=== PATIENT | male | born 1955 | race Caucasian/White ===

== ENCOUNTER 2016-08-09 00:26 | Inpatient (IN) | payer MEDICAID, OTHER ==
[2016-08-09] VITALS (25 sets, daily range): BP systolic 76–117; BP diastolic 34–60
[~2016-08-09] VITALS: Ht 185.4 cm; Wt 98.9 kg
[2016-08-09] MEDS ORDERED: ACETAMINOPHEN 650 MG/20.3 ML LIQUID UDC GT ONE (00:45)
[2016-08-09] MEDS ORDERED: ALBUMIN HUMAN 5% 250 ML IV ONE (00:45)
[2016-08-09] MEDS ORDERED: CHOL500050 GT (00:49)
[2016-08-09] MEDS ORDERED: DOCU100C36 PO (00:49)
[2016-08-09] MEDS ORDERED: APIX2.5T GT (00:49)
[2016-08-09] MEDS ORDERED: METO25TA6 GT (00:49)
[2016-08-09] MEDS ORDERED: MULT1TAB11 GT (00:49)
[2016-08-09] MEDS ORDERED: GABA100C GT (00:49)
[2016-08-09] MEDS ORDERED: LACT1CAP89 GT (00:49)
[2016-08-09] MEDS ORDERED: SEVE800T8 GT (00:49)
[2016-08-09 01:12] LABS: BASOPHILS # (AUTO) 0.1 K/uL (0.0-8.0); BASOPHILS % (AUTO) 0.7 % (0.0-2.0); LYMPHOCYTES # (AUTO) 2.3 K/uL (20.0-40.0); MEAN CORPUSCULAR VOLUME 87.9 fL (73.0-96.2)
[2016-08-09 01:16] LABS: EOSINOPHILS # (AUTO) 0.5 K/uL (0.0-0.7); EOSINOPHILS % (AUTO) 2.8 % (0.0-7.0); LYMPHOCYTES % (AUTO) 13.6 % (20.5-51.5); MEAN CORPUSCULAR HEMOGLOBIN 29.7 uug (23.8-33.4); MEAN CORPUSCULAR HGB CONC 34 g/dL (32.5-36.3); MONOCYTES % (AUTO) 11.7 % (0.0-11.0); NEUTROPHILS # (AUTO) 11.9 K/uL (1.8-8.9); NEUTROPHILS % (AUTO) 71.2 % (38.5-71.5); WHITE BLOOD COUNT (AUTO) 16.8 K/uL (3.6-10.2)
[2016-08-09] MEDS ORDERED: ACETAMINOPHEN 650 MG/20.3 ML LIQUID UDC ONE (01:22)
[2016-08-09] MEDS ORDERED: ALBUMIN HUMAN 5% 250 ML ONE ×2 (01:22→04:43)
[2016-08-09 01:23] LABS: MAGNESIUM 2.5 mg/dL (1.8-2.4); PHOSPHOROUS 4.9 mg/dL (2.5-4.9)
[2016-08-09 01:24] LABS: CREATININE 4.1 mg/dL (0.6-1.3)
[2016-08-09 01:25] LABS: BILIRUBIN,DIRECT 0.6 mg/dL (0.0-0.2); BILIRUBIN,TOTAL 0.8 mg/dL (0.2-1.0)
[2016-08-09 01:25] LABS: ABG BASE EXCESS -4.3 mmol/L; ABG HCO3 20.3 mmol/L; ABG PCO2 34.8 mmHg (35.0-45.0); ABG PH 7.384 (7.350-7.450); ABG PO2 100.5 mmHg (75.0-100.0); ABG SITE RIGHT BRACHIAL; ABG TOTAL HEMOGLOBIN 8.1 G/dL (13.5-18.0); COHb 1.3 % (0.5-1.5); MetHb 0.4 % (0.0-1.5); O2Hb 96.4 % (94.0-97.0); VENT MODE VENT - A/C; VT, ABG 550 mL
[2016-08-09 01:34] LABS: HEMOGLOBIN 7.2 g/dL (12.5-16.3); RED BLOOD CELL COUNT(AUTO) 2.42 MIL/uL (4.06-5.63)
[2016-08-09 01:35] LABS: HEMATOCRIT 21.3 % (36.7-47.1)
[2016-08-09 01:36] LABS: PLATELET COUNT (AUTO) 589 K/uL (152-348)
[2016-08-09 01:59] LABS: *BILIRUBIN,URIN 1+ (NEGATIVE); *BLOOD, URINE Trace-lysed (NEGATIVE); *CLARITY,URINE SLIGHTLY CLOUDY (CLEAR); *KETONES,URINE NEGATIVE (NEGATIVE); *PROTEIN,URINE 3+ (NEGATIVE); *UROBILINOGEN,URINE 0.2 E.U./dl (NORMAL); LEUKOCYTE ESTERASE ,URINE NEGATIVE (NEGATIVE); NITRITE, URINE NEGATIVE (NEGATIVE); UGLUCOSE 2+ (NEGATIVE)
[2016-08-09] MEDS ORDERED: PIPERACILLIN/TAZO 0.75 G in IV DEXTROSE 5% 50 ML IV STA (02:05)
[2016-08-09 02:07] LABS: BACTERIA,URINE MANY /HPF (NONE SEEN); SQUAMOUS EPITHELIAL CELL,UR MODERATE /HPF (NONE SEEN); URINE AMORPHOUS URATE MODERATE /HPF; WBC,URINE 20-50 /HPF (0-3)
[2016-08-09] MEDS ORDERED: VANCOMYCIN 1G/D5W 200 ML PIGGYBACK IV ONE (02:15)
--- NOTE | 2016-08-09 02:37 | NUR ---
PT BROUGHT IN BY RESCUE APPROX. 00:33 WITH VENTILATOR ON PT WITH SHILEY #[address] AND SECURED, PT THEN PLACED ON GODDARD VENT WITH SETTINGS, A/C 16, VT 550ML, 40%, PEEP 5, PT DOES ASSIST AT TIMES, CHECK CUFF, PT NOT RESPONDING TO VERBAL COMMANDS, SUCTION FOR SPUTUM DONE, ABG DONE IN ER, PT HAS SLIGHTLY LOW B/P , PT WITH ADEQUATE VENTILATION, NO VENT CHANGES MADE AT THIS TIME, ALL ALARMS OK, AMBU BAG AT BEDSIDE.Maame DE DIOSP Addendum: 08/09/16 at 0242 by JONNATHAN CHANDLER RT Amended: Links added.
--- NOTE | 2016-08-09 03:05 | NUR ---
Called Jay Alcala for a panal call. Waiting for MD to call back.
[2016-08-09] MEDS ORDERED: PIPERACILLIN/TAZOBACTAM/D5W 50 ML ONE (03:36)
[2016-08-09] MEDS ORDERED: ALBUMIN HUMAN 5% 250 ML BOTTLE IV ONE (04:00)
--- NOTE | 2016-08-09 05:28 | NUR ---
Pt remains on Burns on same settings (AC 16, VT 550, PEEP +5 and FIO2-40%). Shiley 8 DCT remains patent and secure. BVM and B/U Shiley 8 DCT at bedside. No resp. distress noted at this time. Burns alarm parameters have been checked and remain audible at this time.
--- NOTE | 2016-08-09 07:21 | NUR ---
rec'd sbar report from cristina rn, pt on vent monitor shows nsr.fowley cath to gravity. no distress noted 2nd albumin infused. presently awaiting for shift change prior to transfer.
--- NOTE | 2016-08-09 07:22 | NUR ---
SBAR report given to Richie MARIA.
--- NOTE | 2016-08-09 07:25 | NUR ---
pt transfered to [facility] via [facility] on vent/monitor with resp tx present for transfer.
--- NOTE | 2016-08-09 07:31 | NUR ---
called to notify pt transfer, however pt's bed awaiting first step mattress, and 2nd floor to call me back after it's done.
--- NOTE | 2016-08-09 07:45 | NUR ---
Patient received on Burns Vent with ordered settings of AC 16, VT 550, PEEP +5 and FIO2-40%. He is trached with Shiley 8# tube. CAR JOCKEY used for cuff assessment. Patient transfered to [facility] with the assistance of Alysia MARIA from ER. Placed continuous pulse ox to monitor vitals. Suctioned small amounts of thin pale white secretions without complications. He shows no signs of respiratory distress. Alarm parameters assessed and are on and audible Spare trach and ambu bag at bedside. Will continue to monitor.
--- NOTE | 2016-08-09 08:00 | NUR ---
received from ER per anna on mechanical ventilator with the settings as follows:AC 16, TV 550, FIO2 40% and PEEP 5, with tracheostomy Shiley #8, opens eyes when touched and name called but doesn't follow commands, Tele afib 90's, GT clamped at this time, routine admission care rendered, initial assessment done, first step mattress applied. Diaz cath draining greenish-yellowish urine. aspiration and fall risk initiated
[2016-08-09] MEDS ORDERED: DOSING BY PHARMACY-MD TO SPECIFY MED/ROUTE XX PRN (08:30)
[2016-08-09] MEDS ORDERED: Medication Not On Formulary EA (Apixaban (Eliquis) 2.5 MG) GT SCH (09:15)
[2016-08-09] MEDS ORDERED: Medication Not On Formulary EA (Cholecalciferol (Vitamin D3) (Vitamin D3 CAPSULE) 50,000 GT SCH (09:15)
[2016-08-09] MEDS ORDERED: APIXABAN 5 MG TABLET PO SCH (09:15)
[2016-08-09] MEDS ORDERED: METOPROLOL TARTRATE 25 MG TABLET GT SCH (09:15)
[2016-08-09] MEDS ORDERED: MULTIVITAMINS W MINERALS GT SCH (09:15)
--- NOTE | 2016-08-09 10:00 | NUR ---
Dr Dejesus here- informed of low BP 88/45, ordered 2 units of PRBC- i unit can be given when avail and 1 unit on dialysis, prestressed concrete laborer here to draw blood
--- NOTE | 2016-08-09 10:30 | NUR ---
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
[2016-08-09] MEDS: DOCUSATE SODIUM 100 MG/10 ML LIQUID UDC GT SCH ×2 (10:43→21:20)
[2016-08-09] MEDS: GABAPENTIN 100 MG CAPSULE GT SCH ×2 (10:44→21:20)
[2016-08-09] MEDS: FOLIC ACID/VITAMIN B COMP W-C TABLET GT SCH (10:44)
[2016-08-09] MEDS: ACIDOPHILUS/BULGARICUS CHEW TAB GT SCH ×2 (10:44→21:20)
[2016-08-09] MEDS: NOVASOURCE RENAL 1000 ML LIQUID GT PRN (11:28)
--- NOTE | 2016-08-09 11:30 | NUR ---
Tube fdg [facility] renal at 80ml/hr- no residual noted prior, repositioned q 2h with left heel off loaded with pillow, (decubitus on sacrum), below right knee amputee
--- NOTE | 2016-08-09 12:12 | NUR ---
Clinical Pharmacy Note: Vancomycin Dosing per Pharmacy Subjective: Vancomycin IV to continue on this HD patient for sepsis, pna (Waiting for MD notes) Patient received vancomycin 1gm IVPB x1 in ED on 08/09 at 0200 Objective: BUN 59/Scr 4.1 WBC 16.8 Temperature 98.3 Pre-HD level: 11.2 Assessment/Plan: HD scheduled for today per HD RN. Since level is below 15 mcg/ml, will give vancomycin 1gm IVPB x1 today post HD as per vanco dosing protocol for HD patients. Will continue to dose per pre-HD vancomycin level. Will continue to follow daily.
[2016-08-09] MEDS: SEVELAMER CARBONATE 800 MG POWD.PACK GT SCH ×2 (12:32→17:31)
--- NOTE | 2016-08-09 13:20 | NUR ---
BP 84/43- first unit of blood started, human resources advisor not here yet- will monitor closely
--- NOTE | 2016-08-09 14:00 | NUR ---
blood transfusion infusing without any reaction- will continue to monitor closely
[2016-08-09] MEDS: PIPERACILLIN/TAZOBACTAM/D5W 2.25 G in PREMIXED 1 EACH IV SCH ×2 (15:00→21:20)
[2016-08-09] MEDS ORDERED: DEXTROSE 50% 50 ML DISP.SYRIN IV PRN (15:15)
[2016-08-09] MEDS ORDERED: IV NORMAL SALINE 250 ML IV ONE (15:15)
[2016-08-09] MEDS ORDERED: ALBUMIN HUMAN 25% 100 ML IV ONE (16:15)
--- NOTE | 2016-08-09 16:20 | NUR ---
first unit completed- dialysis here - to give 2nd unit of PRBC
[2016-08-09] MEDS ORDERED: ALBUMIN HUMAN 25% 100 ML IV PRN (16:45)
[2016-08-09] MEDS ORDERED: LACTOBACILLUS ACIDOPHILUS C GT SCH (17:00)
[2016-08-09] MEDS: BLOOD SUGAR DIAGNOSTIC 1 EACH STRIP VI SCH (17:35)
[2016-08-09] MEDS ORDERED: VANCOMYCIN IV 1,500 MG in IV DEXTROSE 5% 500 ML IV ONE (18:00)
[2016-08-09] MEDS ORDERED: VANCOMYCIN IV 1 G in PREMIXED 0 EACH IV ONE (18:30)
--- NOTE | 2016-08-09 18:30 | NUR ---
dialysis completed, BP 84/46- 700 fluid out
--- NOTE | 2016-08-09 19:02 | NUR ---
vs taken BP 80/39, opens eyes when touched and name is called, still on a fib 96, remains on same vent settings, sat at 99%-endorsed to next shift
--- NOTE | 2016-08-09 19:38 | NUR ---
nsg: pt received lethargic. v/s as follows: bp 79/34, hr 99, bp 80/47 hr 97, temp 99.6F oral, 99% O2 sat with current vent setting, FIO2 of 40%. paged medical receptionist , Dr. Hudson.
[2016-08-09] MEDS ORDERED: ALBUMIN HUMAN 25% 100 ML IV STA (19:47)
[2016-08-09] MEDS ORDERED: IV NORMAL SALINE 500 ML IV ONE (20:00)
[2016-08-09] MEDS ORDERED: DOCUSATE SODIUM 100 MG CAPSULE PO SCH (21:00)
[2016-08-09] MEDS: ATORVASTATIN 40 MG TABLET PO SCH (21:20)
--- NOTE | 2016-08-09 21:36 | NUR ---
PT ON CONT GODDARD VENT WITH SHILEY #[address] AND SECURED WITH SAME CURRENT VENT SETTINGS, A/C 16, VT 550ML, 40%, PEEP 5, PT DOES ASSIST AT TIMES, BUT MOSTLY CONTROLLED VENTILATION, CHECK CUFF, SUCTIONED LIGHT PALE YELL TINGE PALE YELL TINGE SECRETIONS, FAIR COUGH EFFORT, PT WITH CONT PULSE OXY 98%, PT WITH LOW BP AT TIMES, MAY GO TO CCU LATER WITH RT ASSIST, ALL ALARMS OK, AMBU BAG AT BEDSIDE.Maame CHANDLER SYRUP MACHINE LABORER Addendum: 08/09/16 at 2139 by JONNATHAN CHANDLER RT Amended: Links added.
--- NOTE | 2016-08-09 21:56 | NUR ---
NSG: PT RECEIVED NS 500ML BOLUS AND 25% ALBUMIN X 2 BOTTLES. STILL HYPOTENSIVE. TRANSFER TO ICU. SEE MD ORDER.
--- NOTE | 2016-08-09 22:30 | NUR ---
NSG: TRANSFER TO ICU, REPORT GIVEN TO CANDACE ERVIN.
--- NOTE | 2016-08-09 22:35 | NUR ---
Received patient from 2nd floor secondary to sepsis and hypotension. To CCU 2. Patient with trache to vent; settings as follows: ZE=675 ml, AC=16, FIO2=40% and PEEP=5. Sat above 94%. Doesn't open eyes to name or follow any commands. Assessment completed. Addendum: 08/10/16 at 0239 by ARCADIO BOWIE RN Amended: Links added.
--- NOTE | 2016-08-09 22:41 | NUR ---
PT WITH RT ASSIST WITH TRANSPORT @ 22:11, PT WITH VENT, WITH TRACH; PT BEING AMBU BAGGED VIA TRACH BY RT, FROM 211, TO CCU2 WITH MONITOR AND PULSE OXY, PT STABLE. Maame CHANDLER ASSISTANT PRODUCT MANAGER Addendum: 08/09/16 at 2243 by JONNATHAN CHANDLER RT Amended: Links added.
[2016-08-09] MEDS ORDERED: NOREPINEPHRINE BITARTRATE 8 MG in IV DEXTROSE 5% 500 ML IV PRN (23:00)
--- NOTE | 2016-08-09 23:00 | NUR ---
Spoke with Dr. Tristan wade: patient's hypotension. Orders received. Rubber Turner Ulysses notified of the need for PICC line. Addendum: 08/10/16 at 0242 by ARCADIO BOWIE RN Amended: Links added. Addendum: 08/10/16 at 0243 by ARCADIO BOWIE RN Amended: Links added. Addendum: 08/10/16 at 0246 by ARCADIO BOWIE RN Amended: Links added. Addendum: 08/10/16 at 0249 by ARCADIO BOWIE RN Amended: Links added.
[2016-08-09] MEDS ORDERED: NOREPINEPHRINE BITARTRATE 4 MG/4 ML VIAL IV ONE (23:20)
--- NOTE | 2016-08-09 23:22 | NUR ---
Remains hypotensive. Levophed drip started for BP support to patent LFA IV site. BPs monitored closely. Addendum: 08/10/16 at 0243 by ARCADIO BOWIE RN Amended: Links added. Addendum: 08/10/16 at 0246 by ARCADIO BOWIE RN Amended: Links added. Addendum: 08/10/16 at 0249 by ARCADIO BOWIE RN Amended: Links added.
[2016-08-10] VITALS (94 sets, daily range): BP systolic 66–129; BP diastolic 21–80
[2016-08-10] MEDS: BLOOD SUGAR DIAGNOSTIC 1 EACH STRIP VI SCH ×4 (00:06→17:10)
[2016-08-10] MEDS: INSULIN REGULAR, HUMAN 300 UNIT/3 ML VIAL SQ PRN ×3 (00:08→17:13)
--- NOTE | 2016-08-10 00:15 | NUR ---
Spoke to patient's brother Bird. Consent for PICC line insertion obtained. Levophed drip titrate to keep MAP 65 and above.
--- NOTE | 2016-08-10 01:00 | NUR ---
Had a large diarrhea of liquid yellow brown stools. Specimen sent to lab for stool C. diff. Flexi seal inserted without difficulty. Bath given. Wound care treatment done to sacral wound. Addendum: 08/10/16 at 0249 by ARCADIO BOWIE RN Amended: Links added.
--- NOTE | 2016-08-10 01:00 | NUR ---
PICC line successfully inserted to DANYELLE by Brandon MARIA. Levophed drip attached to PICC line port. 2 other ports flushed with NS without problems. Addendum: 08/10/16 at 0246 by ARCADIO BOWIE RN Amended: Links added. Addendum: 08/10/16 at 0249 by ARCADIO BOWIE RN Amended: Links added.
--- NOTE | 2016-08-10 02:20 | NUR ---
Spoke to Dr. Hudson re: patient's HR; Afib rate 110's-120's. Order received. Levophed drip changed to Neosynephrine drip. BPs monitored closely. Addendum: 08/10/16 at 0329 by ARCADIO BOWIE RN Amended: Links added. Addendum: 08/10/16 at 0330 by ARCADIO BOWIE RN Amended: Links added.
[2016-08-10] MEDS ORDERED: PHENYLEPHRINE 10 MG/1 ML VIAL ONE (02:24)
[2016-08-10] MEDS: PHENYLEPHRINE IV 40 MG in IV DEXTROSE 5% 250 ML IV PRN ×3 (02:29→18:05)
--- NOTE | 2016-08-10 03:00 | NUR ---
Tube feeding held for now. Patient flat in bed most of the time due to hypotension. Also patient has large amounts of diarrhea.
--- NOTE | 2016-08-10 05:00 | NUR ---
PT ON CONT GODDARD VENT WITH SHILEY # [address] AND SECURED, WITH SAME CURRENT VENT SETTINGS, A/C 16, VT 550ML, 40%, PEEP 5, PT DOES ASSIST AT TIMES, SUCTIONED LIGHT PALE YELL TINGE SECRETIONS, FAIR COUGH EFFORT, PT HAS TAKEN TO CCU DUE TO LOW BP, WITH RT ASSIST; ALSO PT HAD PIC/ LINE IN PLACE, NO VENT CHANFES MADE AT THIS TIME, ALL ALARMS OK, AMBU BAG AT BEDSIDE.Maame CHANDLER ORTHO NURSE Addendum: 08/10/16 at 0503 by JONNATHAN CHANDLER RT Amended: Links added.
[2016-08-10 05:30] LABS: BASOPHILS # (AUTO) 0.1 K/uL (0.0-8.0); BASOPHILS % (AUTO) 0.8 % (0.0-2.0); EOSINOPHILS # (AUTO) 0.5 K/uL (0.0-0.7); EOSINOPHILS % (AUTO) 3.2 % (0.0-7.0); HEMATOCRIT 24.4 % (36.7-47.1); HEMOGLOBIN 7.9 g/dL (12.5-16.3); LYMPHOCYTES # (AUTO) 1.7 K/uL (20.0-40.0); LYMPHOCYTES % (AUTO) 10.3 % (20.5-51.5); MEAN CORPUSCULAR HEMOGLOBIN 28.5 uug (23.8-33.4); MEAN CORPUSCULAR HGB CONC 32 g/dL (32.5-36.3); MONOCYTES # (AUTO) 2.3 K/uL (2.0-10.0); MONOCYTES % (AUTO) 13.6 % (0.0-11.0); NEUTROPHILS # (AUTO) 12.4 K/uL (1.8-8.9); NEUTROPHILS % (AUTO) 72.1 % (38.5-71.5); PLATELET COUNT (AUTO) 556 K/uL (152-348); RED BLOOD CELL COUNT(AUTO) 2.77 MIL/uL (4.06-5.63)
[2016-08-10] MEDS: PIPERACILLIN/TAZOBACTAM/D5W 2.25 G in PREMIXED 1 EACH IV SCH ×2 (05:36→13:40)
[2016-08-10 05:41] LABS: BILIRUBIN,TOTAL 2.7 mg/dL (0.2-1.0); MAGNESIUM 2.4 mg/dL (1.8-2.4); PHOSPHOROUS 3.8 mg/dL (2.5-4.9); POTASSIUM 3.8 mmol/L (3.5-5.1); TOTAL PROTEIN, SERUM 6.7 g/dL (6.4-8.2)
[2016-08-10 05:45] LABS: CREATININE 3.6 mg/dL (0.6-1.3)
--- NOTE | 2016-08-10 07:00 | NUR ---
BPs stabilizing with Neosynephrine drip at 100 mcg/min.
--- NOTE | 2016-08-10 07:35 | NUR ---
PT RECEIVED ON GODDARD VENT #008 ON SETTINGS OF AC 16, VT550, PEEP +5, FIO2 40%. PT TRACH SIZE SHILEY 8DCT IS SECURED AND INTACT WITH TRACH TIE. PT WAS SUCTION VIA TRACH AND MOUTH. PT ORAL CARE WAS DONE RN AWARE. PT HME WAS CHANGED PT TRACH CUFF WAS CHECKED WITH PULP MIXER. PT VENT ALARMS ON AND AUDIBLE. PT AMBU-BAG AT BED SIDE. PT HAS NO PRN TX PT HAS NO BAG ORDER . WILL CONTINUE TO MONITOR PT THROUGHOUT SHIFT.
[2016-08-10] MEDS: GABAPENTIN 100 MG CAPSULE GT SCH ×2 (08:54→21:50)
[2016-08-10] MEDS: ACIDOPHILUS/BULGARICUS CHEW TAB GT SCH ×2 (08:54→21:50)
[2016-08-10] MEDS: FOLIC ACID/VITAMIN B COMP W-C TABLET GT SCH (08:54)
[2016-08-10] MEDS: PANTOPRAZOLE SODIUM 40 MG VIAL IV SCH (08:54)
[2016-08-10] MEDS: DOCUSATE SODIUM 100 MG/10 ML LIQUID UDC GT SCH ×2 (08:54→21:00)
[2016-08-10] MEDS: SEVELAMER CARBONATE 800 MG POWD.PACK GT SCH ×3 (08:55→17:07)
[2016-08-10] MEDS: HEPARIN SODIUM,PORCINE 5,000 UNITS/ML VIAL SQ SCH ×2 (08:58→21:00)
--- NOTE | 2016-08-10 10:44 | NUR ---
Clinical Pharmacy Note: Vancomycin Dosing per Pharmacy Subjective: Vancomycin IV to continue on this HD patient for sepsis,UTI, decub Objective: BUN 49/Scr 3.6 WBC 17 Temperature 99.6 Pre-HD level: 11.2 Assessment/Plan: No HD has been scheduled for today per HD RN. As per vanco dosing protocol for HD patients,no vanco dose is due today. Will continue to dose per pre-HD vancomycin level. Will continue to follow daily.
--- NOTE | 2016-08-10 10:45 | NUR ---
Dr. Hernandez in the unit to see patient.
[2016-08-10] MEDS: NOVASOURCE RENAL 1000 ML LIQUID GT PRN (10:53)
--- NOTE | 2016-08-10 11:30 | NUR ---
Andre Gallego in the unit to see patient full report given see orders.
--- NOTE | 2016-08-10 14:30 | NUR ---
Dr. Wade informed that patients diarrhea got worsen when patient started on feeding. Orders to stop feeding received. and place under main group.
--- NOTE | 2016-08-10 15:12 | NUR ---
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 BK STUMP NOTED TO RIGHT LOWER EXTREMITY. ALL SKIN AND WOUND RECOMMENDATIONS DISCUSSED WITH NURSING STAFF. IN AGREEMENT WITH PLAN OF CARE. [facility] BED WITH ETS AIR ORDERED. Addendum: 08/10/16 at 1514 by BONNY QUINONES RN Amended: Links added. Addendum: 08/10/16 at 1515 by BONNY QUINONES RN SURGICAL CONSULT RECOMMENDED.
[2016-08-10] MEDS ORDERED: DOSING PER PHARMACY-AMIKACIN IV XX PRN (15:15)
--- NOTE | 2016-08-10 16:33 | NUR ---
Clinical Pharmacy Note: Amikacin Dosing per Pharmacy Subjective: Amikacin IV to start on this HD patient for h/o pneumonia due to CRE, only sensitive to amkacin at SOH (per ID) ABW = 97 kg Objective: BUN 49/Scr 3.6 WBC 17 Temperature 99.6 Assessment/Plan: No HD has been scheduled for today per HD RN. Will give amikacin 1000mg IVPB x1 today (see adjusted body wt). Will further dose per pre-HD level (ordered for tomorrow- HD scheduled for tomorrow. Will continue to follow daily.
[2016-08-10] MEDS ORDERED: DEXTROSE 5% IV ONE (17:00)
[2016-08-10] MEDS ORDERED: AMIKACIN IV ONE (17:00)
[2016-08-10] MEDS: VANCOMYCIN FOR PO/GT/NG USE GT SCH (17:07)
[2016-08-10] MEDS: SODIUM HYPOCHLORITE 0.125% 473 ML BOTTLE TP SCH (17:07)
--- NOTE | 2016-08-10 18:00 | NUR ---
Dr. Wade in the unit to see patient.
--- NOTE | 2016-08-10 20:05 | NUR ---
Pt received on Burns vent with settings of AC 16, VT 550, Peep +5, FiO2 40%. Pt is trached with a Shiley 8DCT trach, secured with foam trach tie. Oral care done. No signs of respiratory distress noted at this time. Pt appears to be tolerating vent settings well. Suctioned and lavaged pt with moderate amount of pale secretions. Vent alarms checked, is functioning and audible. Ambu-bag at bedside. Will continue to monitor pt throughout shift.
[2016-08-10] MEDS ORDERED: LACTOBACILLUS RHAMNOSUS GG 1 EACH CAPSULE GT SCH (21:00)
[2016-08-10] MEDS: MEROPENEM 500 MG in IV NORMAL SALINE 50 ML IV SCH (21:49)
[2016-08-10] MEDS: ATORVASTATIN 40 MG TABLET PO SCH (21:50)
[2016-08-10] MEDS: METRONIDAZOLE 500 MG/NS 100ML 500 MG in PREMIXED 1 EACH IV SCH (21:50)
[2016-08-10] MEDS: Z GUARD REMEDY PASTE 57 GM TUBE TOP SCH (22:26)
[2016-08-11] VITALS (71 sets, daily range): BP systolic 81–114; BP diastolic 44–72
[2016-08-11] MEDS: VANCOMYCIN FOR PO/GT/NG USE GT SCH ×5 (00:33→23:24)
[2016-08-11] MEDS: BLOOD SUGAR DIAGNOSTIC 1 EACH STRIP VI SCH ×5 (00:34→23:25)
[2016-08-11] MEDS: INSULIN REGULAR, HUMAN 300 UNIT/3 ML VIAL SQ PRN ×2 (00:38→23:27)
[2016-08-11 06:13] LABS: BILIRUBIN,TOTAL 1.8 mg/dL (0.2-1.0); MAGNESIUM 2.2 mg/dL (1.8-2.4); PHOSPHOROUS 4.2 mg/dL (2.5-4.9); POTASSIUM 3.7 mmol/L (3.5-5.1); TOTAL PROTEIN, SERUM 6.2 g/dL (6.4-8.2); VANCOMYCIN,RANDOM 17.1 ug/mL (18.0-26.0)
[2016-08-11 06:18] LABS: CREATININE 4.4 mg/dL (0.6-1.3)
[2016-08-11] MEDS: PHENYLEPHRINE IV 40 MG in IV DEXTROSE 5% 250 ML IV PRN ×3 (06:22→18:19)
[2016-08-11] MEDS: METRONIDAZOLE 500 MG/NS 100ML 500 MG in PREMIXED 1 EACH IV SCH ×3 (06:22→21:23)
[2016-08-11] MEDS: PANTOPRAZOLE SODIUM 40 MG VIAL IV SCH (08:36)
[2016-08-11] MEDS: GABAPENTIN 100 MG CAPSULE GT SCH ×2 (08:37→20:50)
[2016-08-11] MEDS: ACIDOPHILUS/BULGARICUS CHEW TAB GT SCH ×2 (08:37→20:50)
[2016-08-11] MEDS: FOLIC ACID/VITAMIN B COMP W-C TABLET GT SCH (08:37)
[2016-08-11] MEDS: Z GUARD REMEDY PASTE 57 GM TUBE TOP SCH ×2 (08:37→20:58)
[2016-08-11] MEDS: SODIUM HYPOCHLORITE 0.125% 473 ML BOTTLE TP SCH (08:37)
[2016-08-11] MEDS: ERGOCALCIFEROL 50,000 UNIT CAPSULE GT SCH (08:39)
[2016-08-11] MEDS: SEVELAMER CARBONATE 800 MG POWD.PACK GT SCH ×3 (08:39→17:42)
[2016-08-11] MEDS: HEPARIN SODIUM,PORCINE 5,000 UNITS/ML VIAL SQ SCH ×2 (08:40→20:52)
[2016-08-11] MEDS: DOCUSATE SODIUM 100 MG/10 ML LIQUID UDC GT SCH ×2 (08:46→20:51)
[2016-08-11 09:19] LABS: ABG HCO3 19.8 mmol/L; ABG PCO2 35.7 mmHg (35.0-45.0); ABG PH 7.362 (7.350-7.450); ABG PO2 108.2 mmHg (75.0-100.0); ABG SITE RIGHT RADIAL; ABG TOTAL HEMOGLOBIN 9.4 G/dL (13.5-18.0); COHb 1.3 % (0.5-1.5); MetHb 0.4 % (0.0-1.5); O2Hb 96.5 % (94.0-97.0); VENT MODE VENT - A/C; VT, ABG 550 mL
[2016-08-11 10:40] LABS: BASOPHILS # (AUTO) 0.1 K/uL (0.0-8.0); BASOPHILS % (AUTO) 0.7 % (0.0-2.0); EOSINOPHILS # (AUTO) 0.5 K/uL (0.0-0.7); HEMATOCRIT 23.1 % (36.7-47.1); HEMOGLOBIN 7.5 g/dL (12.5-16.3); LYMPHOCYTES # (AUTO) 1.7 K/uL (20.0-40.0); LYMPHOCYTES % (AUTO) 12.4 % (20.5-51.5); MEAN CORPUSCULAR HEMOGLOBIN 28.2 uug (23.8-33.4); MEAN CORPUSCULAR HGB CONC 33 g/dL (32.5-36.3); MEAN CORPUSCULAR VOLUME 86.4 fL (73.0-96.2); MONOCYTES % (AUTO) 14.9 % (0.0-11.0); NEUTROPHILS # (AUTO) 9.1 K/uL (1.8-8.9); PLATELET COUNT (AUTO) 504 K/uL (152-348); RED BLOOD CELL COUNT(AUTO) 2.67 MIL/uL (4.06-5.63); WHITE BLOOD COUNT (AUTO) 13.4 K/uL (3.6-10.2)
--- NOTE | 2016-08-11 10:47 | NUR ---
Dr. Powell (transmission technician) here to see pt. Full report given. New orders received.
[2016-08-11 10:59] LABS: BAND % (MANUAL) 5 % (0-10); EOSINOPHILS % (MANUAL) 4 % (0-8); LYMPHOCYTES % (MANUAL) 14 % (20-40); MONOCYTES % (MANUAL) 11 % (2-10); NEUTROPHILS % (MANUAL) 66 % (42-75)
[2016-08-11] MEDS: POTASSIUM CHLORIDE 10 MEQ in IV D5 1/2 NS 1000 ML 1,000 ML IV PRN (11:47)
--- NOTE | 2016-08-11 12:30 | NUR ---
PT RECEIVED ON GODDARD VENT, VENT SETTINGS ARE AC 16, VT 550, Peep +5, FiO2 40%. STEPHENLEY 8 TRACH IS PATENT AND SECURED WITH TIES. NO SOB NOTED. SUCTIONED SMALL AMOUNT OF PALE YELLOW THICK SECRETIONS. ALARMS ARE ON AND AUDIBLE, BVM AND BACK UP TRACH AT BEDSIDE. WILL CONTINUE TO MONITOR.
[2016-08-11] MEDS ORDERED: EPOETIN ALFA 10,000 UNITS/ML VIAL IV ONE (13:00)
--- NOTE | 2016-08-11 14:31 | NUR ---
cath lab technologist here to see pt for dialysis.
--- NOTE | 2016-08-11 15:06 | NUR ---
1st unit of PRBC started with dialysis. Will closely monitor pt for any adverse blood transfusion reactions.
--- NOTE | 2016-08-11 15:40 | NUR ---
Clinical Pharmacy Note: Vancomycin & Amikacin Dosing per Pharmacy Subjective: Vancomycin IV to continue on this 60 yo male dialysis patient for sepsis,UTI, decub Amikacin IV to continue on this 60 yo male dialysis patient for h/o pneumonia due to CRE, only sensitive to amkacin at SOH (per ID) Objective: BUN 53/Scr 4.4 WBC 17 Temperature 98.4 Vancomycin Pre-HD level: 17.1 Amikacin pre-HD level: pending Assessment/Plan: HD is in progress now. As per vanco dosing protocol for HD patients, since vanco pre-HD level is between 15-20 mcg/ml, will give vancomycin 500mg IVPB x1 dose post HD today. Will continue to dose per pre-HD vancomycin level. Patient received amikacin 1000mg IVPB x1 dose on 08/10 at 1700. Will dose further as per amikacin pre-HD level. Waiting for amikacin pre-HD level results (per lab was sent to lab [facility]). Will continue to follow daily. Addendum: 08/11/16 at 1629 by JONNATHAN DEL CID ADM AMIKACIN LEVEL LESS THAN 2.5. WILL ORDER 7.5MG/KG =[id number] POST DIALYSIS TODAY
--- NOTE | 2016-08-11 16:00 | NUR ---
1st unit of PRBC completed. Pt tolerated blood transfusion well and nad noted or reported from the pt.
--- NOTE | 2016-08-11 16:05 | NUR ---
2nd unit of PRBC started with hemodialysis. Will continue to monitor for any adverse blood transfusion reactions.
[2016-08-11] MEDS ORDERED: AMIKACIN 750 MG in IV DEXTROSE 5% 100 ML IV SCH (16:30)
--- NOTE | 2016-08-11 17:29 | NUR ---
Dialysis completed. 1.5L of hemodialysis fluid removed. Pt stable and nad noted upon completion of dialysis.
[2016-08-11] MEDS ORDERED: VANCOMYCIN IV 500 MG in IV DEXTROSE 5% 100 ML IV ONE (17:40)
[2016-08-11] MEDS ORDERED: AMIKACIN 750 MG in IV DEXTROSE 5% 100 ML IV ONE (18:00)
--- NOTE | 2016-08-11 19:00 | NUR ---
Consent for sacral wound debridement signed by the brother. Brother alert and oriented during our conversation and is aware of the procedures to be done.
--- NOTE | 2016-08-11 19:03 | NUR ---
End of shift: Pt resting and dozing off in bed with fall precautions and safety measures maintained. IVF and IV vasopressors infusing as ordered. monitoring engineer and alarm working properly wnl. Pt on vent settings as follows: AC 16, TV 550, 40% FiO2, and PEEP-5. Pt on continuous bed turned and repositioned q2hrs. Pt stable and nad noted.
--- NOTE | 2016-08-11 19:09 | NUR ---
Pt resting and dozing off in bed with fall precautions and safety measures maintained. IVF and IV vasopressors infusing as ordered. cardiac monitor and alarm working properly wnl. Pt on vent settings as follows: AC 16, TV 550, 40% FiO2, and PEEP-5. Pt on continuous bed turned and repositioned q2hrs. Pt stable and nad noted.
--- NOTE | 2016-08-11 19:40 | NUR ---
Pt rec'd on Burns settings AC 16, VT 550, PEEP+5 and FIO2-40%. No resp. distress noted. Pt to be monitored throughout the shift and PRN SX. Oral care done. Shiley 8 is patent and secure; B/U Shiley 8 and BVM at bedside. Burns alarm parameters have been checked and remain audible.
[2016-08-11] MEDS: ATORVASTATIN 40 MG TABLET PO SCH (20:50)
[2016-08-11] MEDS: MEROPENEM 500 MG in IV NORMAL SALINE 50 ML IV SCH (20:51)
[2016-08-12] VITALS (52 sets, daily range): BP systolic 90–136; BP diastolic 51–87
[2016-08-12] MEDS: POTASSIUM CHLORIDE 10 MEQ in IV D5 1/2 NS 1000 ML 1,000 ML IV PRN ×2 (04:54→20:00)
[2016-08-12] MEDS: VANCOMYCIN FOR PO/GT/NG USE GT SCH ×3 (05:05→16:59)
[2016-08-12] MEDS: BLOOD SUGAR DIAGNOSTIC 1 EACH STRIP VI SCH ×3 (05:05→17:42)
[2016-08-12] MEDS: METRONIDAZOLE 500 MG/NS 100ML 500 MG in PREMIXED 1 EACH IV SCH ×3 (05:06→21:50)
--- NOTE | 2016-08-12 05:06 | NUR ---
Patient remains on Burns at this time with no changes made to the ventilator settings. No resp. distress noted throughout the shift and the pt was routinely sx'd. Shiley 8 remains patent and secure; B/U Shiley 8 and BVM at bedside. Burns alarm parameters have been checked and remain audible.
[2016-08-12 05:20] LABS: BASOPHILS # (AUTO) 0.1 K/uL (0.0-8.0); BASOPHILS % (AUTO) 0.6 % (0.0-2.0); EOSINOPHILS # (AUTO) 0.4 K/uL (0.0-0.7); EOSINOPHILS % (AUTO) 3.8 % (0.0-7.0); HEMATOCRIT 26.2 % (36.7-47.1); HEMOGLOBIN 8.8 g/dL (12.5-16.3); LYMPHOCYTES # (AUTO) 1.7 K/uL (20.0-40.0); LYMPHOCYTES % (AUTO) 14.3 % (20.5-51.5); MEAN CORPUSCULAR HEMOGLOBIN 29.4 uug (23.8-33.4); MEAN CORPUSCULAR HGB CONC 33 g/dL (32.5-36.3); MEAN CORPUSCULAR VOLUME 87.9 fL (73.0-96.2); MONOCYTES # (AUTO) 1.6 K/uL (2.0-10.0); MONOCYTES % (AUTO) 13.6 % (0.0-11.0); NEUTROPHILS # (AUTO) 7.9 K/uL (1.8-8.9); NEUTROPHILS % (AUTO) 67.7 % (38.5-71.5); PLATELET COUNT (AUTO) 461 K/uL (152-348); RED BLOOD CELL COUNT(AUTO) 2.98 MIL/uL (4.06-5.63); WHITE BLOOD COUNT (AUTO) 11.7 K/uL (3.6-10.2)
[2016-08-12 05:33] LABS: BILIRUBIN,TOTAL 2.4 mg/dL (0.2-1.0); PHOSPHOROUS 3.3 mg/dL (2.5-4.9); POTASSIUM 3.8 mmol/L (3.5-5.1); TOTAL PROTEIN, SERUM 6.5 g/dL (6.4-8.2)
[2016-08-12 05:55] LABS: CREATININE 3.5 mg/dL (0.6-1.3)
--- NOTE | 2016-08-12 07:14 | NUR ---
PT RECEIVED ON CMV WITH TRACH SECURED AND INTACT. AIRWAY PATENT. PT COMFORTABLE TOLERATING CURRENT VENT SETTINGS FINE WITH NO DISTRESS. VENT ALARM SET AND AUDIBLE. BREATH SOUNDS RHONHI. PRN SUCTIONING PERFORMED. PT HAD MODERATE AMOUNT OF OFF WHITE YELLOWISH SEMI THICK SECRETIONS.
--- NOTE | 2016-08-12 08:00 | NUR ---
Pt received resting and dozing off in bed with fall precautions and safety measures maintained. IVF and IV vasopressors infusing as ordered. monitoring engineer and alarm working properly wnl. Pt on vent settings as follows: AC 16, TV 550, 40% FiO2, and PEEP-5. Pt on continuous bed turned and repositioned q2hrs. Flexi-seal intact, irrigated, and draining properly. Diaz catheter intact and draining properly. Pt stable and nad noted.
[2016-08-12] MEDS: GABAPENTIN 100 MG CAPSULE GT SCH ×2 (08:30→21:49)
[2016-08-12] MEDS: ACIDOPHILUS/BULGARICUS CHEW TAB GT SCH ×2 (08:30→21:49)
[2016-08-12] MEDS: FOLIC ACID/VITAMIN B COMP W-C TABLET GT SCH (08:30)
[2016-08-12] MEDS: SEVELAMER CARBONATE 800 MG POWD.PACK GT SCH ×3 (08:30→17:00)
[2016-08-12] MEDS: PANTOPRAZOLE SODIUM 40 MG VIAL IV SCH (08:30)
--- NOTE | 2016-08-12 08:30 | NUR ---
Pt still noted to pass loose stool. AM docusate held.
[2016-08-12] MEDS: HEPARIN SODIUM,PORCINE 5,000 UNITS/ML VIAL SQ SCH ×2 (08:31→22:02)
[2016-08-12] MEDS: Z GUARD REMEDY PASTE 57 GM TUBE TOP SCH ×2 (08:33→22:02)
[2016-08-12] MEDS: DOCUSATE SODIUM 100 MG/10 ML LIQUID UDC GT SCH ×2 (08:34→21:00)
[2016-08-12 08:54] LABS: ABG BASE EXCESS -2.3 mmol/L; ABG HCO3 22.2 mmol/L; ABG PCO2 36.5 mmHg (35.0-45.0); ABG PH 7.401 (7.350-7.450); ABG PO2 92.8 mmHg (75.0-100.0); ABG SITE RIGHT RADIAL; ABG TOTAL HEMOGLOBIN 10.1 G/dL (13.5-18.0); MetHb 0.3 % (0.0-1.5); O2Hb 96.2 % (94.0-97.0); VENT MODE VENT - A/C16; VT, ABG 550 mL
[2016-08-12] MEDS: PHENYLEPHRINE IV 40 MG in IV DEXTROSE 5% 250 ML IV PRN (08:54)
[2016-08-12] MEDS: SODIUM HYPOCHLORITE 0.125% 473 ML BOTTLE TP SCH (09:19)
--- NOTE | 2016-08-12 09:48 | NUR ---
Dr. Powell here to see pt. Full report given. New orders received.
--- NOTE | 2016-08-12 10:27 | NUR ---
Clinical Pharmacy Note: Vancomycin & Amikacin Dosing per Pharmacy Subjective: Vancomycin IV to continue on this 60 yo male dialysis patient for sepsis,UTI, decub Amikacin IV to continue on this 60 yo male dialysis patient for h/o pneumonia due to CRE, only sensitive to amkacin at SOH (per ID) Objective: BUN 34/Scr 3.5 WBC 11.7 Temperature 98.6 Assessment/Plan: No HD has been scheduled for today. NO amikacin dose or vanco dose shall be given today. Will continue to dose both vanco & amikacin per pre-HD level. Per HD wood barker, HD has been scheduled for 08/13. Ordered pre-HD level for both amikacin & vancomycin for 08/13 with am labs Will continue to follow daily.
--- NOTE | 2016-08-12 18:02 | NUR ---
PT REMAINS ON CMV . NO CHANGES MADE. NO EPISODE OF RESP DISTRESS. VENT ALARMS REMAIN SET AND AUDIBLE.
--- NOTE | 2016-08-12 18:45 | NUR ---
End of shift: Pt resting and dozing off in bed with fall precautions and safety measures maintained. IVF infusing as ordered. IV theresa off since 1500. slasher and alarm working properly wnl. Pt on vent settings as follows: AC 16, TV 550, 40% FiO2, and PEEP-5. Pt on continuous bed turned and repositioned q2hrs. Flexi-seal intact, irrigated, and draining properly. Diaz catheter intact and draining properly. Pt stable and nad noted.
--- NOTE | 2016-08-12 19:52 | NUR ---
Received pt awake, on Burns vent with the following settings of AC-16, VT-550, PEEP+5, FIO2-40%, trached with Shiley#8 DCT trach, which is in place and secure. No s/s of respiratory distress noted. Airway care done, pt responded to physical stimuli. Resus. bag and back up trach at bedside. Vent and alarms on and audible.
[2016-08-12] MEDS: ATORVASTATIN 40 MG TABLET PO SCH (21:49)
[2016-08-12] MEDS: PIPERACILLIN/TAZOBACTAM/D5W 2.25 G in PREMIXED 1 EACH IV SCH (21:51)
[2016-08-13] VITALS (53 sets, daily range): BP systolic 74–130; BP diastolic 44–81
[2016-08-13] MEDS: VANCOMYCIN FOR PO/GT/NG USE GT SCH ×5 (00:36→23:30)
[2016-08-13] MEDS: BLOOD SUGAR DIAGNOSTIC 1 EACH STRIP VI SCH ×5 (00:37→23:31)
[2016-08-13] MEDS: INSULIN REGULAR, HUMAN 300 UNIT/3 ML VIAL SQ PRN (00:41)
[2016-08-13] MEDS: PHENYLEPHRINE IV 40 MG in IV DEXTROSE 5% 250 ML IV PRN (02:01)
--- NOTE | 2016-08-13 05:47 | NUR ---
Cont. monitor pt on present vent settings. During the shift no respiratory distress noted. Present vent settings pt tolerated well, no changes made. Sx and lavage prn. Oral care done. Resus. bag at bedside. Vent and alarms checked and reset.
[2016-08-13] MEDS: PIPERACILLIN/TAZOBACTAM/D5W 2.25 G in PREMIXED 1 EACH IV SCH ×3 (06:10→21:55)
[2016-08-13] MEDS: METRONIDAZOLE 500 MG/NS 100ML 500 MG in PREMIXED 1 EACH IV SCH ×3 (06:10→22:40)
[2016-08-13 06:26] LABS: BASOPHILS # (AUTO) 0.1 K/uL (0.0-8.0); BASOPHILS % (AUTO) 0.6 % (0.0-2.0); EOSINOPHILS # (AUTO) 0.4 K/uL (0.0-0.7); EOSINOPHILS % (AUTO) 3.1 % (0.0-7.0); HEMOGLOBIN 8.9 g/dL (12.5-16.3); LYMPHOCYTES # (AUTO) 1.8 K/uL (20.0-40.0); LYMPHOCYTES % (AUTO) 13.3 % (20.5-51.5); MEAN CORPUSCULAR HEMOGLOBIN 28.9 uug (23.8-33.4); MEAN CORPUSCULAR HGB CONC 33 g/dL (32.5-36.3); MONOCYTES # (AUTO) 1.6 K/uL (2.0-10.0); MONOCYTES % (AUTO) 11.9 % (0.0-11.0); NEUTROPHILS % (AUTO) 71.1 % (38.5-71.5); PLATELET COUNT (AUTO) 509 K/uL (152-348); RED BLOOD CELL COUNT(AUTO) 3.07 MIL/uL (4.06-5.63); WHITE BLOOD COUNT (AUTO) 13.9 K/uL (3.6-10.2)
[2016-08-13 06:32] LABS: BILIRUBIN,TOTAL 1.6 mg/dL (0.2-1.0); MAGNESIUM 2.2 mg/dL (1.8-2.4); PHOSPHOROUS 4.5 mg/dL (2.5-4.9); POTASSIUM 3.9 mmol/L (3.5-5.1); TOTAL PROTEIN, SERUM 6.3 g/dL (6.4-8.2); VANCOMYCIN,RANDOM 17.6 ug/mL (18.0-26.0)
[2016-08-13 06:37] LABS: CREATININE 4.5 mg/dL (0.6-1.3)
--- NOTE | 2016-08-13 07:15 | NUR ---
Report received.Pt remains responsive to tactile stimuli only.No s/s of pain,discomfort.Trach to vent,tolerated well.Afib on monitor.Remains on Neosinephrine gtt to support SBP.GT feeding remains to be off.Turned,repositioned.Will continue to monitor.
[2016-08-13] MEDS: SEVELAMER CARBONATE 800 MG POWD.PACK GT SCH ×3 (08:00→17:46)
[2016-08-13] MEDS: DOCUSATE SODIUM 100 MG/10 ML LIQUID UDC GT SCH ×2 (09:00→21:00)
[2016-08-13] MEDS: ACIDOPHILUS/BULGARICUS CHEW TAB GT SCH ×2 (09:00→20:51)
[2016-08-13] MEDS: GABAPENTIN 100 MG CAPSULE GT SCH ×2 (09:00→20:51)
[2016-08-13] MEDS: FOLIC ACID/VITAMIN B COMP W-C TABLET GT SCH (09:00)
[2016-08-13 09:17] LABS: ABG BASE EXCESS -4.7 mmol/L; ABG PH 7.405 (7.350-7.450); ABG PO2 101.5 mmHg (75.0-100.0); ABG SITE RIGHT RADIAL; ABG TOTAL HEMOGLOBIN 11.9 G/dL (13.5-18.0); COHb 1.1 % (0.5-1.5); MetHb 0.4 % (0.0-1.5); O2Hb 96.7 % (94.0-97.0); VENT MODE VENT - A/C
[2016-08-13] MEDS: Z GUARD REMEDY PASTE 57 GM TUBE TOP SCH ×2 (09:56→20:52)
[2016-08-13] MEDS: PANTOPRAZOLE ORAL SUSPENSION 40 MG SUSPDR.PKT GT SCH (09:56)
[2016-08-13] MEDS: SODIUM HYPOCHLORITE 0.125% 473 ML BOTTLE TP SCH (09:58)
[2016-08-13] MEDS: HEPARIN SODIUM,PORCINE 5,000 UNITS/ML VIAL SQ SCH ×2 (10:04→21:14)
[2016-08-13] MEDS: POTASSIUM CHLORIDE 10 MEQ in IV D5 1/2 NS 1000 ML 1,000 ML IV PRN (11:33)
[2016-08-13] MEDS ORDERED: ALBUMIN HUMAN 25% 100 ML IV ONE (14:00)
--- NOTE | 2016-08-13 15:00 | NUR ---
Hemodialysis started at bedside.Report given to dialysis nurse.
--- NOTE | 2016-08-13 16:52 | NUR ---
Clinical Pharmacy Note: Vancomycin Dosing per Pharmacy Subjective: Vancomycin IV to continue on this 60 yo male dialysis patient for sepsis,UTI, decub (Amakacin d/c'd) Objective: BUN 37/Scr 4.5 WBC 13.9 Temperature 98.6 pre HD Level 17.6 Assessment/Plan: HD has been scheduled for today. Per pre HD levelwill dose vanco 500mg x 1, dose due after HD at 1530. Will continue to dose vanco per pre-HD level. Will continue to follow daily.
[2016-08-13] MEDS ORDERED: VANCOMYCIN IV 500 MG in IV DEXTROSE 5% 100 ML IV ONE (17:30)
--- NOTE | 2016-08-13 18:00 | NUR ---
RECEIVED PT ON SETTINGS OF AC 16, VT 550,PEEP 5 AND [id number]%. AWAKE AND RESPONSIVE WITH NO DISTRESS. SUCTIONED FOR MODERATE AMOUNT OF THICK WHITISH PHLEGM POST ORAL CARE. ABG DONE WITH RESULT GIVEN TO CANDACE MCCORD. NO NEW ORDER GIVEN FOR RESPIRATORY.
--- NOTE | 2016-08-13 18:30 | NUR ---
Pt turned,repositioned.Dressing change to picc line,coccyx.Pt tolerated well.
--- NOTE | 2016-08-13 19:30 | NUR ---
Report received. Spoke to re: wound consult. As per MD Dr. Morrison see patient in consultation either tonight or tomorrow. Addendum: 08/13/16 at 2243 by ARCADIO BOWIE RN Amended: Links added.
--- NOTE | 2016-08-13 20:00 | NUR ---
Patient opens eyes to name. With facial grimacing to pain. Trache to vent with settings: FM=383 ml, AC=16, FIO2=40% and PEEP=5 cm. Sat satisfactory. bus driver/monitor Afib rate 120's. Assessment completed. Addendum: 08/13/16 at 2246 by ARCADIO BOWIE RN Amended: Links added. Addendum: 08/13/16 at 2254 by ARCADIO BOWIE RN Amended: Links added. Addendum: 08/13/16 at 2256 by ARCADIO BOWIE RN Amended: Links added.
--- NOTE | 2016-08-13 20:12 | NUR ---
Patient received on [employer] Burns settings A/C 16, VT 550, PEEP+5 and FIO2-40%. No resp. distress noted. Pt to be monitored throughout the shift and PRN SX. Oral care done. Shiley 8 is patent and secure; B/U Shiley 8 and BVM at bedside. Burns alarm parameters have been checked and remain audible.
--- NOTE | 2016-08-13 20:15 | NUR ---
Spoke to Dr. Hernandez re: patient's HR. Order received. Turned and repositioned. GT feedings restarted at 20 ml/H. Will monitor. Addendum: 08/13/16 at 2254 by ARCADIO BOWIE RN Amended: Links added. Addendum: 08/13/16 at 2256 by ARCADIO BOWIE RN Amended: Links added.
[2016-08-13] MEDS ORDERED: CARVEDILOL 3.125 MG TABLET GT ONE (20:30)
[2016-08-13] MEDS: ATORVASTATIN 40 MG TABLET PO SCH (20:51)
[2016-08-13] MEDS: NOVASOURCE RENAL 1000 ML LIQUID GT PRN (20:52)
[2016-08-14] VITALS (23 sets, daily range): BP systolic 81–124; BP diastolic 49–71
[2016-08-14] MEDS: POTASSIUM CHLORIDE 10 MEQ in IV D5 1/2 NS 1000 ML 1,000 ML IV PRN (02:06)
--- NOTE | 2016-08-14 04:00 | NUR ---
Wound care treatment done. Awaiting for debridement by Dr. Morrison. Addendum: 08/14/16 at 0651 by ARCADIO BOWIE RN Amended: Links added.
[2016-08-14 04:55] LABS: *OCCULT BLOOD STOOL POSITIVE (NEGATIVE)
[2016-08-14 05:00] LABS: PHOSPHOROUS 4.3 mg/dL (2.5-4.9); POTASSIUM 3.6 mmol/L (3.5-5.1)
[2016-08-14 05:08] LABS: CREATININE 4.1 mg/dL (0.6-1.3)
[2016-08-14 05:13] LABS: BASOPHILS # (AUTO) 0.1 K/uL (0.0-8.0); BASOPHILS % (AUTO) 0.8 % (0.0-2.0); EOSINOPHILS # (AUTO) 0.5 K/uL (0.0-0.7); HEMATOCRIT 27.1 % (36.7-47.1); HEMOGLOBIN 9.3 g/dL (12.5-16.3); LYMPHOCYTES # (AUTO) 1.6 K/uL (20.0-40.0); MEAN CORPUSCULAR HEMOGLOBIN 30.4 uug (23.8-33.4); MEAN CORPUSCULAR HGB CONC 34 g/dL (32.5-36.3); MEAN CORPUSCULAR VOLUME 88.5 fL (73.0-96.2); MONOCYTES # (AUTO) 1.1 K/uL (2.0-10.0); MONOCYTES % (AUTO) 8.6 % (0.0-11.0); NEUTROPHILS % (AUTO) 74.6 % (38.5-71.5); PLATELET COUNT (AUTO) 485 K/uL (152-348); RED BLOOD CELL COUNT(AUTO) 3.07 MIL/uL (4.06-5.63); WHITE BLOOD COUNT (AUTO) 13.3 K/uL (3.6-10.2)
--- NOTE | 2016-08-14 06:00 | NUR ---
Flexi seal irrigated gently; passing large amounts of flatus. No neuro changes; opens eyes to name. Grimaces to pain.
[2016-08-14] MEDS: PIPERACILLIN/TAZOBACTAM/D5W 2.25 G in PREMIXED 1 EACH IV SCH ×3 (06:12→22:37)
[2016-08-14] MEDS: VANCOMYCIN FOR PO/GT/NG USE GT SCH ×4 (06:12→23:51)
[2016-08-14] MEDS: BLOOD SUGAR DIAGNOSTIC 1 EACH STRIP VI SCH ×4 (06:19→23:53)
[2016-08-14] MEDS: INSULIN REGULAR, HUMAN 300 UNIT/3 ML VIAL SQ PRN (06:24)
[2016-08-14] MEDS: METRONIDAZOLE 500 MG/NS 100ML 500 MG in PREMIXED 1 EACH IV SCH ×3 (06:36→22:02)
--- NOTE | 2016-08-14 07:45 | NUR ---
RECEIVED PT ON CONTINUOUS VENT. SHILEY [address] AND SECURED[address] BVM AT BEDSIDE. SUCTION PRN. ORAL CARE DONE. VENT CHECKED, ALARMS WORKING WELL AND AUDIBLE. WILL CONTINUE TO MONITOR. NO DISTRESS NOTED AT THIS TIME.
[2016-08-14] MEDS: FOLIC ACID/VITAMIN B COMP W-C TABLET GT SCH (08:08)
[2016-08-14] MEDS: ACIDOPHILUS/BULGARICUS CHEW TAB GT SCH ×2 (08:08→20:42)
[2016-08-14] MEDS: GABAPENTIN 100 MG CAPSULE GT SCH ×2 (08:09→20:42)
[2016-08-14] MEDS: PANTOPRAZOLE ORAL SUSPENSION 40 MG SUSPDR.PKT GT SCH (08:09)
[2016-08-14] MEDS: Z GUARD REMEDY PASTE 57 GM TUBE TOP SCH ×2 (08:09→20:42)
[2016-08-14] MEDS: SODIUM HYPOCHLORITE 0.125% 473 ML BOTTLE TP SCH (08:10)
[2016-08-14] MEDS: HEPARIN SODIUM,PORCINE 5,000 UNITS/ML VIAL SQ SCH ×2 (08:14→21:20)
--- NOTE | 2016-08-14 08:30 | NUR ---
Dr. Burton in the unit to see patient, report given orders received. Addendum: 08/14/16 at 0850 by CLEVE GIVENS RN see orders.
[2016-08-14 09:22] LABS: ABG BASE EXCESS -4.9 mmol/L; ABG HCO3 18.9 mmol/L; ABG PCO2 30.7 mmHg (35.0-45.0); ABG PH 7.408 (7.350-7.450); ABG PO2 99.5 mmHg (75.0-100.0); ABG SITE RIGHT RADIAL; ABG TOTAL HEMOGLOBIN 10.4 G/dL (13.5-18.0); COHb 0.7 % (0.5-1.5); MetHb 0.2 % (0.0-1.5); O2Hb 96.9 % (94.0-97.0); VENT MODE VENT - A/C; VT, ABG 550 mL
--- NOTE | 2016-08-14 11:12 | NUR ---
Dr. Hernandez in the unit to examine patient, report given see orders.
[2016-08-14] MEDS: PEPTAMEN AF 1000ML BAG GT PRN (11:48)
--- NOTE | 2016-08-14 14:05 | NUR ---
Clinical Pharmacy Note: Vancomycin Dosing per Pharmacy Subjective: Vancomycin IV to continue on this 60 yo male dialysis patient for sepsis,UTI, decub Objective: BUN 30/Scr 4.1 WBC 13.3 Temperature 98.8 Assessment/Plan: No HD has been scheduled for today. No dose shall be due today as per vancomycin dosing protocol for HD patients. Will continue to dose vanco per pre-HD level. Will continue to follow daily.
--- NOTE | 2016-08-14 14:10 | NUR ---
Dr. Powell in the unit to see patient full report given see orders.
--- NOTE | 2016-08-14 14:34 | NUR ---
At this time Dr. Hernandez called to be notified that patient is been running blood pressure in the high 80's with map above 60's. Orders to monitor patient and keep him off neosyhephrine as long as SBP above 88 and map above 60's.
--- NOTE | 2016-08-14 14:59 | NUR ---
at this time Vent changes to rate of 14, 550 TV, and FIO2 35%, Peep + 5.
--- NOTE | 2016-08-14 15:00 | NUR ---
BUR DECREASED TO 14, FIO2 TITRATED TO 35% TO KEEP SPO2 > 94% PER MD ORDER.
[2016-08-14] MEDS ORDERED: VANCOMYCIN IV 500 MG in IV DEXTROSE 5% 100 ML IV ONE (16:00)
--- NOTE | 2016-08-14 17:59 | NUR ---
Dr. Gagan Thomas in the unit to examine patient.
--- NOTE | 2016-08-14 19:30 | NUR ---
Report received. Patient lethargic, with trache to vent with settings as follows: Ac=14, FIO2=35%, QH=694 ml and PEEP=5 cm. Sat above 94%. Assessment done. Turned and repositioned. Addendum: 08/14/16 at 2253 by ARCADIO BOWIE RN Amended: Links added.
--- NOTE | 2016-08-14 20:00 | NUR ---
GT feedings tolerated; rate increased to 30 ml/H. Addendum: 08/15/16 at 0227 by ARCADIO BOWIE RN Amended: Links added.
--- NOTE | 2016-08-14 20:05 | NUR ---
Received pt on Burns vent with settings of AC 14, VT 550, Peep +5, FiO2 35%. Pt is trached with a Porfirio 8DCT trach, secured with foam trach tie. Pt tolerating vent settings well, no signs of respiratory distress noted at this time. Suctioned and lavaged pt with moderate amount of pale secretions. Vent alarms checked, is functioning and audible. Ambu-bag and back-up trach at bedside. Will continue to monitor pt throughout shift.
[2016-08-14] MEDS: ATORVASTATIN 40 MG TABLET PO SCH (20:42)
[2016-08-15] VITALS (22 sets, daily range): BP systolic 91–122; BP diastolic 47–74
--- NOTE | 2016-08-15 04:00 | NUR ---
Am care done. Patient AA, but still not following commands. Wound care treatment done. Addendum: 08/15/16 at 0721 by ARCADIO BOWIE RN Amended: Links added.
[2016-08-15 04:57] LABS: BASOPHILS # (AUTO) 0.1 K/uL (0.0-8.0); BASOPHILS % (AUTO) 0.8 % (0.0-2.0); EOSINOPHILS # (AUTO) 0.8 K/uL (0.0-0.7); EOSINOPHILS % (AUTO) 6.4 % (0.0-7.0); HEMATOCRIT 29.3 % (36.7-47.1); HEMOGLOBIN 9.8 g/dL (12.5-16.3); LYMPHOCYTES # (AUTO) 1.8 K/uL (20.0-40.0); LYMPHOCYTES % (AUTO) 14.7 % (20.5-51.5); MEAN CORPUSCULAR HEMOGLOBIN 29.3 uug (23.8-33.4); MEAN CORPUSCULAR HGB CONC 33 g/dL (32.5-36.3); MEAN CORPUSCULAR VOLUME 87.6 fL (73.0-96.2); MONOCYTES # (AUTO) 1.1 K/uL (2.0-10.0); NEUTROPHILS # (AUTO) 8.3 K/uL (1.8-8.9); NEUTROPHILS % (AUTO) 69.1 % (38.5-71.5); PLATELET COUNT (AUTO) 512 K/uL (152-348); RED BLOOD CELL COUNT(AUTO) 3.34 MIL/uL (4.06-5.63); WHITE BLOOD COUNT (AUTO) 12.1 K/uL (3.6-10.2)
[2016-08-15 05:02] LABS: MAGNESIUM 2.2 mg/dL (1.8-2.4); PHOSPHOROUS 5.4 mg/dL (2.5-4.9); POTASSIUM 3.7 mmol/L (3.5-5.1)
[2016-08-15 05:10] LABS: CREATININE 4.7 mg/dL (0.6-1.3)
[2016-08-15] MEDS: METRONIDAZOLE 500 MG/NS 100ML 500 MG in PREMIXED 1 EACH IV SCH ×3 (05:40→21:14)
[2016-08-15] MEDS: VANCOMYCIN FOR PO/GT/NG USE GT SCH ×4 (05:42→23:02)
[2016-08-15] MEDS: Z GUARD REMEDY PASTE 57 GM TUBE TOP PRN (05:44)
[2016-08-15] MEDS: BLOOD SUGAR DIAGNOSTIC 1 EACH STRIP VI SCH ×4 (05:46→23:04)
[2016-08-15] MEDS: PIPERACILLIN/TAZOBACTAM/D5W 2.25 G in PREMIXED 1 EACH IV SCH ×3 (06:20→22:55)
--- NOTE | 2016-08-15 07:17 | NUR ---
Pt rec'd on Burns, settings AC14 550vt Peep+5 35%FiO2. Pt is trached with a Yisselley 8DCT trach, secured with foam trach tie. Pt tolerating vent settings well, no signs of respiratory distress noted at this time. Lavaged/sxn'd pt with moderate amount of pale secretions. Vent alarms audible checked and reset. Ambu-bag and back-up trach at bedside. Will continue to monitor and report any changes..
--- NOTE | 2016-08-15 07:30 | NUR ---
Dr. Martin in the unit to see patient/ full report given, see orders.
[2016-08-15] MEDS: FOLIC ACID/VITAMIN B COMP W-C TABLET GT SCH (08:18)
[2016-08-15] MEDS: PANTOPRAZOLE ORAL SUSPENSION 40 MG SUSPDR.PKT GT SCH (08:18)
[2016-08-15] MEDS: ACIDOPHILUS/BULGARICUS CHEW TAB GT SCH ×2 (08:18→20:18)
[2016-08-15] MEDS: GABAPENTIN 100 MG CAPSULE GT SCH ×2 (08:19→20:18)
[2016-08-15] MEDS: HEPARIN SODIUM,PORCINE 5,000 UNITS/ML VIAL SQ SCH ×2 (08:19→20:18)
[2016-08-15] MEDS: Z GUARD REMEDY PASTE 57 GM TUBE TOP SCH ×2 (08:20→20:19)
[2016-08-15] MEDS: SODIUM HYPOCHLORITE 0.125% 473 ML BOTTLE TP SCH (08:20)
--- NOTE | 2016-08-15 08:36 | NUR ---
Dr. Hernandez in the unit to see patient, full report given see orders.
[2016-08-15 09:09] LABS: ABG BASE EXCESS -5.9 mmol/L; ABG PCO2 30.2 mmHg (35.0-45.0); ABG PH 7.394 (7.350-7.450); ABG PO2 106.2 mmHg (75.0-100.0); ABG SITE RIGHT RADIAL; ABG TOTAL HEMOGLOBIN 10.1 G/dL (13.5-18.0); COHb 0.7 % (0.5-1.5); MetHb 0.3 % (0.0-1.5); O2Hb 97.2 % (94.0-97.0); VENT MODE VENT - A/C14; VT, ABG 550 mL
[2016-08-15] MEDS: ASPIRIN 81 MG TAB.CHEW GT SCH (09:18)
--- NOTE | 2016-08-15 11:49 | NUR ---
Clinical Pharmacy Note: Vancomycin Dosing per Pharmacy Subjective: Vancomycin IV to continue on this 60 yo male dialysis patient for sepsis,UTI, decub Objective: BUN 34/Scr 4.7 WBC 12.1 Temperature 97.7 pre HD Level 19.4 Assessment/Plan: HD has been scheduled for today. Per pre HD level (below 20 mcg/ml), will dose vancomycin 500mg x 1, post HD today. Will continue to dose vancomycin per pre-HD level. Will continue to follow daily.
[2016-08-15] MEDS: PEPTAMEN AF 1000ML BAG GT PRN (13:10)
--- NOTE | 2016-08-15 14:20 | NUR ---
hemodialysis in progress.
[2016-08-15] MEDS ORDERED: EPOETIN ALFA 10,000 UNITS/ML VIAL IV ONE (14:30)
[2016-08-15] MEDS ORDERED: VANCOMYCIN IV 500 MG in IV DEXTROSE 5% 100 ML IV ONE (17:00)
--- NOTE | 2016-08-15 19:18 | NUR ---
Received pt on Burns vent with the following settings of AC-14, VT-550, PEEP+5, FIO2-35%, trached with Shiley#8 DCT trach, which is in place and secure. No s/s of respiratory distress noted. Airway care done, pt responded to physical stimuli. Resus. bag and back up trach at bedside. Vent and alarms checked and reset.
[2016-08-15] MEDS: ATORVASTATIN 40 MG TABLET PO SCH (20:18)
[2016-08-15] MEDS: INSULIN REGULAR, HUMAN 300 UNIT/3 ML VIAL SQ PRN (23:03)
[2016-08-16] VITALS (12 sets, daily range): BP systolic 86–103; BP diastolic 47–69
[2016-08-16 04:58] LABS: BASOPHILS % (AUTO) 0.3 % (0.0-2.0); EOSINOPHILS # (AUTO) 0.5 K/uL (0.0-0.7); EOSINOPHILS % (AUTO) 3.1 % (0.0-7.0); HEMOGLOBIN 9.2 g/dL (12.5-16.3); LYMPHOCYTES # (AUTO) 1.6 K/uL (20.0-40.0); LYMPHOCYTES % (AUTO) 9.8 % (20.5-51.5); MEAN CORPUSCULAR HGB CONC 33 g/dL (32.5-36.3); MEAN CORPUSCULAR VOLUME 88.1 fL (73.0-96.2); MONOCYTES # (AUTO) 1.3 K/uL (2.0-10.0); MONOCYTES % (AUTO) 7.9 % (0.0-11.0); NEUTROPHILS # (AUTO) 12.8 K/uL (1.8-8.9); NEUTROPHILS % (AUTO) 78.9 % (38.5-71.5); PLATELET COUNT (AUTO) 422 K/uL (152-348); RED BLOOD CELL COUNT(AUTO) 3.18 MIL/uL (4.06-5.63); WHITE BLOOD COUNT (AUTO) 16.2 K/uL (3.6-10.2)
[2016-08-16] MEDS: VANCOMYCIN FOR PO/GT/NG USE GT SCH ×4 (05:05→23:37)
[2016-08-16] MEDS: METRONIDAZOLE 500 MG/NS 100ML 500 MG in PREMIXED 1 EACH IV SCH ×3 (05:05→21:23)
--- NOTE | 2016-08-16 05:06 | NUR ---
Pt asleep. During the shift no respiratory distress noted. Present vent settings pt tolerated well, no changes made. Sx and lavage PRN. HME and Sx Anderson changed. Oral care done. Resus. bag and back up trach at bedside. Vent and alarms on and audible.
[2016-08-16 05:07] LABS: BILIRUBIN,TOTAL 1.3 mg/dL (0.2-1.0); MAGNESIUM 2.1 mg/dL (1.8-2.4); PHOSPHOROUS 4.6 mg/dL (2.5-4.9); POTASSIUM 3.8 mmol/L (3.5-5.1); TOTAL PROTEIN, SERUM 6.6 g/dL (6.4-8.2)
[2016-08-16] MEDS: BLOOD SUGAR DIAGNOSTIC 1 EACH STRIP VI SCH ×3 (05:09→17:49)
[2016-08-16] MEDS: INSULIN REGULAR, HUMAN 300 UNIT/3 ML VIAL SQ PRN ×3 (05:14→17:48)
[2016-08-16 05:24] LABS: CREATININE 4.4 mg/dL (0.6-1.3)
--- NOTE | 2016-08-16 05:45 | NUR ---
Pt slept well through the night, pt was lethargic and would wake up for physical stimulation. pt showed no s/s of pain or difficulty breathing. pt is on a vent AC-14, VT-550, PEEP+5, FIO2-35%, Shiley#8 saturating 100%. pt's respiration rate while he was awake fluctuated between low 20's to 30's but decreased while pt was in deep sleep. Pt's blood pressure also decreased while pt was sleeping, once awake pt's bp increased. pt tolerated increase in Gtube feeding to 60ml/hr, no residual noted. pt dressing was changed, pt repositioned q2hr. all needs met, safety measures are in place, bed alarm is on.
[2016-08-16] MEDS: PIPERACILLIN/TAZOBACTAM/D5W 2.25 G in PREMIXED 1 EACH IV SCH ×3 (05:54→22:12)
[2016-08-16] MEDS: IV NORMAL SALINE 250 ML IV PRN (07:00)
[2016-08-16] MEDS: ASPIRIN 81 MG TAB.CHEW GT SCH (07:58)
[2016-08-16] MEDS: PANTOPRAZOLE ORAL SUSPENSION 40 MG SUSPDR.PKT GT SCH (07:58)
[2016-08-16] MEDS: ACIDOPHILUS/BULGARICUS CHEW TAB GT SCH ×2 (07:58→21:01)
[2016-08-16] MEDS: GABAPENTIN 100 MG CAPSULE GT SCH ×2 (07:58→21:01)
[2016-08-16] MEDS: FOLIC ACID/VITAMIN B COMP W-C TABLET GT SCH (07:58)
[2016-08-16] MEDS: HEPARIN SODIUM,PORCINE 5,000 UNITS/ML VIAL SQ SCH ×2 (08:00→21:04)
[2016-08-16] MEDS: Z GUARD REMEDY PASTE 57 GM TUBE TOP SCH ×2 (08:01→21:02)
[2016-08-16] MEDS: SODIUM HYPOCHLORITE 0.125% 473 ML BOTTLE TP SCH (08:02)
--- NOTE | 2016-08-16 11:07 | NUR ---
PT RECEIVED ON GODDARD VENT, SETTINGS ARE AC 14, Vt 550, +5, 35% FIO2. SHILEY 8 TRACH IS PATENT AND SECURED WITH TIES. PT IS TOLERATING VENT SETTINGS WELL WITH NO SOB NOTED. SUCTIONED SMALL AMOUNT OF PALE YELLOW THICK SECRETIONS. ALARMS ARE ON AND AUDIBLE, BVM AND BACK UP TRACH AT BEDSIDE. WILL CONTINUE TO MONITOR.
--- NOTE | 2016-08-16 13:26 | NUR ---
CONSULT WAS TRIGGERED DUE TO CHRONIC DIARRHEA AND POSSIBLE INTOLERANCE TO TF NOVASOURCE RENAL. TF WAS CHANGED TO PEPTAMEN AF- WILL CONTINUE TO MONITOR Addendum: 08/16/16 at [address] Amended: Links added.
--- NOTE | 2016-08-16 13:29 | NUR ---
Clinical Pharmacy Note: Vancomycin Dosing per Pharmacy Subjective: Vancomycin IV to continue on this 60 yo male dialysis patient for sepsis,UTI, decub Objective: BUN 28/Scr 4.7 WBC 16.1 Temperature 97.8 pre HD Level 23 Assessment/Plan: HD has been scheduled for today. Per pre HD level is above 20 mcg/ml, no vanco dose shall be given today post HD as per vancomycin dosing protocol for HD patients. Will continue to dose vancomycin per pre-HD level. Will continue to follow daily.
--- NOTE | 2016-08-16 13:40 | NUR ---
TRANSFERRED FROM ICU VIA BED, ON A VENT SETS AT 14-550-35-5 SATURATING 100%, NO SIGNS OF DISTRESS CONTROLLED A-FIB. MOANS DURING CARE, WARM AND DRY SKIN. STARTED FEEDING WITH NO RESIDUAL, PICC LINE IN PLACE WITH ON GOING IV ANTIBIOTIC. CLOSELY MONITORED
--- NOTE | 2016-08-16 13:52 | NUR ---
PT TRANSPORTED TO 2ND FLOOR. NO S/S OF RESPIRATORY DISTRESS NOTED DURING OR AFTER TRANSPORT. VENT ALARMS ARE ON AND AUDIBLE. CONT PULSE OX IN PLACE. BVM AND BACK UP TRACH AT BEDSIDE.
--- NOTE | 2016-08-16 14:00 | NUR ---
Brought the pt up to 2nd floor to tele-td rm #[id number] with respiratory therapy. front desk monitor applied during the transfer. Pt stable and nad noted upon transfer. Full SBAR report given to CANDACE Fox at the bedside. Addendum: 08/16/16 at 1409 by KINJAL BROWN RN *Tele-TD rm #[id number] not #[id number]
[2016-08-16] MEDS: PEPTAMEN AF 1000ML BAG GT PRN (15:03)
[2016-08-16] MEDS: Z GUARD REMEDY PASTE 57 GM TUBE TOP PRN (17:49)
--- NOTE | 2016-08-16 19:30 | NUR ---
Pt received in semi bell position, receiving Continuous mechanical ventilation via Trach. Trach is a Rapportiveley 8, and is patent and secured. No redness or irritation noted around stoma or trach ties. Pt is on Burns vent with ordered settings of A/C-14, VT-550, PEEP+5, FIO2-35%. Pt tolerating vent settings well. SpO2-100% No signs or symptoms of respiratory distress noted. Sxn'd and lavaged, small amts of yellowish/white secretions. Vent alarm parameters checked, on and audible. Vent plugged into red emergency outlet. Bag/valve/mask at bedside. HME changed. Proper isolation precaution equipment used. Will continue to monitor.
--- NOTE | 2016-08-16 20:00 | NUR ---
PATIENT AFEBRILE,TOLERATED SAME VENT SETTING,NO RESPIRATORY DISTRESS,CONTINUE BEDSIDE PULSE OX,SPO2 100%,CONTROLLED A FIB ON MONITOR,ORAL CARE AND TRACH SUCTION PROVIDED,RECTAL TUBE INTACT DRAINAGE MODERATE AMOUNT LIQUID STOOL,CONTACT ISOLATION PRECAUTIONS.
[2016-08-16] MEDS: ATORVASTATIN 40 MG TABLET PO SCH (21:01)
--- NOTE | 2016-08-16 22:00 | NUR ---
PATIENT TOLERATED G TUBE FEEING AT 70 ML/HR WELL,NO RESIDUAL,INCREASE TO 80 ML/HR GOAL MET,CONTINUE CLOSELY MONITOR.
[2016-08-17] VITALS (28 sets, daily range): BP systolic 73–151; BP diastolic 39–83
--- NOTE | 2016-08-17 | NUR ---
TEMP 99.9 COOLING MEASURE GIVEN,PATIENT SLEEP WELL,SPO2 100% ON SAME VENT SETTING.
[2016-08-17] MEDS: BLOOD SUGAR DIAGNOSTIC 1 EACH STRIP VI SCH ×5 (00:38→23:45)
[2016-08-17] MEDS: INSULIN REGULAR, HUMAN 300 UNIT/3 ML VIAL SQ PRN ×2 (00:41→23:47)
[2016-08-17] MEDS: METRONIDAZOLE 500 MG/NS 100ML 500 MG in PREMIXED 1 EACH IV SCH ×3 (06:09→22:00)
[2016-08-17] MEDS: PIPERACILLIN/TAZOBACTAM/D5W 2.25 G in PREMIXED 1 EACH IV SCH ×2 (06:09→13:51)
[2016-08-17] MEDS: VANCOMYCIN FOR PO/GT/NG USE GT SCH ×4 (06:09→23:37)
--- NOTE | 2016-08-17 06:36 | NUR ---
PATIENT SLEEPING,CONTROLLED A FIB ON MONITOR,BP 103/68,SPO2 100% ON VET SETTING:AC14,FIO2 35%,TV 550ML,PEEP=5,PATIENT REMAINS LETHARGY,CONTINUE CLOSELY MONITOR.
--- NOTE | 2016-08-17 07:57 | NUR ---
Pt rec'd on Burns settings AC 14, VT 550, PEEP+5 and FIO2-35%. No resp. distress noted. Pt to be monitored throughout the shift and PRN SX. Oral care done. Shiley 8 is patent and secure; B/U Shiley 8 and BVM at bedside. Burns alarm parameters have been checked and remain audible.
[2016-08-17] MEDS: ACIDOPHILUS/BULGARICUS CHEW TAB GT SCH ×2 (07:58→20:12)
[2016-08-17] MEDS: PEPTAMEN AF 1000ML BAG GT PRN (07:58)
[2016-08-17] MEDS: GABAPENTIN 100 MG CAPSULE GT SCH ×2 (08:03→20:12)
[2016-08-17] MEDS: PANTOPRAZOLE ORAL SUSPENSION 40 MG SUSPDR.PKT GT SCH (08:03)
[2016-08-17] MEDS: FOLIC ACID/VITAMIN B COMP W-C TABLET GT SCH (08:03)
[2016-08-17] MEDS: ASPIRIN 81 MG TAB.CHEW GT SCH (08:03)
[2016-08-17] MEDS: Z GUARD REMEDY PASTE 57 GM TUBE TOP SCH ×2 (08:05→20:12)
[2016-08-17] MEDS: HEPARIN SODIUM,PORCINE 5,000 UNITS/ML VIAL SQ SCH ×2 (08:05→20:12)
[2016-08-17] MEDS: SODIUM HYPOCHLORITE 0.125% 473 ML BOTTLE TP SCH (08:07)
[2016-08-17 09:21] LABS: ABG BASE EXCESS -6.4 mmol/L; ABG HCO3 18.3 mmol/L; ABG PCO2 33.6 mmHg (35.0-45.0); ABG PH 7.354 (7.350-7.450); ABG PO2 94.2 mmHg (75.0-100.0); ABG SITE RIGHT RADIAL; ABG TOTAL HEMOGLOBIN 10.3 G/dL (13.5-18.0); COHb 0.7 % (0.5-1.5); MetHb 0.6 % (0.0-1.5); O2Hb 96.2 % (94.0-97.0); VENT MODE VENT - A/C; VT, ABG 550 mL
--- NOTE | 2016-08-17 14:02 | NUR ---
Clinical Pharmacy Note: Vancomycin Dosing per Pharmacy Subjective: Vancomycin IV to continue on this 60 yo male dialysis patient for sepsis,UTI, decub Objective: BUN 28/Scr 4.7 (08/16) WBC 16.2 (08/16) Temperature 98.4 Assessment/Plan: No HD has been scheduled for today. No dose shall be due today. Will continue to dose vancomycin per pre-HD level as per vancomycin dosing protocol for HD patients. Will continue to follow daily. Addendum: 08/17/16 at 1557 by LISA MENDOZA PER RN HD WAS DONE AROUND 1400 TODAY. POST HD LEVEL 20.2 NO VANCO DOSE SHALL BE DUE TODAY
--- NOTE | 2016-08-17 15:29 | NUR ---
Patient's HR 140-150s . Arturo called.
--- NOTE | 2016-08-17 15:40 | NUR ---
PATIENT SEEN BY DR. ROJAS. DETAILED REPORT GIVEN. SEE NEW ORDERS.
[2016-08-17] MEDS ORDERED: CARVEDILOL 3.125 MG TABLET PO ONE (15:45)
[2016-08-17] MEDS ORDERED: CARVEDILOL 3.125 MG TABLET PO SCH (15:45)
[2016-08-17] MEDS: MORPHINE SULFATE 2 MG/1 ML DISP.SYRIN IV PRN (16:36)
--- NOTE | 2016-08-17 16:40 | NUR ---
PATIENT NOTED TO HAVE RR 28, VS 151/101, O2 SAT 94% TEMP 102.4. BS 128. DR. LEE IN TO SEE PATIENT AND DETAIL REPORT GIVEN. CALL PLACED TO DR. PINA. SEE NEW ORDERS. Addendum: 08/17/16 at 1924 by JONATHAN RODRIGUEZ RN PILATES COORDINATOR CALLED.
--- NOTE | 2016-08-17 16:55 | NUR ---
CALLED RECEIVED FROM DR JARA. NEW ORDERS RECEIVED TO TRANSFER PATIENT TO CCU.
[2016-08-17] MEDS ORDERED: DEXTROSE 5% IV SCH (17:00)
[2016-08-17] MEDS ORDERED: GENTAMICIN SULFATE IV SCH (17:00)
[2016-08-17 17:05] LABS: BASOPHILS # (AUTO) 0.4 K/uL (0.0-8.0); BASOPHILS % (AUTO) 1.2 % (0.0-2.0); EOSINOPHILS # (AUTO) 0.3 K/uL (0.0-0.7); EOSINOPHILS % (AUTO) 1.1 % (0.0-7.0); HEMATOCRIT 34.4 % (36.7-47.1); HEMOGLOBIN 11.3 g/dL (12.5-16.3); LYMPHOCYTES % (AUTO) 3.5 % (20.5-51.5); MEAN CORPUSCULAR HEMOGLOBIN 28.9 uug (23.8-33.4); MEAN CORPUSCULAR HGB CONC 33 g/dL (32.5-36.3); MEAN CORPUSCULAR VOLUME 88.4 fL (73.0-96.2); MONOCYTES # (AUTO) 0.3 K/uL (2.0-10.0); MONOCYTES % (AUTO) 1.1 % (0.0-11.0); NEUTROPHILS # (AUTO) 27.6 K/uL (1.8-8.9); NEUTROPHILS % (AUTO) 93.1 % (38.5-71.5); PLATELET COUNT (AUTO) 387 K/uL (152-348); WHITE BLOOD COUNT (AUTO) 29.6 K/uL (3.6-10.2)
--- NOTE | 2016-08-17 17:10 | NUR ---
CLINICAL PHARMACY NOTE:GENTAMICIN DOSING Request for gentamicin dosing on 60 y/o male 6'1" 255lbs for sepsis HD patient Temp 99.9 BUN 28 Scr 4.4 WBC 16.2 also on vancomycin,Merrem,Flagyl,and Micafungin Give gentamicin 190mg ivpb x1 =2mg/kg adjusted body weight. Will check level prior to next HD. Will continue to monitor
--- NOTE | 2016-08-17 17:10 | NUR ---
PT TRANSFERRED FROM 2ND FLOOR TO CCU WITH NO COMPLICATIONS. PT PLACED ON 100% FIO2 DURING TRANSPORT. HEART RATE BEFORE/AFTER TRANSPORT RANGED FROM 145-160. SUCTIONED BEFORE AND AFTER TRANSPORT. PT REMAINS ON 100% FIO2 AT THIS TIME. CANDACE CASTANEDA. WILL CONTINUE TO MONITOR.
--- NOTE | 2016-08-17 17:15 | NUR ---
SBAR REPORT GIVEN TO KINJAL MARIA.
--- NOTE | 2016-08-17 17:26 | NUR ---
Pt received from 2nd floor and SBAR report received at the bedside by CANDACE Pa.
[2016-08-17] MEDS: ACETAMINOPHEN 650 MG/20.3 ML LIQUID UDC GT PRN (17:28)
[2016-08-17 17:48] LABS: BAND % (MANUAL) 10 % (0-10); EOSINOPHILS % (MANUAL) 1 % (0-8); LYMPHOCYTES % (MANUAL) 5 % (20-40); MONOCYTES % (MANUAL) 1 % (2-10); NEUTROPHILS % (MANUAL) 83 % (42-75)
[2016-08-17] MEDS: MEROPENEM 500 MG in IV NORMAL SALINE 50 ML IV SCH (17:49)
[2016-08-17] MEDS ORDERED: GENTAMICIN SULFATE IV ONE (18:30)
[2016-08-17] MEDS ORDERED: NORMAL SALINE IV ONE (18:30)
[2016-08-17] MEDS: MICAFUNGIN SODIUM 100 MG in IV NORMAL SALINE 100 ML IV SCH ×2 (18:34→20:08)
--- NOTE | 2016-08-17 18:55 | NUR ---
Spoke with Dr. Hernandez (Foil Operator) on the telephone and updated MD on pt's current condition. New orders received.
--- NOTE | 2016-08-17 19:03 | NUR ---
End of shift: Pt resting and dozing off in bed with fall precautions and safety measures maintained. monitoring analyst and ventilation alarms working properly wnl. Pt on Shiley #8 with vent settings as follows: AC-14, TV-550ml, 100% FiO2, PEEP-5. Rectal tube intact and draining properly. Diaz catheter intact and draining properly. Endorsed plan of care to flatware maker RN.
--- NOTE | 2016-08-17 20:00 | NUR ---
Comfortable on current vent settings. Trach Shiley 8 intact. RT titrating FIO2 to keep sat above 94%. Monitor remains Afib. BP closely monitored, may require vasopressor soon. Maintained on contact isolation. Temp improved, cooling measures continued. Nursing comfort measures and safety precautions observed at all times. Please see CCU flowsheet for full assessment and clinical data.
--- NOTE | 2016-08-17 20:06 | NUR ---
Trached patient recieved on AC 14, vt 550, on 100% Fio2. SPo2 100% He is trached with a Shiley 8. Airway secure and patent. Suctioned scant amounts of pale white secretions. Alarm parameters checked and are on/audible. Ambu bag and spare trach at bedsidel will continue to monitor.
[2016-08-17] MEDS: ATORVASTATIN 40 MG TABLET PO SCH (20:12)
[2016-08-17] MEDS: PHENYLEPHRINE IV 80 MG in IV DEXTROSE 5% 250 ML IV PRN (20:51)
--- NOTE | 2016-08-17 21:00 | NUR ---
Started on vasopressor and titrated accordingly. Please see VS flowsheet. Some leakage noted around flexiseal requiring irrigations; kept clean and dry.
[2016-08-18] VITALS (87 sets, daily range): BP systolic 86–128; BP diastolic 43–86
[2016-08-18] MEDS: MEROPENEM 500 MG in IV NORMAL SALINE 50 ML IV SCH ×2 (04:25→16:38)
[2016-08-18] MEDS ORDERED: GENTAMICIN SULFATE IV SCH (05:00)
[2016-08-18] MEDS ORDERED: NORMAL SALINE IV SCH (05:00)
[2016-08-18 05:39] LABS: EOSINOPHILS # (AUTO) 0.3 K/uL (0.0-0.7); EOSINOPHILS % (AUTO) 0.7 % (0.0-7.0); HEMOGLOBIN 10.1 g/dL (12.5-16.3); LYMPHOCYTES # (AUTO) 2.1 K/uL (20.0-40.0); LYMPHOCYTES % (AUTO) 4.3 % (20.5-51.5); MEAN CORPUSCULAR HEMOGLOBIN 29.7 uug (23.8-33.4); MEAN CORPUSCULAR HGB CONC 34 g/dL (32.5-36.3); MEAN CORPUSCULAR VOLUME 87.8 fL (73.0-96.2); MONOCYTES # (AUTO) 2.2 K/uL (2.0-10.0); MONOCYTES % (AUTO) 4.5 % (0.0-11.0); NEUTROPHILS # (AUTO) 43.9 K/uL (1.8-8.9); NEUTROPHILS % (AUTO) 90.5 % (38.5-71.5); PLATELET COUNT (AUTO) 396 K/uL (152-348); RED BLOOD CELL COUNT(AUTO) 3.41 MIL/uL (4.06-5.63)
[2016-08-18 05:59] LABS: WHITE BLOOD COUNT (AUTO) 48.5 K/uL (3.6-10.2)
--- NOTE | 2016-08-18 06:00 | NUR ---
Pt back to baseline on vent settings. Continues to require Neosynephrine for BP support. Please see CCU flowsheet for trends and clinical data. Tube feeding has been off since 0400 per order; was tolerating well.
[2016-08-18] MEDS: BLOOD SUGAR DIAGNOSTIC 1 EACH STRIP VI SCH ×3 (06:22→18:18)
[2016-08-18 06:23] LABS: BAND % (MANUAL) 6 % (0-10); EOSINOPHILS % (MANUAL) 1 % (0-8); LYMPHOCYTES % (MANUAL) 3 % (20-40); MONOCYTES % (MANUAL) 3 % (2-10); NEUTROPHILS % (MANUAL) 87 % (42-75)
[2016-08-18] MEDS: INSULIN REGULAR, HUMAN 300 UNIT/3 ML VIAL SQ PRN ×3 (06:23→18:19)
[2016-08-18] MEDS: METRONIDAZOLE 500 MG/NS 100ML 500 MG in PREMIXED 1 EACH IV SCH ×3 (06:23→21:05)
[2016-08-18] MEDS: VANCOMYCIN FOR PO/GT/NG USE GT SCH ×3 (06:24→18:03)
--- NOTE | 2016-08-18 07:22 | NUR ---
PT RECEIVED ON GODDARD VENT #008 ON SETTINGS OF AC 14, VT550, PEEP +5, FIO2 40%. PT TRACH SIZE SHILEY 8DCT IS SECURED AND INTACT WITH TRACH TIE. PT WAS SUCTION VIA TRACH AND MOUTH. PT ORAL CARE WAS DONE RN AWARE. PT HME WAS CHANGED PT TRACH CUFF WAS CHECKED WITH BEAD STRINGER. PT VENT ALARMS ON AND AUDIBLE. PT AMBU-BAG AT BED SIDE. PT HAS NO PRN TX PT HAS NO ABG ORDER . WILL CONTINUE TO MONITOR PT THROUGHOUT SHIFT.
[2016-08-18] MEDS ORDERED: CARVEDILOL 3.125 MG TABLET PO SCH (08:00)
[2016-08-18] MEDS: ACIDOPHILUS/BULGARICUS CHEW TAB GT SCH ×2 (08:08→20:40)
[2016-08-18] MEDS: FOLIC ACID/VITAMIN B COMP W-C TABLET GT SCH (08:08)
[2016-08-18] MEDS: PANTOPRAZOLE ORAL SUSPENSION 40 MG SUSPDR.PKT GT SCH (08:08)
[2016-08-18] MEDS: GABAPENTIN 100 MG CAPSULE GT SCH ×2 (08:08→20:40)
[2016-08-18] MEDS: ASPIRIN 81 MG TAB.CHEW GT SCH (08:08)
[2016-08-18] MEDS: ERGOCALCIFEROL 50,000 UNIT CAPSULE GT SCH (08:09)
[2016-08-18] MEDS: Z GUARD REMEDY PASTE 57 GM TUBE TOP SCH ×2 (08:10→20:40)
[2016-08-18] MEDS: SODIUM HYPOCHLORITE 0.125% 473 ML BOTTLE TP SCH (08:11)
[2016-08-18] MEDS: HEPARIN SODIUM,PORCINE 5,000 UNITS/ML VIAL SQ SCH ×2 (08:33→20:41)
[2016-08-18] MEDS: PHENYLEPHRINE IV 80 MG in IV DEXTROSE 5% 250 ML IV PRN (11:26)
--- NOTE | 2016-08-18 14:46 | NUR ---
CLINICAL PHARMACY NOTE:GENTAMICIN DOSING To continue for gentamicin dosing on 60 y/o male 6'1" 255lbs for sepsis HD patient Temp 99.2 BUN 28 (08/17) Scr 4.4 (08/17) WBC 16.2 08/17) also on vancomycin,Merrem,Flagyl,and Micafungin One dose gentamicin 190mg ivpb x1 =2mg/kg adjusted body weight given yesterday. Will check level prior to next HD. No HD scheduled for today. Will continue to monitor
--- NOTE | 2016-08-18 14:47 | NUR ---
Clinical Pharmacy Note: Vancomycin Dosing per Pharmacy Subjective: Vancomycin IV to continue on this 60 yo male dialysis patient for sepsis,UTI, decub Objective: BUN 28/Scr 4.7 (08/17) WBC 16.2 (08/17) Temperature 99.2 Assessment/Plan: No HD has been scheduled for today. No dose shall be due today. Will continue to dose vancomycin per pre-HD level as per vancomycin dosing protocol for HD patients. Will continue to follow daily.
[2016-08-18] MEDS: MICAFUNGIN SODIUM 100 MG in IV NORMAL SALINE 100 ML IV SCH (18:03)
--- NOTE | 2016-08-18 20:00 | NUR ---
Stable on vent. Minimal trach and oral secretions. Seen and evaluated by ID, new orders noted. On low dose vasopressor. Goal to wean off soon. Tube feedings well tolerated. Contact isolation maintained. Nursing comfort measures observed at all times. Please see CCU flowsheet for full assessment and clinical data.
[2016-08-18] MEDS: ATORVASTATIN 40 MG TABLET PO SCH (20:40)
--- NOTE | 2016-08-18 21:30 | NUR ---
Neosynephrine weaned off and close monitoring continues.
--- NOTE | 2016-08-18 22:01 | NUR ---
PT ON CONT GODDARD VENT WITH SHILEY #[address] AND SECURED, WITH SAME CURRENT VENT SETTINGS, A/C 14, VT 500ML, , PEEP 5, 40%, PT DOES ASSIST AT TIMES, SUCTIONED LIGHT PALE YELL TINGE SECRETIONS, WITH GOOD COUGH EFFORT, CHECK CUFF, NO VENT CHANGES MADE AT THIS TIME, ALL ALARMS OK, AMBU8 BAG AT BEDSIDE, WITH ADEQUATE VENTILATION. Maame CHANDLER RCP Addendum: 08/18/16 at 2204 by JONNATHAN CHANDLER RT Amended: Links added.
--- NOTE | 2016-08-18 22:30 | NUR ---
Noted blood culture drawn by client manager large law peripherally. Will re-order for specimen be drawn on permacath site with next dialysis procedure.
--- NOTE | 2016-08-18 22:30 | NUR ---
high pressure operator called to inform pt for dialysis in AM. Portacath right subclavian area intact.
[2016-08-19] VITALS (53 sets, daily range): BP systolic 55–145; BP diastolic 34–86
[2016-08-19] MEDS: VANCOMYCIN FOR PO/GT/NG USE GT SCH ×4 (00:11→17:39)
[2016-08-19] MEDS: BLOOD SUGAR DIAGNOSTIC 1 EACH STRIP VI SCH ×4 (00:11→17:59)
[2016-08-19] MEDS: INSULIN REGULAR, HUMAN 300 UNIT/3 ML VIAL SQ PRN ×2 (00:13→18:00)
[2016-08-19] MEDS: PEPTAMEN AF 1000ML BAG GT PRN (00:18)
[2016-08-19] MEDS: IV NORMAL SALINE 250 ML IV PRN (02:34)
--- NOTE | 2016-08-19 04:00 | NUR ---
Tube feeding off per order until 0800 daily. Noted flexiseal output slowing down, remains patent and no leakage noted thus far. Total bath and skin care rendered, procedure tolerated well. Appears comfortable and pt resting well.
--- NOTE | 2016-08-19 04:32 | NUR ---
PT ON CONT GODDARD VENT WITH SHILEY # [address] AND SECURED, WITH SAME CURRENT VENT SETTINGS, VT 550ML, A/C 14. 40%, PEEP 5, PT DOES ASSIST AT TIMES, CHECK CUFF, CHANGE HME AND VALENCIA, SUCTIONED LIGHT PALE YELL TINGE SECRETIONS, WITH GOOD COUGH EFFORT, ORAL CARE DONE, NO VENT CHANGES MADE AT THIS TIME, WITH ADEQUATE VENTILATION, .Maame CHANDLER RCP Addendum: 08/19/16 at 0436 by JONNATHAN CHANDLER RT Amended: Links added.
[2016-08-19] MEDS: MEROPENEM 500 MG in IV NORMAL SALINE 50 ML IV SCH ×2 (04:53→16:57)
[2016-08-19 05:20] LABS: BASOPHILS % (AUTO) 0.2 % (0.0-2.0); EOSINOPHILS # (AUTO) 0.4 K/uL (0.0-0.7); EOSINOPHILS % (AUTO) 1.8 % (0.0-7.0); HEMATOCRIT 27.4 % (36.7-47.1); LYMPHOCYTES # (AUTO) 2.7 K/uL (20.0-40.0); LYMPHOCYTES % (AUTO) 11.1 % (20.5-51.5); MEAN CORPUSCULAR HEMOGLOBIN 28.8 uug (23.8-33.4); MEAN CORPUSCULAR HGB CONC 33 g/dL (32.5-36.3); MONOCYTES % (AUTO) 8.3 % (0.0-11.0); NEUTROPHILS # (AUTO) 18.9 K/uL (1.8-8.9); NEUTROPHILS % (AUTO) 78.6 % (38.5-71.5); PLATELET COUNT (AUTO) 385 K/uL (152-348); RED BLOOD CELL COUNT(AUTO) 3.11 MIL/uL (4.06-5.63)
[2016-08-19] MEDS: METRONIDAZOLE 500 MG/NS 100ML 500 MG in PREMIXED 1 EACH IV SCH ×3 (05:47→21:31)
[2016-08-19 05:59] LABS: BILIRUBIN,TOTAL 1.1 mg/dL (0.2-1.0); MAGNESIUM 2.3 mg/dL (1.8-2.4); PHOSPHOROUS 4.3 mg/dL (2.5-4.9); POTASSIUM 3.9 mmol/L (3.5-5.1); TOTAL PROTEIN, SERUM 6.6 g/dL (6.4-8.2)
[2016-08-19 06:15] LABS: CREATININE 5.1 mg/dL (0.6-1.3)
--- NOTE | 2016-08-19 06:35 | NUR ---
Episode of desat as low as 88%, suctioned and noted mucus plug. Back to baseline sat at 99-100%. Will continue to monitor closely. health information tech here for procedure.
--- NOTE | 2016-08-19 07:00 | NUR ---
receiving patient while on dialysis. patient off vasopressors since 2100 last night. report received from chuck MARIA
--- NOTE | 2016-08-19 07:05 | NUR ---
PT RECEIVED ON GODDARD VENT #008 ON SETTINGS OF AC 14, VT550, PEEP +5, FIO2 40%. PT TRACH SIZE SHILEY 8DCT IS SECURED AND INTACT WITH TRACH TIE. PT WAS SUCTION VIA TRACH AND MOUTH. PT ORAL CARE WAS DONE RN AWARE. PT HME WAS CHANGED PT TRACH CUFF WAS CHECKED WITH STAFFING AND SCHEDULING COORDINATOR. PT VENT ALARMS ON AND AUDIBLE. PT AMBU-BAG AT BED SIDE. PT HAS NO PRN TX PT HAS NO ABG ORDER . WILL CONTINUE TO MONITOR PT THROUGHOUT SHIFT.
[2016-08-19 08:29] LABS: *OCCULT BLOOD STOOL POSITIVE (NEGATIVE)
[2016-08-19] MEDS: ACIDOPHILUS/BULGARICUS CHEW TAB GT SCH ×2 (09:38→21:05)
[2016-08-19] MEDS: PANTOPRAZOLE ORAL SUSPENSION 40 MG SUSPDR.PKT GT SCH (09:38)
[2016-08-19] MEDS: GABAPENTIN 100 MG CAPSULE GT SCH ×2 (09:39→21:05)
[2016-08-19] MEDS: ASPIRIN 81 MG TAB.CHEW GT SCH (09:39)
[2016-08-19] MEDS: FOLIC ACID/VITAMIN B COMP W-C TABLET GT SCH (09:39)
[2016-08-19] MEDS: Z GUARD REMEDY PASTE 57 GM TUBE TOP SCH ×2 (09:39→21:05)
[2016-08-19] MEDS: SODIUM HYPOCHLORITE 0.125% 473 ML BOTTLE TP SCH (09:40)
[2016-08-19] MEDS: HEPARIN SODIUM,PORCINE 5,000 UNITS/ML VIAL SQ SCH ×2 (09:47→21:05)
[2016-08-19 09:52] LABS: BAND % (MANUAL) 5 % (0-10); EOSINOPHILS % (MANUAL) 4 % (0-8); LYMPHOCYTES % (MANUAL) 14 % (20-40); MONOCYTES % (MANUAL) 7 % (2-10); NEUTROPHILS % (MANUAL) 70 % (42-75)
[2016-08-19 10:10] LABS: GENTAMICIN,RANDOM 1.9 ug/mL (4.0-8.0); VANCOMYCIN,RANDOM 16.7 ug/mL (18.0-26.0)
--- NOTE | 2016-08-19 11:54 | NUR ---
doctor brittnee called patient heart rate is uncontrolled afib 150's-160's. patient is not spiking a temperature at this time, and oxygenation saturation is 99%. new one time order place in system.
[2016-08-19] MEDS ORDERED: CARVEDILOL 6.25 MG TABLET PO ONE (12:00)
[2016-08-19] MEDS: MORPHINE SULFATE 2 MG/1 ML DISP.SYRIN IV PRN (12:40)
[2016-08-19] MEDS ORDERED: VANCOMYCIN IV 500 MG in IV DEXTROSE 5% 100 ML IV ONE (12:45)
[2016-08-19] MEDS ORDERED: DOSING PER PHARMACY-AMIKACIN IV XX PRN (13:00)
[2016-08-19] MEDS ORDERED: DEXTROSE 5% IV ONE (14:00)
[2016-08-19] MEDS ORDERED: AMIKACIN IV ONE (14:00)
--- NOTE | 2016-08-19 14:00 | NUR ---
ERIN'Maame SORIA PATIENT IS ANURIC.
[2016-08-19] MEDS: ACETAMINOPHEN 650 MG/20.3 ML LIQUID UDC GT PRN (14:10)
--- NOTE | 2016-08-19 14:11 | NUR ---
COLLECTED WOUND CULTURES DRESSING CHANGED. PATIENT SPIKED TEMP AT THIS TIME TEMP. 102.9. TYLENOL AND COOLING MEASURES DONE.
[2016-08-19] MEDS: PHENYLEPHRINE IV 80 MG in IV DEXTROSE 5% 250 ML IV PRN (15:16)
--- NOTE | 2016-08-19 16:09 | NUR ---
Clinical Pharmacy Note: Vancomycin Dosing per Pharmacy Subjective: Vancomycin IV to continue on this 60 yo male dialysis patient for sepsis,UTI, decub Objective: BUN 38/Scr 5.1 WBC 24 Temperature 98.7 Pre-HD level: 16.7 Assessment/Plan: HD done early this am, based on pre-HD level, one time 500mg vanco dose given today post HD. Will continue to dose vancomycin per pre-HD level as per vancomycin dosing protocol for HD patients. Will continue to follow daily.
--- NOTE | 2016-08-19 16:13 | NUR ---
Clinical Pharmacy Note - Amikacin Pharmacy to Dose Subjective: To start amikacin in this 60 y/o male for suspected infection (sepsis). Pt was previously on gentamicin, changed to amikacin per ID. Objective: weight 111kg height 185 cm BUN 38 Scr 5.1 (on HD) Wbc 24 Temp 998.6 Assessment/Plan: Gave one dose of 800mg (~7.2 mg/kg) today at 1400. Will order pre-HD levels and dose as accordingly per protocol daily. Patient received HD earlier today. Will continue to follow.
--- NOTE | 2016-08-19 17:04 | NUR ---
HOLDING FEEDING SINCE 1400 DUE TO HYPOTENSION AND PATIENT LAYING FLAT. ICE WATER FLUSHES GIVEN. FLUSHED ICE WATER IN RECTAL TUBE AND COLD TOWELS AROUND ABDOMEN AND HEAD.
[2016-08-19] MEDS: MICAFUNGIN SODIUM 100 MG in IV NORMAL SALINE 100 ML IV SCH (17:39)
--- NOTE | 2016-08-19 19:30 | NUR ---
Report received. Patient on contact isolation for HX: CRE and pending william cultures yesterday. With trache to vent with settings: Ac=14, FIO2=40%, EN=271 ml and PEEP=5. Sat 99-100%. Doesn't open eyes to pain but grimaces. Extremities contracted. Hypotensive; on continuous Neosynephrine drip for BP support. Addendum: 08/19/16 at 2151 by ARCADIO BOWIE RN Amended: Links added.
--- NOTE | 2016-08-19 20:30 | NUR ---
Turned and repositioned. Flexi seal intact; Irrigated gently, with large amounts of liquid yellow brown stools and flatus. Skin care provided. Addendum: 08/19/16 at 2153 by ARCADIO BOWIE RN Amended: Links added.
--- NOTE | 2016-08-19 20:55 | NUR ---
PT ON CONT HT 50 VENT WITH SHILEY # [address] AND SECURED, PT DOES ASSIST AT TIMES, CHECK CUFF, SUCTIONED LIGHT PALE YELL TINGE SECRETIONS, WITH GOOD COUGH EFFORT, WITH CURRENT VENT SETTINGS, A/C 14, VT 550ML, 40%, PEEP 5, NO VENT CHANGES MADE AT THIS TIME, ALL ALARMS OKAni DE DIOSP Addendum: 08/19/16 at 2057 by JONNATHAN CHANDLER RT Amended: Links added.
[2016-08-19] MEDS: ATORVASTATIN 40 MG TABLET PO SCH (21:05)
[2016-08-20] VITALS (67 sets, daily range): BP systolic 87–136; BP diastolic 48–76
--- NOTE | 2016-08-20 | NUR ---
GT feedings restarted at 20ml/H. BP stabilizing. HOB elevated.
[2016-08-20] MEDS: VANCOMYCIN FOR PO/GT/NG USE GT SCH ×5 (00:18→23:33)
[2016-08-20] MEDS: BLOOD SUGAR DIAGNOSTIC 1 EACH STRIP VI SCH ×5 (00:22→23:34)
[2016-08-20] MEDS: INSULIN REGULAR, HUMAN 300 UNIT/3 ML VIAL SQ PRN ×2 (00:25→23:36)
[2016-08-20] MEDS: PHENYLEPHRINE IV 80 MG in IV DEXTROSE 5% 250 ML IV PRN ×2 (00:48→10:55)
--- NOTE | 2016-08-20 01:00 | NUR ---
Neosynephrine drip titrated down. BPs monitored closely. Addendum: 08/20/16 at 0219 by ARCADIO BOWIE RN Amended: Links added.
--- NOTE | 2016-08-20 03:22 | NUR ---
PT ON CONT GODDARD VENT WITH SHILEY # [address] AND SECURED, WITH CURRENT VENT SETTINGS, A/C 14, VT 550ML, PEEP 5, 40%, PT DOES ASSIST AT TIMES, CHECK CUFF, CHANGE HME, SUCTIONED LIGHT PALE YELL TINGE SECRETIONS, WITH GOOD COUGH EFFORT, ALL ALARMS OK, AMBU BAG AT BEDSIDE, ORAL CARE DONE, PT WITH NO VENT CHANGES MADE, WITH ADEQUATE VENTILATION . Maame CHANDLER RCP Addendum: 08/20/16 at 0327 by JONNATHAN CHANDLER RT Amended: Links added.
[2016-08-20] MEDS: MEROPENEM 500 MG in IV NORMAL SALINE 50 ML IV SCH ×2 (04:45→16:21)
[2016-08-20 05:09] LABS: BASOPHILS # (AUTO) 0.1 K/uL (0.0-8.0); BASOPHILS % (AUTO) 0.1 % (0.0-2.0); EOSINOPHILS # (AUTO) 0.5 K/uL (0.0-0.7); EOSINOPHILS % (AUTO) 0.9 % (0.0-7.0); HEMATOCRIT 29.2 % (36.7-47.1); HEMOGLOBIN 9.9 g/dL (12.5-16.3); LYMPHOCYTES # (AUTO) 2.1 K/uL (20.0-40.0); LYMPHOCYTES % (AUTO) 3.9 % (20.5-51.5); MEAN CORPUSCULAR HEMOGLOBIN 29.8 uug (23.8-33.4); MEAN CORPUSCULAR HGB CONC 34 g/dL (32.5-36.3); MEAN CORPUSCULAR VOLUME 88.1 fL (73.0-96.2); MONOCYTES # (AUTO) 2.2 K/uL (2.0-10.0); NEUTROPHILS # (AUTO) 49.1 K/uL (1.8-8.9); NEUTROPHILS % (AUTO) 91.1 % (38.5-71.5); PLATELET COUNT (AUTO) 369 K/uL (152-348); RED BLOOD CELL COUNT(AUTO) 3.31 MIL/uL (4.06-5.63)
[2016-08-20 05:10] LABS: PHOSPHOROUS 4.1 mg/dL (2.5-4.9); POTASSIUM 4.3 mmol/L (3.5-5.1)
[2016-08-20 05:15] LABS: BAND % (MANUAL) 5 % (0-10); LYMPHOCYTES % (MANUAL) 7 % (20-40); MONOCYTES % (MANUAL) 6 % (2-10); NEUTROPHILS % (MANUAL) 82 % (42-75)
[2016-08-20] MEDS: METRONIDAZOLE 500 MG/NS 100ML 500 MG in PREMIXED 1 EACH IV SCH ×3 (05:22→21:22)
[2016-08-20 05:26] LABS: CREATININE 4.9 mg/dL (0.6-1.3)
--- NOTE | 2016-08-20 06:00 | NUR ---
Condition unchanged. Tried to dc vasopressor but unable to. Neosynephrine drip at 80 mcg/min.
[2016-08-20] MEDS: IV NORMAL SALINE 250 ML IV PRN (06:19)
[2016-08-20] MEDS: ACIDOPHILUS/BULGARICUS CHEW TAB GT SCH ×2 (08:31→21:13)
[2016-08-20] MEDS: GABAPENTIN 100 MG CAPSULE GT SCH ×2 (08:31→21:13)
[2016-08-20] MEDS: FOLIC ACID/VITAMIN B COMP W-C TABLET GT SCH (08:31)
[2016-08-20] MEDS: PANTOPRAZOLE ORAL SUSPENSION 40 MG SUSPDR.PKT GT SCH (08:31)
[2016-08-20] MEDS: ASPIRIN 81 MG TAB.CHEW GT SCH (08:31)
[2016-08-20] MEDS: SODIUM HYPOCHLORITE 0.125% 473 ML BOTTLE TP SCH (08:32)
[2016-08-20] MEDS: Z GUARD REMEDY PASTE 57 GM TUBE TOP SCH ×2 (08:32→21:12)
[2016-08-20] MEDS: HEPARIN SODIUM,PORCINE 5,000 UNITS/ML VIAL SQ SCH ×2 (08:33→21:20)
[2016-08-20] MEDS: ACETAMINOPHEN 650 MG/20.3 ML LIQUID UDC GT PRN (11:00)
--- NOTE | 2016-08-20 11:19 | NUR ---
Clinical Pharmacy Note - Amikacin Pharmacy to Dose Subjective: To start amikacin in this 60 y/o male for suspected infection (sepsis). Pt was previously on gentamicin, changed to amikacin per ID. Objective: weight 111kg height 185 cm BUN 35 Scr 4.9 Wbc 54 Temp 98.4 Assessment/Plan: No HD has been scheduled for today per HD RN. No amikacin dose shall be due today Will order pre-HD levels and dose as accordingly per protocol daily. Will continue to follow.
--- NOTE | 2016-08-20 11:20 | NUR ---
Clinical Pharmacy Note: Vancomycin Dosing per Pharmacy Subjective: Vancomycin IV to continue on this 60 yo male dialysis patient for sepsis,UTI, decub Objective: BUN 35/Scr 4.9 WBC 54 Temperature 98.4 Pre-HD level: 16.7 Assessment/Plan: No HD has been scheduled for today as per HD RN. No vancomycin dose shall be due today. Will continue to dose vancomycin per pre-HD level as per vancomycin dosing protocol for HD patients. Will continue to follow daily.
--- NOTE | 2016-08-20 17:02 | NUR ---
Dr. Powell here to see pt. Full report given. New orders received.
[2016-08-20] MEDS: MICAFUNGIN SODIUM 100 MG in IV NORMAL SALINE 100 ML IV SCH (17:31)
[2016-08-20] MEDS: PEPTAMEN AF 1000ML BAG GT PRN (17:58)
--- NOTE | 2016-08-20 18:19 | NUR ---
TRACH VENT DEPENDENT PATIENT ON SETTINGS OF AC 14, VT 550, FIO2 40% AND PEEP 5. AWAKE AND RESPONSIVE WITH NO DISTRESS, SHOWING SATURATION OF 100% MOST OF THE TIME. ROUTING SUCTION AND VENT CHECKS DONE WITHOUT COMPLICATION. NO NEW ORDER GIVEN FOR TODAY.
--- NOTE | 2016-08-20 18:54 | NUR ---
shift: Pt resting and dozing off in bed with fall precautions and safety measures maintained. sdc teacher and ventilation alarms working properly wnl. Pt on Shiley #8 with vent settings as follows: AC-14, TV-550ml, 40% FiO2, PEEP-5. Rectal tube intact and draining properly. Diaz catheter intact and draining properly. G-tube feeding infusing as ordered. IV theresa infusing as ordered.
--- NOTE | 2016-08-20 19:26 | NUR ---
RECEIVED PT ON CONTINUOUS VENT AC 14 VT 550 PEEP 5 FIO2 40%. TRACH IN PLACE AND SECURED.BVM AT BEDSIDE. ORAL CARE DONE. SUCTION PRN. VENT CHECKED, ALARMS WORKING WELL AND AUDIBLE. NO DISTRESS NOTED AT THIS TIME. WILL CONTINUE TO MONITOR.
--- NOTE | 2016-08-20 19:30 | NUR ---
Report received. Patient with trache to vent with same settings. NAD noted. On contact isolation. Neosynephrine drip infusing for BP support. Assessment completed. Addendum: 08/21/16 at 0651 by ARCADIO BOWIE RN Amended: Links added. Addendum: 08/21/16 at 0654 by ARCADIO BOWIE RN Amended: Links added.
--- NOTE | 2016-08-20 20:00 | NUR ---
Turned and repositioned. Flexi seal leaking. Irrigated. With thick green stools. Liquid brown yellow stools coming out after irrigation, but Flexi seal continues to leak. New Flexi seal inserted. Wound care treatment done. Addendum: 08/21/16 at 0654 by ARCADIO BOWIE RN Amended: Links added.
[2016-08-20] MEDS: ATORVASTATIN 40 MG TABLET PO SCH (21:13)
--- NOTE | 2016-08-20 23:10 | NUR ---
minimal bleeding noted around the stoma. cleansed with normal saline and apply new dressing. RN aware .
[2016-08-21] VITALS (69 sets, daily range): BP systolic 73–143; BP diastolic 21–84
--- NOTE | 2016-08-21 | NUR ---
Bleeding from trache stoma had stopped. Dressing changed. Addendum: 08/21/16 at 0701 by ARCADIO BOWIE RN Amended: Links added.
--- NOTE | 2016-08-21 04:00 | NUR ---
GT feedings turned off [phone]. Patient opens eyes, tracking. Addendum: 08/21/16 at 0709 by ARCADIO BOWIE RN Amended: Links added.
[2016-08-21] MEDS: MEROPENEM 500 MG in IV NORMAL SALINE 50 ML IV SCH ×2 (04:04→16:06)
[2016-08-21] MEDS: IV NORMAL SALINE 250 ML IV PRN (04:07)
[2016-08-21 05:24] LABS: MAGNESIUM 2.1 mg/dL (1.8-2.4); PHOSPHOROUS 4.4 mg/dL (2.5-4.9); POTASSIUM 3.7 mmol/L (3.5-5.1); TOTAL PROTEIN, SERUM 6.3 g/dL (6.4-8.2)
[2016-08-21 05:32] LABS: BASOPHILS # (AUTO) 0.1 K/uL (0.0-8.0); BASOPHILS % (AUTO) 0.4 % (0.0-2.0); EOSINOPHILS # (AUTO) 0.3 K/uL (0.0-0.7); HEMATOCRIT 26.3 % (36.7-47.1); HEMOGLOBIN 8.9 g/dL (12.5-16.3); LYMPHOCYTES # (AUTO) 2.8 K/uL (20.0-40.0); LYMPHOCYTES % (AUTO) 8.5 % (20.5-51.5); MEAN CORPUSCULAR HEMOGLOBIN 29.7 uug (23.8-33.4); MEAN CORPUSCULAR HGB CONC 34 g/dL (32.5-36.3); MEAN CORPUSCULAR VOLUME 88.3 fL (73.0-96.2); MONOCYTES # (AUTO) 1.7 K/uL (2.0-10.0); MONOCYTES % (AUTO) 5.1 % (0.0-11.0); NEUTROPHILS # (AUTO) 28.5 K/uL (1.8-8.9); PLATELET COUNT (AUTO) 370 K/uL (152-348); RED BLOOD CELL COUNT(AUTO) 2.98 MIL/uL (4.06-5.63)
[2016-08-21 05:47] LABS: WHITE BLOOD COUNT (AUTO) 33.4 K/uL (3.6-10.2)
--- NOTE | 2016-08-21 06:00 | NUR ---
Attempted to turn off Neosynephrine drip during the shift but failed. Now at 30 mcg/min. Addendum: 08/21/16 at 0655 by ARCADIO BOWIE RN Amended: Links added.
[2016-08-21 06:08] LABS: BAND % (MANUAL) 3 % (0-10); EOSINOPHILS % (MANUAL) 2 % (0-8); LYMPHOCYTES % (MANUAL) 12 % (20-40); MONOCYTES % (MANUAL) 11 % (2-10); NEUTROPHILS % (MANUAL) 72 % (42-75)
[2016-08-21] MEDS: METRONIDAZOLE 500 MG/NS 100ML 500 MG in PREMIXED 1 EACH IV SCH ×3 (06:14→21:00)
[2016-08-21] MEDS: BLOOD SUGAR DIAGNOSTIC 1 EACH STRIP VI SCH ×3 (06:14→17:53)
[2016-08-21] MEDS: VANCOMYCIN FOR PO/GT/NG USE GT SCH ×3 (06:14→17:16)
[2016-08-21] MEDS: INSULIN REGULAR, HUMAN 300 UNIT/3 ML VIAL SQ PRN (06:36)
--- NOTE | 2016-08-21 07:19 | NUR ---
Pt rec'd on Burns, settings AC14 550vt Peep+5 40%FiO2. Pt is trached with a Yisselley 8DCT trach, in place patent and secured with foam trach tie. Pt tolerating vent settings well, no signs of respiratory distress noted at this time. Lavaged/sxn'd pt with moderate amount of pale secretions. Vent alarms audible checked and reset. Ambu-bag and back-up trach at bedside. Will continue to monitor and report any changes.
[2016-08-21] MEDS: ASPIRIN 81 MG TAB.CHEW GT SCH (08:07)
[2016-08-21] MEDS: FOLIC ACID/VITAMIN B COMP W-C TABLET GT SCH (08:07)
[2016-08-21] MEDS: PANTOPRAZOLE ORAL SUSPENSION 40 MG SUSPDR.PKT GT SCH (08:07)
[2016-08-21] MEDS: GABAPENTIN 100 MG CAPSULE GT SCH ×2 (08:07→20:21)
[2016-08-21] MEDS: ACIDOPHILUS/BULGARICUS CHEW TAB GT SCH ×2 (08:07→20:21)
[2016-08-21] MEDS: HEPARIN SODIUM,PORCINE 5,000 UNITS/ML VIAL SQ SCH (08:08)
[2016-08-21] MEDS: SODIUM HYPOCHLORITE 0.125% 473 ML BOTTLE TP SCH (08:10)
[2016-08-21] MEDS: Z GUARD REMEDY PASTE 57 GM TUBE TOP SCH ×2 (08:10→20:21)
[2016-08-21 08:45] LABS: ABG BASE EXCESS -7.5 mmol/L; ABG HCO3 17.9 mmol/L; ABG PCO2 36.1 mmHg (35.0-45.0); ABG PH 7.314 (7.350-7.450); ABG PO2 132.5 mmHg (75.0-100.0); ABG SITE RIGHT RADIAL; ABG TOTAL HEMOGLOBIN 10.1 G/dL (13.5-18.0); MetHb 0.2 % (0.0-1.5); VENT MODE VENT - A/C 14; VT, ABG 550 mL
--- NOTE | 2016-08-21 11:20 | NUR ---
Dr. Dejesus here to see pt. Full report given. New orders received. stated that it was okay for pt to have dialysis today and aware of pt's gram negative on perma cath site.
[2016-08-21] MEDS: PHENYLEPHRINE IV 80 MG in IV DEXTROSE 5% 250 ML IV PRN (11:28)
--- NOTE | 2016-08-21 12:37 | NUR ---
Clinical Pharmacy Note: Vancomycin Dosing per Pharmacy Subjective: Vancomycin IV to continue on this 60 yo male dialysis patient for sepsis,UTI, decub Objective: BUN 42/Scr 5 WBC 33.4 Temperature 98.6 Pre-HD vancomycin level: 16.7 Assessment/Plan: HD has been scheduled for today as per HD RN. Since vancomycin pre-HD level is below 20 mcg/ml, will give vancomycin 500mg IVPB x1 today post HD as per vancomycin dosing protocol for HD patients. Will continue to dose vancomycin per pre-HD level as per vancomycin dosing protocol for HD patients. Will continue to follow daily.
[2016-08-21] MEDS: PEPTAMEN AF 1000ML BAG GT PRN (13:09)
--- NOTE | 2016-08-21 13:33 | NUR ---
network systems administrator here at the bedside with the pt for dialysis.
--- NOTE | 2016-08-21 14:06 | NUR ---
Spoke with Cristobal Fuentes on the telephone regarding pt's sacral debridement procedure for today. New orders received and carried out.
[2016-08-21] MEDS ORDERED: LIDOCAINE 1%-EPI 1:100,000 20 ML VIAL TP PRN (14:30)
[2016-08-21] MEDS ORDERED: SILVER NITRATE APPLICATOR STICK EACH TP PRN (14:30)
[2016-08-21] MEDS ORDERED: ALBUMIN HUMAN 25% 100 ML IV PRN (14:30)
--- NOTE | 2016-08-21 15:52 | NUR ---
Dr. Powell here to see pt. Full report given. New orders received.
--- NOTE | 2016-08-21 16:00 | NUR ---
Clinical Pharmacy Note - Amikacin Pharmacy to Dose Subjective: To continue amikacin in this 60 y/o male for suspected infection (empiric). 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 Objective: weight 111kg height 185 cm BUN 42 Scr 5 Wbc 33.4 Temp 98.6 Amikacin pre-HD level: 14.4 Assessment/Plan: HD has been scheduled for today per HD RN. Since amikacin pre-HD level is above 10 mcg/ml, no amikacin dose shall be due today Will continue to dose pre-HD levels. Will continue to follow.
--- NOTE | 2016-08-21 16:03 | NUR ---
Dialysis complete. 3L of hemodialysis fluid removed. Pt stable and nad noted upon completion of dialysis.
[2016-08-21] MEDS ORDERED: VANCOMYCIN IV 500 MG in IV DEXTROSE 5% 100 ML IV ONE ×4 (17:00)
[2016-08-21] MEDS: ACETAMINOPHEN 650 MG/20.3 ML LIQUID UDC GT PRN (17:33)
--- NOTE | 2016-08-21 17:35 | NUR ---
Pt spiking low grade fever of 99.6F symptomatic with Afib RVR HR 160-180's, tachypnea. Tylenol given and cooling measures applied. Call made to pan reclaim processor and awaiting return call. Addendum: 08/21/16 at 1839 by KINJAL BROWN RN G-tube feeding also turned off in light of sudden change of condition.
--- NOTE | 2016-08-21 17:59 | NUR ---
Spoke with Dr. Hernandez on the telephone and made of aware of pt's sudden change of condition and increase in heart rate Afib- RVR HR 160-180's and temperature spike. No new orders received.
[2016-08-21] MEDS: MICAFUNGIN SODIUM 100 MG in IV NORMAL SALINE 100 ML IV SCH (18:51)
--- NOTE | 2016-08-21 19:23 | NUR ---
RECEIVED PT ON CONTINUOUS MECHANICAL VENTILATION WITH SETTINGS OF AC 14, VT 550, PEEP +5, FIO2 40%. PT APPEARS TO BE TOLERATING CURRENT SETTINGS AT THIS TIME. NO S/S OF RESPIRATORY DISTRESS NOTED. TRACH IS PATENT AND SECURED WITH TIES. SUCTIONED MODERATE AMOUNT OF THICK, PALE SECRETIONS. HME CHANGED. ALARM PARAMETERS CHECKED. ALARMS ON AND AUDIBLE. AMBU BAG AND BACK UP TRACH ARE AT BEDSIDE. WILL CONTINUE TO MONITOR PT.
--- NOTE | 2016-08-21 19:25 | NUR ---
End of shift: Pt resting awake in bed with fall precautions and safety measures maintained. monitoring analyst and ventilation alarms working properly wnl. Pt on Shiley #8 with vent settings as follows: AC-14, TV-550ml, 40% FiO2, PEEP-5. Rectal tube intact and draining properly. G-tube feeding kept off in light of A-fib RVR and temperature spike. IV theresa infusing as ordered. Endorsed plan of care to overnight associate RN.
--- NOTE | 2016-08-21 20:00 | NUR ---
Noted rectal temp of 102.2F, cooling measures applied Ice bath. Cooling blanket
[2016-08-21] MEDS: ATORVASTATIN 40 MG TABLET PO SCH (20:21)
[2016-08-21] MEDS ORDERED: TOBRAMYCIN SULFATE IV ONE (20:45)
[2016-08-21] MEDS ORDERED: DEXTROSE 5% IV ONE (20:45)
--- NOTE | 2016-08-21 20:53 | NUR ---
Clinical Pharmacy Note - Tobramycin Pharmacy to Dose Subjective: To dose Tobramycin in this 60 y/o male for suspected infection (ID recommended). 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 RX will give one dose of Tobramcyin since pt has elevated WBC and Will continue to dose by pre-HD levels. Goal is for the level to be < 2.0. Will continue to follow.
[2016-08-21] MEDS: PIPERACILLIN/TAZOBACTAM/D5W 2.25 G in PREMIXED 1 EACH IV SCH (22:10)
[2016-08-22] VITALS (91 sets, daily range): BP systolic 75–133; BP diastolic 39–85
[2016-08-22] MEDS: BLOOD SUGAR DIAGNOSTIC 1 EACH STRIP VI SCH ×4 (00:24→18:06)
[2016-08-22] MEDS: VANCOMYCIN FOR PO/GT/NG USE GT SCH ×4 (00:24→18:05)
[2016-08-22] MEDS: INSULIN REGULAR, HUMAN 300 UNIT/3 ML VIAL SQ PRN ×4 (00:26→18:08)
[2016-08-22 05:26] LABS: IRON, SERUM 17 ug/dL (50-175)
[2016-08-22 05:34] LABS: ALANINE AMINOTRANSFERASE < 6 U/L (16-63); ALKALINE PHOSPHATASE 855 U/L (50-136); ASPARTATE AMINOTRANSFERASE 30 U/L (15-37); BILIRUBIN,TOTAL 1.3 mg/dL (0.2-1.0); CARBON DIOXIDE 24 mmol/L (21-32); CHLORIDE 98 mmol/L (98-107); FERRITIN 182 ng/mL (26-388); GLUCOSE 231 mg/dL (74-106); MAGNESIUM 2.1 mg/dL (1.8-2.4); PHOSPHOROUS 3.5 mg/dL (2.5-4.9); POTASSIUM 4.1 mmol/L (3.5-5.1); TOTAL PROTEIN, SERUM 7.3 g/dL (6.4-8.2); UREA NITROGEN, BLOOD 35 mg/dL (7-18)
[2016-08-22 05:37] LABS: CREATININE 4.4 mg/dL (0.6-1.3)
[2016-08-22] MEDS: PIPERACILLIN/TAZOBACTAM/D5W 2.25 G in PREMIXED 1 EACH IV SCH ×3 (05:44→22:00)
[2016-08-22 05:45] LABS: EOSINOPHILS # (AUTO) 0.2 K/uL (0.0-0.7); EOSINOPHILS % (AUTO) 0.3 % (0.0-7.0); HEMATOCRIT 31.4 % (36.7-47.1); HEMOGLOBIN 10.5 g/dL (12.5-16.3); LYMPHOCYTES # (AUTO) 1.3 K/uL (20.0-40.0); MEAN CORPUSCULAR HEMOGLOBIN 29.6 uug (23.8-33.4); MEAN CORPUSCULAR HGB CONC 33 g/dL (32.5-36.3); MEAN CORPUSCULAR VOLUME 88.6 fL (73.0-96.2); MONOCYTES # (AUTO) 2.5 K/uL (2.0-10.0); NEUTROPHILS # (AUTO) 58.6 K/uL (1.8-8.9); NEUTROPHILS % (AUTO) 93.7 % (38.5-71.5); PLATELET COUNT (AUTO) 373 K/uL (152-348); RED BLOOD CELL COUNT(AUTO) 3.55 MIL/uL (4.06-5.63)
[2016-08-22] MEDS: IV NORMAL SALINE 250 ML IV PRN (05:48)
[2016-08-22 05:51] LABS: WHITE BLOOD COUNT (AUTO) 62.6 K/uL (3.6-10.2)
[2016-08-22 05:52] LABS: ABG BASE EXCESS -4.6 mmol/L; ABG PH 7.375 (7.350-7.450); ABG PO2 95.3 mmHg (75.0-100.0); ABG SITE LEFT RADIAL; ABG TOTAL HEMOGLOBIN 10.8 G/dL (13.5-18.0); COHb 1.2 % (0.5-1.5); MetHb 0.3 % (0.0-1.5); O2Hb 96.5 % (94.0-97.0); VENT MODE VENT - A/C; VT, ABG 550 mL
[2016-08-22 05:54] LABS: BAND % (MANUAL) 10 % (0-10); LYMPHOCYTES % (MANUAL) 6 % (20-40); MONOCYTES % (MANUAL) 4 % (2-10); NEUTROPHILS % (MANUAL) 80 % (42-75)
[2016-08-22] MEDS: METRONIDAZOLE 500 MG/NS 100ML 500 MG in PREMIXED 1 EACH IV SCH ×3 (06:30→21:39)
--- NOTE | 2016-08-22 06:53 | NUR ---
Per request from MITRA Alaniz NP, called [facility] Microbiology Department [ ] to request "release of sensitivities of Pseudomonas with all aminoglycosides." [facility] agreed and will follow through.
--- NOTE | 2016-08-22 07:00 | NUR ---
Patient in stable condition. Max temp reached 102.2F rectally. Patient was placed on cooling blanket and temperature has since trended down. Currently 99.8F, rectally. Controlled A-fib on site monitor with HR of 98. Blood pressure is stable with Neosynephrine support at rate of 50 mcg/min. Comfortable on current ventilator settings: AC 14, Vt 550, PEEP 5, FiO2 40%. RR and SpO2 WNL. G-tube in place, verified with auscultation and aspiration. Feeding turned off, as ordered from [id number]; will endorse to day shift. Flexiseal in place. Stool OB 1 of 2 sent. Wound care provided as ordered. Still pending debridement when patient becomes more stable. Frequent turning, skin care, oral care provided per protocol. SBAR given to Shree FLEMING RN
--- NOTE | 2016-08-22 07:30 | NUR ---
dr. abad in unit rounding on patient. informed that there is positive growth on permacath blood cultures no plan on replacing permacath. patient still spiking fevers and wbc are at highest. wound cultures are also positive for growth pending debridement by dr. velázquez.
[2016-08-22] MEDS: FOLIC ACID/VITAMIN B COMP W-C TABLET GT SCH (08:36)
[2016-08-22] MEDS: ACIDOPHILUS/BULGARICUS CHEW TAB GT SCH ×2 (08:36→20:28)
[2016-08-22] MEDS: PANTOPRAZOLE ORAL SUSPENSION 40 MG SUSPDR.PKT GT SCH (08:36)
[2016-08-22] MEDS: GABAPENTIN 100 MG CAPSULE GT SCH ×2 (08:36→20:28)
[2016-08-22] MEDS: SODIUM HYPOCHLORITE 0.125% 473 ML BOTTLE TP SCH (08:37)
[2016-08-22] MEDS: Z GUARD REMEDY PASTE 57 GM TUBE TOP SCH ×2 (08:37→20:29)
--- NOTE | 2016-08-22 10:00 | NUR ---
doctor brittnee in unit. No more uncontrolled heart rate noted since the fever stabilized as prior events have occured unstable heart rate with spiking fevers. patient is on cooling blanket and stable with low dose 40mcg. of neosynephrine.
--- NOTE | 2016-08-22 10:50 | NUR ---
doctor rodger in unit rounding on patient. Is aware of all abnormal lab levels and micro. pending sacral debridement already changed abx. and no plan on changing permacath yet.
[2016-08-22] MEDS: PHENYLEPHRINE IV 80 MG in IV DEXTROSE 5% 250 ML IV PRN (11:08)
--- NOTE | 2016-08-22 11:43 | NUR ---
Clinical Pharmacy Note: Vancomycin Dosing per Pharmacy Subjective: Vancomycin IV to continue on this 60 yo male dialysis patient for sepsis,UTI, decub Objective: BUN 35/Scr 4.4 WBC 62.6 Temperature 98.9 Assessment/Plan: No HD scheduled for today, thus no dose will be given. Will check for HD tomorrow and dose per pre-HD level as appropriate. Will continue to dose vancomycin per pre-HD level as per vancomycin dosing protocol for HD patients. Will continue to follow daily.
--- NOTE | 2016-08-22 11:45 | NUR ---
Clinical Pharmacy Note - Tobramycin Pharmacy to Dose Subjective: To dose Tobramycin in this 60 y/o male for suspected infection (ID recommended). 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 No HD scheduled for today, no pre-HD level and dose will be done today. Will check for HD tomorrow and continue to dose per pre-HD level per protocol. Goal is for the level to be < 2.0. Will continue to follow.
[2016-08-22] MEDS: LINEZOLID IV 600 MG in PREMIXED 1 EACH IV SCH ×2 (13:53→20:27)
--- NOTE | 2016-08-22 14:00 | NUR ---
wound care, bed bath done patient tolerated well. patient continues to be on cooling blanket. rectal tube in place and feeding was continued after bed bath.
[2016-08-22 14:52] LABS: *OCCULT BLOOD STOOL POSITIVE (NEGATIVE)
[2016-08-22] MEDS: MICAFUNGIN SODIUM 100 MG in IV NORMAL SALINE 100 ML IV SCH (18:05)
[2016-08-22] MEDS: ATORVASTATIN 40 MG TABLET PO SCH (20:28)
--- NOTE | 2016-08-22 20:49 | NUR ---
PT ON CONT GODDARD VENT WITH SHILEY # [address] AND SECURED, WITH SETTINGS, A/C 14, VT 550ML, 40%. PEEP5, PT DOES ASSIST AT TIMES,GOOD COUGH EFFORT, SUCTIONED LIGHT PALE YELL TINGE SECRETIONS, CHECK CUFF, NO CHANGES MADE AT THIS TIME, PT WITH NO SIGNS OF RESP. DISTRESS, ALL ALARMS OK, AMBU BAG AT BEDSIDE. Maame DE DIOSP Addendum: 08/22/16 at 2051 by JONNATHAN CHANDLER RT Amended: Links added.
[2016-08-23] VITALS (71 sets, daily range): BP systolic 82–135; BP diastolic 48–92
[2016-08-23] MEDS: VANCOMYCIN FOR PO/GT/NG USE GT SCH ×5 (00:26→23:14)
[2016-08-23] MEDS: BLOOD SUGAR DIAGNOSTIC 1 EACH STRIP VI SCH ×4 (00:26→18:16)
[2016-08-23] MEDS: INSULIN REGULAR, HUMAN 300 UNIT/3 ML VIAL SQ PRN ×2 (00:28→12:04)
--- NOTE | 2016-08-23 04:10 | NUR ---
PT ON CONT HT 50 VENT WITH SHILEY # [address] AND SECURED, WITH SAME CURRENT VENT SETTINGS, A/C 14, VT 550ML, 40%, PEEP 5, PT DOES ASSIST AT TIMES, CHECK CUFF, CHANGE HME, SUCTIONED LIGHT PALE YELL TINGE SECRETIONS, ORAL CARE DONE , NO VENT CHANGES MADE AT THIS TIME ,ALL ALARMS OK, AMBU BAG AT BEDSIDE, NO VENT CHANGES MADE AT THIS TIME, PT STABLE, STILL IN ISOLATION. Maame DE DIOSP Addendum: 08/23/16 at 0413 by JONNATHAN CHANDLER RT Amended: Links added.
[2016-08-23 05:29] LABS: MAGNESIUM 2.2 mg/dL (1.8-2.4); POTASSIUM 3.7 mmol/L (3.5-5.1)
[2016-08-23 05:34] LABS: EOSINOPHILS # (AUTO) 0.4 K/uL (0.0-0.7); EOSINOPHILS % (AUTO) 1.1 % (0.0-7.0); HEMATOCRIT 32.4 % (40-50); HEMOGLOBIN 10.8 G/DL (14.0-18.0); MEAN CORPUSCULAR HEMOGLOBIN 29.3 UUG (27.0-31.0); MEAN CORPUSCULAR HGB CONC 33 g/dL (32.0-37.0); MEAN CORPUSCULAR VOLUME 88.5 FL (82.0-92.0); MONOCYTES # (AUTO) 2.5 K/uL (2.0-10.0); MONOCYTES % (AUTO) 6.8 % (0.0-11.0); NEUTROPHILS # (AUTO) 31.3 K/uL (1.8-8.9); NEUTROPHILS % (AUTO) 84.1 % (38.5-71.5); PLATELET COUNT (AUTO) 339 K/UL (150-450); RED BLOOD CELL COUNT(AUTO) 3.66 MIL/UL (4.7-6.1)
[2016-08-23 05:36] LABS: WHITE BLOOD COUNT (AUTO) 37.2 K/UL (4.0-11.2)
[2016-08-23 05:42] LABS: CREATININE 4.8 mg/dL (0.6-1.3)
[2016-08-23 05:56] LABS: BAND % (MANUAL) 3 % (0-10); EOSINOPHILS % (MANUAL) 4 % (0-8); LYMPHOCYTES % (MANUAL) 16 % (20-40); MONOCYTES % (MANUAL) 14 % (2-10); NEUTROPHILS % (MANUAL) 63 % (42-75)
[2016-08-23] MEDS: PIPERACILLIN/TAZOBACTAM/D5W 2.25 G in PREMIXED 1 EACH IV SCH ×3 (06:03→23:10)
[2016-08-23] MEDS: IV NORMAL SALINE 250 ML IV PRN (06:15)
[2016-08-23] MEDS: METRONIDAZOLE 500 MG/NS 100ML 500 MG in PREMIXED 1 EACH IV SCH ×3 (06:34→23:10)
--- NOTE | 2016-08-23 07:30 | NUR ---
Dr. brown in the unit to examine patient, report given. No orders received.
--- NOTE | 2016-08-23 07:30 | NUR ---
Pt received in bed, laying semi-Hood's, unable to communicate.. Pt trach: Porfirio 8 DCT, in place / secure with tie, no discoloration / breakdown noted under / around trach tie.. Continuous mechanical ventilation, settings: A/C 14, Vt 550, PEEP +5, FiO2 40%, tolerating well at this time, no changes made.. Vent alarms checked and documented as found.. Vent alarms on / audible and functioning properly at this time.. BVM / back up trach at bedside.. No s/s of respiratory distress, will continue to monitor..
[2016-08-23] MEDS: PANTOPRAZOLE ORAL SUSPENSION 40 MG SUSPDR.PKT GT SCH (08:24)
[2016-08-23] MEDS: GABAPENTIN 100 MG CAPSULE GT SCH ×2 (08:24→21:16)
[2016-08-23] MEDS: Z GUARD REMEDY PASTE 57 GM TUBE TOP SCH ×2 (08:25→21:16)
[2016-08-23] MEDS: LINEZOLID IV 600 MG in PREMIXED 1 EACH IV SCH ×2 (08:25→22:01)
[2016-08-23] MEDS: ACIDOPHILUS/BULGARICUS CHEW TAB GT SCH ×2 (08:25→21:16)
[2016-08-23] MEDS: FOLIC ACID/VITAMIN B COMP W-C TABLET GT SCH (08:25)
[2016-08-23] MEDS: SODIUM HYPOCHLORITE 0.125% 473 ML BOTTLE TP SCH (08:48)
[2016-08-23] MEDS: PEPTAMEN AF 1000ML BAG GT PRN (10:02)
--- NOTE | 2016-08-23 10:22 | NUR ---
Dr. Hernandez cardiology services in to examine patient, report given.
[2016-08-23] MEDS: PHENYLEPHRINE IV 80 MG in IV DEXTROSE 5% 250 ML IV PRN (11:08)
--- NOTE | 2016-08-23 11:36 | NUR ---
Dr. Powell in the unit to examine patient, full report given.
--- NOTE | 2016-08-23 14:45 | NUR ---
Clinical Pharmacy Note - Tobramycin Pharmacy to Dose Subjective: To dose Tobramycin in this 60 y/o male for suspected infection (ID recommended). 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 Will give tobramycin 140mg IVPB x1 today (1.5mg/kg ABW) post HD today. Will continue to dose per pre-HD level per protocol. Goal is for the level to be < 2.0. Will continue to follow.
[2016-08-23] MEDS: MICAFUNGIN SODIUM 100 MG in IV NORMAL SALINE 100 ML IV SCH (18:15)
--- NOTE | 2016-08-23 19:15 | NUR ---
Dialysis nurse at bedside.
--- NOTE | 2016-08-23 19:30 | NUR ---
Hypothermic, warming measures provided
--- NOTE | 2016-08-23 19:30 | NUR ---
Dr. Katie Morrison at bedside for sacral debridement. Update given and assessment done with MD. Unable to perform procedure at bedside. Per MD, procedure may need to be done in OR with specific equipment that is unavailable at this time.
[2016-08-23] MEDS ORDERED: ALBUMIN HUMAN 25% 100 ML IV ONE ×2 (19:45→20:30)
--- NOTE | 2016-08-23 21:00 | NUR ---
IV antibioticss due at 2100 and 2200 will be late due to HD being performed at this time.
[2016-08-23] MEDS: ATORVASTATIN 40 MG TABLET PO SCH (21:16)
--- NOTE | 2016-08-23 21:55 | NUR ---
Hemodialysis completed. Removed 2000 mL
--- NOTE | 2016-08-23 22:04 | NUR ---
PATIENT RECEIVED ON CMV WITH THE FOLLOWING SETTINGS: AC 14, VT 550, PEEP +5, FIO2 40%. TRACH IS PATENT AND PROPERLY SECURED WITH TRACH TIES. HME CHANGED. SUCTIONED MODERATED AMOUNT OF THICK WHITE/YELLOWISH SECRETIONS. ALARMS ARE ON AND AUDIBLE. VENT IS PLUGGED IN RED OUTLET. BMV AND SPARE TRACH AT BEDSIDE. NO SOB NOTED AT THIS TIME. WILL CONTINUE TO MONITOR.
[2016-08-23] MEDS: MORPHINE SULFATE 2 MG/1 ML DISP.SYRIN IV PRN (22:34)
[2016-08-23] MEDS ORDERED: TOBRAMYCIN SULFATE IV ONE (23:00)
[2016-08-23] MEDS ORDERED: DEXTROSE 5% IV ONE (23:00)
[2016-08-23] MEDS ORDERED: DIGOXIN 500 MCG/2 ML AMP IV ONE (23:30)
[2016-08-23] MEDS ORDERED: DIGOXIN 500 MCG/2 ML AMP ONE (23:50)
--- NOTE | 2016-08-23 23:55 | NUR ---
At 2230, patient HR began to elevate. Continues to be in A-fib with RVR, with max HR of 190. However, remains hemodynamically stable. Low-grade fever, with noted temperature trending up despite cooling blanket and other cooling measures. Patient qualifies for Sepsis protocol per screening MD contacted. Dr Hernandez updated on patient status and sepsis protocol qualification. Orders received and implemented, see eMAR. Per MD, continue to monitor patient and no other orders as long as patient remains hemodynamically stable.
[2016-08-24] VITALS (64 sets, daily range): BP systolic 73–143; BP diastolic 45–86
--- NOTE | 2016-08-24 | NUR ---
Feeding off for modified trendelenburg position
[2016-08-24] MEDS: BLOOD SUGAR DIAGNOSTIC 1 EACH STRIP VI SCH ×5 (00:11→23:11)
[2016-08-24] MEDS: INSULIN REGULAR, HUMAN 300 UNIT/3 ML VIAL SQ PRN ×4 (00:23→23:13)
[2016-08-24 05:22] LABS: BASOPHILS % (AUTO) 0.1 % (0.0-2.0); EOSINOPHILS # (AUTO) 0.1 K/uL (0.0-0.7); EOSINOPHILS % (AUTO) 0.3 % (0.0-7.0); HEMATOCRIT 32.4 % (40-50); HEMOGLOBIN 11.1 G/DL (14.0-18.0); LYMPHOCYTES # (AUTO) 0.6 K/uL (20.0-40.0); LYMPHOCYTES % (AUTO) 1.3 % (20.5-51.5); MEAN CORPUSCULAR HEMOGLOBIN 30.1 UUG (27.0-31.0); MEAN CORPUSCULAR HGB CONC 34 g/dL (32.0-37.0); MEAN CORPUSCULAR VOLUME 88.1 FL (82.0-92.0); MONOCYTES # (AUTO) 1.8 K/uL (2.0-10.0); MONOCYTES % (AUTO) 3.9 % (0.0-11.0); NEUTROPHILS # (AUTO) 42.8 K/uL (1.8-8.9); NEUTROPHILS % (AUTO) 94.4 % (38.5-71.5); PLATELET COUNT (AUTO) 330 K/UL (150-450); RED BLOOD CELL COUNT(AUTO) 3.68 MIL/UL (4.7-6.1)
[2016-08-24 05:31] LABS: WHITE BLOOD COUNT (AUTO) 45.3 K/UL (4.0-11.2)
[2016-08-24 05:34] LABS: ALKALINE PHOSPHATASE 899 U/L (50-136); ASPARTATE AMINOTRANSFERASE 35 U/L (15-37); BILIRUBIN,TOTAL 1.3 mg/dL (0.2-1.0); CARBON DIOXIDE 24 mmol/L (21-32); CHLORIDE 99 mmol/L (98-107); GLUCOSE 96 mg/dL (74-106); MAGNESIUM 1.9 mg/dL (1.8-2.4); PHOSPHOROUS 2.4 mg/dL (2.5-4.9); POTASSIUM 3.2 mmol/L (3.5-5.1); TOTAL PROTEIN, SERUM 6.8 g/dL (6.4-8.2); UREA NITROGEN, BLOOD 34 mg/dL (7-18)
[2016-08-24] MEDS: PIPERACILLIN/TAZOBACTAM/D5W 2.25 G in PREMIXED 1 EACH IV SCH ×3 (05:53→22:23)
[2016-08-24] MEDS: VANCOMYCIN FOR PO/GT/NG USE GT SCH ×4 (05:53→23:13)
[2016-08-24 05:54] LABS: ALANINE AMINOTRANSFERASE < 6 U/L (16-63)
[2016-08-24 05:56] LABS: CREATININE 3.9 mg/dL (0.6-1.3)
[2016-08-24] MEDS: IV NORMAL SALINE 250 ML IV PRN (05:56)
--- NOTE | 2016-08-24 06:00 | NUR ---
Dr. Hernandez at bedside. For assessment. Update given.
[2016-08-24 06:04] LABS: BAND % (MANUAL) 32 % (0-10); LYMPHOCYTES % (MANUAL) 5 % (20-40); METAMYELOCYTES % 3 % (0-1); MONOCYTES % (MANUAL) 4 % (2-10); NEUTROPHILS % (MANUAL) 56 % (42-75)
[2016-08-24] MEDS: PHENYLEPHRINE IV 80 MG in IV DEXTROSE 5% 250 ML IV PRN ×2 (06:14→11:57)
[2016-08-24] MEDS: METRONIDAZOLE 500 MG/NS 100ML 500 MG in PREMIXED 1 EACH IV SCH ×3 (06:35→23:01)
--- NOTE | 2016-08-24 07:27 | NUR ---
Pt received in isolation room, laying semi-Hood's, unable to communicate.. Pt trach: Porfirio 8 DCT, in place/secure with tie, no discoloration/breakdown noted under/around trach tie.. Continuous mechanical ventilation, settings: A/C 14, Vt 550, PEEP +5, FiO2 40%, tolerating well at this time, no changes made.. Vent alarms checked and documented as found.. Vent alarms on/audible and functioning properly at this time.. BVM/back up trach at bedside.. No s/s of respiratory distress, will continue to monitor..
--- NOTE | 2016-08-24 08:15 | NUR ---
doctor soares in unit rounding on patient. informed that he spiked fever again yesterday during dialysis and was put on vasopressors and in uncontrolled afib. there is trend everytime patient has dialysis same thing happens and wbc becomes elevated. there is positive growth on blood cultures drawn from catheter. doctor soares will not it again in notes for doctor forte of removal or replacing catheter.
[2016-08-24] MEDS: SODIUM HYPOCHLORITE 0.125% 473 ML BOTTLE TP SCH (08:59)
[2016-08-24] MEDS: PANTOPRAZOLE ORAL SUSPENSION 40 MG SUSPDR.PKT GT SCH (09:00)
[2016-08-24] MEDS: Z GUARD REMEDY PASTE 57 GM TUBE TOP SCH ×2 (09:00→20:39)
[2016-08-24] MEDS: ACIDOPHILUS/BULGARICUS CHEW TAB GT SCH ×2 (09:00→20:38)
[2016-08-24] MEDS: FOLIC ACID/VITAMIN B COMP W-C TABLET GT SCH (09:00)
[2016-08-24] MEDS: LINEZOLID IV 600 MG in PREMIXED 1 EACH IV SCH ×2 (09:00→20:39)
[2016-08-24] MEDS: GABAPENTIN 100 MG CAPSULE GT SCH ×2 (09:00→20:39)
--- NOTE | 2016-08-24 09:00 | NUR ---
FiO2 lowered to 35% as per MD titrate order.. Pre titration SpO2 99%.. Aurea MARIA aware.. Will continue to monitor..
[2016-08-24 10:15] LABS: ABG BASE EXCESS -3.6 mmol/L; ABG HCO3 21.2 mmol/L; ABG PCO2 37.5 mmHg (35.0-45.0); ABG PH 7.371 (7.350-7.450); ABG PO2 78.8 mmHg (75.0-100.0); ABG SITE RIGHT RADIAL; COHb 1.4 % (0.5-1.5); MetHb 0.5 % (0.0-1.5); O2Hb 94.3 % (94.0-97.0); VENT MODE VENT - A/C; VT, ABG 550 mL
--- NOTE | 2016-08-24 11:30 | NUR ---
patient cooling blanket turned on. patient slowly rising temperature.
--- NOTE | 2016-08-24 13:51 | NUR ---
paged doctor reanna regarding clarification of dialysis
--- NOTE | 2016-08-24 14:01 | NUR ---
patient will not be receiving dialysis today. will call doctor chatterjee about replacing the dialysis catheter in the while no replacement of potassium or phosphorus due to unknown time patient will go with out dialysis if catheter gets pulled out. Addendum: 08/24/16 at 1405 by ROBBIN FLEMING RN doctor forte will call doctor chatterjee
--- NOTE | 2016-08-24 14:42 | NUR ---
wound care done, bed bath and changed linen.
--- NOTE | 2016-08-24 16:00 | NUR ---
patient cooling blanket turned off. on monitor mode. patients latest temperature 96.8.
--- NOTE | 2016-08-24 19:10 | NUR ---
TRACH PT RECEIVED ON CMV GODDARD , NO DISTRESS NOTED, ON AC14, VT 550ML, PEEP +5 FIO2 35%, ORAL CARE DONE, SUCTIONED WITH SMALL AMOUNT OF THICK PALE WHITE SECRETIONS, GOOD GAG REFLEX NOTED, VENT CHECKED, ALARMS ON AND AUDIBLE, WILL CONTINUE TO MONITOR, TRACH TUBE CHECKED, SECURED WELL, SHILEY 8, SPARE TRACH TUBE KITS AND AMBUBAG AT BEDSIDE.
--- NOTE | 2016-08-24 19:30 | NUR ---
Report received. Patient on contact isolation and with trache to vent with settings: AC=14, FIO2=35%, YF=893 and PEEP=5. Sat above 94%. Open eyes to name. Appears to track but not following any commands. Addendum: 08/25/16 at 0620 by ARCADIO BOWIE RN Amended: Links added.
[2016-08-24] MEDS: PEPTAMEN AF 1000ML BAG GT PRN (19:33)
--- NOTE | 2016-08-24 20:30 | NUR ---
Hypotensive with SBPs in the 70's-80's. Neosynephrine drip restarted. BPs monitor closely. Addendum: 08/25/16 at 0624 by ARCADIO BOWIE RN Amended: Links added. Addendum: 08/25/16 at 0648 by ARCADIO BOWIE RN Amended: Links added.
[2016-08-24] MEDS: ATORVASTATIN 40 MG TABLET PO SCH (20:38)
[2016-08-25] VITALS (76 sets, daily range): BP systolic 71–155; BP diastolic 45–86
--- NOTE | 2016-08-25 03:32 | NUR ---
PT REMAIN ON CMV, NO DISTRESS NOTED, VENT CHECKED, ALARMS ON AND AUDIBLE, NO VENT CHANGES AT THIS TIME. SUCTION PRN. GOOD GAG REFLEX NOTED.
--- NOTE | 2016-08-25 04:00 | NUR ---
Sacral wound care treatment done. Awaiting wound debridement. Addendum: 08/25/16 at 0623 by ARCADIO BOWIE RN Amended: Links added.
[2016-08-25] MEDS: IV NORMAL SALINE 250 ML IV PRN (04:23)
[2016-08-25 05:13] LABS: PHOSPHOROUS 1.4 mg/dL (2.5-4.9); POTASSIUM 3.7 mmol/L (3.5-5.1)
[2016-08-25] MEDS: PIPERACILLIN/TAZOBACTAM/D5W 2.25 G in PREMIXED 1 EACH IV SCH ×3 (05:21→21:43)
[2016-08-25] MEDS: VANCOMYCIN FOR PO/GT/NG USE GT SCH ×3 (05:24→17:51)
[2016-08-25] MEDS: BLOOD SUGAR DIAGNOSTIC 1 EACH STRIP VI SCH ×3 (05:31→18:11)
[2016-08-25] MEDS: INSULIN REGULAR, HUMAN 300 UNIT/3 ML VIAL SQ PRN (05:32)
[2016-08-25 05:39] LABS: CREATININE 4.2 mg/dL (0.6-1.3)
[2016-08-25 05:41] LABS: EOSINOPHILS # (AUTO) 0.3 K/uL (0.0-0.7); EOSINOPHILS % (AUTO) 0.5 % (0.0-7.0); HEMATOCRIT 30.8 % (40-50); HEMOGLOBIN 10.6 G/DL (14.0-18.0); LYMPHOCYTES # (AUTO) 2.7 K/uL (20.0-40.0); LYMPHOCYTES % (AUTO) 4.8 % (20.5-51.5); MEAN CORPUSCULAR HEMOGLOBIN 30.3 UUG (27.0-31.0); MEAN CORPUSCULAR HGB CONC 34 g/dL (32.0-37.0); MEAN CORPUSCULAR VOLUME 88.2 FL (82.0-92.0); MONOCYTES # (AUTO) 3.8 K/uL (2.0-10.0); MONOCYTES % (AUTO) 6.8 % (0.0-11.0); NEUTROPHILS # (AUTO) 49.8 K/uL (1.8-8.9); NEUTROPHILS % (AUTO) 87.9 % (38.5-71.5); PLATELET COUNT (AUTO) 317 K/UL (150-450); RED BLOOD CELL COUNT(AUTO) 3.49 MIL/UL (4.7-6.1)
[2016-08-25 05:49] LABS: WHITE BLOOD COUNT (AUTO) 56.6 K/UL (4.0-11.2)
[2016-08-25 05:56] LABS: BAND % (MANUAL) 6 % (0-10); LYMPHOCYTES % (MANUAL) 4 % (20-40); MONOCYTES % (MANUAL) 5 % (2-10); NEUTROPHILS % (MANUAL) 85 % (42-75)
[2016-08-25] MEDS: METRONIDAZOLE 500 MG/NS 100ML 500 MG in PREMIXED 1 EACH IV SCH ×3 (05:59→21:43)
--- NOTE | 2016-08-25 06:43 | NUR ---
Remains on Neosynephrine drip at 20 mcg/min for BP support. Addendum: 08/25/16 at 0648 by ARCADIO BOWIE RN Amended: Links added.
[2016-08-25] MEDS: ACIDOPHILUS/BULGARICUS CHEW TAB GT SCH ×2 (07:55→20:26)
[2016-08-25] MEDS: PANTOPRAZOLE ORAL SUSPENSION 40 MG SUSPDR.PKT GT SCH (07:56)
[2016-08-25] MEDS: FOLIC ACID/VITAMIN B COMP W-C TABLET GT SCH (07:56)
[2016-08-25] MEDS: ERGOCALCIFEROL 50,000 UNIT CAPSULE GT SCH (07:56)
[2016-08-25] MEDS: GABAPENTIN 100 MG CAPSULE GT SCH ×2 (07:56→20:26)
[2016-08-25] MEDS: LINEZOLID IV 600 MG in PREMIXED 1 EACH IV SCH ×2 (07:56→20:25)
[2016-08-25] MEDS: Z GUARD REMEDY PASTE 57 GM TUBE TOP SCH ×2 (07:57→20:26)
[2016-08-25] MEDS: SODIUM HYPOCHLORITE 0.125% 473 ML BOTTLE TP SCH (07:58)
--- NOTE | 2016-08-25 11:00 | NUR ---
Jay Fuentes here to see pt. Full report given. New orders received and carried out.
--- NOTE | 2016-08-25 11:15 | NUR ---
Telephone consent signed by Christopher Hamilton (): . alert and oriented during our telephone conversation and is aware of the procedures to be done. Addendum: 08/25/16 at 1448 by KINJAL BROWN RN Telephone consent for removal of hemodialysis catheter.
[2016-08-25] MEDS: PHENYLEPHRINE IV 80 MG in IV DEXTROSE 5% 250 ML IV PRN ×2 (11:30→20:00)
[2016-08-25] MEDS: Z GUARD REMEDY PASTE 57 GM TUBE TOP PRN (11:54)
--- NOTE | 2016-08-25 14:45 | NUR ---
Telephone consent for insertion of a temporary hemodialysis catheter signed by Christopher Hamilton (brother): . Brother alert and oriented during our telephone conversation and is aware of the procedures to be done.
--- NOTE | 2016-08-25 14:59 | NUR ---
outsole flexer here at the bedside for dialysis treatment.
[2016-08-25] MEDS ORDERED: NEUTRA PHOS PACKET GT ONE (16:15)
--- NOTE | 2016-08-25 17:14 | NUR ---
Clinical Pharmacy Note - Tobramycin Pharmacy to Dose Subjective: To dose Tobramycin in this 60 y/o male for MDR Pseudomonas. Patient is being treated with Zosyn and Zyvox as well. Objective: weight 111 kg height 185 cm IBW 79.9 kg , used adjusted body weight 93 kg BUN 41 Scr 4.2 WBC 56.6 Temp 97.9 Tobramycin random level (pre-HD): 0.8 mcg/ml Assessment/Plan: HD scheduled for today per HD RN. Will give tobramycin 140mg IVPB x1 today (1.5mg/kg ABW) post HD today. Per ID MD's note: plan is to remove pt's dialysis catheter tomorrow. Will continue to monitor and adjust the dose as necessary.
[2016-08-25] MEDS ORDERED: TOBRAMYCIN SULFATE IV ONE (17:15)
[2016-08-25] MEDS ORDERED: DEXTROSE 5% IV ONE (17:15)
--- NOTE | 2016-08-25 18:00 | NUR ---
Dialysis complete. 2L of hemodialysis fluid removed. Pt stable and nad noted upon completion of dialysis treatment.
--- NOTE | 2016-08-25 18:47 | NUR ---
End of shift: Pt resting in bed with fall precautions and safety measures maintained. shelter monitor and ventilation alarms working properly wnl. Pt on Shiley #8 with vent settings as follows: AC-14, TV-550ml, 35% FiO2, PEEP-5. Rectal tube intact and draining properly. HOB kept elevated and G-tube feeding infusing as ordered IV theresa infusing as ordered.
--- NOTE | 2016-08-25 19:02 | NUR ---
Received pt on Burns vent with the following settings of AC-14, Vt-550, PEEP+5, FIO2-35%, trached with Shiley#8 DCT trach, which is in the place and secure. No s/s of respiratory distress noted. Airway care done, pt responded to physical stimuli. Resus. bag and back up trach at bedside. Vent and alarms checked and reset.
--- NOTE | 2016-08-25 20:15 | NUR ---
Due to decreased O2 saturation FIO2 increased to 50% by CANDACE Walker.
[2016-08-25] MEDS: ATORVASTATIN 40 MG TABLET PO SCH (20:26)
[2016-08-25] MEDS: MORPHINE SULFATE 2 MG/1 ML DISP.SYRIN IV PRN (20:53)
--- NOTE | 2016-08-25 21:07 | NUR ---
Pt tachypneic and tachycardic, on present vent settings with FIO2-50%. Sx and lavage done. RN provided medication for pain. Cont. monitor.
[2016-08-26] VITALS (63 sets, daily range): BP systolic 74–125; BP diastolic 45–84
--- NOTE | 2016-08-26 00:01 | NUR ---
Patient experiencing his usual post dialysis instability: increased heart rate, decreased B/P, decreased SaO2, etc. MD is aware of this phenomenal & requested not to be called; according to CANDACE Cadet. Tx / temp, restarted cooling blanket & gave Tylenol.
[2016-08-26] MEDS: VANCOMYCIN FOR PO/GT/NG USE GT SCH ×4 (00:06→17:35)
[2016-08-26] MEDS: BLOOD SUGAR DIAGNOSTIC 1 EACH STRIP VI SCH ×4 (00:12→17:47)
[2016-08-26] MEDS: ACETAMINOPHEN 650 MG/20.3 ML LIQUID UDC GT PRN ×2 (00:16→15:46)
[2016-08-26] MEDS: PEPTAMEN AF 1000ML BAG GT PRN ×2 (00:30→19:00)
--- NOTE | 2016-08-26 05:10 | NUR ---
Cont. monitor pt on present vent settings. At this time pt seemed more comfortable and relaxed. No respiratory distress noted. FIO2 decreased to 40% and RN Aaron notified. Sx and lavage PRN. HME and Sx Anderson changed. Oral care done. Resus. bag and back up trach at bedside. Vent and alarms on and audible.
[2016-08-26 05:15] LABS: EOSINOPHILS # (AUTO) 0.3 K/uL (0.0-0.7); EOSINOPHILS % (AUTO) 0.4 % (0.0-7.0); HEMATOCRIT 31.7 % (40-50); HEMOGLOBIN 10.9 G/DL (14.0-18.0); LYMPHOCYTES # (AUTO) 1.7 K/uL (20.0-40.0); LYMPHOCYTES % (AUTO) 2.3 % (20.5-51.5); MEAN CORPUSCULAR HEMOGLOBIN 30.2 UUG (27.0-31.0); MEAN CORPUSCULAR HGB CONC 34 g/dL (32.0-37.0); MEAN CORPUSCULAR VOLUME 87.8 FL (82.0-92.0); MONOCYTES # (AUTO) 3.1 K/uL (2.0-10.0); MONOCYTES % (AUTO) 4.2 % (0.0-11.0); NEUTROPHILS # (AUTO) 68.1 K/uL (1.8-8.9); NEUTROPHILS % (AUTO) 93.1 % (38.5-71.5); PLATELET COUNT (AUTO) 273 K/UL (150-450); RED BLOOD CELL COUNT(AUTO) 3.61 MIL/UL (4.7-6.1)
[2016-08-26] MEDS: INSULIN REGULAR, HUMAN 300 UNIT/3 ML VIAL SQ PRN ×2 (05:15→17:51)
[2016-08-26 05:17] LABS: MAGNESIUM 1.8 mg/dL (1.8-2.4); PHOSPHOROUS 1.8 mg/dL (2.5-4.9); POTASSIUM 4.4 mmol/L (3.5-5.1)
[2016-08-26 05:26] LABS: CREATININE 3.6 mg/dL (0.6-1.3)
[2016-08-26 05:30] LABS: WHITE BLOOD COUNT (AUTO) 73.2 K/UL (4.0-11.2)
[2016-08-26 05:34] LABS: BAND % (MANUAL) 14 % (0-10); LYMPHOCYTES % (MANUAL) 11 % (20-40); MONOCYTES % (MANUAL) 5 % (2-10); NEUTROPHILS % (MANUAL) 70 % (42-75)
[2016-08-26] MEDS: METRONIDAZOLE 500 MG/NS 100ML 500 MG in PREMIXED 1 EACH IV SCH ×3 (05:41→22:00)
[2016-08-26] MEDS: PIPERACILLIN/TAZOBACTAM/D5W 2.25 G in PREMIXED 1 EACH IV SCH ×3 (05:41→22:00)
[2016-08-26] MEDS: IV NORMAL SALINE 250 ML IV PRN (05:53)
--- NOTE | 2016-08-26 06:00 | NUR ---
Tube feeding off 0400 - 0800 / orders.
--- NOTE | 2016-08-26 07:10 | NUR ---
Pt received on Continuous mechanical ventilation via Trach. Pt is on Burns vent with ordered settings of A/C-14, VT-550, PEEP+5, FIO2-40%. Tolerating vent settings well. SpO2-99% No signs of symptoms of respiratory distress noted. Sxn'd small amts of pale yellowish secretions. Vent alarm parameters checked, on and audible. Ventilator plugged into red emergency outlet. Bag/valve/mask and back up trach at bedside. Proper isolation precaution equipment used. Will continue to monitor.
--- NOTE | 2016-08-26 07:25 | NUR ---
clip riveter here to see pt for dialysis treatment today.
[2016-08-26] MEDS: GABAPENTIN 100 MG CAPSULE GT SCH ×2 (07:39→20:33)
[2016-08-26] MEDS: ACIDOPHILUS/BULGARICUS CHEW TAB GT SCH ×2 (07:39→20:33)
[2016-08-26] MEDS: FOLIC ACID/VITAMIN B COMP W-C TABLET GT SCH (07:39)
[2016-08-26] MEDS: PANTOPRAZOLE ORAL SUSPENSION 40 MG SUSPDR.PKT GT SCH (07:39)
[2016-08-26] MEDS: Z GUARD REMEDY PASTE 57 GM TUBE TOP SCH ×2 (07:39→20:33)
[2016-08-26] MEDS: LINEZOLID IV 600 MG in PREMIXED 1 EACH IV SCH ×2 (07:39→20:33)
[2016-08-26] MEDS: SODIUM HYPOCHLORITE 0.125% 473 ML BOTTLE TP SCH (07:40)
--- NOTE | 2016-08-26 08:00 | NUR ---
Pt resting in bed with fall precautions and safety measures maintained. monitor and storage bin tender and ventilation alarms working properly wnl. Pt on Shiley #8 with vent settings as follows: AC-14, TV-550ml, 40% FiO2, PEEP-5. Rectal tube intact and draining properly. HOB kept elevated and G-tube feeding infusing as ordered IV theresa infusing as ordered. Nad noted.
--- NOTE | 2016-08-26 08:27 | NUR ---
Dr. Valverde here at the bedside to remove permacath.
--- NOTE | 2016-08-26 08:30 | NUR ---
Hemodialysis complete. 1.2L of hemodialysis fluid removed. Nad noted upon completion of dialysis.
--- NOTE | 2016-08-26 08:35 | NUR ---
Hemodialysis catheter removed by Dr. Valverde. Site cleansed and dressed. Nad noted and pt tolerated procedure well.
[2016-08-26] MEDS ORDERED: LIDOCAINE 1%-EPI 1:100,000 20 ML VIAL TP ONE (09:00)
--- NOTE | 2016-08-26 09:45 | NUR ---
Jay Fuentes here to see pt. Full report given. No new orders received.
--- NOTE | 2016-08-26 11:16 | NUR ---
Clinical Pharmacy Note - Tobramycin Pharmacy to Dose Subjective: Continue to dose Tobramycin in this 60 y/o male for MDR Pseudomonas. Patient is being treated with Zosyn and Zyvox as well. Objective: weight 111 kg height 185 cm IBW 79.9 kg , used adjusted body weight 93 kg BUN 31 Scr 3.6 WBC 73.2 Temp 98.7 Tobramycin random level (pre-HD): 2.1 mcg/ml Assessment/Plan: HD was already done for today per RN. Since Tobramycin pre-HD level is 2.1 (between 2-3, goal is to keep post HD level < 2), Will give tobramycin 140mg IVPB x1 today (1.5mg/kg ABW) post HD today. Per ID MD's note: plan is to remove pt's dialysis catheter today. Will continue to monitor and adjust the dose as necessary.
[2016-08-26] MEDS: PHENYLEPHRINE IV 80 MG in IV DEXTROSE 5% 250 ML IV PRN (17:36)
[2016-08-26] MEDS ORDERED: TOBRAMYCIN SULFATE IV ONE (18:00)
[2016-08-26] MEDS ORDERED: DEXTROSE 5% IV ONE (18:00)
[2016-08-26] MEDS ORDERED: NEUTRA PHOS PACKET GT ONE (18:15)
--- NOTE | 2016-08-26 18:55 | NUR ---
End of shift: Pt resting in bed with fall precautions and safety measures maintained; bed on continuous motion. cardiac monitor and ventilation alarms working properly wnl. Pt on Shiley #8 with vent settings as follows: AC-14, TV-550ml, 35% FiO2, PEEP-5. Rectal tube intact and draining properly. HOB kept elevated and G-tube feeding infusing as ordered IV theresa infusing as ordered.
--- NOTE | 2016-08-26 19:05 | NUR ---
Trached patient endorsed on Continuous mechanical ventilation. He is on Burns vent with ordered settings of A/C-14, VT-550, PEEP+5, FIO2-35%. No signs of symptoms of respiratory distress noted. Sxn'd small amts of pale yellowish secretions. Vent alarm parameters checked: on and audible. Bag/valve/mask and back up trach at bedside. PPE used. Will continue to monitor.
[2016-08-26] MEDS: ATORVASTATIN 40 MG TABLET PO SCH (20:33)
[2016-08-27] VITALS (25 sets, daily range): BP systolic 91–118; BP diastolic 51–77
[2016-08-27] MEDS: BLOOD SUGAR DIAGNOSTIC 1 EACH STRIP VI SCH ×5 (00:52→23:45)
[2016-08-27] MEDS: VANCOMYCIN FOR PO/GT/NG USE GT SCH ×5 (00:52→23:41)
[2016-08-27] MEDS: INSULIN REGULAR, HUMAN 300 UNIT/3 ML VIAL SQ PRN ×4 (00:54→23:47)
[2016-08-27 05:06] LABS: BASOPHILS % (AUTO) 0.1 % (0.0-2.0); EOSINOPHILS # (AUTO) 0.2 K/uL (0.0-0.7); EOSINOPHILS % (AUTO) 0.6 % (0.0-7.0); HEMATOCRIT 27.3 % (40-50); HEMOGLOBIN 9.2 G/DL (14.0-18.0); LYMPHOCYTES # (AUTO) 2.9 K/uL (20.0-40.0); LYMPHOCYTES % (AUTO) 7.2 % (20.5-51.5); MEAN CORPUSCULAR HEMOGLOBIN 29.7 UUG (27.0-31.0); MEAN CORPUSCULAR HGB CONC 34 g/dL (32.0-37.0); MEAN CORPUSCULAR VOLUME 87.7 FL (82.0-92.0); MONOCYTES # (AUTO) 2.9 K/uL (2.0-10.0); MONOCYTES % (AUTO) 7.1 % (0.0-11.0); NEUTROPHILS # (AUTO) 34.9 K/uL (1.8-8.9); PLATELET COUNT (AUTO) 216 K/UL (150-450); RED BLOOD CELL COUNT(AUTO) 3.11 MIL/UL (4.7-6.1)
[2016-08-27] MEDS: PIPERACILLIN/TAZOBACTAM/D5W 2.25 G in PREMIXED 1 EACH IV SCH ×3 (05:13→22:04)
[2016-08-27] MEDS: METRONIDAZOLE 500 MG/NS 100ML 500 MG in PREMIXED 1 EACH IV SCH ×3 (05:13→22:33)
[2016-08-27 05:17] LABS: MAGNESIUM 2.4 mg/dL (1.8-2.4); PHOSPHOROUS 1.8 mg/dL (2.5-4.9); POTASSIUM 3.8 mmol/L (3.5-5.1)
[2016-08-27 05:31] LABS: WHITE BLOOD COUNT (AUTO) 40.9 K/UL (4.0-11.2)
[2016-08-27 05:39] LABS: CREATININE 3.7 mg/dL (0.6-1.3)
[2016-08-27] MEDS: IV NORMAL SALINE 250 ML IV PRN ×2 (05:58→19:53)
[2016-08-27 06:31] LABS: BAND % (MANUAL) 7 % (0-10); LYMPHOCYTES % (MANUAL) 6 % (20-40); METAMYELOCYTES % 1 % (0-1); MONOCYTES % (MANUAL) 7 % (2-10); NEUTROPHILS % (MANUAL) 79 % (42-75)
--- NOTE | 2016-08-27 07:10 | NUR ---
PT RECEIVED ON CMV WITH TRACH SECURED AND INTACT. AIRWAY PATENT. PT APPEARED COMFORTABLE TOLERATING CURRENT VENT SETTINGS FINE WITH NO DISTRESS. BREATH SOUNDS RHONCHI. PRN SC PERFORMED. PT HAD MODERATE OFF WHITE YELLOWISH SECRETIONS. VENT ALARMS SET AND AUDIBLE.
[2016-08-27] MEDS: ACIDOPHILUS/BULGARICUS CHEW TAB GT SCH ×2 (08:14→21:08)
[2016-08-27] MEDS: LINEZOLID IV 600 MG in PREMIXED 1 EACH IV SCH ×2 (08:14→21:09)
[2016-08-27] MEDS: PANTOPRAZOLE ORAL SUSPENSION 40 MG SUSPDR.PKT GT SCH (08:14)
[2016-08-27] MEDS: GABAPENTIN 100 MG CAPSULE GT SCH ×2 (08:14→21:08)
[2016-08-27] MEDS: FOLIC ACID/VITAMIN B COMP W-C TABLET GT SCH (08:14)
[2016-08-27] MEDS: Z GUARD REMEDY PASTE 57 GM TUBE TOP SCH ×2 (08:15→21:08)
[2016-08-27] MEDS: SODIUM HYPOCHLORITE 0.125% 473 ML BOTTLE TP SCH (08:15)
--- NOTE | 2016-08-27 09:41 | NUR ---
Dr. brown in the unit to see patient; full report given. see orders.
--- NOTE | 2016-08-27 10:01 | NUR ---
Clinical Pharmacy Note - Tobramycin Pharmacy to Dose Subjective: Continue to dose Tobramycin in this 60 y/o male for MDR Pseudomonas. Patient is being treated with Zosyn and Zyvox as well. Objective: weight 111 kg height 185 cm IBW 79.9 kg , used adjusted body weight 93 kg BUN 41 Scr 3.7 WBC 40.9 Temp 99.2 Assessment/Plan: HD cath was removed on 08/26 post HD. Will dose by fall off level while HD is not being done. Patient received tobramycin 140mg IVPB x1 yesterday at 1800 post HD. Will draw tobramycin random level on 08/28 with am labs. Will continue to follow.
--- NOTE | 2016-08-27 10:57 | NUR ---
Dr. Powell in the unit to examine patient, report given see orders.
--- NOTE | 2016-08-27 12:00 | NUR ---
Dr. Wade in the unit to see patient, full report given.
--- NOTE | 2016-08-27 19:16 | NUR ---
Pt received on Viasys Burns settings AC 14, VT 550, PEEP+5 and FIO2-35%. No resp. distress noted. Pt to be monitored throughout the shift and PRN SX. Oral care done. Shiley 8 is patent and secure; Backup Shiley 8 and BVM at bedside. Burns alarm parameters have been checked and remain audible.
--- NOTE | 2016-08-27 19:25 | NUR ---
Report received. Patient has been NPO awaiting wound debridement. Spoke to Dr. Morrison re: this. has no plans on doing procedure today or tomorrow. Will resume GT feedings. Addendum: 08/28/16 at 0012 by ARCADIO BOWIE RN Amended: Links added.
[2016-08-27] MEDS: PEPTAMEN AF 1000ML BAG GT PRN (20:04)
--- NOTE | 2016-08-27 20:15 | NUR ---
On contact isolation. Patient awake, withdraws and grimaces to pain but not following commands. PICC line to DANYELLE; unable to withdraw blood from 2 ports and with a little resistance when flushed with NS. Assessment completed. Turned and repositioned. HOB elevated above 30 degrees at all times. GT feedings restarted at 80 ml/H. Flexi seal in place; irrigated gently. With thick to liquid brown green stools. Skin care provided. Seen by Dr. Latham; no new orders. Addendum: 08/28/16 at 0018 by ARCADIO BOWIE RN Amended: Links added.
[2016-08-27] MEDS: ATORVASTATIN 40 MG TABLET PO SCH (21:08)
[2016-08-28] VITALS (24 sets, daily range): BP systolic 90–109; BP diastolic 55–68
--- NOTE | 2016-08-28 05:07 | NUR ---
Patient remains on Viasys Burns at this time with no changes made to the ventilator settings. No respiratory distress noted throughout the shift. Patient was routinely suctioned and was administered oral care. Shiley 8 DCT remains patent and secure; Backup Shiley 8 DCT and resuscitation bag are both at bedside. Viasys Burns alarm parameters have been checked and remain audible at this time.
[2016-08-28] MEDS: VANCOMYCIN FOR PO/GT/NG USE GT SCH ×4 (05:19→23:25)
[2016-08-28] MEDS: PIPERACILLIN/TAZOBACTAM/D5W 2.25 G in PREMIXED 1 EACH IV SCH ×3 (05:19→21:38)
[2016-08-28 05:31] LABS: BASOPHILS % (AUTO) 0.1 % (0.0-2.0); EOSINOPHILS # (AUTO) 0.4 K/uL (0.0-0.7); EOSINOPHILS % (AUTO) 1.5 % (0.0-7.0); HEMATOCRIT 30.2 % (40-50); HEMOGLOBIN 10.3 G/DL (14.0-18.0); LYMPHOCYTES # (AUTO) 2.9 K/UL (0.8-4.8); LYMPHOCYTES % (AUTO) 11.1 % (20.5-51.5); MEAN CORPUSCULAR HEMOGLOBIN 29.1 UUG (27.0-31.0); MEAN CORPUSCULAR HGB CONC 34 g/dL (32.0-37.0); MEAN CORPUSCULAR VOLUME 85.3 FL (82.0-92.0); MONOCYTES # (AUTO) 1.8 K/UL (0.1-1.30); NEUTROPHILS # (AUTO) 21.2 K/UL (1.8-8.9); NEUTROPHILS % (AUTO) 80.3 % (38.5-71.5); PLATELET COUNT (AUTO) 208 K/UL (150-450); RED BLOOD CELL COUNT(AUTO) 3.54 MIL/UL (4.7-6.1)
[2016-08-28] MEDS: Z GUARD REMEDY PASTE 57 GM TUBE TOP PRN (05:35)
[2016-08-28 05:36] LABS: WHITE BLOOD COUNT (AUTO) 26.3 K/UL (4.0-11.2)
[2016-08-28] MEDS: BLOOD SUGAR DIAGNOSTIC 1 EACH STRIP VI SCH ×4 (05:36→23:26)
[2016-08-28] MEDS: INSULIN REGULAR, HUMAN 300 UNIT/3 ML VIAL SQ PRN ×4 (05:41→23:27)
[2016-08-28 05:46] LABS: CREATININE 4.2 mg/dL (0.6-1.3); PHOSPHOROUS 3.4 mg/dL (2.5-4.9)
[2016-08-28 05:48] LABS: MAGNESIUM 2.4 mg/dL (1.8-2.4); TOTAL PROTEIN, SERUM 6.9 g/dL (6.4-8.2)
[2016-08-28 05:51] LABS: BAND % (MANUAL) 3 % (0-10); EOSINOPHILS % (MANUAL) 2 % (0-8); LYMPHOCYTES % (MANUAL) 15 % (20-40); MONOCYTES % (MANUAL) 9 % (2-10); NEUTROPHILS % (MANUAL) 71 % (42-75)
[2016-08-28] MEDS: METRONIDAZOLE 500 MG/NS 100ML 500 MG in PREMIXED 1 EACH IV SCH ×3 (05:59→22:17)
--- NOTE | 2016-08-28 06:28 | NUR ---
Stable all night. Tolerating GT feedings at 80 ml/H. Off [id number]. Still with liquid foul smelling stools via Flexi seal. Wound care treatment done. Still awaiting wound debridement. Contact isolation maintained. Addendum: 08/28/16 at 0630 by ARCADIO BOWIE RN Amended: Links added.
--- NOTE | 2016-08-28 07:50 | NUR ---
PT RECEIVED ON GODDARD VENT #008 ON SETTINGS OF AC 14, VT550, PEEP +5, FIO2 35%. PT TRACH SIZE SHILEY 8DCT IS SECURED AND INTACT WITH TRACH TIE. PT WAS SUCTION VIA TRACH AND MOUTH. PT ORAL CARE WAS DONE RN AWARE. PT HME WAS CHANGED PT TRACH CUFF WAS CHECKED WITH HORSE BREEDER. PT TRACH CARE WAS DONE. PT VENT ALARMS ON AND AUDIBLE. PT AMBU-BAG AT BED SIDE. PT HAS NO PRN TX PT HAS ABG ORDER 0900 . WILL CONTINUE TO MONITOR PT THROUGHOUT SHIFT.
[2016-08-28] MEDS: PANTOPRAZOLE ORAL SUSPENSION 40 MG SUSPDR.PKT GT SCH (08:09)
[2016-08-28] MEDS: ACIDOPHILUS/BULGARICUS CHEW TAB GT SCH ×2 (08:09→20:38)
[2016-08-28] MEDS: GABAPENTIN 100 MG CAPSULE GT SCH ×2 (08:09→20:38)
[2016-08-28] MEDS: FOLIC ACID/VITAMIN B COMP W-C TABLET GT SCH (08:09)
[2016-08-28] MEDS: Z GUARD REMEDY PASTE 57 GM TUBE TOP SCH ×2 (08:10→20:38)
[2016-08-28] MEDS: LINEZOLID IV 600 MG in PREMIXED 1 EACH IV SCH ×2 (08:10→20:35)
[2016-08-28] MEDS: SODIUM HYPOCHLORITE 0.125% 473 ML BOTTLE TP SCH (08:11)
--- NOTE | 2016-08-28 09:40 | NUR ---
Clinical Pharmacy Note - Tobramycin Pharmacy to Dose Subjective: Continue to dose Tobramycin in this 60 y/o male for MDR Pseudomonas. Patient is being treated with Zosyn and Zyvox as well. Objective: weight 111 kg height 185 cm IBW 79.9 kg , used adjusted body weight 93 kg BUN 55 Scr 4.2 WBC 26.3 Temp 98.4 Tobramycin random level: 0.7 ( with am labs) Assessment/Plan: HD cath was removed on 08/26 post HD. Will dose by fall off level while HD is not being done. Since tobramycin random level is below 2 mcg/ml, will give tobramycin 140mg IVPB x1 today. Will draw tobramycin random level on 08/30 with am labs. Will continue to follow.
[2016-08-28 09:45] LABS: ABG HCO3 21.1 mmol/L; ABG PCO2 38.5 mmHg (35.0-45.0); ABG PH 7.356 (7.350-7.450); ABG SITE RIGHT RADIAL; ABG TOTAL HEMOGLOBIN 10.5 G/dL (13.5-18.0); COHb 1.2 % (0.5-1.5); MetHb 0.2 % (0.0-1.5); O2Hb 97.3 % (94.0-97.0); VENT MODE VENT - A/C; VT, ABG 550 mL
--- NOTE | 2016-08-28 10:30 | NUR ---
Dr. Wade in the unit to examine patient, full report given no orders received.
--- NOTE | 2016-08-28 11:03 | NUR ---
Dr. Burton in the unit to examine patient, full report given see orders.
--- NOTE | 2016-08-28 12:38 | NUR ---
Dr. Powell in the unit to see patient; full report given no orders received.
[2016-08-28] MEDS ORDERED: DEXTROSE 5% IV ONE (13:00)
[2016-08-28] MEDS ORDERED: TOBRAMYCIN SULFATE IV ONE (13:00)
--- NOTE | 2016-08-28 14:00 | NUR ---
Dr. Morrison in the unit to examine patient; orders for NPO past MN. patient scheduled for Debridment tomorrow at [address] Morrison who called OR. and scheduled.
[2016-08-28] MEDS: PEPTAMEN AF 1000ML BAG GT PRN (15:29)
--- NOTE | 2016-08-28 19:30 | NUR ---
Report received. Patient lethargic; opens eyes spontaneously but not following any commands. Trache Shiley# 8 to vent with settings: AC=14, WZ=966 ml, FIO2=35% and PEEP=5. Sta 96-100%. 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 Assessment completed. Addendum: 08/29/16 at 0135 by ARCADIO BOWIE RN Amended: Links added.
--- NOTE | 2016-08-28 19:32 | NUR ---
RECEIVED PT ON CONTINUOUS VENT AC 14 VT 550 PEEP 5 FIO2 35%. TRACH IN PLACE AND SECURED.BVM AT BEDSIDE. ORAL CARE DONE. SUCTION PRN. VENT CHECKED, ALARMS WORKING WELL AND AUDIBLE. NO DISTRESS NOTED AT THIS TIME. WILL CONTINUE TO MONITOR.
[2016-08-28] MEDS: ATORVASTATIN 40 MG TABLET PO SCH (20:38)
[2016-08-28] MEDS: IV NORMAL SALINE 250 ML IV PRN (21:41)
[2016-08-29] VITALS (51 sets, daily range): BP systolic 72–148; BP diastolic 40–90
--- NOTE | 2016-08-29 | NUR ---
GT feedings held. NPO after midnoc; for sacral wound debridement in am. Addendum: 08/29/16 at 0127 by ARCADIO BOWIE RN Amended: Links added. Addendum: 08/29/16 at 0129 by ARCADIO BOWIE RN Amended: Links added.
[2016-08-29 05:08] LABS: BASOPHILS % (AUTO) 0.1 % (0.0-2.0); EOSINOPHILS # (AUTO) 0.3 K/uL (0.0-0.7); EOSINOPHILS % (AUTO) 1.6 % (0.0-7.0); HEMATOCRIT 27.6 % (40-50); HEMOGLOBIN 9.6 G/DL (14.0-18.0); LYMPHOCYTES # (AUTO) 2.5 K/UL (0.8-4.8); LYMPHOCYTES % (AUTO) 13.6 % (20.5-51.5); MEAN CORPUSCULAR HEMOGLOBIN 29.4 UUG (27.0-31.0); MEAN CORPUSCULAR HGB CONC 35 g/dL (32.0-37.0); MONOCYTES # (AUTO) 1.2 K/UL (0.1-1.30); MONOCYTES % (AUTO) 6.7 % (0.0-11.0); NEUTROPHILS # (AUTO) 14.5 K/UL (1.8-8.9); PLATELET COUNT (AUTO) 157 K/UL (150-450); RED BLOOD CELL COUNT(AUTO) 3.28 MIL/UL (4.7-6.1); WHITE BLOOD COUNT (AUTO) 18.5 K/UL (4.0-11.2)
[2016-08-29 05:14] LABS: BILIRUBIN,TOTAL 1.8 mg/dL (0.2-1.0); MAGNESIUM 2.5 mg/dL (1.8-2.4); PHOSPHOROUS 3.8 mg/dL (2.5-4.9); POTASSIUM 4.4 mmol/L (3.5-5.1); TOTAL PROTEIN, SERUM 6.5 g/dL (6.4-8.2)
[2016-08-29 05:27] LABS: CREATININE 4.7 mg/dL (0.6-1.3)
[2016-08-29 05:31] LABS: BAND % (MANUAL) 2 % (0-10); EOSINOPHILS % (MANUAL) 2 % (0-8); LYMPHOCYTES % (MANUAL) 17 % (20-40); MONOCYTES % (MANUAL) 9 % (2-10); NEUTROPHILS % (MANUAL) 70 % (42-75)
[2016-08-29] MEDS: PIPERACILLIN/TAZOBACTAM/D5W 2.25 G in PREMIXED 1 EACH IV SCH ×3 (05:51→22:03)
[2016-08-29] MEDS: VANCOMYCIN FOR PO/GT/NG USE GT SCH ×4 (05:51→23:29)
[2016-08-29] MEDS: BLOOD SUGAR DIAGNOSTIC 1 EACH STRIP VI SCH ×4 (06:07→23:32)
[2016-08-29] MEDS: Z GUARD REMEDY PASTE 57 GM TUBE TOP PRN (06:07)
[2016-08-29] MEDS: METRONIDAZOLE 500 MG/NS 100ML 500 MG in PREMIXED 1 EACH IV SCH ×3 (06:31→21:39)
--- NOTE | 2016-08-29 06:37 | NUR ---
Stable on current vent settings. Contact isolation maintained. Addendum: 08/29/16 at 0638 by ARCADIO BOWIE RN Amended: Links added.
[2016-08-29] MEDS: FOLIC ACID/VITAMIN B COMP W-C TABLET GT SCH (08:00)
[2016-08-29] MEDS: PANTOPRAZOLE ORAL SUSPENSION 40 MG SUSPDR.PKT GT SCH (08:00)
[2016-08-29] MEDS: GABAPENTIN 100 MG CAPSULE GT SCH ×2 (08:00→20:38)
[2016-08-29] MEDS: ACIDOPHILUS/BULGARICUS CHEW TAB GT SCH ×2 (08:00→20:38)
[2016-08-29] MEDS: Z GUARD REMEDY PASTE 57 GM TUBE TOP SCH ×2 (08:01→20:39)
[2016-08-29] MEDS: SODIUM HYPOCHLORITE 0.125% 473 ML BOTTLE TP SCH (08:01)
[2016-08-29] MEDS: LINEZOLID IV 600 MG in PREMIXED 1 EACH IV SCH ×2 (08:01→20:38)
--- NOTE | 2016-08-29 08:20 | NUR ---
Pt rec'd on Burns, settings AC14 550vt Peep+5 35%FiO2. Pt is trached with a Yisselley 8DCT trach, in place patent and secured with foam trach tie. Pt tolerating vent settings well, no signs of respiratory distress noted at this time. Lavaged/sxn'd pt with moderate amount of pale secretions. Vent alarms audible checked and reset. Ambu-bag and back-up trach at bedside. Will continue to monitor and report any changes.
--- NOTE | 2016-08-29 09:00 | NUR ---
Dr. brown in to examine patient; full report given no orders received.
[2016-08-29] MEDS ORDERED: POLYMYXIN B SULFATE 500,000 UNITS, BACITRACIN 50,000 UNITS, NORMAL SALINE 20 ML MC ONE ×3 (09:45)
[2016-08-29] MEDS ORDERED: FENTANYL CITRATE 100 MCG/2 ML AMPUL ONE (09:51)
--- NOTE | 2016-08-29 10:23 | NUR ---
Clinical Pharmacy Note - Tobramycin Pharmacy to Dose Subjective: Continue to dose Tobramycin in this 60 y/o male for MDR Pseudomonas. Patient is being treated with Zosyn and Zyvox as well. Objective: weight 111 kg height 185 cm IBW 79.9 kg , used adjusted body weight 93 kg BUN 55 Scr 4.2 WBC 26.3 Temp 98.4 Tobramycin random level: 0.7 ( with am labs) Assessment/Plan: HD cath was removed on 08/26 post HD. Will dose by fall off level while HD is not being done. Patient received tobramycin 140mg IVPB x1 yesterday. Will draw tobramycin random level on 08/30 with am labs. Will continue to follow. Addendum: 08/29/16 at 1024 by LISA DE LA PAZ ADM tobra 0.7 level is from 08/28 Addendum: 08/29/16 at 1026 by LISA DE LA PAZ ADM BUN 67, SRCR 4.7, WBC 18.5, TEMP 98
--- NOTE | 2016-08-29 10:40 | NUR ---
OR team in the unit to grape picker patient and take him down for scheduled sacral debridment. pt. accompanied by Rt' team. Or team. vital signs and heart rate stable. Addendum: 08/29/16 at 1110 by CLEVE GIVENS RN early morning Brianna notified of Dr. Wade's request for wound cxs and order communication bypass request given to her.
[2016-08-29] MEDS ORDERED: SEVOFLURANE 250 ML BOTTLE IH ONE (10:55)
[2016-08-29] MEDS ORDERED: PHENYLEPHRINE 10 MG/1 ML VIAL MC ONE (10:55)
[2016-08-29] MEDS ORDERED: ONDANSETRON 4 MG/2 ML VIAL IV ONE (10:55)
[2016-08-29] MEDS ORDERED: EPHEDRINE SULFATE 50 MG/ML AMPUL MC ONE (10:55)
[2016-08-29] MEDS ORDERED: IV NORMAL SALINE 1000 ML BAG IV ONE (10:55)
--- NOTE | 2016-08-29 10:55 | NUR ---
pt transported to OR. placed on pts vent awaiting Anesthesia MD to place on OR vent.
--- NOTE | 2016-08-29 12:10 | NUR ---
PT TRANS BACK TO ICU FROM RECOVERY. BACK TO ICU NO INCIDENT NOTED DURING TRANSPORT.
--- NOTE | 2016-08-29 12:20 | NUR ---
Patient back from recovery room, awake, and alert. On the ventilator, A/C Rate of 14, Fio2 35%, Tv 550. saturation above 95%, no distress noted. Sacral area with post surgery dressing in place.
[2016-08-29] MEDS: PHENYLEPHRINE IV 80 MG in IV DEXTROSE 5% 250 ML IV PRN (14:50)
--- NOTE | 2016-08-29 15:01 | NUR ---
Dr. Powell in the unit to examine patient informed that patient is hypotensive post debridment; and orders to continue monitoring received. as stated by Md patient not a candidate for weaning off vent at this time.
--- NOTE | 2016-08-29 15:06 | NUR ---
Dr. Martin called and notified of pt's hypotension, also notified that patient is currently back on neosynephrine drip. Orders to give 500 cc Normal saline bolus. x1 dose and if sbp remains low give another bolus of 500 for second time. Addendum: 08/29/16 at 1508 by CLEVE GIVENS RN Orders to hold tube feeding also received.
[2016-08-29] MEDS ORDERED: IV NORMAL SALINE 500 ML IV ONE (15:15)
--- NOTE | 2016-08-29 15:45 | NUR ---
At this time Dr. Orlando Morrison called for follow up dressing change orders. Awaiting call back.
--- NOTE | 2016-08-29 18:03 | NUR ---
A call back from Dr. Juhi Perry, orders for wet to moist packing with 1/4 Dakins solution Q12 hours.
--- NOTE | 2016-08-29 19:00 | NUR ---
Pt received on continuous mechanical ventilation with current settings of AC 14, VT 550, PEEP +5, FiO2 35%. Vent check done; vent alarm parameters checked; alarms are on and functioning properly. Pt is trached with a Sh. #8 DCT trach, and is patent and secured with foam trach tie. Pt appears to be comfortable on current vent settings; showing no s/s of respiratory distress at this time. Lavage/suctioned small amount of thick, pale secretions. HME changed. Oral care done. Ambu bag and back up trach are at bedside. Will continue to monitor pt throughout shift.
--- NOTE | 2016-08-29 19:30 | NUR ---
Report received. Patient on contact isolation with trache to vent with settings: AC=14, FIO2=35%, YN=927 ml and PEEP=5. Sat 99-100%. On continuous Neosynephrine drip for BP support. Assessment completed. Addendum: 08/29/16 at 6798 by ARCADIO OBWIE RN Amended: Links added.
--- NOTE | 2016-08-29 20:00 | NUR ---
S/P sacral wound debridement. Dressings saturated with serosanguineous drainage. Wound care treatment done. Photo taken and documented. Turned and repositioned. Addendum: 08/30/16 at 0000 by ARCADIO BOWIE RN Amended: Links added.
[2016-08-29] MEDS: ATORVASTATIN 40 MG TABLET PO SCH (20:38)
[2016-08-30] VITALS (95 sets, daily range): BP systolic 76–115; BP diastolic 41–74
--- NOTE | 2016-08-30 04:30 | NUR ---
Am care done. Sacral wound dressings saturated with sanguinous drainage. Changed. Sat 90-91% during care. With copious secretions from trache stoma. Monitored closely. Addendum: 08/30/16 at 0639 by ARCADIO BOWIE RN Amended: Links added.
--- NOTE | 2016-08-30 05:00 | NUR ---
Neosynephrine drip titrated up. BPs in the 80's systole. Addendum: 08/30/16 at 0630 by ARCADIO BOWIE RN Amended: Links added. Addendum: 08/30/16 at 0631 by ARCADIO BOWIE RN Amended: Links added.
[2016-08-30 05:20] LABS: BASOPHILS % (AUTO) 0.1 % (0.0-2.0); EOSINOPHILS # (AUTO) 0.4 K/uL (0.0-0.7); EOSINOPHILS % (AUTO) 2.2 % (0.0-7.0); HEMATOCRIT 29.6 % (40-50); LYMPHOCYTES # (AUTO) 2.8 K/UL (0.8-4.8); LYMPHOCYTES % (AUTO) 14.6 % (20.5-51.5); MEAN CORPUSCULAR HEMOGLOBIN 29.5 UUG (27.0-31.0); MEAN CORPUSCULAR HGB CONC 34 g/dL (32.0-37.0); MEAN CORPUSCULAR VOLUME 87.2 FL (82.0-92.0); MONOCYTES # (AUTO) 1.3 K/UL (0.1-1.30); MONOCYTES % (AUTO) 6.7 % (0.0-11.0); NEUTROPHILS # (AUTO) 14.8 K/UL (1.8-8.9); NEUTROPHILS % (AUTO) 76.4 % (38.5-71.5); PLATELET COUNT (AUTO) 142 K/UL (150-450); RED BLOOD CELL COUNT(AUTO) 3.39 MIL/UL (4.7-6.1); WHITE BLOOD COUNT (AUTO) 19.3 K/UL (4.0-11.2)
[2016-08-30 05:27] LABS: POTASSIUM 5.3 mmol/L (3.5-5.1)
[2016-08-30] MEDS: PIPERACILLIN/TAZOBACTAM/D5W 2.25 G in PREMIXED 1 EACH IV SCH ×3 (05:27→21:53)
[2016-08-30] MEDS: VANCOMYCIN FOR PO/GT/NG USE GT SCH ×3 (05:27→18:29)
[2016-08-30] MEDS: IV NORMAL SALINE 250 ML IV PRN (05:27)
[2016-08-30 05:28] LABS: BILIRUBIN,TOTAL 2.3 mg/dL (0.2-1.0); CREATININE 5.2 mg/dL (0.6-1.3); PHOSPHOROUS 5.7 mg/dL (2.5-4.9)
[2016-08-30 05:31] LABS: MAGNESIUM 2.5 mg/dL (1.8-2.4); TOTAL PROTEIN, SERUM 6.5 g/dL (6.4-8.2)
[2016-08-30] MEDS: BLOOD SUGAR DIAGNOSTIC 1 EACH STRIP VI SCH ×3 (05:34→18:36)
[2016-08-30 05:36] LABS: BAND % (MANUAL) 3 % (0-10); LYMPHOCYTES % (MANUAL) 18 % (20-40); MONOCYTES % (MANUAL) 10 % (2-10); NEUTROPHILS % (MANUAL) 69 % (42-75)
[2016-08-30] MEDS: Z GUARD REMEDY PASTE 57 GM TUBE TOP PRN (05:52)
[2016-08-30] MEDS: METRONIDAZOLE 500 MG/NS 100ML 500 MG in PREMIXED 1 EACH IV SCH ×3 (06:10→22:30)
--- NOTE | 2016-08-30 06:49 | NUR ---
More awake, tracks but with flat affect. Neosynephrine drip remains at 30 mcg/min. BPs monitored closely.
--- NOTE | 2016-08-30 07:51 | NUR ---
NIGHT NURSE ARCADIO CALLED LAB TO FOLLOW UP WOUND SPECIMEN FOR FUNGAL IS STILL SAYING ACTIVE WHEN IT WAS COLLECTED YESTERDAY IN OR. STILL DISPLAYING ACTIVE DUE COLLECTION NEEDS BE COLLECTED SEPARATE SPECIMENS FOR EACH SEPARATE ORDER NOT JUST ONE COLLECTION FOR ALL SPECIMEN ORDERS.
--- NOTE | 2016-08-30 07:55 | NUR ---
PT RECEIVED ON GODDARD VENT #008 ON SETTINGS OF AC 14, VT550, PEEP +5, FIO2 35%. PT TRACH SIZE SHILEY 8DCT IS SECURED AND INTACT WITH TRACH TIE. PT WAS SUCTION VIA TRACH AND MOUTH. PT ORAL CARE WAS DONE RN AWARE. PT HME WAS CHANGED PT TRACH CUFF WAS CHECKED WITH CHIEF CONTROLLER STATION. PT TRACH CARE WAS DONE. PT VENT ALARMS ON AND AUDIBLE. PT AMBU-BAG AT BED SIDE. PT HAS NO PRN TX PT HAS ABG ORDER 0900 . WILL CONTINUE TO MONITOR PT THROUGHOUT SHIFT.
--- NOTE | 2016-08-30 08:06 | NUR ---
WILL COLLECT SPECIMEN WHILE DOING DRESSING CHANGE TODAY.
[2016-08-30] MEDS: FOLIC ACID/VITAMIN B COMP W-C TABLET GT SCH (08:27)
[2016-08-30] MEDS: LINEZOLID IV 600 MG in PREMIXED 1 EACH IV SCH ×2 (08:27→20:41)
[2016-08-30] MEDS: ACIDOPHILUS/BULGARICUS CHEW TAB GT SCH ×2 (08:27→20:40)
[2016-08-30] MEDS: GABAPENTIN 100 MG CAPSULE GT SCH ×2 (08:27→20:40)
[2016-08-30] MEDS: Z GUARD REMEDY PASTE 57 GM TUBE TOP SCH ×2 (08:27→20:40)
[2016-08-30] MEDS: SODIUM HYPOCHLORITE 0.125% 473 ML BOTTLE TP SCH (08:27)
[2016-08-30] MEDS: PANTOPRAZOLE ORAL SUSPENSION 40 MG SUSPDR.PKT GT SCH (08:27)
[2016-08-30] MEDS ORDERED: DEXTROSE 5% IV ONE (09:00)
[2016-08-30] MEDS ORDERED: TOBRAMYCIN SULFATE IV ONE (09:00)
[2016-08-30 12:42] LABS: ABG BASE EXCESS -8.4 mmol/L; ABG HCO3 17.1 mmol/L; ABG PCO2 35.1 mmHg (35.0-45.0); ABG PH 7.305 (7.350-7.450); ABG PO2 67.3 mmHg (75.0-100.0); ABG SITE RIGHT RADIAL; ABG TOTAL HEMOGLOBIN 10.3 G/dL (13.5-18.0); COHb 1.9 % (0.5-1.5); MetHb 0.3 % (0.0-1.5); O2Hb 89.7 % (94.0-97.0); VENT MODE VENT - A/C; VT, ABG 550 mL
--- NOTE | 2016-08-30 13:45 | NUR ---
DOCTOR HANNAH AND DOCTOR HOLLINS ROUNDING ON PATIENT. NEW ORDERS FROM DOCTOR JARA. PLAN TO PLACE NEW DIALYSIS CATHETER IS CALLING DOCTOR ISIDRO TO ARRANGE FOR PLACEMENT. KAYEXALATE ORDERED FOR ELEVATED POTASSIUM.
[2016-08-30] MEDS ORDERED: SODIUM POLYSTYRENE SULFONATE 15 G/60 ML LIQUID UDC PO ONE (14:00)
[2016-08-30] MEDS: PHENYLEPHRINE IV 80 MG in IV DEXTROSE 5% 250 ML IV PRN (14:31)
--- NOTE | 2016-08-30 14:33 | NUR ---
MISSAEL SPIVEY TECH NEEDS PATIENT NPO POST MIDNIGHT AND WILL COME DO US IN AM.
--- NOTE | 2016-08-30 15:41 | NUR ---
Clinical Pharmacy Note - Tobramycin Pharmacy to Dose Subjective: Continue to dose Tobramycin in this 60 y/o male for MDR Pseudomonas. Patient is being treated with Zosyn and Zyvox as well. Objective: weight 111 kg height 185 cm IBW 79.9 kg , used adjusted body weight 93 kg BUN 76 Scr 5.2 WBC 19.3 Temp 98.4 Tobramycin random level: 0.3 (today with am labs) Assessment/Plan: HD cath was removed on 08/26 post HD. Will dose by fall off level while HD is not being done. Based on random this am, gave tobramycin 140mg IVPB x1 @ 1000. Will draw tobramycin random level tomorrow 08/31 with am labs. Will continue to follow.
[2016-08-30] MEDS: INSULIN REGULAR, HUMAN 300 UNIT/3 ML VIAL SQ PRN (18:39)
--- NOTE | 2016-08-30 19:00 | NUR ---
RECEIVED PT ON CONTINUOUS VENT AC 14 VT 550 PEEP 5 FIO2 35%. TRACH IN PLACE AND SECURED.BVM AT BEDSIDE. ORAL CARE DONE. SUCTION SMALL AMOUNT THICK PALE YELLOW SECRETIONS. VENT CHECKED, ALARMS WORKING WELL AND AUDIBLE. NO DISTRESS NOTED AT THIS TIME. WILL CONTINUE TO MONITOR.
--- NOTE | 2016-08-30 19:00 | NUR ---
Received patient in no acute distress. Patient responds to verbal stimuli. Opens eyes and somewhat tracks with flat affect. On bedside monitor. VSS. A-fib, controlled. Hypotensive, managed with Neosynephrine rate of 20 mcg/min. Shiley #8, vent AC 14, Vt 550, PEEP +5, FiO2 35%. PICC right upper arm, intact and patent. Flexiseal in place and draining. DVT pumps in place. On [facility] bed, continuous motion. SBAR report received from Shree Shi RN. Will continue plan of care.
--- NOTE | 2016-08-30 19:30 | NUR ---
Dr Wade at bedside for assessment. Updates given.
[2016-08-30] MEDS: ATORVASTATIN 40 MG TABLET PO SCH (20:40)
--- NOTE | 2016-08-30 21:13 | NUR ---
G-tube in place, verified with auscultation and aspiration. Feeding placed on hold for high residual Addendum: 08/30/16 at 2114 by KAELYN NDIAYE RN Placed on hold at 1930
[2016-08-31] VITALS (96 sets, daily range): BP systolic 77–114; BP diastolic 40–74
[2016-08-31] MEDS: BLOOD SUGAR DIAGNOSTIC 1 EACH STRIP VI SCH ×5 (00:26→23:29)
[2016-08-31] MEDS: VANCOMYCIN FOR PO/GT/NG USE GT SCH ×5 (00:26→23:23)
[2016-08-31] MEDS: INSULIN REGULAR, HUMAN 300 UNIT/3 ML VIAL SQ PRN ×2 (00:32→23:30)
--- NOTE | 2016-08-31 03:02 | NUR ---
Pt asleep, received on Burns vent with the following settings of AC-14, Vt-550, PEEP+5, FIO2-35%, trached with Shiley#8 DCT trach, which is in the place and secure. No s/s of respiratory distress noted. Airway care done, pt responded to physical stimuli. Resus. bag and back up trach at bedside. Vent and alarms on and audible.
--- NOTE | 2016-08-31 05:04 | NUR ---
Cont. monitor pt on present vent settings. Pt asleep. No respiratory distress noted. No changes to present vent settings made. Sx and lavage PRN. Resus. bag and back up trach at bedside. Vent and alarms on and audible.
[2016-08-31 05:13] LABS: BASOPHILS % (AUTO) 0.2 % (0.0-2.0); EOSINOPHILS # (AUTO) 0.3 K/uL (0.0-0.7); EOSINOPHILS % (AUTO) 2.2 % (0.0-7.0); HEMATOCRIT 25.6 % (40-50); HEMOGLOBIN 8.8 G/DL (14.0-18.0); LYMPHOCYTES # (AUTO) 2.7 K/UL (0.8-4.8); LYMPHOCYTES % (AUTO) 19.1 % (20.5-51.5); MEAN CORPUSCULAR HEMOGLOBIN 29.6 UUG (27.0-31.0); MEAN CORPUSCULAR HGB CONC 34 g/dL (32.0-37.0); MEAN CORPUSCULAR VOLUME 85.9 FL (82.0-92.0); MONOCYTES # (AUTO) 1.1 K/UL (0.1-1.30); MONOCYTES % (AUTO) 7.8 % (0.0-11.0); NEUTROPHILS # (AUTO) 10.1 K/UL (1.8-8.9); NEUTROPHILS % (AUTO) 70.7 % (38.5-71.5); PLATELET COUNT (AUTO) 128 K/UL (150-450); RED BLOOD CELL COUNT(AUTO) 2.98 MIL/UL (4.7-6.1); WHITE BLOOD COUNT (AUTO) 14.2 K/UL (4.0-11.2)
[2016-08-31 05:14] LABS: POTASSIUM 5.4 mmol/L (3.5-5.1)
[2016-08-31 05:15] LABS: CREATININE 5.7 mg/dL (0.6-1.3)
[2016-08-31 05:16] LABS: BILIRUBIN,TOTAL 1.8 mg/dL (0.2-1.0)
[2016-08-31 05:19] LABS: MAGNESIUM 2.7 mg/dL (1.8-2.4); TOTAL PROTEIN, SERUM 6.4 g/dL (6.4-8.2)
[2016-08-31] MEDS: PIPERACILLIN/TAZOBACTAM/D5W 2.25 G in PREMIXED 1 EACH IV SCH ×3 (06:07→22:41)
[2016-08-31] MEDS: METRONIDAZOLE 500 MG/NS 100ML 500 MG in PREMIXED 1 EACH IV SCH ×3 (06:55→22:45)
--- NOTE | 2016-08-31 07:19 | NUR ---
SBAR report given to Shree FLEMING RN
[2016-08-31] MEDS ORDERED: HEPARIN SODIUM,PORCINE 1,000 UNITS/ML VIAL XX PRN (07:30)
[2016-08-31] MEDS ORDERED: HEPARIN SODIUM,PORCINE 5,000 UNITS/ML VIAL IV SCH (07:30)
--- NOTE | 2016-08-31 08:00 | NUR ---
DOCTOR JARA IN UNIT. CALLED SON JONNATHAN. DOCTOR SANCHEZ SPOKE TO SON REGARDING DIALYSIS CATHETER PLACEMENT OBTAINED TELEPHONE CONSENT AT THIS TIME.
[2016-08-31] MEDS: FOLIC ACID/VITAMIN B COMP W-C TABLET GT SCH (08:11)
[2016-08-31] MEDS: ACIDOPHILUS/BULGARICUS CHEW TAB GT SCH ×2 (08:11→21:28)
[2016-08-31] MEDS: GABAPENTIN 100 MG CAPSULE GT SCH ×2 (08:11→21:28)
[2016-08-31] MEDS: PANTOPRAZOLE ORAL SUSPENSION 40 MG SUSPDR.PKT GT SCH (08:11)
[2016-08-31] MEDS: Z GUARD REMEDY PASTE 57 GM TUBE TOP SCH ×2 (08:12→21:46)
[2016-08-31] MEDS: LINEZOLID IV 600 MG in PREMIXED 1 EACH IV SCH ×2 (08:12→21:28)
[2016-08-31] MEDS: SODIUM HYPOCHLORITE 0.125% 473 ML BOTTLE TP SCH (08:14)
--- NOTE | 2016-08-31 08:30 | NUR ---
RECEIVED PATIENT TRACHED (SIZE = SHILEY 8DCT) ON THE GODDARD VENTILATOR WITH THE FOLLOWING SETTINGS: AC 14, VT 550, PEEP +5, FIO2 35%. SUCTIONED SMALL AMOUNTS OF WHITE AND YELLOW SECRETIONS. TRACH IS PATENT AND SECURED WITH TRACH TIES. HME WILL BE CHANGED NEXT ROUND. SPO2 100%. TRACH CUFF CHECKED WITH DROP BOARD WORKER. ALARMS ARE ON AND AUDIBLE. AMBU BAG IS AT BEDSIDE. WILL CONTINUE TO MONITOR.
--- NOTE | 2016-08-31 09:05 | NUR ---
MISSAEL US TECH IS IN UNIT TO DO ABDOMINAL ULTRASOUND.
[2016-08-31] MEDS: PEPTAMEN AF 1000ML BAG GT PRN (14:30)
[2016-08-31] MEDS: PHENYLEPHRINE IV 80 MG in IV DEXTROSE 5% 250 ML IV PRN (14:38)
--- NOTE | 2016-08-31 17:00 | NUR ---
called to doctor chatterjee to follow up with a approximate time frame for dialysis catheter placement. States he will be coming in within 1-[address] dialysis catheter.
--- NOTE | 2016-08-31 19:55 | NUR ---
Pt received on Burns vent with settings of AC 14, VT 550, Peep +5, FiO2 30%. Pt is trached with a Shiley 8 DCT trach which is secured with foam trach ties. No signs of respiratory distress noted at this time, pt tolerating vent settings well. Vent alarm parameters checked, alarms functioning and audible. Ambu-bag and back-up trach at bedside. Will continue to monitor pt throughout shift.
--- NOTE | 2016-08-31 20:00 | NUR ---
Dialysis catheter placed left subclavian by Cristobal Morrison MD. Flushed with Heparin 5,000 units. F/U CXR seen by Cristobal Morrison MD. Chest sounds clear.
--- NOTE | 2016-08-31 20:00 | NUR ---
given post dialysis catheter placement. Given by doctor chatterjee only used 5000 units for ports
[2016-08-31] MEDS: ATORVASTATIN 40 MG TABLET PO SCH (21:28)
[2016-09-01] VITALS (95 sets, daily range): BP systolic 80–137; BP diastolic 48–94
--- NOTE | 2016-09-01 05:02 | NUR ---
PT ON CONT GODDARD VENT WITH SHILEY # [address] AND SECURED, WITH SETTINGS, A/C 14, VT 550ML, PEEP 5, 30% , PT DOES ASSIST AT TIMES ,CUFF CHECK , NO VENT CHANGES MADE AT THIS TIME, ALL ALARMS OK, AMBU BAG AT BEDSIDE, SUCTIONED LIGHT PALE YELL TINGE SECRETIONS, WITH GOOD COUGH EFFORT ,HME WAS CHANGED EARLIER. Maame CHANDLER RCP Addendum: 09/01/16 at 0505 by JONNATHAN CHANDLER RT Amended: Links added.
[2016-09-01] MEDS: VANCOMYCIN FOR PO/GT/NG USE GT SCH ×4 (05:11→23:33)
[2016-09-01] MEDS: PIPERACILLIN/TAZOBACTAM/D5W 2.25 G in PREMIXED 1 EACH IV SCH ×3 (05:11→21:33)
[2016-09-01] MEDS: METRONIDAZOLE 500 MG/NS 100ML 500 MG in PREMIXED 1 EACH IV SCH ×2 (05:11→14:40)
[2016-09-01] MEDS: BLOOD SUGAR DIAGNOSTIC 1 EACH STRIP VI SCH ×4 (05:22→23:34)
--- NOTE | 2016-09-01 07:00 | NUR ---
Pt received on Continuous mechanical ventilation via Trach. Trach is a [employer]actics Cloudley 8, and is patent and secured. No redness or irritation noted around stoma or trach ties. Pt is on Burns vent with ordered settings of A/C-14, VT-550, PEEP+5, FIO2-30%. Pt tolerating vent settings well. SpO2-99% No signs or symptoms of respiratory distress noted. Sxn'd and lavaged, small amts of yellowish secretions. Vent alarm parameters checked, on and audible. Vent plugged into red emergency outlet. Bag/valve/mask at bedside. HME changed. Oral care done. Proper isolation precaution equipment used. Will continue to monitor.
--- NOTE | 2016-09-01 07:20 | NUR ---
dialysis catheter to left upper chest
[2016-09-01] MEDS: LINEZOLID IV 600 MG in PREMIXED 1 EACH IV SCH (08:12)
[2016-09-01] MEDS: ERGOCALCIFEROL 50,000 UNIT CAPSULE GT SCH (08:12)
[2016-09-01] MEDS: ACIDOPHILUS/BULGARICUS CHEW TAB GT SCH ×2 (08:12→21:32)
[2016-09-01] MEDS: FOLIC ACID/VITAMIN B COMP W-C TABLET GT SCH (08:12)
[2016-09-01] MEDS: PANTOPRAZOLE ORAL SUSPENSION 40 MG SUSPDR.PKT GT SCH (08:12)
[2016-09-01] MEDS: GABAPENTIN 100 MG CAPSULE GT SCH ×2 (08:12→21:32)
[2016-09-01] MEDS: Z GUARD REMEDY PASTE 57 GM TUBE TOP SCH ×2 (08:13→21:33)
[2016-09-01] MEDS: SODIUM HYPOCHLORITE 0.125% 473 ML BOTTLE TP SCH (08:13)
[2016-09-01 08:18] LABS: BASOPHILS % (AUTO) 0.2 % (0.0-2.0); EOSINOPHILS # (AUTO) 0.2 K/uL (0.0-0.7); EOSINOPHILS % (AUTO) 1.8 % (0.0-7.0); HEMATOCRIT 26.5 % (40-50); LYMPHOCYTES # (AUTO) 2.6 K/UL (0.8-4.8); LYMPHOCYTES % (AUTO) 18.6 % (20.5-51.5); MEAN CORPUSCULAR HEMOGLOBIN 29.5 UUG (27.0-31.0); MEAN CORPUSCULAR HGB CONC 34 g/dL (32.0-37.0); MEAN CORPUSCULAR VOLUME 86.9 FL (82.0-92.0); MONOCYTES # (AUTO) 0.8 K/UL (0.1-1.30); NEUTROPHILS # (AUTO) 10.2 K/UL (1.8-8.9); NEUTROPHILS % (AUTO) 73.4 % (38.5-71.5); PLATELET COUNT (AUTO) 112 K/UL (150-450); RED BLOOD CELL COUNT(AUTO) 3.05 MIL/UL (4.7-6.1); WHITE BLOOD COUNT (AUTO) 13.8 K/UL (4.0-11.2)
[2016-09-01] MEDS: IV NORMAL SALINE 250 ML IV PRN (08:31)
[2016-09-01 08:32] LABS: BILIRUBIN,TOTAL 1.8 mg/dL (0.2-1.0); MAGNESIUM 2.8 mg/dL (1.8-2.4); POTASSIUM 5.6 mmol/L (3.5-5.1); TOTAL PROTEIN, SERUM 6.7 g/dL (6.4-8.2)
[2016-09-01 09:46] LABS: CREATININE 6.2 mg/dL (0.6-1.3)
[2016-09-01 09:48] LABS: PHOSPHOROUS 8.4 mg/dL (2.5-4.9)
[2016-09-01] MEDS: INSULIN REGULAR, HUMAN 300 UNIT/3 ML VIAL SQ PRN ×3 (11:45→23:35)
[2016-09-01] MEDS: PHENYLEPHRINE IV 80 MG in IV DEXTROSE 5% 250 ML IV PRN (14:41)
[2016-09-01] MEDS: ATORVASTATIN 40 MG TABLET PO SCH (21:32)
--- NOTE | 2016-09-01 22:54 | NUR ---
PT ON CONT GODDARD VENT WITH SHILEY # [address] AND SECURED, WITH VENT SETTINGS, A/C 14, VT 550ML, PEEP5, 35% , PT DOES ASSIST AT TIMES, SUCTIONED LIGHT PALE YELL TINGE SECRETIONS, WITH GOOD COUGH EFFORT, CHANGE HME AND VALENCIA, CHECK CUFF, NO VENT CHANGES MADE AT THIS TIME, ALL ALARMS OK, AMBU BAG AT BEDSIDE. Maame DE DIOSP Addendum: 09/01/16 at 2256 by JONNATHAN CHANDLER RT Amended: Links added.
[2016-09-02] VITALS (92 sets, daily range): BP systolic 55–124; BP diastolic 32–75
[2016-09-02] MEDS: VANCOMYCIN FOR PO/GT/NG USE GT SCH ×4 (05:54→23:55)
[2016-09-02] MEDS: PIPERACILLIN/TAZOBACTAM/D5W 2.25 G in PREMIXED 1 EACH IV SCH ×3 (05:55→21:16)
[2016-09-02 06:03] LABS: BASOPHILS # (AUTO) 0.1 K/uL (0.0-8.0); BASOPHILS % (AUTO) 0.8 % (0.0-2.0); EOSINOPHILS # (AUTO) 0.2 K/uL (0.0-0.7); EOSINOPHILS % (AUTO) 1.1 % (0.0-7.0); HEMATOCRIT 25.6 % (40-50); HEMOGLOBIN 8.7 G/DL (14.0-18.0); MEAN CORPUSCULAR HEMOGLOBIN 29.8 UUG (27.0-31.0); MEAN CORPUSCULAR HGB CONC 34 g/dL (32.0-37.0); MEAN CORPUSCULAR VOLUME 87.3 FL (82.0-92.0); MONOCYTES % (AUTO) 6.7 % (0.0-11.0); NEUTROPHILS # (AUTO) 11.3 K/UL (1.8-8.9); NEUTROPHILS % (AUTO) 77.4 % (38.5-71.5); PLATELET COUNT (AUTO) 101 K/UL (150-450); RED BLOOD CELL COUNT(AUTO) 2.93 MIL/UL (4.7-6.1); WHITE BLOOD COUNT (AUTO) 14.6 K/UL (4.0-11.2)
[2016-09-02 06:05] LABS: BILIRUBIN,TOTAL 1.6 mg/dL (0.2-1.0); MAGNESIUM 2.5 mg/dL (1.8-2.4); PHOSPHOROUS 5.8 mg/dL (2.5-4.9); POTASSIUM 4.3 mmol/L (3.5-5.1); TOTAL PROTEIN, SERUM 6.5 g/dL (6.4-8.2)
[2016-09-02 06:08] LABS: CREATININE 4.6 mg/dL (0.6-1.3)
[2016-09-02] MEDS: BLOOD SUGAR DIAGNOSTIC 1 EACH STRIP VI SCH ×4 (06:37→23:56)
[2016-09-02] MEDS: INSULIN REGULAR, HUMAN 300 UNIT/3 ML VIAL SQ PRN ×2 (06:38→17:41)
--- NOTE | 2016-09-02 07:59 | NUR ---
RECEIVED REPORT FROM ESDRAS MARIA AND PATIENT RECEIVED ON DIALYSIS.
[2016-09-02] MEDS: PHENYLEPHRINE IV 80 MG in IV DEXTROSE 5% 250 ML IV PRN ×2 (08:44→23:31)
[2016-09-02] MEDS: GABAPENTIN 100 MG CAPSULE GT SCH ×2 (09:24→21:15)
[2016-09-02] MEDS: ACIDOPHILUS/BULGARICUS CHEW TAB GT SCH ×2 (09:24→21:15)
[2016-09-02] MEDS: FOLIC ACID/VITAMIN B COMP W-C TABLET GT SCH (09:24)
[2016-09-02] MEDS: PANTOPRAZOLE ORAL SUSPENSION 40 MG SUSPDR.PKT GT SCH (09:24)
[2016-09-02] MEDS: Z GUARD REMEDY PASTE 57 GM TUBE TOP SCH ×2 (09:25→21:17)
[2016-09-02] MEDS: SODIUM HYPOCHLORITE 0.125% 473 ML BOTTLE TP SCH (09:25)
--- NOTE | 2016-09-02 15:31 | NUR ---
PT RECEIVED ON AC 14, VT 550, Peep +5, FiO2 35%. SHILEY 8 TRACH IS PATENT AND SECURED WITH TIES. NO SOB, TOLERATING VENT SETTINGS WELL. HME CHANGED. SUCTIONED AND LAVAGED SMALL AMOUNT OF PALE YELLOW THICK SECRETIONS. ALARMS ARE ON AND AUDIBLE, BVM AND BACK UP TRACH AT BEDSIDE. WILL CONTINUE TO MONITOR.
--- NOTE | 2016-09-02 19:24 | NUR ---
Patient received on Viasys Burns settings A/C 14, VT 550, PEEP +5 and FIO2-35%. No resp. distress noted. Patient to be monitored throughout the shift and PRN SX. Oral care done. Shiley 8 iDCT s patent and secure; Backup Shiley 8 DCT and BVM at bedside. Burns alarm parameters have been checked and remain audible.
[2016-09-02] MEDS: ATORVASTATIN 40 MG TABLET PO SCH (21:15)
[2016-09-03] VITALS (97 sets, daily range): BP systolic 82–120; BP diastolic 44–73
[2016-09-03 05:12] LABS: BASOPHILS # (AUTO) 0.2 K/uL (0.0-8.0); BASOPHILS % (AUTO) 1.1 % (0.0-2.0); EOSINOPHILS # (AUTO) 0.1 K/uL (0.0-0.7); HEMATOCRIT 24.5 % (40-50); HEMOGLOBIN 8.3 G/DL (14.0-18.0); LYMPHOCYTES # (AUTO) 2.2 K/UL (0.8-4.8); LYMPHOCYTES % (AUTO) 15.3 % (20.5-51.5); MEAN CORPUSCULAR HEMOGLOBIN 29.4 UUG (27.0-31.0); MEAN CORPUSCULAR HGB CONC 34 g/dL (32.0-37.0); MEAN CORPUSCULAR VOLUME 87.1 FL (82.0-92.0); MONOCYTES # (AUTO) 1.3 K/UL (0.1-1.30); MONOCYTES % (AUTO) 9.1 % (0.0-11.0); NEUTROPHILS # (AUTO) 10.8 K/UL (1.8-8.9); NEUTROPHILS % (AUTO) 73.5 % (38.5-71.5); PLATELET COUNT (AUTO) 99 K/UL (150-450); RED BLOOD CELL COUNT(AUTO) 2.81 MIL/UL (4.7-6.1); WHITE BLOOD COUNT (AUTO) 14.6 K/UL (4.0-11.2)
--- NOTE | 2016-09-03 05:16 | NUR ---
Patient remains on Burns at this time with no changes made to the ventilator settings. No respiratory distress noted throughout the shift. Patient was routinely suctioned and was administered oral care. Shiley 8 DCT remains patent and secure; Backup Shiley 8 DCT and resusc. bag are both at bedside. Burns alarm parameters have been checked and remain audible at this time.
[2016-09-03] MEDS: PHENYLEPHRINE IV 80 MG in IV DEXTROSE 5% 250 ML IV PRN ×4 (05:17→21:26)
[2016-09-03] MEDS: PIPERACILLIN/TAZOBACTAM/D5W 2.25 G in PREMIXED 1 EACH IV SCH ×3 (05:22→22:07)
[2016-09-03] MEDS: VANCOMYCIN FOR PO/GT/NG USE GT SCH ×4 (05:22→23:43)
[2016-09-03 05:25] LABS: BILIRUBIN,TOTAL 1.8 mg/dL (0.2-1.0); MAGNESIUM 2.3 mg/dL (1.8-2.4); PHOSPHOROUS 4.9 mg/dL (2.5-4.9); POTASSIUM 3.8 mmol/L (3.5-5.1); TOTAL PROTEIN, SERUM 6.5 g/dL (6.4-8.2)
[2016-09-03 05:41] LABS: CREATININE 3.8 mg/dL (0.6-1.3)
[2016-09-03] MEDS: BLOOD SUGAR DIAGNOSTIC 1 EACH STRIP VI SCH ×5 (06:00→23:46)
--- NOTE | 2016-09-03 07:30 | NUR ---
RECIEVED PT LYING IN BED, SEMI COMATOSE. ON VENTILATOR AC-14, VT-550, PEEP-5 VIA TRACHE SHILEY 8 INTACT. O2 SAT 100%. HR STILL ON AFIB CONTROLLED RATE. PT ON NEOSYNEPHRINE DRIP AT 250MCG/MIN, SBP BORDERLINE 90'S.
--- NOTE | 2016-09-03 07:34 | NUR ---
PATIENT RECEIVED ON CONTINUOUS MECHANICAL VENTILATION WITH TRACH PROPERLY SECURED AND INTACT. AIRWAY PATENT. PATIENT TOLERATING PRESCRIBED VENTILATOR SETTINGS FINE SHOWING NO EVIDENCE OF RESPIRATORY DISTRESS. BREATH SOUNDS RHONCHI. PRN TRACHEAL SUCTIONED PERFORMED AND HAD MODERATE AMOUNT OF OFF WHITE YELLOWISH SEMI THICK SECRETIONS. PATIENT POSITIONED SEMI MATTHEWS WITH HEAD OF THE BED ELEVATED 35-45 DEGREE ANGLE. VENT ALARMS SET,AUDIBLE, AND WORKING. VENT PLUGGED INTO RED OUTLET. PT APPEARS COMFORTABLE.
[2016-09-03 09:35] LABS: ABG HCO3 20.6 mmol/L; ABG PCO2 35.3 mmHg (35.0-45.0); ABG PH 7.383 (7.350-7.450); ABG PO2 82.9 mmHg (75.0-100.0); ABG SITE RIGHT RADIAL; ABG TOTAL HEMOGLOBIN 8.8 G/dL (13.5-18.0); COHb 1.9 % (0.5-1.5); MetHb 0.3 % (0.0-1.5); O2Hb 93.7 % (94.0-97.0); VENT MODE VENT - A/C; VT, ABG 550 mL
[2016-09-03] MEDS: GABAPENTIN 100 MG CAPSULE GT SCH ×2 (09:45→20:38)
[2016-09-03] MEDS: FOLIC ACID/VITAMIN B COMP W-C TABLET GT SCH (09:45)
[2016-09-03] MEDS: ACIDOPHILUS/BULGARICUS CHEW TAB GT SCH ×2 (09:45→20:38)
[2016-09-03] MEDS: Z GUARD REMEDY PASTE 57 GM TUBE TOP SCH ×2 (09:45→20:38)
[2016-09-03] MEDS: PANTOPRAZOLE ORAL SUSPENSION 40 MG SUSPDR.PKT GT SCH ×2 (09:45→18:37)
[2016-09-03] MEDS: SODIUM HYPOCHLORITE 0.125% 473 ML BOTTLE TP SCH (09:47)
--- NOTE | 2016-09-03 10:00 | NUR ---
DOPPLER US DONE AT THE BEDSIDE WITH POSITIVE RESULT. DR JARA IS AWARE. REFFERED TO A VASCULAR SURGEON.
--- NOTE | 2016-09-03 10:00 | NUR ---
SEEN AND EXAMINED BY DR JARA AND DR HOLLINS WITH NEW ORDERS.
--- NOTE | 2016-09-03 10:30 | NUR ---
SUCTION PT ORALLY AND TRACHE. LARGE AMOUNT OF THICK YELLOWISH PHLEGM.
[2016-09-03] MEDS: IV NORMAL SALINE 250 ML IV PRN (13:57)
[2016-09-03] MEDS: PEPTAMEN AF 1000ML BAG GT PRN (13:57)
[2016-09-03] MEDS: INSULIN REGULAR, HUMAN 300 UNIT/3 ML VIAL SQ PRN ×3 (14:13→23:47)
--- NOTE | 2016-09-03 14:30 | NUR ---
2 SETS OF BLOOD CX DONE VIA PICC LINE ORDERED BY DR BLANCO.
--- NOTE | 2016-09-03 15:15 | NUR ---
1UNIT OF PRBC STARTED ORDERED. INFUSING WELL, NO REACTIONS NOTED. PT IS ANURIC. WOUND DRESSING ON SACRAL AREA IS CLEAN AND INTACT. PT ON FLEXISEAL FOR CONTINOUS DIARRHEA.
--- NOTE | 2016-09-03 17:30 | NUR ---
PM CARE AND WOUND DRESSING DONE.
--- NOTE | 2016-09-03 18:00 | NUR ---
BLOOD TRANSFUSION IS FINISHED. NO APPARENT DISTRESS NOTED.
--- NOTE | 2016-09-03 19:00 | NUR ---
Pt received on Continuous mechanical ventilation via Trach. Trach is a NovaSparksley 8, and is patent and secured. No redness or irritation noted around stoma or trach ties. Pt is on Burns vent with ordered settings of A/C-14, VT-550, PEEP+5, FIO2-35%. Pt tolerating vent settings well. SpO2-100% No signs or symptoms of respiratory distress noted. Sxn'd and lavaged, small amts of yellowish secretions. Vent alarm parameters checked, on and audible. Vent plugged into red emergency outlet. Bag/valve/mask at bedside. HME changed. Oral care done. Proper isolation precaution equipment used. Will continue to monitor
--- NOTE | 2016-09-03 19:30 | NUR ---
Report received. Patient with trache to vent with settings: CA=14, FIO2=35%, YV=695 ml, PEEP= 5. Sat above 94%. On contact isolation. With Neosynephrine drip at 250 mcg/min for BP support. Assessment completed. Addendum: 09/04/16 at 0137 by ARCADIO BOWIE RN Amended: Links added. Addendum: 09/04/16 at 0140 by ARCADIO BOWIE RN Amended: Links added.
[2016-09-03] MEDS: ATORVASTATIN 40 MG TABLET PO SCH (20:38)
[2016-09-03] MEDS: ACETAMINOPHEN 650 MG/20.3 ML LIQUID UDC GT PRN (21:03)
--- NOTE | 2016-09-03 22:45 | NUR ---
Suctioned by RT; specimen sent to lab for sputum C/S. Addendum: 09/04/16 at 0140 by ARCADIO BOWIE RN Amended: Links added.
[2016-09-04] VITALS (95 sets, daily range): BP systolic 78–118; BP diastolic 43–75
[2016-09-04] MEDS: PHENYLEPHRINE IV 80 MG in IV DEXTROSE 5% 250 ML IV PRN ×2 (04:00→21:34)
--- NOTE | 2016-09-04 05:00 | NUR ---
Sedation vacation done, pt was mildly restless and trying to pull his NGT tube. Addendum: 09/04/16 at 1901 by NIMISHA MCKEON RN WRONG ENTRY.
[2016-09-04 05:30] LABS: BASOPHILS # (AUTO) 0.2 K/uL (0.0-8.0); BASOPHILS % (AUTO) 1.3 % (0.0-2.0); EOSINOPHILS # (AUTO) 0.4 K/uL (0.0-0.7); EOSINOPHILS % (AUTO) 2.4 % (0.0-7.0); HEMOGLOBIN 8.2 G/DL (14.0-18.0); LYMPHOCYTES # (AUTO) 1.9 K/UL (0.8-4.8); LYMPHOCYTES % (AUTO) 13.1 % (20.5-51.5); MEAN CORPUSCULAR HEMOGLOBIN 30.7 UUG (27.0-31.0); MEAN CORPUSCULAR HGB CONC 35 g/dL (32.0-37.0); MEAN CORPUSCULAR VOLUME 87.8 FL (82.0-92.0); MONOCYTES # (AUTO) 1.6 K/UL (0.1-1.30); MONOCYTES % (AUTO) 11.2 % (0.0-11.0); NEUTROPHILS # (AUTO) 10.5 K/UL (1.8-8.9); PLATELET COUNT (AUTO) 115 K/UL (150-450); RED BLOOD CELL COUNT(AUTO) 2.69 MIL/UL (4.7-6.1); WHITE BLOOD COUNT (AUTO) 14.6 K/UL (4.0-11.2)
[2016-09-04 05:42] LABS: HEMATOCRIT 23.6 % (40-50)
[2016-09-04] MEDS: PIPERACILLIN/TAZOBACTAM/D5W 2.25 G in PREMIXED 1 EACH IV SCH ×3 (05:44→21:33)
[2016-09-04] MEDS: PANTOPRAZOLE ORAL SUSPENSION 40 MG SUSPDR.PKT GT SCH ×2 (05:44→17:37)
[2016-09-04] MEDS: VANCOMYCIN FOR PO/GT/NG USE GT SCH ×4 (05:44→23:42)
[2016-09-04] MEDS: BLOOD SUGAR DIAGNOSTIC 1 EACH STRIP VI SCH ×4 (05:50→23:42)
[2016-09-04] MEDS: INSULIN REGULAR, HUMAN 300 UNIT/3 ML VIAL SQ PRN ×2 (05:51→23:43)
[2016-09-04] MEDS: Z GUARD REMEDY PASTE 57 GM TUBE TOP PRN ×2 (05:52→23:42)
[2016-09-04 05:58] LABS: BILIRUBIN,TOTAL 1.6 mg/dL (0.2-1.0); MAGNESIUM 2.2 mg/dL (1.8-2.4); PHOSPHOROUS 4.7 mg/dL (2.5-4.9); POTASSIUM 3.5 mmol/L (3.5-5.1); TOTAL PROTEIN, SERUM 6.3 g/dL (6.4-8.2)
[2016-09-04 05:59] LABS: CREATININE 4.3 mg/dL (0.6-1.3)
--- NOTE | 2016-09-04 07:00 | NUR ---
Yamileth have given report to CANDACE Nolasco. Pt has been stable all throughout the night, kept Neosynephrine at 200mcg/min, latest BP 102/72 with HR 91.Afebrile. No significant changes/no respiratory distress noted. Kept on flexi seal with thick liquidy brown stool.remained anuric. Dressing changed at sacral area w/ Dakin's solution, covered with sterile gauze and ABD pad. Applied z-guard to surrounding wound. Turned and repositioned Vitals stable.Given all meds as ordered.
--- NOTE | 2016-09-04 07:30 | NUR ---
Report received.Pt remains unresponsive.No S/s of pain,discomfort.Trach to vent tolerated well.Remains on Neosenephrine gtt at 200mcg/min to support BP.Afib on monitor.turned,repositioned.
[2016-09-04] MEDS ORDERED: GOLYTELY 4000 ML BOTTLE GT ONE (08:15)
--- NOTE | 2016-09-04 09:00 | NUR ---
seen,examined by with new orders noted.
[2016-09-04] MEDS: GABAPENTIN 100 MG CAPSULE GT SCH ×2 (09:54→20:43)
[2016-09-04] MEDS: Z GUARD REMEDY PASTE 57 GM TUBE TOP SCH ×2 (09:54→20:42)
[2016-09-04] MEDS: FOLIC ACID/VITAMIN B COMP W-C TABLET GT SCH (09:54)
[2016-09-04] MEDS: ACIDOPHILUS/BULGARICUS CHEW TAB GT SCH ×2 (09:54→20:43)
[2016-09-04] MEDS: SODIUM HYPOCHLORITE 0.125% 473 ML BOTTLE TP SCH (09:55)
--- NOTE | 2016-09-04 10:00 | NUR ---
Pt was seen by GI .Pt kept NPO per order.Plan for EGD.
[2016-09-04] MEDS ORDERED: ALBUMIN HUMAN 25% 100 ML IV ONE (11:30)
--- NOTE | 2016-09-04 14:00 | NUR ---
Dialysis was completed.Pt remains unresponsive.No SOB noted.
--- NOTE | 2016-09-04 18:00 | NUR ---
Pt remains on Neosenephrine at 200 mcg/min to support BP.GT feeding started.
--- NOTE | 2016-09-04 19:30 | NUR ---
Report received. Attempts were made to call patient's brother Bird re: consents for EGD and IVC filter but the number is busy. Message left to the other brother named Christopher. Patient on contact isolation, with trache to vent with same settings. Opens eyes spontaneously, doesn't follow any commands. On continuous Neosynephrine drip for BP support. See IV spread sheet for doses and rates.
--- NOTE | 2016-09-04 20:30 | NUR ---
Another attempt was made to contact Bird Hamilton; no answer.
[2016-09-04] MEDS: ATORVASTATIN 40 MG TABLET PO SCH (20:43)
--- NOTE | 2016-09-04 21:15 | NUR ---
PATIENT RECEIVED ON GODDARD VENTILATOR WITH TRACH PROPERLY SECURED WITH TRACH TIES AND PATENT. PATIENT IS ON THE FOLLOWING SETTINGS THAT ARE ON THE MECHANICAL VENT NOTES. SUCTIONED A SMALL AMOUNT OF WHITE AND YELLOWISH SECRETIONS. PRN HME CHANGED. SPO2 100%. TRACH CUFF CHECKED WITH COMMUNITY PLACEMENT WORKER. ALARMS CHECKED AND THEY ARE ON AND LOUD. BMV IS BY BEDSIDE. CONTACT PRECAUTIONS. WILL CONTINUE TO MONITOR PATIENT THROUGHOUT THE REST OF SHIFT.
--- NOTE | 2016-09-04 21:25 | NUR ---
Called Christopher's number again and finally spoke with him re: IVC filter insertion tomorrow. Stated he will call Bird and let him know.
[2016-09-04] MEDS: IV NORMAL SALINE 250 ML IV PRN (22:04)
[2016-09-05] VITALS (94 sets, daily range): BP systolic 91–131; BP diastolic 49–84
--- NOTE | 2016-09-05 | NUR ---
Feedings turned off. NPO after midnoc. For IVC filter insertion.
--- NOTE | 2016-09-05 00:50 | NUR ---
Patient's brother Bird called back. Updated of condition. Phone consents for IVC filter insertion and EGD obtained from him.
--- NOTE | 2016-09-05 02:45 | NUR ---
Am bath given. Patient desaturating and making sound from around trache when turned. Lavaged and suctioned. With large amounts of pale green secretions. Trache care done. Sound disappeared after suctioning and inner cannula was changed. HOB elevated at all times. Wound care treatment done. Picture taken. With large amounts of thick green stools and flatus in Flexi seal. irrigated gently. Addendum: 09/05/16 at 0634 by ARCADIO BOWIE RN Amended: Links added. Addendum: 09/05/16 at 0635 by ARCADIO BOWIE RN Amended: Links added.
[2016-09-05] MEDS: PHENYLEPHRINE IV 80 MG in IV DEXTROSE 5% 250 ML IV PRN ×2 (05:06→18:35)
[2016-09-05] MEDS: PIPERACILLIN/TAZOBACTAM/D5W 2.25 G in PREMIXED 1 EACH IV SCH ×3 (05:09→21:18)
[2016-09-05] MEDS: BLOOD SUGAR DIAGNOSTIC 1 EACH STRIP VI SCH ×3 (05:09→17:10)
[2016-09-05] MEDS: VANCOMYCIN FOR PO/GT/NG USE GT SCH ×3 (05:09→18:35)
[2016-09-05] MEDS: Z GUARD REMEDY PASTE 57 GM TUBE TOP PRN (05:10)
[2016-09-05 05:35] LABS: BILIRUBIN,TOTAL 1.6 mg/dL (0.2-1.0); MAGNESIUM 2.2 mg/dL (1.8-2.4); PHOSPHOROUS 3.7 mg/dL (2.5-4.9); POTASSIUM 3.3 mmol/L (3.5-5.1); TOTAL PROTEIN, SERUM 6.3 g/dL (6.4-8.2)
[2016-09-05 05:36] LABS: CREATININE 3.7 mg/dL (0.6-1.3)
[2016-09-05 06:04] LABS: BASOPHILS # (AUTO) 0.2 K/uL (0.0-8.0); BASOPHILS % (AUTO) 1.2 % (0.0-2.0); EOSINOPHILS # (AUTO) 0.3 K/uL (0.0-0.7); EOSINOPHILS % (AUTO) 2.3 % (0.0-7.0); HEMOGLOBIN 7.8 G/DL (14.0-18.0); LYMPHOCYTES # (AUTO) 1.7 K/UL (0.8-4.8); LYMPHOCYTES % (AUTO) 11.7 % (20.5-51.5); MEAN CORPUSCULAR HEMOGLOBIN 31.8 UUG (27.0-31.0); MEAN CORPUSCULAR HGB CONC 36 g/dL (32.0-37.0); MEAN CORPUSCULAR VOLUME 89.6 FL (82.0-92.0); MONOCYTES # (AUTO) 1.4 K/UL (0.1-1.30); NEUTROPHILS # (AUTO) 10.7 K/UL (1.8-8.9); NEUTROPHILS % (AUTO) 74.8 % (38.5-71.5); PLATELET COUNT (AUTO) 128 K/UL (150-450); WHITE BLOOD COUNT (AUTO) 14.3 K/UL (4.0-11.2)
[2016-09-05 06:07] LABS: RED BLOOD CELL COUNT(AUTO) 2.46 MIL/UL (4.7-6.1)
[2016-09-05] MEDS: PANTOPRAZOLE ORAL SUSPENSION 40 MG SUSPDR.PKT GT SCH ×2 (06:17→17:14)
--- NOTE | 2016-09-05 06:52 | NUR ---
PT RECEIVED ON CONTINUOUS MECHANICAL VENTILATION WITH SETTINGS OF: AC 14, VT 550, PEEP +5, FIO2 35%. NO CHANGES MADE AT THIS TIME. VENT CHECK DONE. ALARMS CHECKED AND ARE FUNCTIONING PROPERLY. PT SHOWING NO S/S OF RESPIRATORY DISTRESS AT THIS TIME. TRACH IS PATENT AND SECURED WITH TIES. SUCTIONED MODERATE AMOUNT OF THICK, PALE SECRETIONS. HME CHANGED. BVM AND BACK UP TRACH ARE AT BEDSIDE. VENT PLUGGED INTO RED EMERGENCY OUTLET. WILL CONTINUE TO MONITOR THROUGHOUT SHIFT.
--- NOTE | 2016-09-05 07:30 | NUR ---
Dr. Martin in the unit to examine patient, report given orders received see Order Hx.
[2016-09-05] MEDS ORDERED: SEVOFLURANE 250 ML BOTTLE IH ONE (07:31)
[2016-09-05] MEDS: FOLIC ACID/VITAMIN B COMP W-C TABLET GT SCH (08:01)
[2016-09-05] MEDS: GABAPENTIN 100 MG CAPSULE GT SCH ×2 (08:01→21:18)
[2016-09-05] MEDS: ACIDOPHILUS/BULGARICUS CHEW TAB GT SCH ×2 (08:01→21:18)
[2016-09-05] MEDS: Z GUARD REMEDY PASTE 57 GM TUBE TOP SCH ×2 (08:02→21:18)
[2016-09-05] MEDS: SODIUM HYPOCHLORITE 0.125% 473 ML BOTTLE TP SCH (08:02)
--- NOTE | 2016-09-05 11:19 | NUR ---
Both Dr.s Powell and Dr. Farah Orlando in the unit to examine patient full report given and make call to Anesthesiologist and Dr. Contreras and these s discussed procedure over the phone.
--- NOTE | 2016-09-05 11:21 | NUR ---
Anesthesiologist Romaine Reveles in the unit to assess patient, and as stated "prodecure cancelled due to pt's condition.
[2016-09-05] MEDS ORDERED: LIDOCAINE HCL 1% 20 ML VIAL ONE (14:29)
[2016-09-05] MEDS ORDERED: HEPARIN/NS 500 ML ONE (14:29)
[2016-09-05] MEDS ORDERED: IOHEXOL-240 MG , 50 ML VIAL IV ONE ×3 (14:29→17:05)
--- NOTE | 2016-09-05 14:55 | NUR ---
patient poultry picker for procedure and 2nd PRBC's running. accompanied by international student advisorrn. William, Anesthesiologist, RT team. Patient stable.
[2016-09-05] MEDS ORDERED: TOBRAMYCIN SULFATE 160 MG in IV DEXTROSE 5% 100 ML IV SCH (15:30)
[2016-09-05] MEDS ORDERED: TOBRAMYCIN SULFATE 160 MG in IV DEXTROSE 5% 100 ML IV ONE (15:30)
--- NOTE | 2016-09-05 15:57 | NUR ---
Patient back from procedure at this time. Patient been recover by sunil Ibarra.
--- NOTE | 2016-09-05 16:28 | NUR ---
Clinical Pharmacy Note - Tobramycin Pharmacy to Dose Subjective: To re-start Tobramycin per ID in this 60 y/o male for indication of PNA, pseudomonas final cxs pending. Patient is being treated with Zosyn as well. Patient's cath was removed 08/26, however replaced and is now back on HD Objective: weight 108 kg height 185 cm IBW 79.9 kg , used adjusted body weight 90 kg BUN 53 Scr 3.7 (back on HD) WBC 14.3 Temp 98.8 Assessment/Plan: HD cath was replaced, per RN, HD done yesterday, none today. Will dose by pre-HD level on dialysis days per protocol. First dose 160mg x 1 (~1.7mg/kg) given today at 1530. Will draw pre-HD level and dose as appropriate when dialysis ordered. Will continue to follow.
--- NOTE | 2016-09-05 20:58 | NUR ---
PT ON CONT GODDARD VENT WITH SHILEY # [address] AND SECURED, WITH SAME CURRENT VENT SETTINGS, A/C 14, VT 550ML, 35%, PEEP5, PT DOES ASSIST AT TIMES, CHECK CUFF, GOOD COUGH EFFORT, SUCTIONED LIGHT PALE YELL TINGE SECRETIONS, WITH NO VENT CHANGES MADE AT THIS TIME, ALL ALARMS OK, AMBU BAG AT BEDSIDE, PT STABLE AT THIS TIME, SAT 99%. Maame DE DIOSP Addendum: 09/05/16 at 2101 by JONNATHAN CHANDLER RT Amended: Links added.
[2016-09-05] MEDS: ATORVASTATIN 40 MG TABLET PO SCH (21:18)
[2016-09-06] VITALS (91 sets, daily range): BP systolic 80–140; BP diastolic 43–94
[2016-09-06] MEDS: VANCOMYCIN FOR PO/GT/NG USE GT SCH ×4 (00:28→17:11)
[2016-09-06] MEDS: IV NORMAL SALINE 250 ML IV PRN (00:28)
[2016-09-06] MEDS: BLOOD SUGAR DIAGNOSTIC 1 EACH STRIP VI SCH ×4 (00:29→17:14)
--- NOTE | 2016-09-06 03:47 | NUR ---
PT REMAINS ON GODDARD VENT WITH SHILEY # [address] AND SECURED, WITH SAME CURRENT VENT SETTINGS, A/C 14 , VT 550ML, 35%, PEEP 5, PT DOES ASSIST AT TIMES, SUCTIONED LIGHT PALE YELL TINGE SECRETIONS, GOOD COUGH EFFORT, ORAL CAR AND TRACH CARE DONE, CHANGE HME, CHECK CUFF, NO VENT CHANGES MADE AT THIS TIME, ALL ALARMS OK, AMBU BAG AT BEDSIDE, SAT 99%, NO ABG ORDER . Maame DE DIOSP Addendum: 09/06/16 at 0349 by JONNATHAN CHANDLER RT Amended: Links added.
[2016-09-06 05:13] LABS: BASOPHILS # (AUTO) 0.2 K/uL (0.0-8.0); BASOPHILS % (AUTO) 1.1 % (0.0-2.0); EOSINOPHILS # (AUTO) 0.5 K/uL (0.0-0.7); EOSINOPHILS % (AUTO) 3.3 % (0.0-7.0); HEMATOCRIT 27.5 % (40-50); HEMOGLOBIN 9.2 G/DL (14.0-18.0); LYMPHOCYTES # (AUTO) 1.7 K/UL (0.8-4.8); LYMPHOCYTES % (AUTO) 10.9 % (20.5-51.5); MEAN CORPUSCULAR HGB CONC 33 g/dL (32.0-37.0); MONOCYTES # (AUTO) 1.1 K/UL (0.1-1.30); MONOCYTES % (AUTO) 7.3 % (0.0-11.0); NEUTROPHILS # (AUTO) 12.2 K/UL (1.8-8.9); NEUTROPHILS % (AUTO) 77.4 % (38.5-71.5); PLATELET COUNT (AUTO) 174 K/UL (150-450); RED BLOOD CELL COUNT(AUTO) 3.16 MIL/UL (4.7-6.1); WHITE BLOOD COUNT (AUTO) 15.7 K/UL (4.0-11.2)
[2016-09-06 05:19] LABS: BILIRUBIN,TOTAL 1.7 mg/dL (0.2-1.0); MAGNESIUM 2.2 mg/dL (1.8-2.4); PHOSPHOROUS 4.5 mg/dL (2.5-4.9); POTASSIUM 3.4 mmol/L (3.5-5.1); TOTAL PROTEIN, SERUM 6.1 g/dL (6.4-8.2)
[2016-09-06 05:24] LABS: CREATININE 4.1 mg/dL (0.6-1.3)
[2016-09-06] MEDS: PANTOPRAZOLE ORAL SUSPENSION 40 MG SUSPDR.PKT GT SCH (06:00)
[2016-09-06] MEDS: PIPERACILLIN/TAZOBACTAM/D5W 2.25 G in PREMIXED 1 EACH IV SCH ×3 (06:25→22:28)
--- NOTE | 2016-09-06 08:00 | NUR ---
GI lab team at bedside for EGD,no s/s of acute distress or pain noted.
[2016-09-06] MEDS: FOLIC ACID/VITAMIN B COMP W-C TABLET GT SCH (08:50)
[2016-09-06] MEDS: ACIDOPHILUS/BULGARICUS CHEW TAB GT SCH ×2 (08:50→21:01)
[2016-09-06] MEDS: SUCRALFATE 1 G/10 ML LIQUID UDC GT SCH ×4 (08:50→21:01)
[2016-09-06] MEDS: GABAPENTIN 100 MG CAPSULE GT SCH ×2 (08:50→21:01)
[2016-09-06] MEDS: Z GUARD REMEDY PASTE 57 GM TUBE TOP SCH ×2 (08:51→21:02)
[2016-09-06] MEDS: SODIUM HYPOCHLORITE 0.125% 473 ML BOTTLE TP SCH (09:01)
[2016-09-06] MEDS: PANTOPRAZOLE SODIUM IV 80 MG in IV DEXTROSE 5% 500 ML IV SCH ×2 (11:30→21:01)
--- NOTE | 2016-09-06 11:30 | NUR ---
HD started pt.tolerated well with episode of dropping BP Albumin prn was given.
[2016-09-06] MEDS: ALBUMIN HUMAN 25% 100 ML IV PRN ×2 (11:46→12:53)
[2016-09-06] MEDS ORDERED: ETOMIDATE 20 MG/10 ML VIAL MC ONE (12:48)
[2016-09-06] MEDS ORDERED: EPINEPHRINE 1:10,000 1 MG/10 ML DISP.SYRIN MC ONE (12:48)
[2016-09-06] MEDS ORDERED: TOBRAMYCIN SULFATE IV ONE (15:00)
[2016-09-06] MEDS ORDERED: DEXTROSE 5% IV ONE (15:00)
--- NOTE | 2016-09-06 15:08 | NUR ---
PT RECEIVED ON GODDARD VENT, SETTINGS ARE AC 14, Vt 550, +5, FIO2 35%. PT TOLERATING VENT SETTINGS WELL WITH NO SOB NOTED. ARVIN 8 TRACH IS PATENT AND SECURED. HME CHANGED, BVM AND BACK UP TRACH AT BEDSIDE. SUCTIONED MODERATE AMOUNTS OF YELLOW THICK SECRETIONS. NO VENT CHANGES MADE. WILL CONTINUE TO MONITOR.
--- NOTE | 2016-09-06 16:08 | NUR ---
Clinical Pharmacy Note - Tobramycin Pharmacy to Dose Subjective: To continue Tobramycin per ID in this 60 y/o male for indication of PNA, pseudomonas final cxs pending. Patient is being treated with Zosyn as well. Patient's cath was removed 08/26, however replaced and is now back on HD Objective: weight 108 kg height 185 cm IBW 79.9 kg , used adjusted body weight 90 kg BUN 57 Scr 4.1 (back on HD) WBC 15.7 Temp 97.7 pre-HD level: 1.6 (today with am labs) Assessment/Plan: HD cath was replaced, per RN, HD done today, pre-HD level ordered. Re-dosed tobramycin 140mg (~1.5mg/kg per AdjBW) x 1 today at 1500 after HD per protocol. Will draw pre-HD level and dose as appropriate when dialysis ordered. Will continue to follow.
--- NOTE | 2016-09-06 18:53 | NUR ---
No changes in pt.condition no s/s of acute distress.
[2016-09-06] MEDS: ATORVASTATIN 40 MG TABLET PO SCH (21:01)
--- NOTE | 2016-09-06 21:50 | NUR ---
Pt rec'd on Burns settings A/C 14, VT 550, PEEP +5 and FIO2-35%. No resp. distress noted. Patient to be monitored throughout the shift and PRN SX. Oral care done. Shiley 8 is patent and secure; Backup Shiley 8 and resusc. at bedside. Burns alarm parameters have been checked and remain audible.
[2016-09-07] VITALS (82 sets, daily range): BP systolic 73–136; BP diastolic 47–91
[2016-09-07] MEDS: VANCOMYCIN FOR PO/GT/NG USE GT SCH ×5 (00:16→23:54)
[2016-09-07] MEDS: BLOOD SUGAR DIAGNOSTIC 1 EACH STRIP VI SCH ×5 (00:16→23:53)
--- NOTE | 2016-09-07 03:30 | NUR ---
Noted profuse bleeding from sacral wound. Packing gauze, abdominal pad, and absorbent pad saturated with blood. Estimated approximately 150 mL of blood loss. Katie Morrison MD notified. Directed to apply pressure dressing, implemented. Continue to monitor.
[2016-09-07 04:51] LABS: BASOPHILS # (AUTO) 0.2 K/uL (0.0-8.0); BASOPHILS % (AUTO) 1.3 % (0.0-2.0); EOSINOPHILS # (AUTO) 0.5 K/uL (0.0-0.7); EOSINOPHILS % (AUTO) 3.8 % (0.0-7.0); HEMATOCRIT 26.7 % (40-50); HEMOGLOBIN 8.9 G/DL (14.0-18.0); LYMPHOCYTES % (AUTO) 14.4 % (20.5-51.5); MEAN CORPUSCULAR HEMOGLOBIN 28.7 UUG (27.0-31.0); MEAN CORPUSCULAR HGB CONC 33 g/dL (32.0-37.0); MEAN CORPUSCULAR VOLUME 85.8 FL (82.0-92.0); MONOCYTES # (AUTO) 1.2 K/UL (0.1-1.30); MONOCYTES % (AUTO) 8.5 % (0.0-11.0); NEUTROPHILS # (AUTO) 10.2 K/UL (1.8-8.9); PLATELET COUNT (AUTO) 238 K/UL (150-450); RED BLOOD CELL COUNT(AUTO) 3.12 MIL/UL (4.7-6.1); WHITE BLOOD COUNT (AUTO) 14.1 K/UL (4.0-11.2)
[2016-09-07 05:08] LABS: MAGNESIUM 2.1 mg/dL (1.8-2.4); PHOSPHOROUS 4.3 mg/dL (2.5-4.9); POTASSIUM 3.2 mmol/L (3.5-5.1)
[2016-09-07 05:10] LABS: CREATININE 3.8 mg/dL (0.6-1.3)
[2016-09-07] MEDS: PIPERACILLIN/TAZOBACTAM/D5W 2.25 G in PREMIXED 1 EACH IV SCH ×3 (05:50→21:39)
--- NOTE | 2016-09-07 05:54 | NUR ---
PATIENT REMAINS ON GODDARD VENT WITH SHILEY # [address] AND SECURED, WITH SAME CURRENT VENT SETTINGS, A/C 14, VT 550ML, 35%, PEEP 5, PT DOES ASSIST AT TIMES, SUCTIONED LIGHT PALE YELL TINGE SECRETIONS, GOOD COUGH EFFORT, TRACH CARE DONE AND ORAL CARE DONE, ALL ALARMS OK, AMBU BAG AT BEDSIDE. CHANGE HME AND CHECK CUFF, ABG @ 0900 ORDERED, PT STABLE AT THIS TIME.Maame CHANDLER RCP Addendum: 09/07/16 at 0558 by JONNATHAN CHANDLER RT Amended: Links added.
[2016-09-07] MEDS: IV NORMAL SALINE 250 ML IV PRN (06:06)
[2016-09-07] MEDS: PANTOPRAZOLE SODIUM IV 80 MG in IV DEXTROSE 5% 500 ML IV SCH ×2 (06:40→16:13)
[2016-09-07] MEDS: PEPTAMEN AF 1000ML BAG GT PRN (07:13)
[2016-09-07] MEDS: GABAPENTIN 100 MG CAPSULE GT SCH ×2 (08:14→20:49)
[2016-09-07] MEDS: FOLIC ACID/VITAMIN B COMP W-C TABLET GT SCH (08:14)
[2016-09-07] MEDS: ACIDOPHILUS/BULGARICUS CHEW TAB GT SCH ×2 (08:14→20:49)
[2016-09-07] MEDS: SUCRALFATE 1 G/10 ML LIQUID UDC GT SCH ×4 (08:14→20:49)
[2016-09-07] MEDS: Z GUARD REMEDY PASTE 57 GM TUBE TOP SCH ×2 (08:15→20:49)
[2016-09-07] MEDS: SODIUM HYPOCHLORITE 0.125% 473 ML BOTTLE TP SCH (08:17)
[2016-09-07 09:10] LABS: ABG BASE EXCESS -2.7 mmol/L; ABG HCO3 20.8 mmol/L; ABG PCO2 31.4 mmHg (35.0-45.0); ABG PO2 93.4 mmHg (75.0-100.0); ABG SITE RIGHT RADIAL; ABG TOTAL HEMOGLOBIN 9.3 G/dL (13.5-18.0); COHb 1.4 % (0.5-1.5); MetHb 0.2 % (0.0-1.5); O2Hb 95.7 % (94.0-97.0); VENT MODE VENT - A/C; VT, ABG 550 mL
--- NOTE | 2016-09-07 09:18 | NUR ---
Pt.was seen and with new orders.
--- NOTE | 2016-09-07 09:51 | NUR ---
RATE DECREASED POST ABG. CURRENT SETTINGS ARE AC 12, Vt 550, +5, 35% FIO2. TOLERATING CHANGE WELL WITH NO SOB NOTED. HAS THICK PALE YELLOW SECRETIONS. ARVIN 8 TRACH IS PATENT AND SECURED WITH TIES. BVM AND BACK UP TRACH IS AT BEDSIDE. ALARMS ARE ON AND AUDIBLE. WILL CONTINUE TO MONITOR.
[2016-09-07] MEDS: INSULIN REGULAR, HUMAN 300 UNIT/3 ML VIAL SQ PRN ×2 (11:58→23:55)
--- NOTE | 2016-09-07 14:22 | NUR ---
Clinical Pharmacy Note - Tobramycin Pharmacy to Dose Subjective: To continue Tobramycin per ID in this 60 y/o male for indication of PNA, pseudomonas final cxs pending. Patient is being treated with Zosyn as well. Patient's cath was removed 08/26, however replaced and is now back on HD Objective: weight 108 kg height 185 cm IBW 79.9 kg , used adjusted body weight 90 kg BUN 42 Scr 3.8 (back on HD) WBC 14.1 Temp 97.7 Assessment/Plan: NO HD has been scheduled for today per HD nurse. No tobramycin dose shall be given today. Will draw pre-HD level and dose as appropriate when dialysis ordered. Will continue to follow.
--- NOTE | 2016-09-07 15:20 | NUR ---
Pt. was seen by .
[2016-09-07] MEDS: PHENYLEPHRINE IV 80 MG in IV DEXTROSE 5% 250 ML IV PRN ×2 (16:13→20:57)
--- NOTE | 2016-09-07 16:38 | NUR ---
Pt. was seen by GANESH LEMA MD.
--- NOTE | 2016-09-07 19:30 | NUR ---
Received patient on contact isolation with trache to vent settings as follows: ZL=286 ml, AC=12, FIO2=35% and PEEP=5. Sat above 94%. Opens eyes to name, doesn't track. On continuous Protonix drip at 8 mg/H and Neosynephrine drip for BP support via DANYELLE PICC line. Assessment completed. GT feedings in progress; no residuals. rate increased to 50 ml/H. Addendum: 09/07/16 at 2247 by ARCADIO BOWIE RN Amended: Links added. Addendum: 09/07/16 at 2259 by ARCADIO BOWIE RN Amended: Links added.
[2016-09-07] MEDS: ATORVASTATIN 40 MG TABLET PO SCH (20:49)
--- NOTE | 2016-09-07 22:00 | NUR ---
Lab called. Anerobic blood culture drawn 09/04 results: Gm + cocci in chains. Call placed to Dr. Wade's exchange. Addendum: 09/07/16 at 2235 by ARCADIO BOWIE RN Amended: Links added. Addendum: 09/07/16 at 7 by ARCADIO BOWIE RN Amended: Links added. Addendum: 09/07/16 at 2252 by ARCADIO BOWIE RN Amended: Links added.
--- NOTE | 2016-09-07 22:15 | NUR ---
Spoke to Dr. Kenyatta wade: blood culture results. Order received. Addendum: 09/07/16 at 2233 by ARCADIO BOWIE RN Amended: Links added. Addendum: 09/07/16 at 2235 by ARCADIO BOWIE RN Amended: Links added. Addendum: 09/07/16 at 7 by ARCADIO BOWIE RN Amended: Links added. Addendum: 09/07/16 at 2252 by ARCADIO BOWIE RN Amended: Links added.
--- NOTE | 2016-09-07 22:48 | NUR ---
Blood cultures drawn. Addendum: 09/07/16 at 2252 by ARCADIO BOWIE RN Amended: Links added.
--- NOTE | 2016-09-07 23:00 | NUR ---
Neosynephrine drip titrated to keep SBP above 90. Monitored closely.
[2016-09-08] VITALS (98 sets, daily range): BP systolic 86–135; BP diastolic 50–82
--- NOTE | 2016-09-08 | NUR ---
BPs remain labile; 78/52. Neosynephrine drip now at 80 mcg/min. Tolerating GT feedings well. Rate increased to 60ml/H. Addendum: 09/08/16 at 0058 by ARCADIO BOWIE RN Amended: Links added.
[2016-09-08] MEDS: PANTOPRAZOLE SODIUM IV 80 MG in IV DEXTROSE 5% 500 ML IV SCH ×3 (01:49→21:19)
--- NOTE | 2016-09-08 04:00 | NUR ---
BPs stabilizing. Neosynephrine drip titrated down. Am care given. Wound care treatment done; with small amount of serosanguineous drainage. Patient with eyes open; appears to track. Addendum: 09/08/16 at 0642 by ARCADIO BOWIE RN Amended: Links added.
[2016-09-08 05:28] LABS: BASOPHILS # (AUTO) 0.1 K/uL (0.0-8.0); BASOPHILS % (AUTO) 0.9 % (0.0-2.0); EOSINOPHILS # (AUTO) 0.5 K/uL (0.0-0.7); EOSINOPHILS % (AUTO) 3.9 % (0.0-7.0); HEMOGLOBIN 7.9 G/DL (14.0-18.0); LYMPHOCYTES # (AUTO) 1.9 K/UL (0.8-4.8); MEAN CORPUSCULAR HEMOGLOBIN 30.1 UUG (27.0-31.0); MEAN CORPUSCULAR HGB CONC 34 g/dL (32.0-37.0); MEAN CORPUSCULAR VOLUME 88.6 FL (82.0-92.0); MONOCYTES # (AUTO) 1.4 K/UL (0.1-1.30); MONOCYTES % (AUTO) 10.2 % (0.0-11.0); NEUTROPHILS # (AUTO) 9.5 K/UL (1.8-8.9); PLATELET COUNT (AUTO) 271 K/UL (150-450); RED BLOOD CELL COUNT(AUTO) 2.63 MIL/UL (4.7-6.1); WHITE BLOOD COUNT (AUTO) 13.4 K/UL (4.0-11.2)
[2016-09-08 05:35] LABS: BILIRUBIN,TOTAL 1.3 mg/dL (0.2-1.0); PHOSPHOROUS 5.1 mg/dL (2.5-4.9); POTASSIUM 3.5 mmol/L (3.5-5.1); TOTAL PROTEIN, SERUM 5.7 g/dL (6.4-8.2)
[2016-09-08 05:36] LABS: HEMATOCRIT 23.3 % (40-50)
[2016-09-08] MEDS: VANCOMYCIN FOR PO/GT/NG USE GT SCH ×3 (05:36→17:05)
[2016-09-08] MEDS: PIPERACILLIN/TAZOBACTAM/D5W 2.25 G in PREMIXED 1 EACH IV SCH ×3 (05:36→21:19)
[2016-09-08 05:37] LABS: CREATININE 4.4 mg/dL (0.6-1.3)
[2016-09-08] MEDS: IV NORMAL SALINE 250 ML IV PRN (05:37)
[2016-09-08] MEDS: BLOOD SUGAR DIAGNOSTIC 1 EACH STRIP VI SCH ×3 (05:42→17:50)
[2016-09-08] MEDS: INSULIN REGULAR, HUMAN 300 UNIT/3 ML VIAL SQ PRN ×3 (05:45→17:52)
--- NOTE | 2016-09-08 06:00 | NUR ---
BPs above 90's systole. Neosynephrine drip now at 20 mcg/min. Addendum: 09/08/16 at 0644 by ARCADIO BOWIE RN Amended: Links added. Addendum: 09/08/16 at 0646 by ARCADIO BOWIE RN Amended: Links added.
--- NOTE | 2016-09-08 06:20 | NUR ---
H/H=7.9/23.3. Call placed to Dr. Dejesus's exchange. Awaiting for call back from Dr. Munroe. Addendum: 09/08/16 at 0646 by ARCADIO BOWIE RN Amended: Links added.
--- NOTE | 2016-09-08 06:46 | NUR ---
GT feedings held at 0400. Order is to run x 20 hours. Will resume at 0800.
--- NOTE | 2016-09-08 07:00 | NUR ---
report received from Tao MARIA. 60 yr old male was admitted on 08/19 for sepsis and renal failure. trach to vent. ac 12. fio2 35% tv 550, peep 5cm. remains on neosynephrine drip and protonix drip and a tko NS IV. all fluids infusing via aliza PICC line. on contact isolation for sacral wound decub/ ekg atrial fibrillation. on flexiseal rectal tube for diarrheic stools. [facility]rotation/turning q 20minutes. Addendum: 09/08/16 at 1018 by ARIELLE CAMACHO RN Amended: Links added.
[2016-09-08] MEDS: ACIDOPHILUS/BULGARICUS CHEW TAB GT SCH ×2 (07:59→21:19)
[2016-09-08] MEDS: FOLIC ACID/VITAMIN B COMP W-C TABLET GT SCH (07:59)
[2016-09-08] MEDS: GABAPENTIN 100 MG CAPSULE GT SCH ×2 (07:59→21:18)
[2016-09-08] MEDS: ERGOCALCIFEROL 50,000 UNIT CAPSULE GT SCH (07:59)
[2016-09-08] MEDS: SUCRALFATE 1 G/10 ML LIQUID UDC GT SCH ×4 (07:59→21:18)
[2016-09-08] MEDS: Z GUARD REMEDY PASTE 57 GM TUBE TOP SCH ×2 (08:00→21:19)
[2016-09-08] MEDS: SODIUM HYPOCHLORITE 0.125% 473 ML BOTTLE TP SCH (08:00)
[2016-09-08] MEDS: PEPTAMEN AF 1000ML BAG GT PRN (08:22)
--- NOTE | 2016-09-08 08:59 | NUR ---
seen by dr Dejesus. orders received Addendum: 09/08/16 at 0859 by ARIELLE CAMACHO RN Amended: Links added.
[2016-09-08 10:02] LABS: ABG BASE EXCESS -4.4 mmol/L; ABG PH 7.388 (7.350-7.450); ABG PO2 100.2 mmHg (75.0-100.0); ABG SITE LEFT RADIAL; ABG TOTAL HEMOGLOBIN 8.8 G/dL (13.5-18.0); COHb 1.5 % (0.5-1.5); MetHb 0.2 % (0.0-1.5); O2Hb 95.9 % (94.0-97.0); VENT MODE VENT - A/C; VT, ABG 550 mL
--- NOTE | 2016-09-08 10:47 | NUR ---
Clinical Pharmacy Note - Tobramycin Pharmacy to Dose Subjective: To continue Tobramycin per ID in this 60 y/o male for indication of PNA, pseudomonas final cxs pending. Patient is being treated with Zosyn as well. Patient's cath was removed 08/26, however replaced and is now back on HD Objective: weight 108 kg height 185 cm IBW 79.9 kg , used adjusted body weight 90 kg BUN 47 Scr 4.4 (back on HD) WBC 13.4 Temp 98.7 Assessment/Plan: NO HD has been scheduled for today per nurse. No tobramycin dose shall be given today. Will draw pre-HD level and dose as appropriate when dialysis ordered. Will continue to follow.
--- NOTE | 2016-09-08 11:12 | NUR ---
1 unit prbcs started @ 100ml/hr via aliza PICC line for h/h 7.01/12 Addendum: 09/08/16 at 1122 by ARIELLE CAMACHO RN Amended: Links added. Addendum: 09/08/16 at 1123 by ARIELLE CAMACHO RN Amended: Links added.
--- NOTE | 2016-09-08 12:00 | NUR ---
gt residual only 10 ml/ Tube fdg increased to 70ml/hr Addendum: 09/08/16 at 1313 by ARIELLE CAMACHO RN Amended: Links added.
--- NOTE | 2016-09-08 12:54 | NUR ---
talia 183/ covered with 3 units humulin R SQ Addendum: 09/08/16 at 1311 by ARIELLE CAMACHO RN Amended: Links added. Addendum: 09/08/16 at 1313 by ARIELLE CAMACHO RN Amended: Links added.
--- NOTE | 2016-09-08 14:00 | NUR ---
blood transfusion completed. Addendum: 09/08/16 at 1454 by ARIELLE CAMACHO RN Amended: Gabriel added. Addendum: 09/08/16 at 1457 by ARIELLE CAMACHO RN Amended: Gabriel added.
--- NOTE | 2016-09-08 14:30 | NUR ---
complete bed bath given. trach care, gt care oral care mahesh care, back care and wound care done. bed resumed rotation and turning feature. Addendum: 09/08/16 at 1457 by ARIELLE CAMACHO RN Amended: Links added.
--- NOTE | 2016-09-08 18:04 | NUR ---
tal 141/ covered with 2 units humulin R SQ Addendum: 09/08/16 at 1804 by ARIELLE CAMACHO RN Amended: Links added.
--- NOTE | 2016-09-08 18:05 | NUR ---
RECEIVED ON CURRENT VENT SETTINGS OF AC 12, VT 750, PEEP 5 AND FIO2 35%. STABLE WITH SATURATION OF 99%. ORAL CARE GIVEN. SUCTIONED FOR MODERATE AMOUNT OF THICK PALE YELLOW SECRETIONS WITH FEW TRACES OF BLOOD TINGE. ABG DRAWN WITH GOOD RESULTS. NO CHANGES WERE ORDERED FOR TODAY.
--- NOTE | 2016-09-08 19:03 | NUR ---
Received pt on Burns vent with the following settings of AC-12, Vt-550, PEEP+5, FIO2-35%, trached with Shiley#8 DCT trach, which is in the place and secure. No s/s of respiratory distress noted. Airway care done, pt responded to physical stimuli. Resus. bag and back up trach at bedside. Vent and alarms checked and reset.
--- NOTE | 2016-09-08 19:03 | NUR ---
seen by dr chou. olivas orders. Addendum: 09/08/16 at 1903 by ARIELLE CAMACHO RN Amended: Links added.
--- NOTE | 2016-09-08 19:18 | NUR ---
ARCHANA report given to Rosanna MARIA. Addendum: 09/08/16 at 1918 by ARIELLE CAMACHO RN Amended: Links added.
[2016-09-08] MEDS: ATORVASTATIN 40 MG TABLET PO SCH (21:19)
[2016-09-09] VITALS (89 sets, daily range): BP systolic 83–139; BP diastolic 48–92
[2016-09-09] MEDS: VANCOMYCIN FOR PO/GT/NG USE GT SCH ×5 (00:51→23:27)
[2016-09-09] MEDS: BLOOD SUGAR DIAGNOSTIC 1 EACH STRIP VI SCH ×5 (00:52→23:27)
[2016-09-09] MEDS: INSULIN REGULAR, HUMAN 300 UNIT/3 ML VIAL SQ PRN ×5 (00:56→23:28)
[2016-09-09 05:33] LABS: BASOPHILS # (AUTO) 0.1 K/uL (0.0-8.0); BASOPHILS % (AUTO) 0.9 % (0.0-2.0); EOSINOPHILS # (AUTO) 0.4 K/uL (0.0-0.7); EOSINOPHILS % (AUTO) 3.6 % (0.0-7.0); HEMATOCRIT 24.8 % (40-50); LYMPHOCYTES # (AUTO) 1.7 K/UL (0.8-4.8); LYMPHOCYTES % (AUTO) 14.6 % (20.5-51.5); MEAN CORPUSCULAR HEMOGLOBIN 27.9 UUG (27.0-31.0); MEAN CORPUSCULAR HGB CONC 32 g/dL (32.0-37.0); MEAN CORPUSCULAR VOLUME 86.1 FL (82.0-92.0); MONOCYTES # (AUTO) 1.1 K/UL (0.1-1.30); MONOCYTES % (AUTO) 8.9 % (0.0-11.0); NEUTROPHILS # (AUTO) 8.6 K/UL (1.8-8.9); PLATELET COUNT (AUTO) 275 K/UL (150-450); RED BLOOD CELL COUNT(AUTO) 2.88 MIL/UL (4.7-6.1); WHITE BLOOD COUNT (AUTO) 11.9 K/UL (4.0-11.2)
[2016-09-09] MEDS: PIPERACILLIN/TAZOBACTAM/D5W 2.25 G in PREMIXED 1 EACH IV SCH ×3 (05:35→21:27)
[2016-09-09 06:18] LABS: MAGNESIUM 2.2 mg/dL (1.8-2.4); PHOSPHOROUS 5.9 mg/dL (2.5-4.9); POTASSIUM 3.6 mmol/L (3.5-5.1)
[2016-09-09 06:23] LABS: CREATININE 4.7 mg/dL (0.6-1.3)
--- NOTE | 2016-09-09 07:15 | NUR ---
hemodialysis in progress. RR up to 40/min using abdominal muscles. HR rapid atrial fib rate up to 128/min. o2 sat down to the 80's. titrated fio2 up to 40%, 45%. 60% but o2 sat remains below 90%. fio2 titrated up to 100 % while being dialyzed. Addendum: 09/09/16 at 0926 by ARIELLE CAMACHO RN Amended: Links added.
[2016-09-09] MEDS: PANTOPRAZOLE SODIUM IV 80 MG in IV DEXTROSE 5% 500 ML IV SCH (07:43)
[2016-09-09] MEDS: PHENYLEPHRINE IV 80 MG in IV DEXTROSE 5% 250 ML IV PRN ×2 (07:44→18:47)
[2016-09-09] MEDS: PEPTAMEN AF 1000ML BAG GT PRN (08:20)
[2016-09-09] MEDS: SUCRALFATE 1 G/10 ML LIQUID UDC GT SCH ×4 (08:25→20:29)
[2016-09-09] MEDS: GABAPENTIN 100 MG CAPSULE GT SCH ×2 (08:26→20:29)
[2016-09-09] MEDS: FOLIC ACID/VITAMIN B COMP W-C TABLET GT SCH (08:26)
[2016-09-09] MEDS: ACIDOPHILUS/BULGARICUS CHEW TAB GT SCH ×2 (08:26→20:31)
[2016-09-09] MEDS: SODIUM HYPOCHLORITE 0.125% 473 ML BOTTLE TP SCH (08:27)
[2016-09-09] MEDS: Z GUARD REMEDY PASTE 57 GM TUBE TOP SCH ×2 (08:27→20:30)
--- NOTE | 2016-09-09 09:15 | NUR ---
seen by dr rodger MANRIQUEZ and dr lesley SUAREZ. orders received. Addendum: 09/09/16 at 0916 by ARIELLE CAMACHO RN Amended: Links added.
--- NOTE | 2016-09-09 10:21 | NUR ---
protonix dcd/switched to 40mg IV q12hrs Addendum: 09/09/16 at 1022 by ARIELLE CAMACHO RN Amended: Links added.
--- NOTE | 2016-09-09 10:30 | NUR ---
neosynephrine drip titrtaed up to 20mcg/min for bp 83/52, 84/48. Addendum: 09/09/16 at 1042 by ARIELLE CAMACHO RN Amended: Links added.
--- NOTE | 2016-09-09 11:04 | NUR ---
seen by dr willams with new orders Addendum: 09/09/16 at 1104 by ARIELLE CAMACHO RN Amended: Links added.
--- NOTE | 2016-09-09 12:07 | NUR ---
Clinical Pharmacy Note - Tobramycin Pharmacy to Dose Subjective: To continue Tobramycin per ID in this 60 y/o male for indication of PNA, pseudomonas final cxs pending. Patient is being treated with Zosyn as well. Patient's cath was removed 08/26, however replaced and is now back on HD Objective: weight 108 kg height 185 cm IBW 79.9 kg , used adjusted body weight 90 kg BUN 53 Scr 4.7 (back on HD) WBC 11.9 Temp 99.8 pre-HD level: 0.3 (today with am labs) Assessment/Plan: HD done today, pre-HD level ordered. Re-dosed tobramycin 140mg (~1.5mg/kg per AdjBW) x 1 today at 1300 after HD per protocol. Will draw pre-HD level and dose as appropriate when dialysis ordered. Will continue to follow.
--- NOTE | 2016-09-09 12:21 | NUR ---
talia 153, covered with 2 units humulin R sq Addendum: 09/09/16 at 1221 by ARIELLE CAMACHO RN Amended: Links added.
[2016-09-09] MEDS ORDERED: DEXTROSE 5% IV ONE (13:00)
[2016-09-09] MEDS ORDERED: TOBRAMYCIN SULFATE IV ONE (13:00)
--- NOTE | 2016-09-09 14:26 | NUR ---
PT RECEIVED ON GODDARD VENT, SETTINGS ARE AC 14, Vt 550, +5, FIO2 35%. PT TOLERATING VENT SETTINGS WELL, NO SOB NOTED. ARVIN 8 TRACH IS PATENT AND SECURED. HME/ANNIE CHANGED, BVM AND BACK UP TRACH AT BEDSIDE. SUCTIONED MODERATE AMOUNTS OF YELLOW THICK SECRETIONS. NO VENT CHANGES MADE. WILL CONTINUE TO MONITOR.
--- NOTE | 2016-09-09 15:00 | NUR ---
complete bed bath given. gt site care done. wound care done. patients remains on neosynephrine at 20mcg/min sbp 20-110. Addendum: 09/09/16 at 1744 by ARIELLE CAMACHO RN Amended: Links added.
--- NOTE | 2016-09-09 17:34 | NUR ---
talia 183, covered with 3 units humulin R SQ Addendum: 09/09/16 at 1735 by ARIELLE CAMACHO RN Amended: Links added.
[2016-09-09] MEDS ORDERED: NORMAL SALINE FLUSH 10 ML DISP.SYRIN IV PRN (17:45)
--- NOTE | 2016-09-09 19:00 | NUR ---
Pt received on Continuous mechanical ventilation via Trach. Trach is a DIIMEley 8, and is patent and secured. No redness or irritation noted around stoma or trach ties. Pt is on Burns vent with ordered settings of A/C-12, VT-550, PEEP+5, FIO2-35%. Pt tolerating vent settings well. SpO2-100% No signs or symptoms of respiratory distress noted. Sxn'd and lavaged, small amts of yellowish secretions. Vent alarm parameters checked, on and audible. Vent plugged into red emergency outlet. Bag/valve/mask at bedside. HME changed. Oral care done. Proper isolation precaution equipment used. Will continue to monitor
--- NOTE | 2016-09-09 19:21 | NUR ---
report given to Tao RN Addendum: 09/09/16 at 1921 by ARIELLE CAMACHO RN Amended: Links added.
--- NOTE | 2016-09-09 19:30 | NUR ---
Report received. Patient with trache to vent settings: AC=12 JC=468 ml, FIO2=35% and PEEP=5. Sat 76=746%. Doesn't open eyes to name or follow any commands. On contact isolation. GT Feedings in progress at 80 ml/H. With continuous Neosynephrine drip for BP support. Assessment completed. Addendum: 09/09/16 at 2109 by ARCADIO BOWIE RN Amended: Links added. Addendum: 09/09/16 at 2109 by ARCADIO BOWIE RN Amended: Links added.
[2016-09-09] MEDS: ACETAMINOPHEN 650 MG/20.3 ML LIQUID UDC GT PRN (20:29)
[2016-09-09] MEDS: ATORVASTATIN 40 MG TABLET PO SCH (20:29)
[2016-09-09] MEDS: PANTOPRAZOLE SODIUM 40 MG VIAL IV SCH (20:30)
[2016-09-09] MEDS: NORMAL SALINE FLUSH 10 ML DISP.SYRIN IV SCH (21:27)
[2016-09-09] MEDS: IV NORMAL SALINE 250 ML IV PRN (21:36)
--- NOTE | 2016-09-09 22:00 | NUR ---
Neosynephrine drip turned off. BPs monitored closely. Addendum: 09/09/16 at 2230 by ARCADIO BOWIE RN Amended: Links added. Addendum: 09/09/16 at 2232 by ARCADIO BOWIE RN Amended: Links added.
[2016-09-10] VITALS (24 sets, daily range): BP systolic 102–137; BP diastolic 56–125
--- NOTE | 2016-09-10 | NUR ---
Flexi seal leaking. Changed; irrigated gently. Still with thick green brown to liquid yellow stools and large amounts of flatus. Am bath given. Wound care treatment done. Addendum: 09/10/16 at 0323 by ARCADIO BOWIE RN Amended: Links added.
[2016-09-10] MEDS: Z GUARD REMEDY PASTE 57 GM TUBE TOP PRN ×2 (01:09→05:13)
--- NOTE | 2016-09-10 04:00 | NUR ---
GT feedings off [phone]. Tolerated well. Patient opens eyes spontaneously and with grimacing to pain. BP stable. Addendum: 09/10/16 at 0610 by ARCADIO BOWIE RN Amended: Links added. Addendum: 09/10/16 at 0612 by ARCADIO BOWIE RN Amended: Links added.
[2016-09-10] MEDS: VANCOMYCIN FOR PO/GT/NG USE GT SCH ×4 (05:12→23:22)
[2016-09-10] MEDS: NORMAL SALINE FLUSH 10 ML DISP.SYRIN IV SCH ×3 (05:13→21:21)
[2016-09-10] MEDS: BLOOD SUGAR DIAGNOSTIC 1 EACH STRIP VI SCH ×4 (05:13→23:23)
[2016-09-10] MEDS: PIPERACILLIN/TAZOBACTAM/D5W 2.25 G in PREMIXED 1 EACH IV SCH ×3 (05:13→21:21)
[2016-09-10 05:33] LABS: BASOPHILS # (AUTO) 0.1 K/uL (0.0-8.0); BASOPHILS % (AUTO) 0.9 % (0.0-2.0); EOSINOPHILS # (AUTO) 0.5 K/uL (0.0-0.7); EOSINOPHILS % (AUTO) 3.9 % (0.0-7.0); HEMOGLOBIN 8.7 G/DL (14.0-18.0); LYMPHOCYTES # (AUTO) 1.7 K/UL (0.8-4.8); LYMPHOCYTES % (AUTO) 14.4 % (20.5-51.5); MEAN CORPUSCULAR HEMOGLOBIN 28.9 UUG (27.0-31.0); MEAN CORPUSCULAR HGB CONC 33 g/dL (32.0-37.0); MEAN CORPUSCULAR VOLUME 86.6 FL (82.0-92.0); MONOCYTES # (AUTO) 1.2 K/UL (0.1-1.30); MONOCYTES % (AUTO) 10.5 % (0.0-11.0); NEUTROPHILS # (AUTO) 8.4 K/UL (1.8-8.9); NEUTROPHILS % (AUTO) 70.3 % (38.5-71.5); PLATELET COUNT (AUTO) 321 K/UL (150-450); RED BLOOD CELL COUNT(AUTO) 3.01 MIL/UL (4.7-6.1); WHITE BLOOD COUNT (AUTO) 11.9 K/UL (4.0-11.2)
[2016-09-10 05:38] LABS: MAGNESIUM 2.2 mg/dL (1.8-2.4); PHOSPHOROUS 4.4 mg/dL (2.5-4.9); POTASSIUM 3.3 mmol/L (3.5-5.1)
[2016-09-10 05:40] LABS: CREATININE 3.9 mg/dL (0.6-1.3)
[2016-09-10] MEDS: FOLIC ACID/VITAMIN B COMP W-C TABLET GT SCH (08:02)
[2016-09-10] MEDS: GABAPENTIN 100 MG CAPSULE GT SCH ×2 (08:02→21:16)
[2016-09-10] MEDS: ACIDOPHILUS/BULGARICUS CHEW TAB GT SCH ×2 (08:02→21:16)
[2016-09-10] MEDS: SUCRALFATE 1 G/10 ML LIQUID UDC GT SCH ×4 (08:02→21:16)
[2016-09-10] MEDS: PANTOPRAZOLE SODIUM 40 MG VIAL IV SCH (08:02)
[2016-09-10] MEDS: Z GUARD REMEDY PASTE 57 GM TUBE TOP SCH ×2 (08:03→21:17)
[2016-09-10] MEDS: SODIUM HYPOCHLORITE 0.125% 473 ML BOTTLE TP SCH (08:03)
[2016-09-10] MEDS: PEPTAMEN AF 1000ML BAG GT PRN (08:34)
--- NOTE | 2016-09-10 08:55 | NUR ---
Dr. Martin in the unit to examine patient, full report given see orders.
[2016-09-10 10:03] LABS: ABG HCO3 20.1 mmol/L; ABG PCO2 33.2 mmHg (35.0-45.0); ABG PO2 91.6 mmHg (75.0-100.0); ABG SITE RIGHT RADIAL; ABG TOTAL HEMOGLOBIN 10.1 G/dL (13.5-18.0); MetHb 0.2 % (0.0-1.5); VENT MODE VENT - A/C; VT, ABG 550 mL
--- NOTE | 2016-09-10 10:47 | NUR ---
A call to Infectious Disease Dr. Kenyatta Street to report + blood cultures for enterococcus-Fecalis/ vancomycin resistant as reported by Mr. Craig from microbiology.
--- NOTE | 2016-09-10 11:10 | NUR ---
Dr. Powell pulmonary services in the unit to see patient; report given no new orders received.
[2016-09-10] MEDS: INSULIN REGULAR, HUMAN 300 UNIT/3 ML VIAL SQ PRN ×3 (12:05→23:27)
--- NOTE | 2016-09-10 14:33 | NUR ---
Clinical Pharmacy Note - Tobramycin Pharmacy to Dose Subjective: To continue Tobramycin per ID in this 60 y/o male for indication of PNA . Patient's cath was removed 08/26, however replaced and is now back on HD .On Zosyn also Objective: weight 108 kg height 185 cm IBW 79.9 kg , used adjusted body weight 90 kg BUN 38 Scr 3.9 (back on HD) WBC 11.9 Temp 98.5 Resp Cx Serratia and PSA sensitive to Gentamicin. Assessment/Plan: No HD today according to dialysis center. No dose to be given today. Will continue to dose per pre-HD level and dose as appropriate when dialysis ordered. Will continue to follow.
--- NOTE | 2016-09-10 16:30 | NUR ---
Infectious disease CENTRAL SUPPLY MANAGER int he unit to examine patient. As stated dr. You aware of blood results.
--- NOTE | 2016-09-10 19:30 | NUR ---
Report received. Patient lethargic, opens eyes to name, tracks. With trache to mechanical ventilator with same settings. Leak noted around trache stoma; with Mepilex foam dressing. Contact isolation maintained. Assessment completed. Addendum: 09/10/16 at 2255 by ARCADIO BOWIE RN Amended: Links added.
--- NOTE | 2016-09-10 19:37 | NUR ---
Pt rec'd on Burns settings A/C 12, VT 550, PEEP +5 and FIO2-35%. No resp. distress noted. Patient to be monitored throughout the shift and PRN SX. Oral care done. Shiley 8 is patent and secure; Backup Shiley 8 and resusc. at bedside. Burns alarm parameters have been checked and remain audible.
--- NOTE | 2016-09-10 20:00 | NUR ---
Flexi seal intact but with thick green stools. With large amounts of liquid brown stools leaking around anal orifice. Flexi seal irrigated gently. PM care rendered. Wound care treatment done. Addendum: 09/10/16 at 2250 by ARCADIO BOWIE RN Amended: Links added.
[2016-09-10] MEDS: PANTOPRAZOLE ORAL SUSPENSION 40 MG SUSPDR.PKT GT SCH (21:16)
[2016-09-10] MEDS: ATORVASTATIN 40 MG TABLET PO SCH (21:16)
--- NOTE | 2016-09-10 22:00 | NUR ---
Seen by Dr. Latham; no new orders. Addendum: 09/11/16 at 0715 by ARCADIO BOWIE RN Amended: Links added.
[2016-09-11] VITALS (25 sets, daily range): BP systolic 90–144; BP diastolic 47–82
--- NOTE | 2016-09-11 04:00 | NUR ---
Tolerating GT feedings well. Off [phone]. Am care given. BP stable. Addendum: 09/11/16 at 0559 by ARCADIO BOWIE RN Amended: Links added. Addendum: 09/11/16 at 0600 by ARCADIO BOWIE RN Amended: Links added. Addendum: 09/11/16 at 0600 by ARCADIO BOWIE RN Amended: Links added. Addendum: 09/11/16 at 0601 by ARCADIO BOWIE RN Amended: Links added.
[2016-09-11 05:01] LABS: BASOPHILS # (AUTO) 0.1 K/uL (0.0-8.0); BASOPHILS % (AUTO) 1.3 % (0.0-2.0); EOSINOPHILS # (AUTO) 0.6 K/uL (0.0-0.7); EOSINOPHILS % (AUTO) 5.6 % (0.0-7.0); HEMATOCRIT 25.2 % (40-50); HEMOGLOBIN 8.3 G/DL (14.0-18.0); LYMPHOCYTES # (AUTO) 1.7 K/UL (0.8-4.8); LYMPHOCYTES % (AUTO) 15.8 % (20.5-51.5); MEAN CORPUSCULAR HEMOGLOBIN 28.5 UUG (27.0-31.0); MEAN CORPUSCULAR HGB CONC 33 g/dL (32.0-37.0); MEAN CORPUSCULAR VOLUME 86.8 FL (82.0-92.0); MONOCYTES # (AUTO) 1.2 K/UL (0.1-1.30); MONOCYTES % (AUTO) 11.7 % (0.0-11.0); NEUTROPHILS # (AUTO) 6.9 K/UL (1.8-8.9); NEUTROPHILS % (AUTO) 65.6 % (38.5-71.5); PLATELET COUNT (AUTO) 367 K/UL (150-450); WHITE BLOOD COUNT (AUTO) 10.5 K/UL (4.0-11.2)
[2016-09-11 05:04] LABS: MAGNESIUM 2.3 mg/dL (1.8-2.4); POTASSIUM 3.4 mmol/L (3.5-5.1)
[2016-09-11] MEDS: IV NORMAL SALINE 250 ML IV PRN (05:11)
[2016-09-11] MEDS: VANCOMYCIN FOR PO/GT/NG USE GT SCH ×3 (05:11→17:21)
[2016-09-11] MEDS: NORMAL SALINE FLUSH 10 ML DISP.SYRIN IV SCH ×3 (05:12→21:38)
[2016-09-11] MEDS: PIPERACILLIN/TAZOBACTAM/D5W 2.25 G in PREMIXED 1 EACH IV SCH ×3 (05:13→21:38)
[2016-09-11] MEDS: BLOOD SUGAR DIAGNOSTIC 1 EACH STRIP VI SCH ×3 (05:16→17:21)
[2016-09-11 05:19] LABS: CREATININE 4.5 mg/dL (0.6-1.3)
--- NOTE | 2016-09-11 08:00 | NUR ---
Dr. Burton in the unit to examine patient; full report given see orders.
[2016-09-11] MEDS: GABAPENTIN 100 MG CAPSULE GT SCH ×2 (08:05→20:17)
[2016-09-11] MEDS: SODIUM HYPOCHLORITE 0.125% 473 ML BOTTLE TP SCH (08:05)
[2016-09-11] MEDS: FOLIC ACID/VITAMIN B COMP W-C TABLET GT SCH (08:05)
[2016-09-11] MEDS: PANTOPRAZOLE ORAL SUSPENSION 40 MG SUSPDR.PKT GT SCH ×2 (08:05→20:18)
[2016-09-11] MEDS: ACIDOPHILUS/BULGARICUS CHEW TAB GT SCH ×2 (08:05→20:17)
[2016-09-11] MEDS: SUCRALFATE 1 G/10 ML LIQUID UDC GT SCH ×4 (08:05→20:17)
[2016-09-11] MEDS: PEPTAMEN AF 1000ML BAG GT PRN (08:06)
[2016-09-11] MEDS: Z GUARD REMEDY PASTE 57 GM TUBE TOP SCH ×2 (08:06→20:18)
--- NOTE | 2016-09-11 10:50 | NUR ---
HD rn in the unit. Patient undergoing hemodialysis at this time.
[2016-09-11] MEDS ORDERED: ALBUMIN HUMAN 25% 100 ML IV PRN (11:15)
--- NOTE | 2016-09-11 11:59 | NUR ---
Dr. Powell pulmonary services in the unit to examine patient, full report given. See orders.
[2016-09-11] MEDS ORDERED: TOBRAMYCIN SULFATE IV ONE (15:00)
[2016-09-11] MEDS ORDERED: DEXTROSE 5% IV ONE (15:00)
--- NOTE | 2016-09-11 16:16 | NUR ---
Clinical Pharmacy Note - Tobramycin Pharmacy to Dose Subjective: To continue Tobramycin per ID in this 60 y/o male for indication of PNA . Patient's cath was removed 08/26, however replaced and is now back on HD .On Zosyn also Objective: weight 108 kg height 185 cm IBW 79.9 kg , used adjusted body weight 90 kg BUN 45 Scr 4.5 (back on HD) WBC 10.5 Temp 98.6 Resp Cx Serratia and PSA sensitive to Gentamicin. Tobramycin pre-HD level today was 0.5 Assessment/Plan: Patient was dialyzed today. Tobramycin 140mg x1 was given today at 1500. Will continue to dose per pre-HD level and dose as appropriate when dialysis ordered. Will continue to follow.
--- NOTE | 2016-09-11 18:28 | NUR ---
RESUMED CARE POST REPORT FROM NOC SHIFT. PT REMAIN STABLE WITH NO DISTRESS. ORAL CARE GIVEN. SUCTIONED NEEDED THROUGHOUT THE SHIFT. NO NEW ORDER RECEIVED TODAY.
--- NOTE | 2016-09-11 19:23 | NUR ---
PT ON CONT GODDARD VENT WITH SHILEY # [address] AND SECURED, WITH VENT SETTINGS, A/C 12, VT 550ML, PEEP 5, 35%, PT DOES ASSIST AT TIMES, CHECK CUFF, SUCTIONED VERY LIGHT PALE YELL TINGE SECRETIONS, WITH NO VENT CHANGES MADE AT THIS TIME, ALL ALARMS OK, AMBU BAG. Maame DE DIOSP Addendum: 09/11/16 at 1924 by JONNATHAN CHANDLER RT Amended: Links added.
--- NOTE | 2016-09-11 20:00 | NUR ---
Resting in bed, appears lethargic. No apparent acute distress. Trach intact to vent, comfortable on current settings. Remains off vasopressor. Dr. Latham here, no new orders noted. Tube feeding well tolerated. Aspiration precautions observed. Flexiseal intact, gently irrigated for patency. Contact isolation maintained at all times. Please see CCU flowsheet for full assessment and clinical data.
[2016-09-11] MEDS: ATORVASTATIN 40 MG TABLET PO SCH (20:19)
[2016-09-12] VITALS (22 sets, daily range): BP systolic 90–120; BP diastolic 52–69
[2016-09-12] MEDS: VANCOMYCIN FOR PO/GT/NG USE GT SCH ×5 (00:14→23:25)
[2016-09-12] MEDS: INSULIN REGULAR, HUMAN 300 UNIT/3 ML VIAL SQ PRN ×4 (00:15→23:33)
[2016-09-12] MEDS: BLOOD SUGAR DIAGNOSTIC 1 EACH STRIP VI SCH ×5 (00:15→23:30)
--- NOTE | 2016-09-12 04:00 | NUR ---
Stable rhythm and VS. AM care rendered and new wound and skin issue photos obtained, tolerated procedures well. Tube feeding off (until 0800) and then will resume. Nursing comfort measures observed at all times. Please see CCU flowsheet for trends and clinical data.
--- NOTE | 2016-09-12 04:19 | NUR ---
PT WITH CONT GODDARD VENT KATHIE SHERIDAN # [address] AND SECURED, WITH SAME CURRENT VENT SETTINGS, NO VENT CHANGES MADE AT THIS TIME, SUCTIONED LIGHT PALE YELL TINGE SECRETIONS, WITH GOOD COUGH EFFORT,ALL ALARMS OK, AMBU BAG AT BEDSIDE, ORAL CARE DONE, WITH ADEQUATE VENTILATION. Maame DE DIOSP Addendum: 09/12/16 at 0424 by JONNATHAN CHANDLER RT Amended: Links added.
[2016-09-12] MEDS: NORMAL SALINE FLUSH 10 ML DISP.SYRIN IV SCH ×3 (05:40→21:17)
[2016-09-12] MEDS: PIPERACILLIN/TAZOBACTAM/D5W 2.25 G in PREMIXED 1 EACH IV SCH ×3 (05:40→21:17)
[2016-09-12] MEDS: IV NORMAL SALINE 250 ML IV PRN (05:45)
[2016-09-12] MEDS: Z GUARD REMEDY PASTE 57 GM TUBE TOP PRN (06:12)
--- NOTE | 2016-09-12 07:10 | NUR ---
Pt received on Continuous mechanical ventilation via Trach. Trach is a Apparentley 8, and is patent and secured. No redness or irritation noted around stoma or trach ties. Pt is on Burns vent with ordered settings of A/C-12, VT-550, PEEP+5, FIO2-35%. Pt tolerating vent settings well. SpO2-100% No signs or symptoms of respiratory distress noted. Sxn'd and lavaged, small amts of yellowish/white secretions. Vent alarm parameters checked, on and audible. Vent plugged into red emergency outlet. Bag/valve/mask at bedside. HME changed. Oral care done. Proper isolation precaution equipment used. Will continue to monitor
--- NOTE | 2016-09-12 07:45 | NUR ---
Dr. Mclaughlin in the unit to examine patient, report given see orders.
[2016-09-12] MEDS: PANTOPRAZOLE ORAL SUSPENSION 40 MG SUSPDR.PKT GT SCH ×2 (08:52→20:57)
[2016-09-12] MEDS: ACIDOPHILUS/BULGARICUS CHEW TAB GT SCH ×2 (08:52→20:57)
[2016-09-12] MEDS: Z GUARD REMEDY PASTE 57 GM TUBE TOP SCH ×2 (08:52→20:58)
[2016-09-12] MEDS: GABAPENTIN 100 MG CAPSULE GT SCH ×2 (08:52→20:57)
[2016-09-12] MEDS: FOLIC ACID/VITAMIN B COMP W-C TABLET GT SCH (08:52)
[2016-09-12] MEDS: SUCRALFATE 1 G/10 ML LIQUID UDC GT SCH ×4 (08:52→20:57)
[2016-09-12] MEDS: SODIUM HYPOCHLORITE 0.125% 473 ML BOTTLE TP SCH (08:53)
[2016-09-12] MEDS: PEPTAMEN AF 1000ML BAG GT PRN (09:02)
--- NOTE | 2016-09-12 13:40 | NUR ---
Infectious disease WEIGHT ENGINEER in the unit to see patient. Report given.
--- NOTE | 2016-09-12 14:28 | NUR ---
Dr. Powell in the unit to see patient, full report given see orders.
--- NOTE | 2016-09-12 16:25 | NUR ---
Clinical Pharmacy Note - Tobramycin Pharmacy to Dose Subjective: To continue Tobramycin per ID in this 60 y/o male for indication of PNA . Patient's cath was removed 08/26, however replaced and is now back on HD .On Zosyn also Objective: weight 108 kg height 185 cm IBW 79.9 kg , used adjusted body weight 90 kg BUN 45 (09/11) Scr 4.5 (09/11) WBC 10.5 (09/11) Temp 98.9 Resp Cx Serratia and PSA sensitive to Gentamicin. Assessment/Plan: Patient not scheduled for HD today, no dose given. Tobramycin 140mg x1 was given yesterday 09/11 with HD at 1500. Will continue to dose per pre-HD level and dose as appropriate when dialysis ordered. next pre-HD level ordered for tomorrow am as patient is due for HD. Will continue to follow.
--- NOTE | 2016-09-12 19:00 | NUR ---
RECEIVED PT ON GODDARD VENTILATOR WITH THE FOLLOWING SETTINGS: AC 12, VT 550, PEEP +5, FIO2 35%. NO CHANGES MADE ON VENTILATOR SETTINGS AT THIS TIME. VENT CHECK DONE. ALARMS CHECKED, ARE ON AND AUDIBLE. PT IS SHOWING NO SIGNS OR SYMPTOMS OF RESPIRATORY DISTRESS. O2 SATURATION IS 100%. TRACH IS PATENT AND SECURED WITH TRACH TIES. SUCTION/LAVAGED SMALL AMOUNT OF THICK, YELLOW/PALE SECRETIONS. HME CHANGED. AMBU BAG AND BACK UP TRACH ARE CURRENTLY AT BEDSIDE. VENTILATOR IS PLUGGED INTO RED EMERGENCY OUTLET. WILL CONTINUE TO MONITOR PT.
--- NOTE | 2016-09-12 19:30 | NUR ---
Report received. Patient with trache to mechanical ventilator with same settings. Opens eyes spontaneously; doesn't follow any commands. On contact isolation. Assessment completed and documented. Addendum: 09/13/16 at 0144 by ARCADIO BOWIE RN Amended: Links added.
[2016-09-12] MEDS: ATORVASTATIN 40 MG TABLET PO SCH (20:57)
[2016-09-13] VITALS (24 sets, daily range): BP systolic 90–118; BP diastolic 54–73
--- NOTE | 2016-09-13 | NUR ---
No neuro changes. VS stable. Addendum: 09/13/16 at 4910 by ARCADIO BOWIE RN Amended: Links added.
--- NOTE | 2016-09-13 04:00 | NUR ---
GT feedings off [id number]. Addendum: 09/13/16 at 0730 by ARCADIO BOWIE RN Amended: Links added.
[2016-09-13 05:06] LABS: BASOPHILS # (AUTO) 0.2 K/uL (0.0-8.0); BASOPHILS % (AUTO) 1.7 % (0.0-2.0); EOSINOPHILS # (AUTO) 0.7 K/uL (0.0-0.7); LYMPHOCYTES # (AUTO) 1.9 K/UL (0.8-4.8); LYMPHOCYTES % (AUTO) 20.1 % (20.5-51.5); MEAN CORPUSCULAR HEMOGLOBIN 28.8 UUG (27.0-31.0); MEAN CORPUSCULAR HGB CONC 33 g/dL (32.0-37.0); MEAN CORPUSCULAR VOLUME 86.3 FL (82.0-92.0); MONOCYTES # (AUTO) 1.5 K/UL (0.1-1.30); MONOCYTES % (AUTO) 15.7 % (0.0-11.0); NEUTROPHILS % (AUTO) 55.5 % (38.5-71.5); PLATELET COUNT (AUTO) 388 K/UL (150-450); RED BLOOD CELL COUNT(AUTO) 2.78 MIL/UL (4.7-6.1); WHITE BLOOD COUNT (AUTO) 9.3 K/UL (4.0-11.2)
[2016-09-13 05:07] LABS: POTASSIUM 3.7 mmol/L (3.5-5.1)
[2016-09-13] MEDS: NORMAL SALINE FLUSH 10 ML DISP.SYRIN IV SCH ×3 (05:07→22:14)
[2016-09-13] MEDS: VANCOMYCIN FOR PO/GT/NG USE GT SCH ×4 (05:07→23:16)
[2016-09-13] MEDS: PIPERACILLIN/TAZOBACTAM/D5W 2.25 G in PREMIXED 1 EACH IV SCH ×3 (05:07→22:15)
[2016-09-13 05:08] LABS: BILIRUBIN,TOTAL 1.1 mg/dL (0.2-1.0); CREATININE 4.7 mg/dL (0.6-1.3); PHOSPHOROUS 4.8 mg/dL (2.5-4.9)
[2016-09-13] MEDS: IV NORMAL SALINE 250 ML IV PRN (05:08)
[2016-09-13 05:10] LABS: MAGNESIUM 2.5 mg/dL (1.8-2.4); TOTAL PROTEIN, SERUM 6.8 g/dL (6.4-8.2)
[2016-09-13] MEDS: BLOOD SUGAR DIAGNOSTIC 1 EACH STRIP VI SCH ×4 (05:12→23:16)
[2016-09-13 05:19] LABS: BAND % (MANUAL) 2 % (0-10); EOSINOPHILS % (MANUAL) 7 % (0-8); LYMPHOCYTES % (MANUAL) 23 % (20-40); MONOCYTES % (MANUAL) 16 % (2-10); NEUTROPHILS % (MANUAL) 52 % (42-75)
--- NOTE | 2016-09-13 07:00 | NUR ---
Pt received on Continuous mechanical ventilation via Trach. Trach is a Shiley 8, and is patent and secured. Trach is dry and no redness or irritation noted around stoma or trach ties. Pt is on Burns vent with ordered settings of A/C-12, VT-550, PEEP+5, FIO2-35%. Pt tolerating vent settings well. SpO2-99% No signs or symptoms of respiratory distress noted. Sxn'd and lavaged, small amts of yellowish/white secretions. Vent alarm parameters checked, on and audible. Vent plugged into red emergency outlet. Bag/valve/mask and back up trach at bedside. HME changed. Oral care done. Proper isolation precaution equipment used. Will continue to monitor
--- NOTE | 2016-09-13 08:00 | NUR ---
Pt received on Shiley #8 continuous ventilation settings as follows: AC-12, TV-550ml, 35% FiO2, PEEP-5. correctional security officer and ventilation alarms working properly wnl. G-tube feeding clamped. IVF tko. Pt hemodynamically stable and nad noted.
[2016-09-13] MEDS: GABAPENTIN 100 MG CAPSULE GT SCH ×2 (08:19→20:45)
[2016-09-13] MEDS: Z GUARD REMEDY PASTE 57 GM TUBE TOP SCH ×2 (08:19→20:45)
[2016-09-13] MEDS: SUCRALFATE 1 G/10 ML LIQUID UDC GT SCH ×4 (08:19→20:44)
[2016-09-13] MEDS: ACIDOPHILUS/BULGARICUS CHEW TAB GT SCH ×2 (08:19→20:45)
[2016-09-13] MEDS: PANTOPRAZOLE ORAL SUSPENSION 40 MG SUSPDR.PKT GT SCH ×2 (08:19→20:45)
[2016-09-13] MEDS: FOLIC ACID/VITAMIN B COMP W-C TABLET GT SCH (08:19)
[2016-09-13] MEDS: SODIUM HYPOCHLORITE 0.125% 473 ML BOTTLE TP SCH (08:19)
--- NOTE | 2016-09-13 08:30 | NUR ---
Dr. Dejesus here to see pt. Full report given and made aware of pt's low H/H count. No blood transfusion needed at this time. Pt to have dialysis today.
--- NOTE | 2016-09-13 09:11 | NUR ---
seat cover maker here to see pt for dialysis treatment.
[2016-09-13] MEDS ORDERED: ALBUMIN HUMAN 25% 100 ML IV ONE (10:00)
[2016-09-13 10:11] LABS: ABG BASE EXCESS 0.7 mmol/L; ABG HCO3 25.5 mmol/L; ABG PCO2 41.6 mmHg (35.0-45.0); ABG PH 7.405 (7.350-7.450); ABG PO2 65.4 mmHg (75.0-100.0); ABG SITE RIGHT RADIAL; ABG TOTAL HEMOGLOBIN 9.3 G/dL (13.5-18.0); COHb 1.6 % (0.5-1.5); MetHb 0.2 % (0.0-1.5); O2Hb 90.7 % (94.0-97.0); VENT MODE VENT - A/C; VT, ABG 550 mL
--- NOTE | 2016-09-13 11:31 | NUR ---
Hemodialysis complete. 3.5L of hemodialysis fluid removed. Pt stable and nad noted upon completion of dialysis.
--- NOTE | 2016-09-13 11:36 | NUR ---
Dr. Powell here to see pt. Full report given. New orders received.
[2016-09-13] MEDS: PEPTAMEN AF 1000ML BAG GT PRN (11:53)
--- NOTE | 2016-09-13 18:45 | NUR ---
End of shift: Pt on Shiley #8 continuous ventilation settings as follows: AC-12, TV-550ml, 35% FiO2, PEEP-5. radiation monitor and ventilation alarms working properly wnl. G-tube feeding infusing as orderd with HOB kept elevated. IVF tko. Flexi seal rectal tube intact and draining properly. Pt hemodynamically stable and nad noted.
--- NOTE | 2016-09-13 20:00 | NUR ---
Lethargic, barely opens eyes. Appears comfortable on current vent settings. Trach midline intact and no leak noted. No weaning planned. Remains off vasopressor and VS/Rhythm stable. Tube feedings well tolerated. Aspiration precautions observed at all times. Anuric; had dialysis today, none planned for AM. Fexiseal intact with liquid stools; gently irrigated for patency. Please see CCU flowsheet for full assessment and clinical data.
[2016-09-13] MEDS: ATORVASTATIN 40 MG TABLET PO SCH (20:45)
[2016-09-13] MEDS: INSULIN REGULAR, HUMAN 300 UNIT/3 ML VIAL SQ PRN (23:17)
[2016-09-14] VITALS (40 sets, daily range): BP systolic 82–133; BP diastolic 47–86
--- NOTE | 2016-09-14 00:08 | NUR ---
PT RECEIVED ON GODDARD VENT, SETTINGS ARE AC 12, Vt 550, +5, FIO2 35%. PT TOLERATING VENT SETTINGS WELL WITH NO SOB NOTED. ARVIN 8 TRACH IS PATENT AND SECURED WITH TIES. SUCTIONED MODERATE AMOUNTS OF YELLOW THICK SECRETIONS. BVM AND BACK UP TRACH AT BEDSIDE, ALARMS ARE ON AND AUDIBLE. WILL CONTINUE TO MONITOR.
--- NOTE | 2016-09-14 04:00 | NUR ---
Extensive care done on sacral wound per MD order. S/P wound debridement 08/29/16 and wound appears not healing. Consults placed for FNS and gas tester to re-evaluate/recommend Rx. Tolerated well AM care procedures.
[2016-09-14] MEDS: VANCOMYCIN FOR PO/GT/NG USE GT SCH ×4 (05:39→23:34)
[2016-09-14] MEDS: PIPERACILLIN/TAZOBACTAM/D5W 2.25 G in PREMIXED 1 EACH IV SCH ×3 (05:40→22:14)
[2016-09-14] MEDS: NORMAL SALINE FLUSH 10 ML DISP.SYRIN IV SCH ×3 (05:40→22:14)
[2016-09-14] MEDS: BLOOD SUGAR DIAGNOSTIC 1 EACH STRIP VI SCH ×3 (05:48→17:17)
[2016-09-14] MEDS: INSULIN REGULAR, HUMAN 300 UNIT/3 ML VIAL SQ PRN ×2 (05:49→17:25)
[2016-09-14] MEDS: Z GUARD REMEDY PASTE 57 GM TUBE TOP PRN (05:50)
[2016-09-14] MEDS: IV NORMAL SALINE 250 ML IV PRN (05:53)
--- NOTE | 2016-09-14 06:00 | NUR ---
Stable night. Resting/sleeping comfortably. Tube feedings off from 0400 to 0800. Stable VS and rhythm. No family calls or visit noted. Please see CCU flowsheet for trends and clinical data.
[2016-09-14] MEDS: PANTOPRAZOLE ORAL SUSPENSION 40 MG SUSPDR.PKT GT SCH ×2 (07:47→20:33)
[2016-09-14] MEDS: FOLIC ACID/VITAMIN B COMP W-C TABLET GT SCH (07:47)
[2016-09-14] MEDS: GABAPENTIN 100 MG CAPSULE GT SCH ×2 (07:47→20:33)
[2016-09-14] MEDS: Z GUARD REMEDY PASTE 57 GM TUBE TOP SCH ×2 (07:48→20:33)
[2016-09-14] MEDS: SUCRALFATE 1 G/10 ML LIQUID UDC GT SCH ×4 (07:48→20:32)
[2016-09-14] MEDS: ACIDOPHILUS/BULGARICUS CHEW TAB GT SCH ×2 (07:48→20:33)
[2016-09-14] MEDS: SODIUM HYPOCHLORITE 0.125% 473 ML BOTTLE TP SCH (07:49)
--- NOTE | 2016-09-14 07:51 | NUR ---
RESUMED CARE POST REPORT FROM NOC RT. PT REMAIN ON CURRENT VENT SETTINGS OF AC 12,VT 550 AND FIO2 35 ON PEEP OF 5. RESIDENT IS COMFORTABLY ASLEEP WITH SATURATION OF 99%. SUCTIONED NEEDED. ORAL CARE DONE.
[2016-09-14] MEDS: ACETAMINOPHEN 650 MG/20.3 ML LIQUID UDC GT PRN (08:09)
[2016-09-14] MEDS: PHENYLEPHRINE IV 80 MG in IV DEXTROSE 5% 250 ML IV PRN (09:36)
--- NOTE | 2016-09-14 09:36 | NUR ---
Pt noted to have SBP 70-80's. IV neosynephrine restarted per protocol. Will titrate to keep SBP > 90 as ordered.
[2016-09-14 09:39] LABS: MAGNESIUM 2.5 mg/dL (1.8-2.4); PHOSPHOROUS 3.9 mg/dL (2.5-4.9); POTASSIUM 3.6 mmol/L (3.5-5.1); TOTAL PROTEIN, SERUM 6.5 g/dL (6.4-8.2)
[2016-09-14 09:41] LABS: CREATININE 4.3 mg/dL (0.6-1.3)
[2016-09-14 09:56] LABS: BASOPHILS # (AUTO) 0.1 K/uL (0.0-8.0); BASOPHILS % (AUTO) 1.6 % (0.0-2.0); EOSINOPHILS # (AUTO) 0.5 K/uL (0.0-0.7); EOSINOPHILS % (AUTO) 5.7 % (0.0-7.0); LYMPHOCYTES # (AUTO) 1.9 K/UL (0.8-4.8); LYMPHOCYTES % (AUTO) 21.1 % (20.5-51.5); MEAN CORPUSCULAR HEMOGLOBIN 28.8 UUG (27.0-31.0); MEAN CORPUSCULAR HGB CONC 33 g/dL (32.0-37.0); MEAN CORPUSCULAR VOLUME 86.7 FL (82.0-92.0); MONOCYTES # (AUTO) 1.6 K/UL (0.1-1.30); MONOCYTES % (AUTO) 17.7 % (0.0-11.0); NEUTROPHILS % (AUTO) 53.9 % (38.5-71.5); PLATELET COUNT (AUTO) 323 K/UL (150-450); RED BLOOD CELL COUNT(AUTO) 2.61 MIL/UL (4.7-6.1); WHITE BLOOD COUNT (AUTO) 9.1 K/UL (4.0-11.2)
--- NOTE | 2016-09-14 10:00 | NUR ---
Called Dr. Dejesus to report low H/H and need for blood transfusion. Awaiting return call.
[2016-09-14 10:02] LABS: HEMATOCRIT 22.7 % (40-50); HEMOGLOBIN 7.5 G/DL (14.0-18.0)
--- NOTE | 2016-09-14 10:20 | NUR ---
2nd call made to Dr. Dejesus regarding pt's need for blood transfusion. Still awaiting return call.
--- NOTE | 2016-09-14 11:00 | NUR ---
Spoke with Dr. Dejesus on the telephone and made aware of pt's low H/H count. stated to transfuse 1 unit of PRBC today.
[2016-09-14] MEDS: PEPTAMEN AF 1000ML BAG GT PRN (11:43)
[2016-09-14] MEDS: MICAFUNGIN SODIUM 100 MG in IV NORMAL SALINE 100 ML IV SCH (12:08)
[2016-09-14 12:49] LABS: VANCOMYCIN,RANDOM 3.3 ug/mL (18.0-26.0)
--- NOTE | 2016-09-14 12:49 | NUR ---
WOUND CARE CONSULT/FOLLOW UP: PT SEEN FOR RE-EVALUATION OF SACRAL ULCER, STAGE IV, PRESENT ON ADMISSION UNSTAGEABLE ULCER, S/P DEBRIDEMENT. NO ODOR NOTED. RECOMMEND CONTINUE PRESENT WOUND TREATMENT. PT HAS LEFT HEEL INTACT DTI (PRESENT ON ADMISSION) WHICH IS BROWN IN COLOR. RT BK STUMP NOTED. RT GROIN/THIGH AREA HAS OPEN BLISTER WITH TWO SMALL INTACT BLISTERS. RECOMMENDATIONS DISCUSSED WITH NURSING STAFF. PT ON [facility] BED WITH ETS AIR. ALL SKIN PROTECTION MEASURES IN PLACE. SLIGHT LEAKAGE AROUND RECTAL TUBE NOTED. Z GUARD IN USE. WILL SEE PRN. BAILON IN AGREEMENT WITH PLAN OF CARE. Addendum: 09/14/16 at 1252 by BONNY QUINONES RN Amended: Links added.
--- NOTE | 2016-09-14 13:21 | NUR ---
CLINICAL PHARMACY NOTE: VANCOMYCIN AND TOBRAMYCIN DOSING Request to restart vancomycin and tobramycin dosing per pharmacy on 60 y/o male 6'1" 231 lbs for pneumonia Temp 98.8 BUN 39 Scr 4.3 WBC 9.1 random vancomycin level today 3.3 tobramycin <0.3. Give vancomycin 1500mg ivpb x 1 and tobramycin 160mg ivpb X1 today. This is a HD patient will order level prior to HD. Will dose by fall off levels.
[2016-09-14] MEDS ORDERED: VANCOMYCIN IV 1,500 MG in IV DEXTROSE 5% 500 ML IV ONE (14:00)
[2016-09-14 14:13] LABS: EOSINOPHILS % (MANUAL) 9 % (0-8); LYMPHOCYTES % (MANUAL) 17 % (20-40); MONOCYTES % (MANUAL) 17 % (2-10); NEUTROPHILS % (MANUAL) 57 % (42-75)
--- NOTE | 2016-09-14 15:51 | NUR ---
1 unit of PRBC started. Will closely monitor for any signs of adverse blood transfusion reactions.
[2016-09-14] MEDS ORDERED: NORMAL SALINE IV ONE (16:00)
[2016-09-14] MEDS ORDERED: TOBRAMYCIN SULFATE IV ONE (16:00)
--- NOTE | 2016-09-14 16:11 | NUR ---
Pt tolerating blood transfusion well. No adverse reactions noted from the pt. Will continue to monitor.
--- NOTE | 2016-09-14 18:20 | NUR ---
1 unit of PRBC complete. Pt tolerated blood transfusion well and no adverse transfusion reactions noted.
--- NOTE | 2016-09-14 18:53 | NUR ---
End of shift: Pt on Shiley #8 continuous ventilation settings as follows: AC-12, TV-550ml, 35% FiO2, PEEP-5. teletypesetter monitor and ventilation alarms working properly wnl. G-tube feeding infusing as orderd with HOB kept elevated. IVF tko. Flexi seal rectal tube intact and draining properly. Pt hemodynamically stable and nad noted.
--- NOTE | 2016-09-14 20:00 | NUR ---
Remains lethargic, barely opens eyes to name and touch. Comfortable on current vent settings. No noted leak from trach site, mepilex foam dressing intact. Large secretions noted, spec to lab by previous shift. Remains off Neosynephrine drip and monitored closely. Tube feedings well tolerated. Aspiration precautions observed. Contact isolation maintained. BariMaxx II bed in use, on bed cont. rotation. Nursing comfort measures observed at all times. Please see CCU flowsheet for full assessment and clinical data.
[2016-09-14] MEDS: ATORVASTATIN 40 MG TABLET PO SCH (20:33)
[2016-09-14] MEDS ORDERED: LINEZOLID IV 600 MG in PREMIXED 1 EACH IV SCH (21:00)
[2016-09-15] VITALS (23 sets, daily range): BP systolic 90–134; BP diastolic 53–80
[2016-09-15] MEDS: BLOOD SUGAR DIAGNOSTIC 1 EACH STRIP VI SCH ×5 (00:08→23:58)
[2016-09-15 05:21] LABS: BASOPHILS # (AUTO) 0.2 K/uL (0.0-8.0); BASOPHILS % (AUTO) 1.5 % (0.0-2.0); EOSINOPHILS # (AUTO) 0.7 K/uL (0.0-0.7); EOSINOPHILS % (AUTO) 6.4 % (0.0-7.0); HEMATOCRIT 26.9 % (40-50); HEMOGLOBIN 8.8 G/DL (14.0-18.0); LYMPHOCYTES # (AUTO) 1.9 K/UL (0.8-4.8); MEAN CORPUSCULAR HEMOGLOBIN 28.4 UUG (27.0-31.0); MEAN CORPUSCULAR HGB CONC 33 g/dL (32.0-37.0); MEAN CORPUSCULAR VOLUME 86.7 FL (82.0-92.0); MONOCYTES # (AUTO) 1.6 K/UL (0.1-1.30); MONOCYTES % (AUTO) 14.1 % (0.0-11.0); NEUTROPHILS # (AUTO) 6.9 K/UL (1.8-8.9); PLATELET COUNT (AUTO) 364 K/UL (150-450); RED BLOOD CELL COUNT(AUTO) 3.11 MIL/UL (4.7-6.1); WHITE BLOOD COUNT (AUTO) 11.3 K/UL (4.0-11.2)
[2016-09-15 05:44] LABS: BILIRUBIN,TOTAL 1.1 mg/dL (0.2-1.0); MAGNESIUM 2.5 mg/dL (1.8-2.4); PHOSPHOROUS 4.1 mg/dL (2.5-4.9); POTASSIUM 3.6 mmol/L (3.5-5.1); TOTAL PROTEIN, SERUM 6.8 g/dL (6.4-8.2)
[2016-09-15] MEDS: NORMAL SALINE FLUSH 10 ML DISP.SYRIN IV SCH ×3 (05:57→21:26)
[2016-09-15] MEDS: PIPERACILLIN/TAZOBACTAM/D5W 2.25 G in PREMIXED 1 EACH IV SCH ×3 (05:57→21:26)
[2016-09-15] MEDS: VANCOMYCIN FOR PO/GT/NG USE GT SCH ×4 (05:57→23:43)
[2016-09-15] MEDS: Z GUARD REMEDY PASTE 57 GM TUBE TOP PRN (05:59)
[2016-09-15] MEDS: INSULIN REGULAR, HUMAN 300 UNIT/3 ML VIAL SQ PRN ×4 (05:59→23:57)
--- NOTE | 2016-09-15 06:00 | NUR ---
Stable, restful night. Tube feeding off from 0400 to 0800. No family visit or call this shift. Please see CCU flowsheet for trends.
[2016-09-15] MEDS: IV NORMAL SALINE 250 ML IV PRN (06:02)
[2016-09-15 06:05] LABS: CREATININE 4.6 mg/dL (0.6-1.3)
--- NOTE | 2016-09-15 07:30 | NUR ---
TRACH SHILEY8 INTACT. VENT SETTING AC12,VT550. PEEP5, [id number]%.
--- NOTE | 2016-09-15 08:00 | NUR ---
SUCTION SECRETIONS LARGE AMOUNT. AFEBRILE. VSS.
[2016-09-15] MEDS: SUCRALFATE 1 G/10 ML LIQUID UDC GT SCH ×4 (08:55→21:24)
[2016-09-15] MEDS: GABAPENTIN 100 MG CAPSULE GT SCH ×2 (08:56→21:25)
[2016-09-15] MEDS: PANTOPRAZOLE ORAL SUSPENSION 40 MG SUSPDR.PKT GT SCH ×2 (08:56→21:25)
[2016-09-15] MEDS: ERGOCALCIFEROL 50,000 UNIT CAPSULE GT SCH (08:56)
[2016-09-15] MEDS: FOLIC ACID/VITAMIN B COMP W-C TABLET GT SCH (08:56)
[2016-09-15] MEDS: ACIDOPHILUS/BULGARICUS CHEW TAB GT SCH ×2 (08:56→21:25)
[2016-09-15] MEDS: Z GUARD REMEDY PASTE 57 GM TUBE TOP SCH ×2 (08:57→21:26)
[2016-09-15 08:59] LABS: ABG BASE EXCESS -1.2 mmol/L; ABG HCO3 23.8 mmol/L; ABG PCO2 40.6 mmHg (35.0-45.0); ABG PH 7.385 (7.350-7.450); ABG PO2 104.8 mmHg (75.0-100.0); ABG SITE RIGHT RADIAL; ABG TOTAL HEMOGLOBIN 9.7 G/dL (13.5-18.0); COHb 1.5 % (0.5-1.5); MetHb 0.1 % (0.0-1.5); O2Hb 96.4 % (94.0-97.0); VENT MODE VENT - A/C; VT, ABG 550 mL
[2016-09-15] MEDS: PEPTAMEN AF 1000ML BAG GT PRN ×2 (09:12→23:43)
[2016-09-15] MEDS: SODIUM HYPOCHLORITE 0.125% 473 ML BOTTLE TP SCH (09:47)
[2016-09-15] MEDS: MICAFUNGIN SODIUM 100 MG in IV NORMAL SALINE 100 ML IV SCH (11:40)
--- NOTE | 2016-09-15 13:58 | NUR ---
Trached patient endorsed on Continuous mechanical ventilation. He is on Burns vent with ordered settings of A/C-12, VT-550, PEEP+5, FIO2-35%. He is trached with a shiley 8, ADULT EDUCATION PROFESSIONAL used for cuff assessment. No signs of symptoms of respiratory distress noted. Sxn'd small amts of pale yellowish secretions. Vent alarm parameters checked: on and audible. Bag/valve/mask and back up trach at bedside. PPE used. Will continue to monitor.
--- NOTE | 2016-09-15 16:00 | NUR ---
WOUND CARE DRESSING DONE ON THE COCCYX AREA. AFEBRILE.
--- NOTE | 2016-09-15 16:45 | NUR ---
Clinical pharmacy note-Vancomycin and Tobramycin per pharmacy Subjective: To continue Vancomycin/Tobramycin dosing on this patient for pneumonia Objective: BUN 42/Scr 4.6 WBC 11.3 Temp 99 Assessment/Plan: Patient had Vancomycin 1500mg x1 and Tobramycin 160mg x1 yesterday. No HD today according to unit nurse. No dose will be given today. Will continue to dose by pre-HD level. Will follow daily for further dosing.
[2016-09-15] MEDS: ATORVASTATIN 40 MG TABLET PO SCH (21:25)
[2016-09-16] VITALS (23 sets, daily range): BP systolic 98–131; BP diastolic 47–84
--- NOTE | 2016-09-16 01:04 | NUR ---
PT ON CONT GODDARD VENT WITH SHILEY # [address] AND SECURED, WITH SAME CURRENT VENT SETTINGS, A/C 12, VT 550ML, PEEP 5, 35%, PT DOES ASSIST AT TIMES, CHECK CUFF, CHANGE HME AND VALENCIA, SUCTIONED LIGHT PALE YELL TINGE SECRETIONS, WITH GOOD COUGH EFFORT, ALL ALARMS OK, AMBU BAG AT BEDSIDE, ORAL CARE DONE, AND CLEAN TRACH STOMA, WITH ADEQUATE VENTILATION AND OXYGENATION. Maame CHANDLER RCP Addendum: 09/16/16 at 0107 by JONNATHAN CHANDLER RT Amended: Links added.
[2016-09-16] MEDS: VANCOMYCIN FOR PO/GT/NG USE GT SCH ×4 (06:25→23:58)
[2016-09-16] MEDS: NORMAL SALINE FLUSH 10 ML DISP.SYRIN IV SCH ×3 (06:25→21:39)
[2016-09-16] MEDS: PIPERACILLIN/TAZOBACTAM/D5W 2.25 G in PREMIXED 1 EACH IV SCH ×3 (06:26→21:37)
[2016-09-16] MEDS: BLOOD SUGAR DIAGNOSTIC 1 EACH STRIP VI SCH ×4 (06:32→23:55)
[2016-09-16] MEDS: INSULIN REGULAR, HUMAN 300 UNIT/3 ML VIAL SQ PRN ×3 (06:33→23:56)
[2016-09-16] MEDS: IV NORMAL SALINE 250 ML IV PRN (06:39)
--- NOTE | 2016-09-16 07:30 | NUR ---
AFEBRILE. OPENS EYES AND FOLLOWS COMMANDS. PT IS BEING TURNED AUTOMATICALLY BY HIS BED SET FOR Q 15MIN. HEMODYNAMICALLY STABLE.
[2016-09-16] MEDS: PANTOPRAZOLE ORAL SUSPENSION 40 MG SUSPDR.PKT GT SCH ×2 (09:06→20:41)
[2016-09-16] MEDS: ACIDOPHILUS/BULGARICUS CHEW TAB GT SCH ×2 (09:06→20:41)
[2016-09-16] MEDS: FOLIC ACID/VITAMIN B COMP W-C TABLET GT SCH (09:06)
[2016-09-16] MEDS: SUCRALFATE 1 G/10 ML LIQUID UDC GT SCH ×4 (09:06→20:41)
[2016-09-16] MEDS: GABAPENTIN 100 MG CAPSULE GT SCH ×2 (09:07→20:41)
[2016-09-16] MEDS: Z GUARD REMEDY PASTE 57 GM TUBE TOP SCH ×2 (09:07→20:42)
[2016-09-16] MEDS: SODIUM HYPOCHLORITE 0.125% 473 ML BOTTLE TP SCH (09:08)
[2016-09-16] MEDS: MICAFUNGIN SODIUM 100 MG in IV NORMAL SALINE 100 ML IV SCH (11:20)
--- NOTE | 2016-09-16 11:30 | NUR ---
HEMODIALYSIS ON GOING . SEEN AND EXAMINED BY DR MORENO WITH NEW ORDERS. TOLERATING WELL.
--- NOTE | 2016-09-16 14:00 | NUR ---
TOTAL FLUID OUT IS 2LITERS FROM DIALYSIS. PT TOLERATED WELL.
--- NOTE | 2016-09-16 15:44 | NUR ---
Clinical pharmacy note-Vancomycin and Tobramycin per pharmacy Subjective: To continue Vancomycin/Tobramycin dosing on this patient for pneumonia Objective: BUN 42/Scr 4.6 (09/15) WBC 11.3 (09/15) Temp 99 Post-HD Random: pending (today @1500) Assessment/Plan: No am labs were drawn today and HD was started in am, therefore, ordered post-HD levels for tobramycin and vancomycin today after completion of HD. Still pending, will check levels when available and re-dose as appropriate. Will continue dosing per HD protocol and follow daily. Addendum: 09/16/16 at 1626 by KAMAR ESQUIVEL ADM Tobramycin post-HD level 0.3 Vancomycin post-HD level 14.5 Will dose one time of 500mg vancomycin and one time 160mg tobramycin, both due at 1700. Will continue to dose per pre-HD level per protocol.
[2016-09-16 16:17] LABS: VANCOMYCIN,RANDOM 14.5 ug/mL (18.0-26.0)
--- NOTE | 2016-09-16 16:30 | NUR ---
PM CARE RENDERED AND WOUND TX AND DRESSING DONE. TUBE FEEDING IS INFUSING WELL, NO RESIDUALS NOTED.
[2016-09-16] MEDS ORDERED: TOBRAMYCIN SULFATE 160 MG in IV DEXTROSE 5% 100 ML IV ONE (17:00)
[2016-09-16] MEDS ORDERED: VANCOMYCIN IV 500 MG in IV DEXTROSE 5% 100 ML IV ONE (17:00)
--- NOTE | 2016-09-16 19:30 | NUR ---
Report received. Patient remains on contact isolation. With trache to vent with settings: AC=12, FIO2=35%, PEEP=5 and TP=302 ml. Sat above 94%. Opens eyes to name and appears to track. Not following any commands. Assessment completed. Addendum: 09/16/16 at 2310 by ARCADIO BOWIE RN Amended: Links added.
[2016-09-16] MEDS: PEPTAMEN AF 1000ML BAG GT PRN (20:38)
[2016-09-16] MEDS: ATORVASTATIN 40 MG TABLET PO SCH (20:41)
--- NOTE | 2016-09-16 21:00 | NUR ---
PATIENT RECEIVED TRACHED ON CMV. TRACH IS SECURED AND INTACT. AIR WAY IS PATENT. PT IS ON THE FOLLOWING SETTINGS THAT ARE CHARTED ON THE MECHANICAL VENT NOTES. PT IS TOLERATING CURRENT VENT SETTINGS WELL AT THIS TIME. HME CHANGED. SUCTIONED SMALL AMOUNT OF WHITE AND YELLOWISH SECRETIONS. AMBU BAG AND SPARE TRACH AT BEDSIDE. NO SOB NOTED. WILL CONTINUE TO MONITOR.
--- NOTE | 2016-09-16 21:15 | NUR ---
Seen by Mago morales orders. Addendum: 09/16/16 at 2312 by ARCADIO BOWIE RN Amended: Links added. Addendum: 09/16/16 at 2314 by ARCADIO BOWIE RN Amended: Links added.
[2016-09-17] VITALS (24 sets, daily range): BP systolic 92–132; BP diastolic 57–80
[2016-09-17] MEDS: IV NORMAL SALINE 250 ML IV PRN (04:35)
[2016-09-17 05:19] LABS: BILIRUBIN,TOTAL 1.2 mg/dL (0.2-1.0); MAGNESIUM 2.5 mg/dL (1.8-2.4); PHOSPHOROUS 3.6 mg/dL (2.5-4.9); POTASSIUM 3.9 mmol/L (3.5-5.1); TOTAL PROTEIN, SERUM 7.1 g/dL (6.4-8.2)
[2016-09-17] MEDS: PIPERACILLIN/TAZOBACTAM/D5W 2.25 G in PREMIXED 1 EACH IV SCH ×2 (05:22→13:35)
[2016-09-17] MEDS: Z GUARD REMEDY PASTE 57 GM TUBE TOP PRN (05:22)
[2016-09-17] MEDS: NORMAL SALINE FLUSH 10 ML DISP.SYRIN IV SCH ×3 (05:22→21:10)
[2016-09-17 05:23] LABS: BASOPHILS # (AUTO) 0.2 K/uL (0.0-8.0); BASOPHILS % (AUTO) 1.7 % (0.0-2.0); EOSINOPHILS # (AUTO) 0.9 K/uL (0.0-0.7); EOSINOPHILS % (AUTO) 8.3 % (0.0-7.0); HEMATOCRIT 26.7 % (40-50); HEMOGLOBIN 9.2 G/DL (14.0-18.0); LYMPHOCYTES # (AUTO) 2.1 K/UL (0.8-4.8); LYMPHOCYTES % (AUTO) 18.1 % (20.5-51.5); MEAN CORPUSCULAR HGB CONC 34 g/dL (32.0-37.0); MEAN CORPUSCULAR VOLUME 87.1 FL (82.0-92.0); MONOCYTES # (AUTO) 1.7 K/UL (0.1-1.30); NEUTROPHILS # (AUTO) 6.5 K/UL (1.8-8.9); NEUTROPHILS % (AUTO) 56.9 % (38.5-71.5); PLATELET COUNT (AUTO) 347 K/UL (150-450); RED BLOOD CELL COUNT(AUTO) 3.07 MIL/UL (4.7-6.1); WHITE BLOOD COUNT (AUTO) 11.4 K/UL (4.0-11.2)
[2016-09-17] MEDS: VANCOMYCIN FOR PO/GT/NG USE GT SCH ×4 (05:23→23:15)
[2016-09-17] MEDS: BLOOD SUGAR DIAGNOSTIC 1 EACH STRIP VI SCH ×4 (05:23→23:15)
[2016-09-17 05:29] LABS: CREATININE 4.4 mg/dL (0.6-1.3)
[2016-09-17 05:34] LABS: EOSINOPHILS % (MANUAL) 7 % (0-8); LYMPHOCYTES % (MANUAL) 24 % (20-40); MONOCYTES % (MANUAL) 11 % (2-10); NEUTROPHILS % (MANUAL) 58 % (42-75)
--- NOTE | 2016-09-17 06:00 | NUR ---
No neuro changes. Stable on same vent settings.
[2016-09-17] MEDS: PEPTAMEN AF 1000ML BAG GT PRN (08:01)
[2016-09-17] MEDS: SUCRALFATE 1 G/10 ML LIQUID UDC GT SCH ×4 (08:02→21:09)
[2016-09-17] MEDS: PANTOPRAZOLE ORAL SUSPENSION 40 MG SUSPDR.PKT GT SCH ×2 (08:02→21:09)
[2016-09-17] MEDS: Z GUARD REMEDY PASTE 57 GM TUBE TOP SCH ×2 (08:02→21:09)
[2016-09-17] MEDS: FOLIC ACID/VITAMIN B COMP W-C TABLET GT SCH (08:02)
[2016-09-17] MEDS: ACIDOPHILUS/BULGARICUS CHEW TAB GT SCH ×2 (08:02→21:09)
[2016-09-17] MEDS: GABAPENTIN 100 MG CAPSULE GT SCH ×2 (08:02→21:09)
[2016-09-17] MEDS: SODIUM HYPOCHLORITE 0.125% 473 ML BOTTLE TP SCH (08:03)
--- NOTE | 2016-09-17 10:00 | NUR ---
Dr. Powell pulmonary services in the unit to see patient; full report given. See orders.
[2016-09-17] MEDS: MICAFUNGIN SODIUM 100 MG in IV NORMAL SALINE 100 ML IV SCH (10:25)
--- NOTE | 2016-09-17 11:15 | NUR ---
Clinical pharmacy note-Vancomycin and Tobramycin per pharmacy Subjective: To continue Vancomycin/Tobramycin dosing on this patient for pneumonia Objective: BUN 44/Scr 3.6 WBC 11.4 Temp 98.2 Assessment/Plan: No HD has been scheduled for today per RN, therefore, no tobramycin or vancomycin dose shall be given today. Will continue dosing per pre-HD level as per dosing protocol for HD patients. Will follow daily.
--- NOTE | 2016-09-17 19:28 | NUR ---
Pt rec'd on Burns settings AC 12, VT 550, PEEP +5 and FIO2-35%. No resp. distress noted. Shiley 8 is patent and secure; B/U Shiley 8 and BVM at bedside. Pt to be monitored throughout the shift, PRN SX and adm'd resp neb txs per MD orders. Burns alarm parameters have been checked and remain audible at this time,.
--- NOTE | 2016-09-17 19:30 | NUR ---
Report received. Patient sleeping, opens eyes and grimaces to pain. Remains on contact isolation and on the Barimaxx bed. Trache to vent with same settings. NAD noted. Addendum: 09/17/16 at 2256 by ARCADIO BOWIE RN Amended: Links added.
[2016-09-17] MEDS: ATORVASTATIN 40 MG TABLET PO SCH (21:09)
[2016-09-17] MEDS ORDERED: PIPERACILLIN/TAZOBACTAM/D5W 2.25 G in PREMIXED 1 EACH IV SCH (22:00)
[2016-09-17] MEDS: INSULIN REGULAR, HUMAN 300 UNIT/3 ML VIAL SQ PRN (23:16)
[2016-09-18] VITALS (24 sets, daily range): BP systolic 96–137; BP diastolic 59–85
--- NOTE | 2016-09-18 04:00 | NUR ---
GT feedings off [id number]. Am care rendered. Patient awake. Addendum: 09/18/16 at 0429 by ARCADIO BOWIE RN Amended: Links added. Addendum: 09/18/16 at 0429 by ARCADIO BOWIE RN Amended: Links added.
[2016-09-18] MEDS: IV NORMAL SALINE 250 ML IV PRN (04:55)
--- NOTE | 2016-09-18 05:08 | NUR ---
Patient remains on Viasys Burns with no changes made to the ventilator settings. No resp. distress noted throughout the shift. Shiley 8 DCT remains patent and secure; Backup Shiley 8 and recusc. bag remain at bedside. Pt routinely sx'd and appeared to tolerate continuous mechanical ventilator settings well. Burns alarm parameters have been checked and remain audible.
[2016-09-18 05:10] LABS: BASOPHILS # (AUTO) 0.2 K/uL (0.0-8.0); BASOPHILS % (AUTO) 1.8 % (0.0-2.0); EOSINOPHILS % (AUTO) 8.7 % (0.0-7.0); HEMATOCRIT 26.6 % (40-50); HEMOGLOBIN 9.2 G/DL (14.0-18.0); LYMPHOCYTES % (AUTO) 17.7 % (20.5-51.5); MEAN CORPUSCULAR HEMOGLOBIN 30.3 UUG (27.0-31.0); MEAN CORPUSCULAR HGB CONC 35 g/dL (32.0-37.0); MEAN CORPUSCULAR VOLUME 87.7 FL (82.0-92.0); MONOCYTES # (AUTO) 1.8 K/UL (0.1-1.30); MONOCYTES % (AUTO) 15.8 % (0.0-11.0); NEUTROPHILS # (AUTO) 6.5 K/UL (1.8-8.9); PLATELET COUNT (AUTO) 348 K/UL (150-450); RED BLOOD CELL COUNT(AUTO) 3.04 MIL/UL (4.7-6.1); WHITE BLOOD COUNT (AUTO) 11.5 K/UL (4.0-11.2)
[2016-09-18 05:13] LABS: MAGNESIUM 2.5 mg/dL (1.8-2.4); POTASSIUM 4.1 mmol/L (3.5-5.1)
[2016-09-18 05:22] LABS: CREATININE 4.8 mg/dL (0.6-1.3)
[2016-09-18] MEDS: VANCOMYCIN FOR PO/GT/NG USE GT SCH ×3 (05:34→17:24)
[2016-09-18] MEDS: NORMAL SALINE FLUSH 10 ML DISP.SYRIN IV SCH ×3 (05:34→21:57)
[2016-09-18 05:35] LABS: BAND % (MANUAL) 1 % (0-10); EOSINOPHILS % (MANUAL) 6 % (0-8); LYMPHOCYTES % (MANUAL) 23 % (20-40); MONOCYTES % (MANUAL) 14 % (2-10); NEUTROPHILS % (MANUAL) 56 % (42-75)
[2016-09-18] MEDS: BLOOD SUGAR DIAGNOSTIC 1 EACH STRIP VI SCH ×3 (05:38→17:22)
--- NOTE | 2016-09-18 06:00 | NUR ---
Stable on same vent settings. Sat above 94%. Addendum: 09/18/16 at 0705 by ARCADIO BOWIE RN Amended: Links added.
--- NOTE | 2016-09-18 08:00 | NUR ---
Dr. Burton in the unit to examine patient, report given see orders.
[2016-09-18] MEDS: GABAPENTIN 100 MG CAPSULE GT SCH ×2 (08:03→20:39)
[2016-09-18] MEDS: ACIDOPHILUS/BULGARICUS CHEW TAB GT SCH ×2 (08:03→20:39)
[2016-09-18] MEDS: SUCRALFATE 1 G/10 ML LIQUID UDC GT SCH ×4 (08:03→20:39)
[2016-09-18] MEDS: PANTOPRAZOLE ORAL SUSPENSION 40 MG SUSPDR.PKT GT SCH ×2 (08:03→20:39)
[2016-09-18] MEDS: FOLIC ACID/VITAMIN B COMP W-C TABLET GT SCH (08:03)
[2016-09-18] MEDS: Z GUARD REMEDY PASTE 57 GM TUBE TOP SCH ×2 (08:04→20:40)
[2016-09-18] MEDS: SODIUM HYPOCHLORITE 0.125% 473 ML BOTTLE TP SCH (08:04)
[2016-09-18] MEDS: PEPTAMEN AF 1000ML BAG GT PRN (08:05)
--- NOTE | 2016-09-18 08:10 | NUR ---
RECEIVED PT ON CONTINUOUS VENT AC 12 VT 550 PEEP 5 FIO2 35%. TRACH IN PLACE AND SECURED. BACK UP TRACH AND AMBU BAG AT BEDSIDE. SUCTION LAVAGE PRN. VENT CHECKED, ALARMS WORKING WELL AND AUDIBLE. ORAL CARE DONE. NO DISTRESS NOTED AT THIS TIME. WILL CONTINUE TO MONITOR.
[2016-09-18 08:55] LABS: VANCOMYCIN,RANDOM 18.8 ug/mL (18.0-26.0)
[2016-09-18 09:23] LABS: ABG BASE EXCESS -4.3 mmol/L; ABG HCO3 21.2 mmol/L; ABG PCO2 40.2 mmHg (35.0-45.0); ABG PH 7.339 (7.350-7.450); ABG PO2 105.1 mmHg (75.0-100.0); ABG SITE RIGHT RADIAL; ABG TOTAL HEMOGLOBIN 9.4 G/dL (13.5-18.0); COHb 1.4 % (0.5-1.5); MetHb 0.5 % (0.0-1.5); O2Hb 96.1 % (94.0-97.0); VENT MODE VENT - A/C; VT, ABG 550 mL
[2016-09-18] MEDS: MICAFUNGIN SODIUM 100 MG in IV NORMAL SALINE 100 ML IV SCH (10:16)
--- NOTE | 2016-09-18 11:54 | NUR ---
Clinical pharmacy note-Vancomycin and Tobramycin per pharmacy Subjective: To continue Vancomycin/Tobramycin dosing on this patient for pneumonia Objective: BUN 42/Scr 4.6 (09/15) WBC 11.3 (09/15) Temp 99 pre-HD vanco Random level: 18.8 pre-HD tobramycin random level: 0.6 Assessment/Plan: HD has been scheduled for today. Since vancomycin pre-HD is between 15-20 mcg/ml, will give vancomycin 500mg IVPB x1 dose post HD today. Since pre-HD tobramycin level is 0.6 mcg/ml, will give tobramycin 160 mg IVPB x1 dsoe post HD today. Will continue dosing per HD protocol and follow daily.
--- NOTE | 2016-09-18 15:30 | NUR ---
Dr. Powell pulmonary services in the unit to examine patient, report given see orders.
[2016-09-18] MEDS ORDERED: VANCOMYCIN IV 500 MG in IV DEXTROSE 5% 100 ML IV ONE (17:00)
[2016-09-18] MEDS ORDERED: TOBRAMYCIN SULFATE 160 MG in IV DEXTROSE 5% 100 ML IV ONE (18:00)
--- NOTE | 2016-09-18 19:30 | NUR ---
Report received. Patient awake, tracks but doesn't follow any commands. With trache to vent with same settings. NAD. Trache with minimal leak; with thick secretions around stoma. Suctioned. Contact isolation maintained. Assessment completed. Addendum: 09/19/16 at 0036 by ARCADIO BOWIE RN Amended: Links added.
--- NOTE | 2016-09-18 20:05 | NUR ---
Pt received on Burns vent with following settings of AC 12, VT 550, Peep +5, FiO2 35%. Pt appears to be tolerating vent settings well. No sign of respiratory distress noted at this time. Saturation is 98%. Pt is trached with a Shiley 8 trach, which is secured and patent. Suctioned pt with moderate amount of pale-yellowish secretions. Ambu-bag and back-up trach at bedside. Vent alarms functioning and audible. Will continue to monitor pt throughout shift.
[2016-09-18] MEDS: ATORVASTATIN 40 MG TABLET PO SCH (20:39)
[2016-09-19] VITALS (57 sets, daily range): BP systolic 70–141; BP diastolic 38–82
--- NOTE | 2016-09-19 | NUR ---
On continuous GT feedings at 80 ml/H. Bath given. Flexi seal leaking; irrigated. Large amounts of gas and yellow brown stools draining. Wound care treatment and routine skin care done. Addendum: 09/19/16 at 0039 by ARCADIO BOWIE RN Amended: Links added.
[2016-09-19] MEDS: VANCOMYCIN FOR PO/GT/NG USE GT SCH ×4 (00:14→17:23)
[2016-09-19] MEDS: BLOOD SUGAR DIAGNOSTIC 1 EACH STRIP VI SCH ×4 (00:16→18:25)
[2016-09-19] MEDS: INSULIN REGULAR, HUMAN 300 UNIT/3 ML VIAL SQ PRN ×2 (00:18→18:29)
[2016-09-19] MEDS: IV NORMAL SALINE 250 ML IV PRN (01:09)
--- NOTE | 2016-09-19 04:00 | NUR ---
GT feedings tolerated well; off [id number]. Addendum: 09/19/16 at 0724 by ARCADIO BOWIE RN Amended: Links added.
[2016-09-19 05:30] LABS: BASOPHILS # (AUTO) 0.2 K/uL (0.0-8.0); BASOPHILS % (AUTO) 1.4 % (0.0-2.0); HEMATOCRIT 26.4 % (40-50); LYMPHOCYTES # (AUTO) 1.7 K/UL (0.8-4.8); LYMPHOCYTES % (AUTO) 13.3 % (20.5-51.5); MEAN CORPUSCULAR HEMOGLOBIN 29.7 UUG (27.0-31.0); MEAN CORPUSCULAR HGB CONC 34 g/dL (32.0-37.0); MONOCYTES # (AUTO) 1.9 K/UL (0.1-1.30); MONOCYTES % (AUTO) 14.8 % (0.0-11.0); NEUTROPHILS # (AUTO) 8.3 K/UL (1.8-8.9); NEUTROPHILS % (AUTO) 62.5 % (38.5-71.5); PLATELET COUNT (AUTO) 336 K/UL (150-450); RED BLOOD CELL COUNT(AUTO) 3.04 MIL/UL (4.7-6.1); WHITE BLOOD COUNT (AUTO) 13.1 K/UL (4.0-11.2)
[2016-09-19 05:54] LABS: CREATININE 3.9 mg/dL (0.6-1.3); MAGNESIUM 2.5 mg/dL (1.8-2.4); PHOSPHOROUS 3.1 mg/dL (2.5-4.9); POTASSIUM 3.8 mmol/L (3.5-5.1)
[2016-09-19] MEDS: NORMAL SALINE FLUSH 10 ML DISP.SYRIN IV SCH ×3 (05:54→21:27)
[2016-09-19 06:11] LABS: EOSINOPHILS % (MANUAL) 11 % (0-8); LYMPHOCYTES % (MANUAL) 15 % (20-40); MONOCYTES % (MANUAL) 12 % (2-10); NEUTROPHILS % (MANUAL) 62 % (42-75)
--- NOTE | 2016-09-19 07:30 | NUR ---
RECIEVED LYING IN BED, OPENS EYES TO CALLS. COLOR IS GOOD. FOLLOWS SIMPLE COMMANDS. AFEBRILE. HOB UP AT 35DEGREES. PT ON SAME VENT SETTING.
--- NOTE | 2016-09-19 08:00 | NUR ---
VENT WEANING PROCERSS STARTED AT THIS TIME. SIMV-10, PSV-10 ORDERED. PT SEEMS TO TOLERATE THE WEANING.
[2016-09-19] MEDS: PANTOPRAZOLE ORAL SUSPENSION 40 MG SUSPDR.PKT GT SCH ×2 (09:09→21:27)
[2016-09-19] MEDS: SUCRALFATE 1 G/10 ML LIQUID UDC GT SCH ×4 (09:09→21:27)
[2016-09-19] MEDS: ACIDOPHILUS/BULGARICUS CHEW TAB GT SCH ×2 (09:09→21:27)
[2016-09-19] MEDS: GABAPENTIN 100 MG CAPSULE GT SCH ×2 (09:10→21:27)
[2016-09-19] MEDS: FOLIC ACID/VITAMIN B COMP W-C TABLET GT SCH (09:10)
[2016-09-19] MEDS: Z GUARD REMEDY PASTE 57 GM TUBE TOP SCH ×2 (09:11→21:27)
[2016-09-19] MEDS: SODIUM HYPOCHLORITE 0.125% 473 ML BOTTLE TP SCH (09:13)
[2016-09-19 09:26] LABS: ABG HCO3 22.7 mmol/L; ABG PCO2 43.1 mmHg (35.0-45.0); ABG PH 7.339 (7.350-7.450); ABG SITE RIGHT RADIAL; ABG TOTAL HEMOGLOBIN 10.4 G/dL (13.5-18.0); COHb 1.2 % (0.5-1.5); MetHb 0.3 % (0.0-1.5); O2Hb 90.2 % (94.0-97.0); VENT MODE VENT - SIMV; VT, ABG 550 mL
--- NOTE | 2016-09-19 09:30 | NUR ---
ABG RESULT OK. CONTINUE WITH THE CURRENT VENT SETTING. NO APPARENT DISTRESS NOTED.
--- NOTE | 2016-09-19 09:41 | NUR ---
RESUMED CARE POST REPORT. IMMEDIATELY PLACED ON SIMV 10 AND PSV 10 ON FIO2 35% AT 0735. ORAL CARE GIVEN AFTERWARDS, SUCTIONED FOR LARGE AMOUNT OF THICK WHITISH SECRETIONS. ABG DRAWN AT O920 WITH RESULT GIVEN TO [place] PICKERING RN. WILL WAIT FOR ORDERS.
[2016-09-19] MEDS: PEPTAMEN AF 1000ML BAG GT PRN (10:18)
--- NOTE | 2016-09-19 11:00 | NUR ---
SBP DROP DOWN IN THE 80'S AND PT IS BECOMING VERY LETHARGIC. O2SAT IN THE 96-98%.
[2016-09-19] MEDS: PHENYLEPHRINE IV 80 MG in IV DEXTROSE 5% 250 ML IV PRN (11:46)
--- NOTE | 2016-09-19 11:50 | NUR ---
PT PLACED BACK ON PREVIOUS AC SETTING AND STATED ON NEOSYNEPRINE DRIP AT 20MCG/MIN. SUCTION SECRETIONS LARGE WHITISH PHLEGM.
--- NOTE | 2016-09-19 11:50 | NUR ---
PLACED BACK ON AC 12, VT 550 AND FI02 35% AND 0 PEEP DUE TO DROPPING BP. O2 SAT REMAIN AT 96-98% BUT PATIENT WAS BECOMING LESS RESPONSIVE AND LETHARGIC.
[2016-09-19] MEDS: MICAFUNGIN SODIUM 100 MG in IV NORMAL SALINE 100 ML IV SCH (12:12)
--- NOTE | 2016-09-19 13:30 | NUR ---
NOTIFIED DR HOLLINS OF PT'S CONDITION AND PUTTING PT BACK ON AC. NO ORDERS MADE.
--- NOTE | 2016-09-19 14:33 | NUR ---
Clinical pharmacy note-Vancomycin and Tobramycin per pharmacy Subjective: To continue Vancomycin/Tobramycin dosing on this patient for pneumonia Objective: BUN 39/Scr 3.9 WBC 13.1 Temp 98.6 Assessment/Plan: No HD scheduled for today. Vancomycin [id number] was given yesterday at 1724 and Tobramycin 160mg x1 was given yesterday at 1839. No Dose will be given today. Will continue dosing per HD protocol and follow daily.
--- NOTE | 2016-09-19 16:30 | NUR ---
DRESSING CHANGE AND TREATMENT DONE. NO APPARENT DISTRESS NOTED.
--- NOTE | 2016-09-19 20:09 | NUR ---
Pt rec'd on Burns settings AC 12, VT 550 and FIO2-35%. No resp. distress noted. Shiley 8 is patent and secure; B/U Shiley 8 and BVM at bedside. Pt to be monitored throughout the shift, PRN SX and adm'd resp neb txs per MD orders. Burns alarm parameters have been checked and remain audible at this time. Pt placed back on PEEP+5 per RN AB request; she was made aware and notified.
[2016-09-19] MEDS: ATORVASTATIN 40 MG TABLET PO SCH (21:27)
[2016-09-20] VITALS (25 sets, daily range): BP systolic 82–145; BP diastolic 50–92
[2016-09-20] MEDS: VANCOMYCIN FOR PO/GT/NG USE GT SCH ×5 (00:38→23:20)
[2016-09-20] MEDS: BLOOD SUGAR DIAGNOSTIC 1 EACH STRIP VI SCH ×5 (00:38→23:20)
[2016-09-20] MEDS: INSULIN REGULAR, HUMAN 300 UNIT/3 ML VIAL SQ PRN ×4 (00:39→23:21)
[2016-09-20 05:21] LABS: CREATININE 4.5 mg/dL (0.6-1.3); MAGNESIUM 2.7 mg/dL (1.8-2.4); PHOSPHOROUS 3.8 mg/dL (2.5-4.9)
[2016-09-20 05:28] LABS: BASOPHILS # (AUTO) 0.2 K/uL (0.0-8.0); BASOPHILS % (AUTO) 1.2 % (0.0-2.0); EOSINOPHILS # (AUTO) 0.9 K/uL (0.0-0.7); EOSINOPHILS % (AUTO) 6.7 % (0.0-7.0); HEMATOCRIT 27.4 % (40-50); HEMOGLOBIN 9.2 G/DL (14.0-18.0); LYMPHOCYTES # (AUTO) 2.3 K/UL (0.8-4.8); LYMPHOCYTES % (AUTO) 16.8 % (20.5-51.5); MEAN CORPUSCULAR HEMOGLOBIN 29.5 UUG (27.0-31.0); MEAN CORPUSCULAR HGB CONC 34 g/dL (32.0-37.0); MEAN CORPUSCULAR VOLUME 87.9 FL (82.0-92.0); MONOCYTES # (AUTO) 1.6 K/UL (0.1-1.30); MONOCYTES % (AUTO) 11.8 % (0.0-11.0); NEUTROPHILS # (AUTO) 8.6 K/UL (1.8-8.9); NEUTROPHILS % (AUTO) 63.5 % (38.5-71.5); PLATELET COUNT (AUTO) 325 K/UL (150-450); RED BLOOD CELL COUNT(AUTO) 3.12 MIL/UL (4.7-6.1); WHITE BLOOD COUNT (AUTO) 13.6 K/UL (4.0-11.2)
[2016-09-20 06:09] LABS: EOSINOPHILS % (MANUAL) 8 % (0-8); LYMPHOCYTES % (MANUAL) 18 % (20-40); MONOCYTES % (MANUAL) 9 % (2-10); NEUTROPHILS % (MANUAL) 65 % (42-75)
[2016-09-20] MEDS: NORMAL SALINE FLUSH 10 ML DISP.SYRIN IV SCH ×3 (06:19→21:27)
--- NOTE | 2016-09-20 07:15 | NUR ---
Pt received in bed, laying semi-Hood's, unable to communicate.. Pt trach Porfirio 8 DCT, in place and secure with tie.. Continuous mechanical ventilation, vent: Burns, settings: A/C 12, Vt 550, PEEP +5, FiO2 35%, tolerating well, no changes made at this time.. Vent alarms cheched and documented as found.. Back up trach / BVM at bedside.. Weaning ordered for this morning, will begin weaning trial shortly..
--- NOTE | 2016-09-20 07:30 | NUR ---
Weaning trial started, Changed vent settings to: SIMV 4, PS 10, tolerating well at this time, will continue to monitor..
--- NOTE | 2016-09-20 07:30 | NUR ---
RECIEVED LYING IN BED, OPENS EYES TO CALL, HOB UP 35DEGREES. GENERALIZED WEAKNESS. TRACHEOSTOMY SITE INTACT. SHILEY8. PLACED PT ON SIMV-4 AND PSV =10, FIO2-35%, VT-550,PEEP-5 ORDERED. NO APPARENT RESPIRATORY DISTRESS NOTED. TOLERATING THE WEANING. O2SAT 100%.
[2016-09-20 08:36] LABS: VANCOMYCIN,RANDOM 19.7 ug/mL (18.0-26.0)
[2016-09-20] MEDS: ACIDOPHILUS/BULGARICUS CHEW TAB GT SCH ×2 (08:45→20:45)
[2016-09-20] MEDS: GABAPENTIN 100 MG CAPSULE GT SCH ×2 (08:45→20:45)
[2016-09-20] MEDS: SUCRALFATE 1 G/10 ML LIQUID UDC GT SCH ×4 (08:45→20:45)
[2016-09-20] MEDS: PANTOPRAZOLE ORAL SUSPENSION 40 MG SUSPDR.PKT GT SCH ×2 (08:45→20:45)
[2016-09-20] MEDS: FOLIC ACID/VITAMIN B COMP W-C TABLET GT SCH (08:45)
[2016-09-20] MEDS: SODIUM HYPOCHLORITE 0.125% 473 ML BOTTLE TP SCH (08:46)
[2016-09-20] MEDS: Z GUARD REMEDY PASTE 57 GM TUBE TOP SCH ×2 (08:46→20:46)
[2016-09-20] MEDS: PEPTAMEN AF 1000ML BAG GT PRN (09:04)
--- NOTE | 2016-09-20 09:30 | NUR ---
ABG DONE ON SIMV, RESULT IS GOOD. FIO2 DECREASED DOWN TO 30%. SUCTION SECRETIONS MODERATE AMOUNT OF WHITISH PHLEGM
[2016-09-20 09:46] LABS: ABG BASE EXCESS -5.1 mmol/L; ABG HCO3 20.7 mmol/L; ABG PCO2 41.2 mmHg (35.0-45.0); ABG PH 7.318 (7.350-7.450); ABG PO2 109.2 mmHg (75.0-100.0); ABG SITE RIGHT RADIAL; ABG TOTAL HEMOGLOBIN 9.5 G/dL (13.5-18.0); COHb 1.1 % (0.5-1.5); MetHb 0.4 % (0.0-1.5); O2Hb 96.3 % (94.0-97.0); VENT MODE VENT - SIMV - PS 10; VT, ABG 550 mL
--- NOTE | 2016-09-20 10:00 | NUR ---
Lowered FiO2 to 30% post ABG results.. RN aware
--- NOTE | 2016-09-20 10:43 | NUR ---
Clinical pharmacy note-Vancomycin and Tobramycin per pharmacy Subjective: To continue Vancomycin/Tobramycin dosing on this patient for pneumonia Objective: BUN 46/Scr 4.5 WBC 13.6 Temp 98.7 pre-HD vanco Random level: 19.7 pre-HD tobramycin random level: 1.2 Assessment/Plan: HD has been scheduled for today. Since vancomycin pre-HD is between 15-20 mcg/ml, will give vancomycin 500mg IVPB x1 dose post HD today per protocol. Since pre-HD tobramycin level is 1.2 mcg/ml, will give tobramycin 160 mg IVPB x1 dose post HD today. Will continue dosing per HD protocol and follow daily.
--- NOTE | 2016-09-20 11:30 | NUR ---
SEEN AND EXAMINED BY DR HOLLINS WITH NEW ORDERS. HEMODIALYSIS STARTED AT THE BEDSIDE ORDERED. PT TOLERATING WELL. HEMODYNAMICALLY STABLE.
[2016-09-20] MEDS: MICAFUNGIN SODIUM 100 MG in IV NORMAL SALINE 100 ML IV SCH (11:36)
[2016-09-20] MEDS ORDERED: ALBUMIN HUMAN 25% 25 GM in PREMIXED 1 EACH IV PRN (13:45)
--- NOTE | 2016-09-20 14:45 | NUR ---
HD IS DONE. HEMODYNAMICALLY STABLE. TOTAL FLUID OUT IS 3LITERS.
--- NOTE | 2016-09-20 15:30 | NUR ---
WOUND DRESSING AND TREATMENT DONE. LARGE AMOUNT OF LIQUID STOOLS VIA FLEXISEAL. PM CARE RENDERED.
[2016-09-20] MEDS ORDERED: TOBRAMYCIN SULFATE 160 MG in IV DEXTROSE 5% 100 ML IV ONE (17:00)
[2016-09-20] MEDS ORDERED: VANCOMYCIN IV 500 MG in IV DEXTROSE 5% 100 ML IV ONE (18:00)
--- NOTE | 2016-09-20 18:33 | NUR ---
CONDITION IS UNCHANGED.
--- NOTE | 2016-09-20 19:12 | NUR ---
Pt rec'd on Burns settings SIMV 4, PSV 10, VT 550 and FIO2-35%. No resp. distress noted. Shiley 8 is patent and secure; B/U Shiley 8 and BVM at bedside. Pt to be monitored throughout the shift, PRN SX and adm'd resp neb txs per MD orders. Burns alarm parameters have been checked and remain audible at this time. Pt placed back on PEEP+5 per RN AB request; she was made aware and notified.
[2016-09-20] MEDS: ATORVASTATIN 40 MG TABLET PO SCH (20:45)
[2016-09-21] VITALS (23 sets, daily range): BP systolic 93–162; BP diastolic 54–90
[2016-09-21] MEDS: IV NORMAL SALINE 250 ML IV PRN (02:02)
--- NOTE | 2016-09-21 05:00 | NUR ---
Fairly tolerating SIMV mode on vent. Noted more secretions requiring frequent suctioning. Noted to decompensate during wound care; desats as low as 89% and takes some time to return to baseline. Plan to place on CPAP mode this AM. Continues to have leakage of stool around rectum/flexiseal site, requires irrigation of the device. Will continue to monitor closely. Please see CCU flowsheet for assessments and trends.
[2016-09-21] MEDS: NORMAL SALINE FLUSH 10 ML DISP.SYRIN IV SCH ×3 (05:28→21:39)
[2016-09-21] MEDS: VANCOMYCIN FOR PO/GT/NG USE GT SCH ×4 (05:28→23:57)
[2016-09-21] MEDS: BLOOD SUGAR DIAGNOSTIC 1 EACH STRIP VI SCH ×4 (05:29→23:57)
[2016-09-21] MEDS: Z GUARD REMEDY PASTE 57 GM TUBE TOP PRN (05:29)
[2016-09-21 06:19] LABS: CREATININE 3.9 mg/dL (0.6-1.3); MAGNESIUM 2.4 mg/dL (1.8-2.4); PHOSPHOROUS 3.1 mg/dL (2.5-4.9); POTASSIUM 3.8 mmol/L (3.5-5.1)
--- NOTE | 2016-09-21 07:00 | NUR ---
PT RECEIVED ON GODDARD VENT ON SETTINGS OF SIMV 4 VT 550, PS 10, PEEP +5, FIO2 30%. PT TRACH SIZE SHILEY 8DCT IS SECURED AND INTACT WITH TRACH TIE. PT WAS SUCTION VIA TRACH AND MOUTH. PT ORAL CARE WAS DONE RN AWARE. PT TRACH CUFF WAS CHECKED WITH STAMPING DIE MAKER. PT VENT ALARMS ON AND AUDIBLE. PT AMBU-BAG AT BED SIDE. PT HAS NO PRN TX. PT WEANING ORDER TO PLACE ON CPAP 8 AT 0800 PT HAS ABG ORDER 1000 . WILL CONTINUE TO MONITOR PT THROUGHOUT SHIFT.
[2016-09-21 07:14] LABS: BASOPHILS # (AUTO) 0.1 K/uL (0.0-8.0); BASOPHILS % (AUTO) 1.1 % (0.0-2.0); EOSINOPHILS # (AUTO) 0.9 K/uL (0.0-0.7); EOSINOPHILS % (AUTO) 6.7 % (0.0-7.0); HEMATOCRIT 25.3 % (40-50); HEMOGLOBIN 8.5 G/DL (14.0-18.0); LYMPHOCYTES # (AUTO) 1.8 K/UL (0.8-4.8); LYMPHOCYTES % (AUTO) 14.2 % (20.5-51.5); MEAN CORPUSCULAR HEMOGLOBIN 29.1 UUG (27.0-31.0); MEAN CORPUSCULAR HGB CONC 34 g/dL (32.0-37.0); MEAN CORPUSCULAR VOLUME 87.1 FL (82.0-92.0); MONOCYTES # (AUTO) 1.7 K/UL (0.1-1.30); MONOCYTES % (AUTO) 12.9 % (0.0-11.0); NEUTROPHILS # (AUTO) 8.4 K/UL (1.8-8.9); NEUTROPHILS % (AUTO) 65.1 % (38.5-71.5); PLATELET COUNT (AUTO) 257 K/UL (150-450); WHITE BLOOD COUNT (AUTO) 12.9 K/UL (4.0-11.2)
--- NOTE | 2016-09-21 08:30 | NUR ---
seen by dr Dejesus. orders received. Addendum: 09/21/16 at 1020 by ARIELLE CAMACHO RN Amended: Links added.
[2016-09-21] MEDS: PANTOPRAZOLE ORAL SUSPENSION 40 MG SUSPDR.PKT GT SCH ×2 (09:23→21:38)
[2016-09-21] MEDS: GABAPENTIN 100 MG CAPSULE GT SCH ×2 (09:23→21:38)
[2016-09-21] MEDS: FOLIC ACID/VITAMIN B COMP W-C TABLET GT SCH (09:23)
[2016-09-21] MEDS: ACIDOPHILUS/BULGARICUS CHEW TAB GT SCH ×2 (09:23→21:38)
[2016-09-21] MEDS: SUCRALFATE 1 G/10 ML LIQUID UDC GT SCH ×4 (09:23→21:38)
[2016-09-21] MEDS: Z GUARD REMEDY PASTE 57 GM TUBE TOP SCH ×2 (09:24→21:38)
[2016-09-21] MEDS: SODIUM HYPOCHLORITE 0.125% 473 ML BOTTLE TP SCH (09:24)
[2016-09-21] MEDS: PEPTAMEN AF 1000ML BAG GT PRN (09:40)
--- NOTE | 2016-09-21 10:00 | NUR ---
CYNTHIA mcfarlane.. resulted ph 7.34, pco2 37 po2 74, o2 92% Addendum: 09/21/16 at 1038 by ARIELLE CAMACHO RN Amended: Links added.
[2016-09-21 10:19] LABS: ABG BASE EXCESS -5.1 mmol/L; ABG HCO3 20.1 mmol/L; ABG PCO2 37.7 mmHg (35.0-45.0); ABG PH 7.344 (7.350-7.450); ABG PO2 74.8 mmHg (75.0-100.0); ABG SITE RIGHT RADIAL; ABG TOTAL HEMOGLOBIN 9.3 G/dL (13.5-18.0); COHb 1.4 % (0.5-1.5); CPAP,BG 8 cmH20; MetHb 0.5 % (0.0-1.5); O2Hb 92.3 % (94.0-97.0); VENT MODE VENT - CPAP
[2016-09-21] MEDS: MICAFUNGIN SODIUM 100 MG in IV NORMAL SALINE 100 ML IV SCH (10:21)
[2016-09-21 10:59] LABS: BAND % (MANUAL) 3 % (0-10); EOSINOPHILS % (MANUAL) 6 % (0-8); LYMPHOCYTES % (MANUAL) 19 % (20-40); MONOCYTES % (MANUAL) 14 % (2-10); NEUTROPHILS % (MANUAL) 58 % (42-75)
[2016-09-21] MEDS: INSULIN REGULAR, HUMAN 300 UNIT/3 ML VIAL SQ PRN ×2 (12:07→23:56)
--- NOTE | 2016-09-21 13:50 | NUR ---
seen by dr soares. orders received. another set of blood cultures drawn Addendum: 09/21/16 at 1738 by ARIELLE CAMACHO RN Amended: Links added. Addendum: 09/21/16 at 1739 by ARIELLE CAMACHO RN Amended: Links added.
--- NOTE | 2016-09-21 15:38 | NUR ---
Clinical pharmacy note-Vancomycin and Tobramycin per pharmacy Subjective: To continue Vancomycin/Tobramycin dosing on this patient for pneumonia Objective: BUN 23/Scr 3.6 WBC 18.5 Temp 98.5 Assessment/Plan: No HD today according to dialysis center. Vancomycin 500mg IV x1 given yesterday at 1800 and Tobramycin 160mg IV x1 was given at 1600. No dose will be given today. Will follow dialysis schedule to check pre-HD level for further dosing.
--- NOTE | 2016-09-21 17:10 | NUR ---
complete bed bath given including trach care, gt care, wound care done. Addendum: 09/21/16 at 1710 by ARIELLE CAMACHO RN Amended: Gabriel added. Addendum: 09/21/16 at 1733 by ARIELLE CAMACHO RN Amended: Gabriel added. Addendum: 09/21/16 at 1738 by ARIELLE CAMACHO RN Amended: Links added. Addendum: 09/21/16 at 1739 by ARIELLE CAMACHO RN Amended: Links added.
--- NOTE | 2016-09-21 17:33 | NUR ---
placed back on imv 4, tv550, psv8 peep fio2 30% for persistent respiratory distress using abdomninal muscles, o2 sat 92-94%, rapid atrial fib up to 110/min. Addendum: 09/21/16 at 1733 by ARIELLE CAMACHO RN Amended: Links added. Addendum: 09/21/16 at 1738 by ARIELLE CAMACHO RN Amended: Links added. Addendum: 09/21/16 at 1739 by ARIELLE RUELO RN Amended: Links added.
--- NOTE | 2016-09-21 17:39 | NUR ---
seen by dr willams. fran shepherd reviewed. will do fran/yanely in am Addendum: 09/21/16 at 1739 by ARIELLE CAMACHO RN Amended: Links added.
--- NOTE | 2016-09-21 19:17 | NUR ---
Pt received laying in bed, semi-Hood's, unable to communicate.. Pt trach Shiley 8 DCT, in place and secure with tie.. Continuous mechanical ventilation, vent: Burns with settings: SIMV 4, Vt 550, PS 8, PEEP +5, FiO2 35%, tolerating well at this time, no changes made.. Vent alarms checked and documented as received.. Vent alarms on / audible / functioning properly at this time.. Back up trach / BVM at bedside.. No s/s of respiratory distress / S.O.B at this time, will continue to monitor..
[2016-09-21 20:54] LABS: *OCCULT BLOOD STOOL POSITIVE (NEGATIVE)
[2016-09-21] MEDS: ATORVASTATIN 40 MG TABLET PO SCH (21:38)
--- NOTE | 2016-09-21 21:41 | NUR ---
Noted 1800 AccuChek done with result 114 by Day Shift RN, not placed on EMar.
[2016-09-22] VITALS (23 sets, daily range): BP systolic 85–136; BP diastolic 53–88
[2016-09-22 05:46] LABS: BASOPHILS # (AUTO) 0.2 K/uL (0.0-8.0); BASOPHILS % (AUTO) 1.2 % (0.0-2.0); EOSINOPHILS # (AUTO) 0.8 K/uL (0.0-0.7); HEMATOCRIT 27.2 % (40-50); HEMOGLOBIN 9.3 G/DL (14.0-18.0); LYMPHOCYTES # (AUTO) 2.4 K/UL (0.8-4.8); LYMPHOCYTES % (AUTO) 17.9 % (20.5-51.5); MEAN CORPUSCULAR HEMOGLOBIN 29.9 UUG (27.0-31.0); MEAN CORPUSCULAR HGB CONC 34 g/dL (32.0-37.0); MEAN CORPUSCULAR VOLUME 87.5 FL (82.0-92.0); MONOCYTES # (AUTO) 1.8 K/UL (0.1-1.30); MONOCYTES % (AUTO) 13.7 % (0.0-11.0); NEUTROPHILS # (AUTO) 8.1 K/UL (1.8-8.9); NEUTROPHILS % (AUTO) 61.2 % (38.5-71.5); PLATELET COUNT (AUTO) 297 K/UL (150-450); WHITE BLOOD COUNT (AUTO) 13.3 K/UL (4.0-11.2)
[2016-09-22 06:06] LABS: BILIRUBIN,TOTAL 1.1 mg/dL (0.2-1.0); CREATININE 4.6 mg/dL (0.6-1.3); MAGNESIUM 2.7 mg/dL (1.8-2.4); PHOSPHOROUS 3.5 mg/dL (2.5-4.9); POTASSIUM 4.6 mmol/L (3.5-5.1); TOTAL PROTEIN, SERUM 7.7 g/dL (6.4-8.2)
--- NOTE | 2016-09-22 06:40 | NUR ---
RECEIVED PT ON CONTINUOUS MECHANICAL VENTILATION. CURRENT SETTINGS ARE SIMV 4 VT 550, PS 8, PEEP +5, FIO2 30%. NO CHANGES MADE AT THIS TIME. VENT/ALARMS CHECKED, ARE ON AND FUNCTIONING. SH. 8DCT TRACH IS PATENT AND SECURED WITH TRACH TIES. ORAL CARE DONE. SUCTIONED MODERATE AMOUNT OF THICK, PALE SECREETIONS. BVM AND BACK UP TRACH ARE AT BEDSIDE. NO S/S OF RESPIRATORY DISTRESS OBSERVED AT THIS TIME. WILL CONTINUE TO MONITOR.
[2016-09-22] MEDS: VANCOMYCIN FOR PO/GT/NG USE GT SCH ×3 (06:46→17:56)
[2016-09-22] MEDS: BLOOD SUGAR DIAGNOSTIC 1 EACH STRIP VI SCH ×3 (06:47→17:29)
[2016-09-22] MEDS: NORMAL SALINE FLUSH 10 ML DISP.SYRIN IV SCH ×3 (06:47→21:27)
[2016-09-22 08:45] LABS: ABG BASE EXCESS -5.2 mmol/L; ABG HCO3 18.2 mmol/L; ABG PCO2 28.4 mmHg (35.0-45.0); ABG PH 7.424 (7.350-7.450); ABG SITE RIGHT RADIAL; ABG TOTAL HEMOGLOBIN 10.7 G/dL (13.5-18.0); COHb 1.4 % (0.5-1.5); MetHb 0.1 % (0.0-1.5); O2Hb 93.9 % (94.0-97.0); VENT MODE VENT - SIMV; VT, ABG 550 mL
[2016-09-22] MEDS: SUCRALFATE 1 G/10 ML LIQUID UDC GT SCH ×4 (08:45→21:27)
[2016-09-22] MEDS: GABAPENTIN 100 MG CAPSULE GT SCH ×2 (08:46→21:27)
[2016-09-22] MEDS: FOLIC ACID/VITAMIN B COMP W-C TABLET GT SCH (08:46)
[2016-09-22] MEDS: PEPTAMEN AF 1000ML BAG GT PRN ×2 (08:46→23:00)
[2016-09-22] MEDS: ACIDOPHILUS/BULGARICUS CHEW TAB GT SCH ×2 (08:46→21:27)
[2016-09-22] MEDS: PANTOPRAZOLE ORAL SUSPENSION 40 MG SUSPDR.PKT GT SCH ×2 (08:46→21:27)
[2016-09-22] MEDS: ERGOCALCIFEROL 50,000 UNIT CAPSULE GT SCH (08:46)
[2016-09-22] MEDS: Z GUARD REMEDY PASTE 57 GM TUBE TOP SCH ×2 (08:48→21:27)
[2016-09-22] MEDS: IV NORMAL SALINE 250 ML IV PRN (08:48)
[2016-09-22] MEDS: SODIUM HYPOCHLORITE 0.125% 473 ML BOTTLE TP SCH (08:49)
[2016-09-22 09:24] LABS: VANCOMYCIN,RANDOM 22.3 ug/mL (18.0-26.0)
[2016-09-22] MEDS: MICAFUNGIN SODIUM 100 MG in IV NORMAL SALINE 100 ML IV SCH (11:00)
--- NOTE | 2016-09-22 11:00 | NUR ---
seen by dr dhaliwal. no orders received. Addendum: 09/22/16 at 1512 by ARIELLE CAMACHO RN Amended: Gabriel added. Addendum: 09/22/16 at 1513 by ARIELLE CAMACHO RN Amended: Gabriel added. Addendum: 09/22/16 at 1516 by ARIELLE CAMACHO RN Amended: Links added.
--- NOTE | 2016-09-22 11:45 | NUR ---
hemodialysis completed. 2500 fluid out per HD RN. HD access site dressing changed per HD RN Addendum: 09/22/16 at 1416 by ARIELLE CAMACHO RN Amended: Links added.
--- NOTE | 2016-09-22 12:00 | NUR ---
seen by dr thurston. with orders Addendum: 09/22/16 at 1511 by ARIELLE CAMACHO RN Amended: Gabriel added. Addendum: 09/22/16 at 1512 by ARIELLE CAMACHO RN Amended: Gabriel added. Addendum: 09/22/16 at 1513 by ARIELLE CAMACHO RN Amended: Links added. Addendum: 09/22/16 at 1516 by ARIELLE CAMACHO RN Amended: Links added.
[2016-09-22] MEDS: INSULIN REGULAR, HUMAN 300 UNIT/3 ML VIAL SQ PRN ×2 (12:22→17:47)
--- NOTE | 2016-09-22 13:24 | NUR ---
seen by dr thurston. orders received. Addendum: 09/22/16 at 1324 by ARIELLE CAMACHO RN Amended: Gabriel added. Addendum: 09/22/16 at 1514 by ARIELLE CAMACHO RN seen ed gracia with orders
--- NOTE | 2016-09-22 13:30 | NUR ---
seen by dr abad. orders received Addendum: 09/22/16 at 1513 by ARIELLE CAMACHO RN Amended: Gabriel added. Addendum: 09/22/16 at 1516 by ARIELLE CAMACHO RN Amended: Gabriel hayward.
--- NOTE | 2016-09-22 14:50 | NUR ---
seen by dr beaulieu. no orders received Addendum: 09/22/16 at 1516 by ARIELLE CAMACHO RN Amended: Links added.
--- NOTE | 2016-09-22 15:05 | NUR ---
Clinical pharmacy note-Vancomycin and Tobramycin per pharmacy Subjective: To continue Vancomycin/Tobramycin dosing on this patient for pneumonia Objective: BUN 46/Scr 4.6 WBC 13.3 Temp 99 Vancomycin pre-HD level 22.3 Tobramycin pre-HD level 2.2 Assessment/Plan: Patient was dialyzed today but no doses will be given since Vancomycin level is over 20 and Tobramycin level is over 2. Will continue to dose by pre-HD level. Will order level prior to next HD(not ordered yet). Will follow daily.
--- NOTE | 2016-09-22 17:02 | NUR ---
complete bed bath given including trach care, gt care and wound care. place on center of the the bed on turning mode Addendum: 09/22/16 at 1702 by ARIELLE CAMACHO RN Amended: Links added.
--- NOTE | 2016-09-22 17:49 | NUR ---
talia 148, covered with 2 units humulin R sq Addendum: 09/22/16 at 1750 by ARIELLE CAMACHO RN Amended: Links added.
[2016-09-22] MEDS: ATORVASTATIN 40 MG TABLET PO SCH (21:27)
[2016-09-23] VITALS (24 sets, daily range): BP systolic 118–143; BP diastolic 60–86
--- NOTE | 2016-09-23 00:01 | NUR ---
Occasionally opens eyes & looks about. Vent SIMV 4, FiO2 30% to #8 Shiely trach; cares done. Right upper arm PICC, with NSS @ TKO; site clear. GT feeding via pump; 10 cc residual; cares done. Anuric. Flexiseal rectal tube, watery liq brn. Rotation air bed.
[2016-09-23] MEDS: VANCOMYCIN FOR PO/GT/NG USE GT SCH ×5 (00:18→23:23)
[2016-09-23] MEDS: BLOOD SUGAR DIAGNOSTIC 1 EACH STRIP VI SCH ×5 (00:19→23:45)
[2016-09-23] MEDS: INSULIN REGULAR, HUMAN 300 UNIT/3 ML VIAL SQ PRN ×3 (00:19→23:43)
--- NOTE | 2016-09-23 02:00 | NUR ---
Surgical coccyx wound, dressing done; noted to be weeping with blood.
[2016-09-23] MEDS: IV NORMAL SALINE 250 ML IV PRN (02:35)
[2016-09-23] MEDS: NORMAL SALINE FLUSH 10 ML DISP.SYRIN IV SCH ×3 (05:45→21:49)
--- NOTE | 2016-09-23 07:27 | NUR ---
Pt rec'd on Burns Vent, SIMV4 550vt PEEP+5 PSV+10 30%FiO2, no further weaning noted for this am. pt tolerating current vent modality well, no sob/distress noted at this time. pt vent'd via tracheostomy, sh8dct in place patent and secured, little trach leak noted. vent alarms audible, checked and reset. back up trach and bvm at bedside. will cont to monitor and report any changes.
[2016-09-23] MEDS: GABAPENTIN 100 MG CAPSULE GT SCH ×2 (08:55→21:48)
[2016-09-23] MEDS: SUCRALFATE 1 G/10 ML LIQUID UDC GT SCH ×4 (08:55→21:48)
[2016-09-23] MEDS: ACIDOPHILUS/BULGARICUS CHEW TAB GT SCH ×2 (08:55→21:48)
[2016-09-23] MEDS: FOLIC ACID/VITAMIN B COMP W-C TABLET GT SCH (08:55)
[2016-09-23] MEDS: PANTOPRAZOLE ORAL SUSPENSION 40 MG SUSPDR.PKT GT SCH ×2 (08:55→21:48)
[2016-09-23] MEDS: Z GUARD REMEDY PASTE 57 GM TUBE TOP SCH ×2 (08:55→21:49)
[2016-09-23] MEDS: PEPTAMEN AF 1000ML BAG GT PRN (08:56)
[2016-09-23] MEDS: SODIUM HYPOCHLORITE 0.125% 473 ML BOTTLE TP SCH (08:56)
[2016-09-23] MEDS: MICAFUNGIN SODIUM 100 MG in IV NORMAL SALINE 100 ML IV SCH (11:00)
--- NOTE | 2016-09-23 11:50 | NUR ---
seen by dr abad. orders received. Addendum: 09/23/16 at 1416 by ARIELLE CAMACHO RN Amended: Gabriel added. Addendum: 09/23/16 at 1417 by ARIELLE CAMACHO RN Amended: Gabriel added. Addendum: 09/23/16 at 1418 by ARIELLE CAMACHO RN Amended: Links added. Addendum: 09/23/16 at 1419 by ARIELLE CMAACHO RN Amended: Links added. Addendum: 09/23/16 at 1442 by ARIELLE CAMACHO RN Amended: Links added. Addendum: 09/23/16 at 1444 by ARIELLE CAMACHO RN Amended: Links added.
--- NOTE | 2016-09-23 12:00 | NUR ---
talia 124, no coverage needed Addendum: 09/23/16 at 1419 by ARIELLE CAMACHO RN Amended: Gabriel added. Addendum: 09/23/16 at 1442 by ARIELEL CAMACHO RN Amended: Gabriel added. Addendum: 09/23/16 at 1444 by ARIELLE CAMACHO RN Amended: Links added.
--- NOTE | 2016-09-23 12:00 | NUR ---
Clinical pharmacy note-Vancomycin and Tobramycin per pharmacy Subjective: To continue Vancomycin/Tobramycin dosing on this patient for pneumonia Objective: BUN 46/Scr 4.6 WBC 13.3 Temp 98.9 Assessment/Plan: No HD today according to dialysis center, therefore, no vancomycin dose or tobramycin dose shall be given today. Will follow dialysis schedule to check pre-HD level for further dosing.
[2016-09-23 12:03] LABS: BILIRUBIN,TOTAL 1.1 mg/dL (0.2-1.0); MAGNESIUM 2.5 mg/dL (1.8-2.4); PHOSPHOROUS 3.2 mg/dL (2.5-4.9); POTASSIUM 4.6 mmol/L (3.5-5.1); TOTAL PROTEIN, SERUM 7.6 g/dL (6.4-8.2)
[2016-09-23 12:04] LABS: BASOPHILS # (AUTO) 0.1 K/uL (0.0-8.0); EOSINOPHILS # (AUTO) 0.9 K/uL (0.0-0.7); EOSINOPHILS % (AUTO) 6.3 % (0.0-7.0); HEMATOCRIT 27.4 % (40-50); HEMOGLOBIN 9.3 G/DL (14.0-18.0); LYMPHOCYTES # (AUTO) 2.4 K/UL (0.8-4.8); LYMPHOCYTES % (AUTO) 17.6 % (20.5-51.5); MEAN CORPUSCULAR HEMOGLOBIN 29.5 UUG (27.0-31.0); MEAN CORPUSCULAR HGB CONC 34 g/dL (32.0-37.0); MEAN CORPUSCULAR VOLUME 87.5 FL (82.0-92.0); MONOCYTES # (AUTO) 1.7 K/UL (0.1-1.30); MONOCYTES % (AUTO) 12.9 % (0.0-11.0); NEUTROPHILS # (AUTO) 8.4 K/UL (1.8-8.9); NEUTROPHILS % (AUTO) 62.2 % (38.5-71.5); PLATELET COUNT (AUTO) 301 K/UL (150-450); RED BLOOD CELL COUNT(AUTO) 3.14 MIL/UL (4.7-6.1); WHITE BLOOD COUNT (AUTO) 13.5 K/UL (4.0-11.2)
--- NOTE | 2016-09-23 12:30 | NUR ---
seen by MIKE Patricio for ID. patient remains negative for cdiff but still with diarrheic stools Addendum: 09/23/16 at 1417 by ARIELLE CAMACHO RN Amended: Gabriel added. Addendum: 09/23/16 at 1418 by ARIELLE CAMACHO RN Amended: Gabriel added. Addendum: 09/23/16 at 1419 by ARIELLE CAMACHO RN Amended: Links added. Addendum: 09/23/16 at 1442 by ARIELLE CAMACHO RN Amended: Links added. Addendum: 09/23/16 at 1444 by ARIELLE CAMACHO RN Amended: Links added.
--- NOTE | 2016-09-23 13:00 | NUR ---
seen by dr Mcgill no new orders Addendum: 09/23/16 at 1418 by ARIELLE CAMACHO RN Amended: Gabriel added. Addendum: 09/23/16 at 1419 by ARIELLE CAMACHO RN Amended: Gabriel added. Addendum: 09/23/16 at 1442 by ARIELLE CAMACHO RN Amended: Gabriel added. Addendum: 09/23/16 at 1444 by ARIELLE CAMACHO RN Amended: Links added.
--- NOTE | 2016-09-23 14:00 | NUR ---
noted patient having large amount of air leak coming from the tracheal stoma. RT here /RN here at the the bedside.. dr dhaliwal aware of current problem. orders received to replace trach tube. Addendum: 09/23/16 at 1442 by ARIELLE CAMACHO RN Amended: Links added. Addendum: 09/23/16 at 1444 by ARIELLE CAMACHO RN Amended: Links added.
--- NOTE | 2016-09-23 14:30 | NUR ---
Yanick ramos and replaced trach tube with Shiley #8 xlt cuffed with no complications.Patient maintained 100% o2 saturation during the change. no air leak noted thereafter Addendum: 09/23/16 at 1444 by ARIELLE CAMACHO RN Amended: Links added.
--- NOTE | 2016-09-23 14:30 | NUR ---
Excessive trach leak noted. trach tube changed at this time to Shiley 8 XLTCP. no complications noted with trach change, little bleeding noted. O2 sat maintained 100%.
--- NOTE | 2016-09-23 17:51 | NUR ---
accucheck 126, no insulin coverage Addendum: 09/23/16 at 1751 by ARIELLE CAMACHO RN Amended: Links added.
--- NOTE | 2016-09-23 19:34 | NUR ---
Pt received on Burns vent with the following settings of SIMV-4, Vt-550, PS-10, PEEP+5, FIO2-30%, trached with Shiley#8 XLT trach, which is in the place and secure. No s/s of respiratory distress noted. Airway care done, pt responded to physical stimuli. Resus. bag and back up trach at bedside. Vent and alarms checked and reset.
[2016-09-23] MEDS: ATORVASTATIN 40 MG TABLET PO SCH (21:48)
[2016-09-24] VITALS (22 sets, daily range): BP systolic 100–135; BP diastolic 54–79
--- NOTE | 2016-09-24 00:01 | NUR ---
Occasionally opens eyes & looks about. Vent SIMV 4, FiO2 30% to #8 XLT Shiely / trach; cares done. Right upper arm PICC, with NSS @ TKO; site clear. GT feeding via pump; 10 cc residual; cares done. Anuric. Flexiseal rectal tube, watery liq brn. Rotation air bed.
[2016-09-24] MEDS: IV NORMAL SALINE 250 ML IV PRN (05:05)
[2016-09-24] MEDS: NORMAL SALINE FLUSH 10 ML DISP.SYRIN IV SCH ×3 (05:06→22:32)
[2016-09-24] MEDS: VANCOMYCIN FOR PO/GT/NG USE GT SCH ×3 (05:06→17:04)
[2016-09-24 05:38] LABS: BILIRUBIN,TOTAL 1.1 mg/dL (0.2-1.0); CREATININE 4.5 mg/dL (0.6-1.3); MAGNESIUM 2.7 mg/dL (1.8-2.4); PHOSPHOROUS 3.4 mg/dL (2.5-4.9); POTASSIUM 5.1 mmol/L (3.5-5.1); TOTAL PROTEIN, SERUM 7.8 g/dL (6.4-8.2)
--- NOTE | 2016-09-24 05:38 | NUR ---
Cont. monitor pt on present vent settings. During the shift no respiratory distress noted. Present vent settings pt tolerated well, no changes made. Sx and lavage prn. Oral care done. HME and Sx Anderson changed. Resus. bag and back up trach at bedside. Vent and alarms checked and reset.
[2016-09-24 05:39] LABS: BASOPHILS # (AUTO) 0.2 K/uL (0.0-8.0); BASOPHILS % (AUTO) 1.1 % (0.0-2.0); EOSINOPHILS % (AUTO) 6.7 % (0.0-7.0); HEMATOCRIT 26.2 % (40-50); HEMOGLOBIN 9.2 G/DL (14.0-18.0); LYMPHOCYTES # (AUTO) 2.4 K/UL (0.8-4.8); MEAN CORPUSCULAR HEMOGLOBIN 31.4 UUG (27.0-31.0); MEAN CORPUSCULAR HGB CONC 35 g/dL (32.0-37.0); MEAN CORPUSCULAR VOLUME 89.5 FL (82.0-92.0); MONOCYTES # (AUTO) 1.8 K/UL (0.1-1.30); MONOCYTES % (AUTO) 12.6 % (0.0-11.0); NEUTROPHILS # (AUTO) 8.8 K/UL (1.8-8.9); NEUTROPHILS % (AUTO) 62.6 % (38.5-71.5); PLATELET COUNT (AUTO) 307 K/UL (150-450); RED BLOOD CELL COUNT(AUTO) 2.93 MIL/UL (4.7-6.1); WHITE BLOOD COUNT (AUTO) 14.2 K/UL (4.0-11.2)
[2016-09-24] MEDS: BLOOD SUGAR DIAGNOSTIC 1 EACH STRIP VI SCH ×3 (06:41→18:13)
[2016-09-24] MEDS: INSULIN REGULAR, HUMAN 300 UNIT/3 ML VIAL SQ PRN (06:48)
[2016-09-24] MEDS: ACIDOPHILUS/BULGARICUS CHEW TAB GT SCH ×2 (08:54→20:15)
[2016-09-24] MEDS: FOLIC ACID/VITAMIN B COMP W-C TABLET GT SCH (08:54)
[2016-09-24] MEDS: GABAPENTIN 100 MG CAPSULE GT SCH ×2 (08:54→20:15)
[2016-09-24] MEDS: PANTOPRAZOLE ORAL SUSPENSION 40 MG SUSPDR.PKT GT SCH ×2 (08:54→20:15)
[2016-09-24] MEDS: SUCRALFATE 1 G/10 ML LIQUID UDC GT SCH ×4 (08:54→20:15)
[2016-09-24] MEDS: SODIUM HYPOCHLORITE 0.125% 473 ML BOTTLE TP SCH (08:55)
[2016-09-24] MEDS: Z GUARD REMEDY PASTE 57 GM TUBE TOP SCH ×2 (08:55→20:15)
[2016-09-24] MEDS: PEPTAMEN AF 1000ML BAG GT PRN (09:05)
[2016-09-24 10:10] LABS: VANCOMYCIN,RANDOM 17.3 ug/mL (18.0-26.0)
[2016-09-24] MEDS: MICAFUNGIN SODIUM 100 MG in IV NORMAL SALINE 100 ML IV SCH (10:59)
[2016-09-24] MEDS ORDERED: ALBUMIN HUMAN 25% 100 ML IV PRN (11:00)
--- NOTE | 2016-09-24 12:00 | NUR ---
accucheck 106, no insulin coverage. Addendum: 09/24/16 at 1859 by ARIELLE CAMACHO RN Amended: Gabriel added. Addendum: 09/24/16 at 1900 by ARIELLE CAMACHO RN Amended: Gabriel added.
--- NOTE | 2016-09-24 12:00 | NUR ---
dr portillo called to inform no need for needle biopsy. all meds and tube fdg resumed
--- NOTE | 2016-09-24 12:51 | NUR ---
HEMODIALYSIS STARTED at 1850 TILL 1250. fluid out 2500ml. patient tolerated procedure well without pressors, without albumin Addendum: 09/24/16 at 1251 by ARIELLE CAMACHO RN Amended: Links added.
--- NOTE | 2016-09-24 14:33 | NUR ---
had large amount of diarrheic stools. flexiseal irrigated and secured in place. pm care done including trach care gt care and wound care. repositioned and barimax bed on turning mode. Addendum: 09/24/16 at 1434 by ARIELLE CAMACHO RN Amended: Links added.
--- NOTE | 2016-09-24 18:00 | NUR ---
accuchrandall 109, no coverage needed Addendum: 09/24/16 at 1900 by ARIELLE CAMACHO RN Amended: Links added.
--- NOTE | 2016-09-24 18:01 | NUR ---
RECEIVED PT ON CURRENT VENT SETTINGS OF SIMV 4, VT 550,PSV10, PEEP 5 AND FI02 30%. AWAKE AND RESPONSIVE WITH NO DISTRESS, SATURATING AROUND 97-99 MOST OF THE TIME DURING THE SHIFT.
--- NOTE | 2016-09-24 19:22 | NUR ---
Pt rec'd on Burns settings SIMV 4, PSV 10, VT 550 and FIO2-30%. No resp. distress noted. Yisselley 8 is patent and secure; B/U Shianh 8 and BVM at bedside. Pt to be monitored throughout the shift, PRN SX and adm'd resp neb txs per MD orders. Burns alarm parameters have been checked and remain audible at this time. Pt placed back on PEEP+5 per RN AB request; she was made aware and notified. Addendum: 09/25/16 at 0521 by JEFFERY RAMSEY RT Clarification: Porfirio Chavarria XLT Distal Addendum: 09/25/16 at 0523 by JEFFERY RAMSEY RT Pt rec'd on PEEP+5 disregard note about "Pt placed on PEEP +5 per RN AB request; she was made aware and notified."
--- NOTE | 2016-09-24 19:25 | NUR ---
Report from CANDACE Galindo
--- NOTE | 2016-09-24 19:28 | NUR ---
report given to TitofuenteRN Addendum: 09/24/16 at 1931 by ARIELLE CAMACHO RN Amended: Links added.
[2016-09-24] MEDS: ATORVASTATIN 40 MG TABLET PO SCH (20:15)
--- NOTE | 2016-09-24 20:15 | NUR ---
Seen patient, asleep, lethargic, arousable to suctioned and calling his name. Assessment done.VS stable. Remained on mechanical vent SIMV 4, TV 550,FI02 30%. Satting 97%.AFIB controlled in the monitor.Tachypneic mid 25's. G-tube feeding at 80mls/hr.Residual 10mls, administered pm meds.
[2016-09-25] VITALS (21 sets, daily range): BP systolic 95–145; BP diastolic 49–84
--- NOTE | 2016-09-25 | NUR ---
Blood sugar check 167mg/dl covered w/ 3 units of regular insulin.Administered Vancocin/po
[2016-09-25] MEDS: BLOOD SUGAR DIAGNOSTIC 1 EACH STRIP VI SCH ×5 (00:06→23:47)
--- NOTE | 2016-09-25 04:00 | NUR ---
Bedbath rendered, irrigated flexi seal for the second time w/ water. Low grade temp 99.5, uncover.
--- NOTE | 2016-09-25 06:00 | NUR ---
Respiratory rate remained mid 25's.The rest of VS are WNLexcept HR low 100's.
[2016-09-25] MEDS: NORMAL SALINE FLUSH 10 ML DISP.SYRIN IV SCH ×3 (06:15→21:41)
[2016-09-25] MEDS: VANCOMYCIN FOR PO/GT/NG USE GT SCH ×5 (06:16→23:47)
[2016-09-25] MEDS: Z GUARD REMEDY PASTE 57 GM TUBE TOP PRN (06:17)
[2016-09-25] MEDS: IV NORMAL SALINE 250 ML IV PRN (06:19)
--- NOTE | 2016-09-25 07:15 | NUR ---
Report to CANDACE Burroughs
[2016-09-25] MEDS: FOLIC ACID/VITAMIN B COMP W-C TABLET GT SCH (08:44)
[2016-09-25] MEDS: GABAPENTIN 100 MG CAPSULE GT SCH ×2 (08:44→21:36)
[2016-09-25] MEDS: PANTOPRAZOLE ORAL SUSPENSION 40 MG SUSPDR.PKT GT SCH ×2 (08:44→21:36)
[2016-09-25] MEDS: SUCRALFATE 1 G/10 ML LIQUID UDC GT SCH ×4 (08:44→21:36)
[2016-09-25] MEDS: ACIDOPHILUS/BULGARICUS CHEW TAB GT SCH ×2 (08:44→21:36)
[2016-09-25] MEDS: Z GUARD REMEDY PASTE 57 GM TUBE TOP SCH ×2 (08:45→21:41)
[2016-09-25] MEDS: SODIUM HYPOCHLORITE 0.125% 473 ML BOTTLE TP SCH (08:45)
[2016-09-25] MEDS: MICAFUNGIN SODIUM 100 MG in IV NORMAL SALINE 100 ML IV SCH (11:00)
[2016-09-25] MEDS: INSULIN REGULAR, HUMAN 300 UNIT/3 ML VIAL SQ PRN ×3 (11:27→23:55)
[2016-09-25 11:35] LABS: ABG BASE EXCESS 0.5 mmol/L; ABG HCO3 25.7 mmol/L; ABG PCO2 43.8 mmHg (35.0-45.0); ABG PH 7.386 (7.350-7.450); ABG PO2 62.8 mmHg (75.0-100.0); ABG SITE RIGHT RADIAL; ABG TOTAL HEMOGLOBIN 10.1 G/dL (13.5-18.0); COHb 1.9 % (0.5-1.5); MetHb 0.2 % (0.0-1.5); O2Hb 89.4 % (94.0-97.0); VENT MODE VENT - SIMV - PS 10; VT, ABG 550 mL
[2016-09-25] MEDS ORDERED: LIDOCAINE HCL 1% 20 ML VIAL IJ PRN (12:45)
[2016-09-25] MEDS ORDERED: SILVER NITRATE APPLICATOR STICK EACH TP ONE (12:45)
--- NOTE | 2016-09-25 13:00 | NUR ---
DR ISIDRO AT BEDSIDE TO DO DEBRIDEMENT. CONSENT HAS BEEN SIGNED BY BROTHER CASEY AND SUPPLIES ORDERED ARE AT BEDSIDE. PATIENT TOLERATED WELL DEBRIDEMENT. OBSERVE FOR BLEED SILVER NITRATE AT BEDSIDE IF NEEDED.
--- NOTE | 2016-09-25 19:15 | NUR ---
Report received from CANDACE Burroughs.
--- NOTE | 2016-09-25 20:00 | NUR ---
Seen patient lying on his side, bell's positioned. remained on mechanical ventilator: SIMV 4, Peep 5, TV 550 ,FI02 35%. On Peptamen at 80mls/hr. Remained anuric. Bedbound, turned and repositioned and continue skin care protocol. Dressing at sacral area CDI. Flexi seal, irrigated.VS has been stable.
[2016-09-25] MEDS: ATORVASTATIN 40 MG TABLET PO SCH (21:36)
[2016-09-26] VITALS (22 sets, daily range): BP systolic 85–124; BP diastolic 50–70
--- NOTE | 2016-09-26 00:27 | NUR ---
PT ON CONT GODDARD VENT WITH SHILEY # [address] AND SECURED, WITH CURRENT VENT SETTINGS, SIMV 4, PT DOES ASSIST 20-28 BPM APPROX, GOOD COUGH EFFORT, SUCTION LIGHT PALE YELL TINGE SECRETIONS, ALL ALARMS OK, AMBU BAG AT [facility], SAT 99%, NO VENT CHANGES MADE AT THIS TIME.Maame CHANDLER RCP Addendum: 09/26/16 at 0028 by JONNATHAN CHANDLER RT Amended: Links added.
[2016-09-26 05:11] LABS: BASOPHILS # (AUTO) 0.2 K/uL (0.0-8.0); EOSINOPHILS # (AUTO) 0.9 K/uL (0.0-0.7); EOSINOPHILS % (AUTO) 5.7 % (0.0-7.0); HEMATOCRIT 28.2 % (40-50); HEMOGLOBIN 9.4 G/DL (14.0-18.0); LYMPHOCYTES # (AUTO) 2.8 K/UL (0.8-4.8); LYMPHOCYTES % (AUTO) 17.7 % (20.5-51.5); MEAN CORPUSCULAR HEMOGLOBIN 29.4 UUG (27.0-31.0); MEAN CORPUSCULAR HGB CONC 33 g/dL (32.0-37.0); MEAN CORPUSCULAR VOLUME 88.5 FL (82.0-92.0); MONOCYTES % (AUTO) 12.5 % (0.0-11.0); NEUTROPHILS # (AUTO) 10.1 K/UL (1.8-8.9); NEUTROPHILS % (AUTO) 63.1 % (38.5-71.5); PLATELET COUNT (AUTO) 333 K/UL (150-450); RED BLOOD CELL COUNT(AUTO) 3.19 MIL/UL (4.7-6.1)
[2016-09-26 05:17] LABS: EOSINOPHILS % (MANUAL) 4 % (0-8); LYMPHOCYTES % (MANUAL) 21 % (20-40); MONOCYTES % (MANUAL) 10 % (2-10); NEUTROPHILS % (MANUAL) 65 % (42-75)
[2016-09-26 05:21] LABS: BILIRUBIN,TOTAL 1.2 mg/dL (0.2-1.0); CREATININE 4.4 mg/dL (0.6-1.3); MAGNESIUM 2.8 mg/dL (1.8-2.4); PHOSPHOROUS 4.1 mg/dL (2.5-4.9); POTASSIUM 4.6 mmol/L (3.5-5.1)
[2016-09-26] MEDS: VANCOMYCIN FOR PO/GT/NG USE GT SCH ×4 (06:20→23:46)
[2016-09-26] MEDS: NORMAL SALINE FLUSH 10 ML DISP.SYRIN IV SCH ×3 (06:20→21:12)
[2016-09-26] MEDS: BLOOD SUGAR DIAGNOSTIC 1 EACH STRIP VI SCH ×4 (06:28→23:46)
--- NOTE | 2016-09-26 07:30 | NUR ---
Report to CANDACE Burroughs. Pt has an episode of low blood pressure 90/60 w/ MAP 0f higher than 65. Sacral area dressing change done, pictures taken as well.Held TF at 4am.Residuals 10mls.
--- NOTE | 2016-09-26 07:40 | NUR ---
Pt rec'd on Burns Vent, SIMV4 550vt PEEP+5 PSV+10 35%FiO2, no further weaning noted for this am. pt tolerating current vent modality fairly well, no sob/distress noted at this time. abg's to be drawn this 9am. pt vent'd via tracheostomy, [id number] in-place patent and secured. vent alarms audible, checked and reset. back up trach and bvm at bedside. will cont to monitor and report any changes.
--- NOTE | 2016-09-26 09:05 | NUR ---
DOCTOR MAREK IN THE UNIT TO SEE PATIENT. INFORMED THAT WBC TRENDING UP AND PATIENT HAS BEEN RUNNING LOW GRADE FEVERS. DOCTOR JARA WILL CALL DR. BLANCO REGARDING POSSIBLE DIALYSIS LINE CHANGE AND TO LOOK INTO THE CHANGE IN STATUS.
[2016-09-26 09:06] LABS: ABG BASE EXCESS -0.9 mmol/L; ABG HCO3 25.1 mmol/L; ABG PCO2 47.5 mmHg (35.0-45.0); ABG PO2 100.5 mmHg (75.0-100.0); ABG SITE RIGHT RADIAL; ABG TOTAL HEMOGLOBIN 9.7 G/dL (13.5-18.0); COHb 1.3 % (0.5-1.5); MetHb 0.3 % (0.0-1.5); O2Hb 95.9 % (94.0-97.0); VENT MODE VENT - SIMV4/PS10; VT, ABG 550 mL
[2016-09-26] MEDS: PANTOPRAZOLE ORAL SUSPENSION 40 MG SUSPDR.PKT GT SCH ×2 (09:14→21:11)
[2016-09-26] MEDS: GABAPENTIN 100 MG CAPSULE GT SCH ×2 (09:14→21:11)
[2016-09-26] MEDS: FOLIC ACID/VITAMIN B COMP W-C TABLET GT SCH (09:14)
[2016-09-26] MEDS: SUCRALFATE 1 G/10 ML LIQUID UDC GT SCH ×4 (09:14→21:11)
[2016-09-26] MEDS: ACIDOPHILUS/BULGARICUS CHEW TAB GT SCH ×2 (09:14→21:11)
[2016-09-26] MEDS: SODIUM HYPOCHLORITE 0.125% 473 ML BOTTLE TP SCH (09:15)
[2016-09-26] MEDS: Z GUARD REMEDY PASTE 57 GM TUBE TOP SCH ×2 (09:15→21:11)
[2016-09-26] MEDS: MICAFUNGIN SODIUM 100 MG in IV NORMAL SALINE 100 ML IV SCH (09:16)
--- NOTE | 2016-09-26 11:45 | NUR ---
DR HOLLINS IN UNIT TO SEE PATIENT. VENT CHANGES INITIATED. SIMV INCREASED TO RATE OF 12.
[2016-09-26] MEDS: ALBUMIN HUMAN 25% 100 ML IV PRN ×3 (13:49→13:52)
--- NOTE | 2016-09-26 13:50 | NUR ---
PER MD ORDER. RR INCREASED TO 12. RN NOTIFIED OF CHANGE.
--- NOTE | 2016-09-26 14:03 | NUR ---
POST DIALYSIS PATIENT ABLE TO TOLERATE WITH NO VASOPRESSORS INITIATED. 1.5 LITERS OUT
--- NOTE | 2016-09-26 18:55 | NUR ---
PT RECEIVED ON GODDARD VENT WITH CURRENT SETTINGS OF SIMV 12 VT 550, PS 10, PEEP +5, FIO2 35%. VENTILATOR CHECK DONE. ALARMS ARE ON AND FUNCTIONING PROPERLY. NO CHANGES MADE AT THIS TIME. SH. 8XLTCD TRACH IS PATENT AND SECURED WITH FOAM TRACH TIES. ORAL CARE DONE. HME CHANGED. SUCTIONED SMALL AMOUNT OF THICK, PALE SECRETIONS. AMBU BAG AND BACK UP TRACH ARE CURRENTLY AT BEDSIDE. NO S/S OF RESPIRATORY DISTRESS OBSERVED AT THIS TIME. VENT PLUGGED INTO RED EMERGENCY OUTLET. WILL CONTINUE TO MONITOR PT THROUGHOUT SHIFT.
--- NOTE | 2016-09-26 19:00 | NUR ---
Patient slightly hypotensive. Nursing interventions provided. Will continue to monitor.
[2016-09-26] MEDS: ATORVASTATIN 40 MG TABLET PO SCH (21:11)
[2016-09-26] MEDS: INSULIN REGULAR, HUMAN 300 UNIT/3 ML VIAL SQ PRN (23:47)
[2016-09-27] VITALS (20 sets, daily range): BP systolic 80–115; BP diastolic 41–69
--- NOTE | 2016-09-27 01:00 | NUR ---
Low-grade fever, Tmax 100.5 orally. Cooling methods provided. Trending down. See Vital Signs
[2016-09-27] MEDS: PEPTAMEN AF 1000ML BAG GT PRN (02:34)
--- NOTE | 2016-09-27 04:00 | NUR ---
Feeding turned off as ordered. To be continued at 0800, will endorse to day shift nurse
[2016-09-27] MEDS: NORMAL SALINE FLUSH 10 ML DISP.SYRIN IV SCH ×3 (05:53→21:05)
[2016-09-27] MEDS: BLOOD SUGAR DIAGNOSTIC 1 EACH STRIP VI SCH ×4 (05:53→23:32)
[2016-09-27] MEDS: VANCOMYCIN FOR PO/GT/NG USE GT SCH ×4 (05:54→23:31)
[2016-09-27] MEDS: INSULIN REGULAR, HUMAN 300 UNIT/3 ML VIAL SQ PRN ×3 (05:55→23:33)
[2016-09-27] MEDS: IV NORMAL SALINE 250 ML IV PRN (06:01)
--- NOTE | 2016-09-27 06:48 | NUR ---
No significant events noted overnight. Tmax 100.5, trending down. A-fib, controlled. Hypotension from beginning of shift stabilized, now WNL. Comfortable on SIMV vent settings. SpO2 and RR WNL. Moderate clear thick secretions noted from mouth, trach, and trach site. Tolerating tube feeding with minimal residual. Tube feeding off 0400, to be continued at 0800. Will endorse to day shift RN. Flexiseal with liquid stool, see I/O. Wound care provided as ordered. Frequent repositioning.
--- NOTE | 2016-09-27 08:00 | NUR ---
Pt received resting and dozing off in bed with fall precautions and safety measures maintained. Pt on Shiley #8XL with ventilation settings as follows: SIMV-12, TV-550ml, 35% FiO2, PEEP-5, PS-10. formal service waiter and ventilation alarms working properly wnl. G-tube feeding clamped as ordered and to be restarted. Flexi seal rectal tube intact and draining properly. Pt hemodynamically stable and nad noted.
[2016-09-27] MEDS: SUCRALFATE 1 G/10 ML LIQUID UDC GT SCH ×4 (08:32→20:57)
[2016-09-27] MEDS: FOLIC ACID/VITAMIN B COMP W-C TABLET GT SCH (08:32)
[2016-09-27] MEDS: ACIDOPHILUS/BULGARICUS CHEW TAB GT SCH ×2 (08:32→20:57)
[2016-09-27] MEDS: Z GUARD REMEDY PASTE 57 GM TUBE TOP SCH ×2 (08:32→20:57)
[2016-09-27] MEDS: GABAPENTIN 100 MG CAPSULE GT SCH ×2 (08:32→20:57)
[2016-09-27] MEDS: PANTOPRAZOLE ORAL SUSPENSION 40 MG SUSPDR.PKT GT SCH ×2 (08:32→20:57)
[2016-09-27] MEDS: SODIUM HYPOCHLORITE 0.125% 473 ML BOTTLE TP SCH (08:33)
--- NOTE | 2016-09-27 08:54 | NUR ---
Dr. Dejesus here to see pt. Full report given. made aware that no AM labs ordered for pt today. New orders received.
[2016-09-27 09:23] LABS: ABG BASE EXCESS 0.2 mmol/L; ABG HCO3 24.5 mmol/L; ABG PCO2 37.8 mmHg (35.0-45.0); ABG PH 7.429 (7.350-7.450); ABG PO2 97.6 mmHg (75.0-100.0); ABG SITE LEFT RADIAL; ABG TOTAL HEMOGLOBIN 9.3 G/dL (13.5-18.0); COHb 1.1 % (0.5-1.5); MetHb 0.2 % (0.0-1.5); O2Hb 96.4 % (94.0-97.0); VENT MODE VENT - SIMV; VT, ABG 550 mL
[2016-09-27] MEDS: MICAFUNGIN SODIUM 100 MG in IV NORMAL SALINE 100 ML IV SCH (10:38)
[2016-09-27 11:47] LABS: BASOPHILS # (AUTO) 0.1 K/uL (0.0-8.0); EOSINOPHILS # (AUTO) 0.8 K/uL (0.0-0.7); EOSINOPHILS % (AUTO) 5.7 % (0.0-7.0); HEMATOCRIT 25.8 % (40-50); HEMOGLOBIN 8.8 G/DL (14.0-18.0); LYMPHOCYTES # (AUTO) 1.9 K/UL (0.8-4.8); LYMPHOCYTES % (AUTO) 13.1 % (20.5-51.5); MEAN CORPUSCULAR HEMOGLOBIN 29.7 UUG (27.0-31.0); MEAN CORPUSCULAR HGB CONC 34 g/dL (32.0-37.0); MEAN CORPUSCULAR VOLUME 87.4 FL (82.0-92.0); MONOCYTES # (AUTO) 1.6 K/UL (0.1-1.30); MONOCYTES % (AUTO) 10.7 % (0.0-11.0); NEUTROPHILS # (AUTO) 10.4 K/UL (1.8-8.9); NEUTROPHILS % (AUTO) 69.5 % (38.5-71.5); PLATELET COUNT (AUTO) 299 K/UL (150-450); RED BLOOD CELL COUNT(AUTO) 2.95 MIL/UL (4.7-6.1); WHITE BLOOD COUNT (AUTO) 14.8 K/UL (4.0-11.2)
[2016-09-27 11:52] LABS: BILIRUBIN,TOTAL 1.4 mg/dL (0.2-1.0); CREATININE 3.9 mg/dL (0.6-1.3); MAGNESIUM 2.5 mg/dL (1.8-2.4); PHOSPHOROUS 3.1 mg/dL (2.5-4.9); POTASSIUM 3.9 mmol/L (3.5-5.1); TOTAL PROTEIN, SERUM 7.3 g/dL (6.4-8.2)
[2016-09-27 12:13] LABS: EOSINOPHILS % (MANUAL) 4 % (0-8); LYMPHOCYTES % (MANUAL) 22 % (20-40); MONOCYTES % (MANUAL) 3 % (2-10); NEUTROPHILS % (MANUAL) 71 % (42-75)
--- NOTE | 2016-09-27 15:00 | NUR ---
New Flexi seal rectal tube inserted. Rectal tube flushed, irrigated, and draining properly.
--- NOTE | 2016-09-27 16:00 | NUR ---
Pt noted to have low grade fever 100.3F. Tylenol given and cooling measures applied. Will monitor for effectiveness.
--- NOTE | 2016-09-27 16:00 | NUR ---
PT RECEIVED ON GODDARD VENT, SETTINGS ARE SIMV 12 VT 550, PS 10, PEEP +5, 35% FIO2. SHILEY 8 TRACH IS PATENT AND SECURED WITH TIES. NO SOB AT THIS TIME. NO VENT CHANGES MADE. HAS MODERATE AMOUNTS OF THICK YELLOW SECRETIONS. HME CHANGED, BVM AND BACK UP TRACH AT BEDSIDE. ALARMS ARE ON AND AUDIBLE. WILL CONTINUE TO MONITOR.
[2016-09-27] MEDS: ACETAMINOPHEN 650 MG/20.3 ML LIQUID UDC GT PRN (16:02)
--- NOTE | 2016-09-27 16:35 | NUR ---
Dr. Wade here to see pt. Full report given. New orders received and carried out.
--- NOTE | 2016-09-27 17:43 | NUR ---
CLINICAL PHARMACY NOTE: GENTAMICIN DOSING Request for gentamicin dosing on 60 y/o male 6'1" 216lbs for suspected infection dialysis patient Temp 100.3, BUN 48, Scr 3.9 WBC 100.3 Start gentamicin 150mg ivpb x 1 will order levels prior to dialysis. Will continue to monitor
[2016-09-27] MEDS ORDERED: GENTAMICIN SULFATE INJ 150 MG in IV DEXTROSE 5% 100 ML IV ONE (18:00)
--- NOTE | 2016-09-27 18:43 | NUR ---
End of shift: Pt resting and dozing off in bed with fall precautions and safety measures maintained. Pt on Shiley #8XL with ventilation settings as follows: SIMV-12, TV-550ml, 35% FiO2, PEEP-5, PS-10. expenditure requisition clerk and ventilation alarms working properly wnl. G-tube feeding infusing as ordered with HOB kept elevated. Flexi seal rectal tube intact, irrigated, and draining properly. Pt hemodynamically stable and nad noted.
--- NOTE | 2016-09-27 19:25 | NUR ---
Received pt on Burns vent with the following settings of SIMV-12, Vt-550, PS-10, PEEP+5, FIO2-35%, trached with Shiley#8 XLT trach, which is in the place and secure. No s/s of respiratory distress noted. Airway care done, pt responded to physical stimuli. Resus. bag and back up trach at bedside. Vent and alarms on and audible.
--- NOTE | 2016-09-27 20:00 | NUR ---
Drowsy, arousable to name and tactile stimuli. Appears comfortable on current SIMV vent settings. No weaning noted. Moderate amount of secretions orally and tracheally. Tube feedings at 80 ml/hr well tolerated, scant residuals. NS TKO at RUE PICC line. R IJ dialysis cath intact. Plans for dialysis in AM; also permacath placement in future once repeat blood cultures negative. Nursing comfort measures observed at all times. Contact isolation maintained.
[2016-09-27] MEDS: ATORVASTATIN 40 MG TABLET PO SCH (20:57)
[2016-09-27] MEDS ORDERED: DAPTOMYCIN 500 MG in IV NORMAL SALINE 50 ML IV ONE (21:00)
[2016-09-28] VITALS (12 sets, daily range): BP systolic 82–123; BP diastolic 47–97
--- NOTE | 2016-09-28 05:00 | NUR ---
Noted more secretions with suctioning. Also requiring flexiseal irrigations to keep device patent.
[2016-09-28 05:04] LABS: BASOPHILS # (AUTO) 0.1 K/uL (0.0-8.0); BASOPHILS % (AUTO) 0.6 % (0.0-2.0); EOSINOPHILS # (AUTO) 0.9 K/uL (0.0-0.7); EOSINOPHILS % (AUTO) 5.5 % (0.0-7.0); HEMATOCRIT 26.5 % (40-50); LYMPHOCYTES # (AUTO) 1.9 K/UL (0.8-4.8); LYMPHOCYTES % (AUTO) 11.7 % (20.5-51.5); MEAN CORPUSCULAR HEMOGLOBIN 30.2 UUG (27.0-31.0); MEAN CORPUSCULAR HGB CONC 34 g/dL (32.0-37.0); MONOCYTES # (AUTO) 1.8 K/UL (0.1-1.30); MONOCYTES % (AUTO) 11.1 % (0.0-11.0); NEUTROPHILS # (AUTO) 11.7 K/UL (1.8-8.9); NEUTROPHILS % (AUTO) 71.1 % (38.5-71.5); PLATELET COUNT (AUTO) 328 K/UL (150-450); RED BLOOD CELL COUNT(AUTO) 2.98 MIL/UL (4.7-6.1); WHITE BLOOD COUNT (AUTO) 16.4 K/UL (4.0-11.2)
--- NOTE | 2016-09-28 05:18 | NUR ---
Cont. monitor pt on prescribed vent settings. During the shift no respiratory distress noted. Present vent settings pt tolerated well, no changes made. Airway and oral care done. Pulse ox probe changed. Resus. bag and back up trach at bedside. Vent and alarms on and audible.
[2016-09-28 05:20] LABS: BAND % (MANUAL) 1 % (0-10); EOSINOPHILS % (MANUAL) 9 % (0-8); LYMPHOCYTES % (MANUAL) 12 % (20-40); MONOCYTES % (MANUAL) 12 % (2-10); NEUTROPHILS % (MANUAL) 66 % (42-75)
[2016-09-28 05:31] LABS: BILIRUBIN,TOTAL 1.3 mg/dL (0.2-1.0); CREATININE 4.4 mg/dL (0.6-1.3); MAGNESIUM 2.7 mg/dL (1.8-2.4); PHOSPHOROUS 3.6 mg/dL (2.5-4.9); POTASSIUM 4.1 mmol/L (3.5-5.1); TOTAL PROTEIN, SERUM 7.6 g/dL (6.4-8.2)
[2016-09-28] MEDS: VANCOMYCIN FOR PO/GT/NG USE GT SCH ×4 (05:37→23:43)
[2016-09-28] MEDS: NORMAL SALINE FLUSH 10 ML DISP.SYRIN IV SCH ×3 (05:37→21:49)
[2016-09-28] MEDS: Z GUARD REMEDY PASTE 57 GM TUBE TOP PRN (05:38)
[2016-09-28] MEDS: BLOOD SUGAR DIAGNOSTIC 1 EACH STRIP VI SCH ×4 (05:38→23:44)
[2016-09-28] MEDS: INSULIN REGULAR, HUMAN 300 UNIT/3 ML VIAL SQ PRN ×2 (05:39→17:20)
[2016-09-28] MEDS: IV NORMAL SALINE 250 ML IV PRN (05:42)
--- NOTE | 2016-09-28 06:00 | NUR ---
Unable to obtain accurate weight on pt this AM due to inaccurate readings. Individual patient sling for Jero Lift needed to be obtained from [facility] paint sprayer sandblaster. Will endorse to Day Shift RN for follow-up. Addendum: 09/28/16 at 0707 by TEDDY MCGILL RN Amended: Links added.
--- NOTE | 2016-09-28 08:00 | NUR ---
Pt received resting and dozing off in bed with fall precautions and safety measures maintained. Pt on Shiley #8XL with ventilation settings as follows: SIMV-12, TV-550ml, 35% FiO2, PEEP-5, PS-10. surveillance system monitor and ventilation alarms working properly wnl. G-tube feeding clamped as ordered and to be restarted. Flexi seal rectal tube intact and draining properly. Pt hemodynamically stable and nad noted.
[2016-09-28] MEDS: FOLIC ACID/VITAMIN B COMP W-C TABLET GT SCH (08:12)
[2016-09-28] MEDS: ACIDOPHILUS/BULGARICUS CHEW TAB GT SCH ×2 (08:12→21:48)
[2016-09-28] MEDS: PANTOPRAZOLE ORAL SUSPENSION 40 MG SUSPDR.PKT GT SCH ×2 (08:12→21:49)
[2016-09-28] MEDS: Z GUARD REMEDY PASTE 57 GM TUBE TOP SCH ×2 (08:13→21:49)
[2016-09-28] MEDS: GABAPENTIN 100 MG CAPSULE GT SCH ×2 (08:13→21:48)
[2016-09-28] MEDS: SUCRALFATE 1 G/10 ML LIQUID UDC GT SCH ×4 (08:13→21:48)
[2016-09-28] MEDS: SODIUM HYPOCHLORITE 0.125% 473 ML BOTTLE TP SCH (08:14)
--- NOTE | 2016-09-28 08:28 | NUR ---
PATIENT RECEIVED TRACHED ON GODDARD VENT W/ THE FOLLOWING SETTINGS: SIMV 12, Vt 550, PEEP +5, PS 10, FIO2 35%. SUCTIONED SMALL AMOUNT OF WHITE AND YELLOW SECRETIONS. TRACH IS PATENT AND PROPERLY SECURED WITH TRACH TIES. BMV AND BACK UP TRACH IS BY BEDSIDE. HME CHANGED. VENT ALARMS CHECKED AND THEY ARE ON AND AUDIBLE. VENT IS PLUGGED IN THE RED OUTLET. PATIENT IS TOLERATING CURRENT VENT SETTINGS WELL AT THIS TIME. NO SIGNS OR SYMPTOMS OF RESPIRATORY DISTRESS NOTED. WILL CONTINUE TO MONITOR PATIENT THROUGHOUT SHIFT.
[2016-09-28 14:06] LABS: HEPATITIS B SURFACE AB Non Reactive (.); HEPATITIS B SURFACE AG Negative (Negative)
--- NOTE | 2016-09-28 14:18 | NUR ---
CLINICAL PHARMACY NOTE: GENTAMICIN DOSING To continue gentamicin dosing on 60 y/o male 6'1" 216lbs for suspected infection dialysis patient Objective: height: 6'1'' weight 216lbs Temp 99.3, BUN 56, Scr4.4 WBC 16.4 Pre-HD level: 3.4 Assessment/Plan One dose of gentamicin 150mg ivpb given yesterday. HD was scheduled for today, per level, no dose will be due after today's dialysis. Will continue to dose per pre-HD level per protocol. Will continue to monitor
--- NOTE | 2016-09-28 14:22 | NUR ---
Spoke to Vanessa from [facility] [ ; ] about the patient's schedule. She stated that they have rescheduled him Mondays, Wednesdays and Fridays at 4:30 p.m. Confirmed with Nataliia, admission from [facility] [ ; [address] [place] [address]] that they are able to admit the patient even with PEEP. Awaiting for his permacath to be changed.
--- NOTE | 2016-09-28 18:00 | NUR ---
Pt transferred up to tele-td rm #[id number] with respiratory therapist. Pt stable and nad noted upon transfer.
[2016-09-28] MEDS: ALBUMIN HUMAN 25% 100 ML IV PRN ×2 (18:41→19:04)
--- NOTE | 2016-09-28 19:07 | NUR ---
End of shift: Pt resting and dozing off in bed with fall precautions and safety measures maintained. Pt on Shiley #8XL with ventilation settings as follows: SIMV-12, TV-550ml, 35% FiO2, PEEP-5, PS-10. attendant [facility] and ventilation alarms working properly wnl. G-tube feeding clamped per dialysis treatment. Flexi seal rectal tube intact and draining properly. IVF tko. Pt hemodynamically stable and nad noted.
--- NOTE | 2016-09-28 20:00 | NUR ---
Dialysis in progress and pt closely being monitored by propellant charge zone assembler. Appears comfortable on current vent settings. In no apparent acute distress. Tube feeding was off during procedure per aspiration precaution guideline. Pt's BP on low side requiring Albumin infusions.
--- NOTE | 2016-09-28 20:30 | NUR ---
Dialysis completed, 2 Liters pulled out. Nursing comfort measures observed. Tube feedings resumed. BP gradually improving. HOB as able. Lots of oral and trach secretions being suctioned. Contact isolation maintained at all times. Please see RENETTA flowsheet for full assessment and clinical data.
[2016-09-28] MEDS: ATORVASTATIN 40 MG TABLET PO SCH (21:49)
[2016-09-29] VITALS (7 sets, daily range): BP systolic 100–120; BP diastolic 56–70
--- NOTE | 2016-09-29 00:25 | NUR ---
TRACHED PATIENT RECEIVED ON GODDARD VENT W/ THE FOLLOWING SETTINGS: SIMV 12, Vt 550, PEEP +5, PS 10, FIO2 35%. SUCTIONED SMALL AMOUNT OF THIN PALE YELLOW SECRETIONS. HE IS TRACHED WITH A SHILEY 8 XLT:PATENT AND PROPERLY SECURED. COVER SEAMER USED FOR CUFF ASSESSMENT. HME CHANGED. VENT ALARMS CHECKED AND THEY ARE ON AND AUDIBLE. AMBUBAG AND BACK UP TRACH AT BEDSIDE. NO SIGNS OR SYMPTOMS OF RESPIRATORY DISTRESS NOTED. WILL CONTINUE TO MONITOR.
[2016-09-29] MEDS: NORMAL SALINE FLUSH 10 ML DISP.SYRIN IV SCH ×3 (05:30→21:19)
[2016-09-29] MEDS: VANCOMYCIN FOR PO/GT/NG USE GT SCH ×4 (05:30→23:03)
[2016-09-29] MEDS: BLOOD SUGAR DIAGNOSTIC 1 EACH STRIP VI SCH ×4 (05:40→23:33)
[2016-09-29] MEDS: Z GUARD REMEDY PASTE 57 GM TUBE TOP PRN (05:41)
[2016-09-29] MEDS: INSULIN REGULAR, HUMAN 300 UNIT/3 ML VIAL SQ PRN ×4 (05:41→23:33)
--- NOTE | 2016-09-29 06:00 | NUR ---
General condition unchanged. Stable, uneventful night. Required flexiseal irrigations to keep device patent. Sacral wound dressing changed twice this shift. Noted more bleeding at site. Tube feeding off from 0400 to 0800. Please see RENETTA flowsheet for trends and clinical data. Continues to rest comfortably.
--- NOTE | 2016-09-29 07:30 | NUR ---
RECIEVED PT LYING IN BED WITH HOB UP AT 35DEGREES. OPENS EYES TO CALLS. COLOR IS GOOD. CHRONIC VENT DEPENDENT, ON SIMV-12, VT-550, PEEP -5. PS-10. FIO2-35%. SATURATING 100%. HEMODYNAMICALLY STABLE. SUCTION LARGE AMOUNT OF FROTHY SPUTUM ORALLY AND TRACHE. AFEBRILE. PICC LINE RIGHT UPPER ARM IS PATENT AND INTACT.
[2016-09-29] MEDS: SUCRALFATE 1 G/10 ML LIQUID UDC GT SCH ×4 (09:00→21:19)
--- NOTE | 2016-09-29 09:00 | NUR ---
SEEN AND EXAMINED BY DR ISSA WITH NEW ORDERS. TUBE FEEDING INFUSING STARTING AT 8AM, NO RESIDUALS NOTED. PT HAS A RECTAL TUBE SECONDARY TO LOOSE WATERY BM. PT ON BERRIMAX BED WITH A CONSTANT TURNING Q 10MINS. PT IS ANURIC. LEFT RIJ INTACT FOR DIALYSIS USE ONLY.
--- NOTE | 2016-09-29 09:24 | NUR ---
RECEIVED PATIENT TRACHED ON GODDARD VENT W/ THE FOLLOWING SETTINGS THAT ARE CHARTED ON THE MECHANICAL VENTILATOR NOTES. TRACH IS SECURED. SX'D SMALL AMOUNTS OF WHITE/YELLOWISH SECRETIONS. AIR WAY IS PATENT. DAILY HME CHANGED. VENT ALARMS ARE ON AND LOUD. VENT PLUGGED IN RED EMERGENCY OUTLET. AMBU BAG AND SPARE TRACH IS BY BEDSIDE. NO SOB NOTED AT THIS TIME. WILL CONTINUE TO MONITOR.
[2016-09-29] MEDS: GABAPENTIN 100 MG CAPSULE GT SCH ×2 (09:35→21:19)
[2016-09-29] MEDS: PANTOPRAZOLE ORAL SUSPENSION 40 MG SUSPDR.PKT GT SCH ×2 (09:35→21:19)
[2016-09-29] MEDS: ERGOCALCIFEROL 50,000 UNIT CAPSULE GT SCH (09:35)
[2016-09-29] MEDS: FOLIC ACID/VITAMIN B COMP W-C TABLET GT SCH (09:35)
[2016-09-29] MEDS: ACIDOPHILUS/BULGARICUS CHEW TAB GT SCH ×2 (09:35→21:19)
[2016-09-29] MEDS: Z GUARD REMEDY PASTE 57 GM TUBE TOP SCH ×2 (09:39→21:19)
[2016-09-29] MEDS: SODIUM HYPOCHLORITE 0.125% 473 ML BOTTLE TP SCH (09:40)
[2016-09-29] MEDS: PEPTAMEN AF 1000ML BAG GT PRN (09:42)
--- NOTE | 2016-09-29 16:00 | NUR ---
WOUND CARE DRESSING AND TREATMENT DONE. PM CARE. TRACHE CARE AND ORAL CARE DONE. SEEN AND EXAMINED BY DR GREENFIELD, NO ORDERS MADE.
--- NOTE | 2016-09-29 16:54 | NUR ---
CLINICAL PHARMACY NOTE: GENTAMICIN DOSING To continue gentamicin dosing on 60 y/o male 6'1" 216lbs for suspected infection dialysis patient Objective: height: 6'1'' weight 216lbs Temp 98.6, BUN 56(09/28), Scr4.4(09/28) WBC 16.4(09/28) Assessment/Plan HD is not scheduled for today. No dose will be given today. Will continue to dose per pre-HD level per protocol. Will continue to monitor
--- NOTE | 2016-09-29 17:30 | NUR ---
CONDITION IS UNCHANGED. NO APPARENT DISTRESS NOTED.
--- NOTE | 2016-09-29 19:35 | NUR ---
nsg: pt received in bed, tolerating current vent setting, O2 saturation is 99% with FIO2 of 35%. tolerating TF well, no residual. tele, afib. cont to have diarrhea, flexiseal in place. on specialty mattress. HOB elevated 45 degrees. has picc line on right upper arm, 3 lumens, ns tko.
--- NOTE | 2016-09-29 19:58 | NUR ---
Pt rec'd on Burns settings SIMV 12, PSV 10, VT 550 and FIO2-35%. No resp. distress noted. Shiley 8 XLT distal is patent and secure; B/U Shiley 8 XLT distal and BVM at bedside. Pt to be monitored throughout the shift, PRN SX and adm'd resp neb txs per MD orders. Burns alarm parameters have been checked and remain audible at this time.
[2016-09-29] MEDS ORDERED: DAPTOMYCIN 500 MG in IV NORMAL SALINE 50 ML IV SCH (21:00)
[2016-09-29] MEDS: ATORVASTATIN 40 MG TABLET PO SCH (21:19)
--- NOTE | 2016-09-29 23:00 | NUR ---
nsg: sacral dressing changed per wound care order.
[2016-09-30] VITALS (8 sets, daily range): BP systolic 80–130; BP diastolic 45–79
--- NOTE | 2016-09-30 04:00 | NUR ---
nsg: changed sacral decub dressing. turned and repositioned. kept clean and dry.
--- NOTE | 2016-09-30 05:21 | NUR ---
Patient remains on Burns with no changes made to the ventilator settings. No resp. distress noted throughout the shift. Shiley 8 XLT distal remains patent and secure; Backup Shiley 8 XLT distal and BVM at bedside. Pt routinely sx'd and appeared to tolerate resp neb txs and vent settings well. Burns alarm parameters have been checked and remain audible.
[2016-09-30] MEDS: VANCOMYCIN FOR PO/GT/NG USE GT SCH ×2 (05:31→12:35)
[2016-09-30] MEDS: NORMAL SALINE FLUSH 10 ML DISP.SYRIN IV SCH ×3 (05:31→21:48)
[2016-09-30] MEDS: BLOOD SUGAR DIAGNOSTIC 1 EACH STRIP VI SCH ×4 (06:25→23:53)
[2016-09-30] MEDS: INSULIN REGULAR, HUMAN 300 UNIT/3 ML VIAL SQ PRN ×3 (06:26→23:53)
[2016-09-30 07:46] LABS: BASOPHILS # (AUTO) 0.1 K/uL (0.0-8.0); BASOPHILS % (AUTO) 0.8 % (0.0-2.0); EOSINOPHILS # (AUTO) 0.9 K/uL (0.0-0.7); EOSINOPHILS % (AUTO) 5.5 % (0.0-7.0); HEMATOCRIT 26.9 % (40-50); HEMOGLOBIN 9.2 G/DL (14.0-18.0); LYMPHOCYTES # (AUTO) 2.2 K/UL (0.8-4.8); LYMPHOCYTES % (AUTO) 13.7 % (20.5-51.5); MEAN CORPUSCULAR HEMOGLOBIN 30.4 UUG (27.0-31.0); MEAN CORPUSCULAR HGB CONC 34 g/dL (32.0-37.0); MONOCYTES # (AUTO) 1.9 K/UL (0.1-1.30); MONOCYTES % (AUTO) 11.3 % (0.0-11.0); NEUTROPHILS # (AUTO) 11.3 K/UL (1.8-8.9); NEUTROPHILS % (AUTO) 68.7 % (38.5-71.5); PLATELET COUNT (AUTO) 375 K/UL (150-450); RED BLOOD CELL COUNT(AUTO) 3.02 MIL/UL (4.7-6.1); WHITE BLOOD COUNT (AUTO) 16.4 K/UL (4.0-11.2)
--- NOTE | 2016-09-30 08:00 | NUR ---
Report received.Pt remains non responsive.No s/s of pain,discomfort noted.Respiration even,unlabored.Trach tube Shiley 8xl intact,patent.On Ventilator with SIMV mode,tolerated well.Afib with controlled rate on telemetry.Noted with low BP in 80s.Will continue to monitor.
[2016-09-30 08:04] LABS: CREATININE 4.5 mg/dL (0.6-1.3); MAGNESIUM 2.8 mg/dL (1.8-2.4); PHOSPHOROUS 3.7 mg/dL (2.5-4.9); POTASSIUM 4.4 mmol/L (3.5-5.1)
--- NOTE | 2016-09-30 08:34 | NUR ---
Recheck Bp 78/40.Called ,left message.Will continue to monitor.
--- NOTE | 2016-09-30 08:45 | NUR ---
RECEIVED PATIENT ON CURRENT MECHANICAL VENTILATOR WITH SETTINGS OF SIMV 12, VT 550, PSV10, PEEP 5 AND FI02 35%. AWAKE AND RESPONSIVE SATURATING 98% THIS MORNING. BP IS LOW 88/43 BUT PATIENT LOOKS STABLE AND COMFORTABLE. CANDACE MCCORD, AND CHARGE NURSE SHARONDA ELIZABETH ARE AWARE OF THE BP ISSUE. CHANGED HUMIDIFIER FILTER AND DID ORAL CARE ALSO.
--- NOTE | 2016-09-30 09:15 | NUR ---
called back with new orders received to give 1litter of NS bolus.
[2016-09-30] MEDS: SUCRALFATE 1 G/10 ML LIQUID UDC GT SCH ×4 (09:35→21:00)
[2016-09-30] MEDS: PANTOPRAZOLE ORAL SUSPENSION 40 MG SUSPDR.PKT GT SCH ×2 (09:35→21:00)
[2016-09-30] MEDS: FOLIC ACID/VITAMIN B COMP W-C TABLET GT SCH (09:35)
[2016-09-30] MEDS: GABAPENTIN 100 MG CAPSULE GT SCH ×2 (09:35→21:00)
[2016-09-30] MEDS: ACIDOPHILUS/BULGARICUS CHEW TAB GT SCH ×2 (09:35→21:00)
[2016-09-30] MEDS: SODIUM HYPOCHLORITE 0.125% 473 ML BOTTLE TP SCH (09:36)
[2016-09-30] MEDS: Z GUARD REMEDY PASTE 57 GM TUBE TOP SCH ×2 (09:36→21:00)
[2016-09-30] MEDS ORDERED: IV NS 1000 ML 1,000 ML IV ONE (11:00)
--- NOTE | 2016-09-30 11:00 | NUR ---
Seen,examined by .Updated on pt condition.
[2016-09-30 11:29] LABS: BAND % (MANUAL) 3 % (0-10); EOSINOPHILS % (MANUAL) 9 % (0-8); LYMPHOCYTES % (MANUAL) 16 % (20-40); MONOCYTES % (MANUAL) 9 % (2-10); NEUTROPHILS % (MANUAL) 63 % (42-75)
--- NOTE | 2016-09-30 13:00 | NUR ---
Seen,examined by .
--- NOTE | 2016-09-30 16:12 | NUR ---
CLINICAL PHARMACY NOTE: GENTAMICIN DOSING To continue gentamicin dosing on 60 y/o male 6'1" 216lbs for suspected infection dialysis patient Objective: height: 6'1'' weight 216lbs Temp 98.6, BUN 42, Scr 5.6 WBC 9.2 Assessment/Plan HD is not scheduled for today. No dose will be given today. Will continue to dose per pre-HD level per protocol. Will continue to monitor
--- NOTE | 2016-09-30 19:44 | NUR ---
Patient received on Burns settings SIMV 12, PSV 10, VT 550 and FIO2-35%. No resp. distress noted. Shiley 8 XLT distal is patent and secure; B/U Shiley 8 XLT distal and resusc. bag at bedside. Pt to be monitored throughout the shift, PRN SX and adm'd resp neb txs per MD orders. Burns alarm parameters have been checked and remain audible at this time.
[2016-09-30] MEDS: ATORVASTATIN 40 MG TABLET PO SCH (21:00)
[2016-09-30] MEDS: VANCOMYCIN FOR PO/GT/NG USE PO SCH (21:48)
[2016-09-30] MEDS: PEPTAMEN AF 1000ML BAG GT PRN (21:49)
[2016-09-30] MEDS: IV NORMAL SALINE 250 ML IV PRN (21:49)
[2016-10-01 00:05] VITALS: BP 107/67
--- NOTE | 2016-10-01 02:00 | NUR ---
Con't turning via bed. Coccyx dressing done; wound weeping red blood. Communicates some mouthing words.
[2016-10-01 04:32] VITALS: BP 133/74
[2016-10-01] MEDS: NORMAL SALINE FLUSH 10 ML DISP.SYRIN IV SCH ×3 (05:56→22:01)
[2016-10-01] MEDS: BLOOD SUGAR DIAGNOSTIC 1 EACH STRIP VI SCH ×3 (05:57→17:22)
[2016-10-01] MEDS: VANCOMYCIN FOR PO/GT/NG USE PO SCH ×3 (05:57→22:02)
[2016-10-01] MEDS: INSULIN REGULAR, HUMAN 300 UNIT/3 ML VIAL SQ PRN ×2 (05:58→17:25)
[2016-10-01 07:19] LABS: PHOSPHOROUS 4.5 mg/dL (2.5-4.9); POTASSIUM 4.8 mmol/L (3.5-5.1)
[2016-10-01 08:00] VITALS: BP 95/58
[2016-10-01] MEDS: PEPTAMEN AF 1000ML BAG GT PRN (08:00)
--- NOTE | 2016-10-01 08:25 | NUR ---
Pt rec'd on Burns Vent, SIMV12 550vt PEEP0 PSV+10 35%FiO2, no further weaning noted for this am. pt tolerating current vent modality fairly well, no sob/distress noted at this time. pt vent'd via tracheostomy, [id number] in-place patent and secured. vent alarms audible, checked and reset. back up trach and bvm at bedside. will cont to monitor and report any changes.
[2016-10-01] MEDS: SUCRALFATE 1 G/10 ML LIQUID UDC GT SCH ×4 (08:32→20:24)
[2016-10-01] MEDS: ACIDOPHILUS/BULGARICUS CHEW TAB GT SCH ×2 (08:33→20:24)
[2016-10-01] MEDS: SODIUM HYPOCHLORITE 0.125% 473 ML BOTTLE TP SCH (08:33)
[2016-10-01] MEDS: Z GUARD REMEDY PASTE 57 GM TUBE TOP SCH ×2 (08:33→20:25)
[2016-10-01] MEDS: FOLIC ACID/VITAMIN B COMP W-C TABLET GT SCH (08:33)
[2016-10-01] MEDS: GABAPENTIN 100 MG CAPSULE GT SCH ×2 (08:33→20:24)
[2016-10-01] MEDS: PANTOPRAZOLE ORAL SUSPENSION 40 MG SUSPDR.PKT GT SCH ×2 (08:33→20:24)
[2016-10-01 09:07] LABS: BASOPHILS # (AUTO) 0.1 K/uL (0.0-8.0); BASOPHILS % (AUTO) 0.9 % (0.0-2.0); HEMATOCRIT 26.5 % (40-50); HEMOGLOBIN 9.2 G/DL (14.0-18.0); LYMPHOCYTES # (AUTO) 2.1 K/UL (0.8-4.8); LYMPHOCYTES % (AUTO) 12.9 % (20.5-51.5); MEAN CORPUSCULAR HEMOGLOBIN 31.8 UUG (27.0-31.0); MEAN CORPUSCULAR HGB CONC 35 g/dL (32.0-37.0); MEAN CORPUSCULAR VOLUME 91.6 FL (82.0-92.0); MONOCYTES # (AUTO) 1.5 K/UL (0.1-1.30); MONOCYTES % (AUTO) 9.1 % (0.0-11.0); NEUTROPHILS # (AUTO) 11.9 K/UL (1.8-8.9); NEUTROPHILS % (AUTO) 71.1 % (38.5-71.5); PLATELET COUNT (AUTO) 393 K/UL (150-450); RED BLOOD CELL COUNT(AUTO) 2.89 MIL/UL (4.7-6.1); WHITE BLOOD COUNT (AUTO) 16.6 K/UL (4.0-11.2)
--- NOTE | 2016-10-01 10:44 | NUR ---
incubator operator here at the bedside for dialysis treatment.
[2016-10-01] MEDS: ALBUMIN HUMAN 25% 100 ML IV PRN ×2 (10:55→12:10)
--- NOTE | 2016-10-01 11:15 | NUR ---
Spoke with Dr. Contreras on the telephone. to schedule permacatheter insertion for tomorrow afternoon as requested by Dr. Dejesus. New orders received.
--- NOTE | 2016-10-01 11:25 | NUR ---
Telephone consent for permacatheter insertion signed by Bird (brother). Brother alert and oriented during our telephone conversation and is aware of the procedures to be done.
[2016-10-01 11:44] VITALS: BP 90/51
--- NOTE | 2016-10-01 13:29 | NUR ---
Dialysis treatment complete. 2L of hemodialysis fluid removed. Pt stable and nad upon completion of dialysis.
--- NOTE | 2016-10-01 15:57 | NUR ---
CLINICAL PHARMACY NOTE: GENTAMICIN DOSING To continue gentamicin dosing on 60 y/o male 6'1", 216lbs for suspected infection dialysis patient Objective: height: 6'1'' weight 216lbs Temp 98.5, BUN 73, Scr 5 WBC 16.6 Gentamicin pre-HD level: 1.3 Assessment/Plan HD has been scheduled for today. Since gentamicin pre-HD is 1.3 mcg/ml, will give gentamicin 150mg IVPB x1 dose post HD today. Will continue to dose per pre-HD level per protocol. Will continue to monitor
[2016-10-01 15:59] VITALS: BP 94/61
--- NOTE | 2016-10-01 19:28 | NUR ---
End of shift: Pt resting and dozing off in bed with fall precautions and safety measures maintained. Pt on Shiley #8XL with ventilation settings as follows: SIMV-12, TV-550ml, 35% FiO2, and PS-10. school lunch monitor and ventilation alarms working properly wnl. G-tube feeding infusing as ordered. Flexi seal rectal tube intact and draining properly. IVF tko. Pt hemodynamically stable and nad noted. Endorsed to material handler 1st shift RN to keep pt NPO after midnight as ordered by .
--- NOTE | 2016-10-01 19:58 | NUR ---
PT RECEIVED ON GODDARD VENT W/ THE FOLLOWING SETTINGS THAT ARE CHARTED ON THE MECHANICAL VENTILATOR NOTES. PT IS TRACHED WITH SHILEY 8 XLTD. TRACH IS PATENT AND PROPERLY SECURED WITH TRACH TIES. SUCTIONED A SMALL AMOUNT OF WHITE AND YELLOW SECRETIONS. ORAL SUCTIONING DONE WELL. WITH NO COMPLICATIONS. WILL CHANGED HME FILTER PRN, NEXT VENT CHECK. VENT ALARMS CHECKED AND THEY ARE ON AND AUDIBLE. VENTILATOR IS PLUGGED IN RED EMERGENCY OUTLET. BMV AND BACK-UP TRACH IS BY BEDSIDE. PATIENT IS TOLERATING CURRENT VENTILATOR SETTINGS WELL WITH NO SIGNS OR SYMPTOMS OF RESPIRATORY DISTRESS NOTED AT THIS TIME. WILL CONTINUE TO MONITOR PATIENT THROUGHOUT SHIFT.
[2016-10-01 20:00] VITALS: BP 113/66
[2016-10-01] MEDS ORDERED: GENTAMICIN SULFATE INJ 150 MG in IV DEXTROSE 5% 100 ML IV ONE (20:00)
--- NOTE | 2016-10-01 20:00 | NUR ---
Comfortable on current vent settings. No weaning today. VS and rhythm stable. GTube feedings well tolerated. Post dialysis today. Appears fatigued. Nursing comfort measures observed at all times. Contact isolation maintained. Please see RENETTA flowsheet for full assessment and clinical data.
[2016-10-01] MEDS: ATORVASTATIN 40 MG TABLET PO SCH (20:24)
[2016-10-02] VITALS: BP 108/64
[2016-10-02] MEDS: INSULIN REGULAR, HUMAN 300 UNIT/3 ML VIAL SQ PRN (00:01)
--- NOTE | 2016-10-02 00:01 | NUR ---
Tube feeding turned off and NPO status observed for PermaCath placement procedure in AM.
[2016-10-02] MEDS: IV NORMAL SALINE 250 ML IV PRN (00:02)
[2016-10-02 04:00] VITALS: BP 82/52
[2016-10-02] MEDS: NORMAL SALINE FLUSH 10 ML DISP.SYRIN IV SCH ×3 (05:32→22:02)
[2016-10-02] MEDS: VANCOMYCIN FOR PO/GT/NG USE PO SCH ×3 (05:33→22:01)
[2016-10-02] MEDS: BLOOD SUGAR DIAGNOSTIC 1 EACH STRIP VI SCH ×4 (05:33→17:32)
--- NOTE | 2016-10-02 06:00 | NUR ---
Uneventful night. Remains stable. Please see RENETTA flowsheet for trends and clinical data. No family presence or inquiries this shift.
[2016-10-02 07:52] LABS: CREATININE 4.2 mg/dL (0.6-1.3); MAGNESIUM 2.7 mg/dL (1.8-2.4); PHOSPHOROUS 3.7 mg/dL (2.5-4.9); POTASSIUM 4.3 mmol/L (3.5-5.1)
[2016-10-02] MEDS: GABAPENTIN 100 MG CAPSULE GT SCH ×2 (08:28→20:50)
[2016-10-02] MEDS: SUCRALFATE 1 G/10 ML LIQUID UDC GT SCH ×4 (08:28→20:50)
[2016-10-02] MEDS: ACIDOPHILUS/BULGARICUS CHEW TAB GT SCH ×2 (08:28→20:50)
[2016-10-02] MEDS: PANTOPRAZOLE ORAL SUSPENSION 40 MG SUSPDR.PKT GT SCH ×2 (08:28→20:50)
[2016-10-02] MEDS: FOLIC ACID/VITAMIN B COMP W-C TABLET GT SCH (08:28)
[2016-10-02] MEDS: Z GUARD REMEDY PASTE 57 GM TUBE TOP SCH ×2 (08:29→20:50)
[2016-10-02] MEDS: SODIUM HYPOCHLORITE 0.125% 473 ML BOTTLE TP SCH (08:30)
[2016-10-02 08:37] LABS: BASOPHILS # (AUTO) 0.2 K/uL (0.0-8.0); BASOPHILS % (AUTO) 0.9 % (0.0-2.0); EOSINOPHILS % (AUTO) 5.5 % (0.0-7.0); HEMATOCRIT 26.7 % (40-50); HEMOGLOBIN 9.2 G/DL (14.0-18.0); LYMPHOCYTES # (AUTO) 2.6 K/UL (0.8-4.8); LYMPHOCYTES % (AUTO) 14.4 % (20.5-51.5); MEAN CORPUSCULAR HEMOGLOBIN 31.6 UUG (27.0-31.0); MEAN CORPUSCULAR HGB CONC 34 g/dL (32.0-37.0); MEAN CORPUSCULAR VOLUME 91.9 FL (82.0-92.0); NEUTROPHILS # (AUTO) 12.6 K/UL (1.8-8.9); NEUTROPHILS % (AUTO) 68.2 % (38.5-71.5); PLATELET COUNT (AUTO) 393 K/UL (150-450); WHITE BLOOD COUNT (AUTO) 18.4 K/UL (4.0-11.2)
[2016-10-02 09:24] LABS: ABG BASE EXCESS -2.3 mmol/L; ABG HCO3 22.3 mmol/L; ABG PCO2 37.3 mmHg (35.0-45.0); ABG PH 7.395 (7.350-7.450); ABG SITE RIGHT RADIAL; COHb 1.6 % (0.5-1.5); MetHb 0.3 % (0.0-1.5); O2Hb 94.9 % (94.0-97.0); VENT MODE VENT - SIMV; VT, ABG 550 mL
--- NOTE | 2016-10-02 10:40 | NUR ---
CLINICAL PHARMACY NOTE: GENTAMICIN DOSING To continue gentamicin dosing on 60 y/o male 6'1", 216lbs for suspected infection dialysis patient Objective: height: 6'1'' weight 216lbs Temp 98.1, BUN 59, Scr4.25 WBC 18.4 Assessment/Plan No HD has been scheduled for today. Thus, no gentamicin dose shall be given today. Will continue to dose per pre-HD level per protocol. Will continue to monitor
[2016-10-02 12:02] VITALS: BP 108/61
[2016-10-02] MEDS ORDERED: CEFAZOLIN 1 G VIAL MC ONE (13:26)
[2016-10-02] MEDS ORDERED: PROPOFOL 200 MG/20 ML BOTTLE IV ONE (13:26)
[2016-10-02] MEDS ORDERED: IV NORMAL SALINE 1000 ML BAG IV ONE (13:26)
[2016-10-02 16:02] VITALS: BP 101/57
[2016-10-02] MEDS ORDERED: IOHEXOL 300MG/ML 50 ML VIAL ONE (17:04)
[2016-10-02] MEDS ORDERED: HEPARIN SODIUM,PORCINE 10,000 UNITS/10 ML VIAL ONE (17:04)
[2016-10-02] MEDS ORDERED: LIDOCAINE HCL 1% 20 ML VIAL ONE (17:04)
[2016-10-02] MEDS ORDERED: HEPARIN/NS 500 ML ONE (17:04)
[2016-10-02] MEDS ORDERED: POLYMYXIN B SULFATE 500,000 UNITS, BACITRACIN 50,000 UNITS, NORMAL SALINE 20 ML MC ONE ×3 (17:15)
[2016-10-02] MEDS ORDERED: MIDAZOLAM HCL 2 MG/2 ML VIAL ONE (17:28)
--- NOTE | 2016-10-02 17:30 | NUR ---
Pt left the floor with OR nurses and respiratory therapist for permacatheter insertion surgery. Pt stable and nad noted upon leaving the floor.
--- NOTE | 2016-10-02 19:10 | NUR ---
Received report from CANDACE Cadet. Patient out the floor for Perma cath insertion. Awaiting return.
--- NOTE | 2016-10-02 19:40 | NUR ---
Back from Recovery Room for S/P Perma cath Insertion on LIJ. with slight bleeding around the area otherwise dressing intact, slightly stained by blood. Flexi seal intact and patent with bag almost full of watery stools. VS taken and recorded. Will resume all post of orders. Continue care as planned.
--- NOTE | 2016-10-02 19:45 | NUR ---
Pt brought back from recovery room with RT and RN at bedside and placed on Burns vent with the following settings of SIMV-12, Vt-550, PS-10, FIO2-35%. Pt trached with Shiley#8 XLT trach, which is in the place and secure. No distress noted. Airway care done, pt responded to physical stimuli. Cont. pulse ox on. Resus. bag and back up trach at bedside. Vent and alarms checked and reset.
[2016-10-02] MEDS: PEPTAMEN AF 1000ML BAG GT PRN (19:58)
[2016-10-02 20:00] VITALS: BP 97/59
[2016-10-02] MEDS: ATORVASTATIN 40 MG TABLET PO SCH (20:50)
[2016-10-03] VITALS: BP 115/68
--- NOTE | 2016-10-03 | NUR ---
Complete bed bath rendered. Wound, trach, GT care done. Pt tolerated procedure well.
[2016-10-03] MEDS: BLOOD SUGAR DIAGNOSTIC 1 EACH STRIP VI SCH ×5 (00:09→23:25)
[2016-10-03 04:00] VITALS: BP 90/50
[2016-10-03] MEDS: INSULIN REGULAR, HUMAN 300 UNIT/3 ML VIAL SQ PRN ×4 (05:49→23:26)
[2016-10-03] MEDS: NORMAL SALINE FLUSH 10 ML DISP.SYRIN IV SCH ×3 (05:51→21:40)
[2016-10-03] MEDS: VANCOMYCIN FOR PO/GT/NG USE PO SCH ×3 (05:52→21:40)
--- NOTE | 2016-10-03 06:36 | NUR ---
END OF SHIFT REPORT: VSS. No s/s of respiratory distress presented. S/P Perma cath insertion on the LIJ, dressing dry and intact. PICC line DANYELLE intact, patent. No redness noted on affected site. Tolerating vent setting well. All need attended and met. No significant event reported all night. Continue care as planned.
--- NOTE | 2016-10-03 07:10 | NUR ---
Pt rec'd on Burns Vent, SIMV12 550vt PEEP0 PSV+10 35%FiO2, no further weaning noted for this today. pt tolerating current vent settings well, no sob/distress noted at this time. pt vent'd via tracheostomy, [id number] in-place patent and secured. vent alarms audible, checked and reset. back up trach and bvm at bedside. will cont to monitor and report any changes.
[2016-10-03 07:41] VITALS: BP 82/52
--- NOTE | 2016-10-03 07:45 | NUR ---
Low BP on pt was reported by RN ACUTE, at bedside,was notified,IV Bolus NS 500ml given
[2016-10-03] MEDS ORDERED: IV NORMAL SALINE 500 ML IV ONE (08:00)
[2016-10-03] MEDS: SUCRALFATE 1 G/10 ML LIQUID UDC GT SCH ×4 (08:08→20:54)
[2016-10-03] MEDS: ACIDOPHILUS/BULGARICUS CHEW TAB GT SCH ×2 (08:08→20:54)
[2016-10-03] MEDS: Z GUARD REMEDY PASTE 57 GM TUBE TOP SCH ×2 (08:09→20:55)
[2016-10-03] MEDS: PANTOPRAZOLE ORAL SUSPENSION 40 MG SUSPDR.PKT GT SCH ×2 (08:09→20:54)
[2016-10-03] MEDS: GABAPENTIN 100 MG CAPSULE GT SCH ×2 (08:09→20:54)
[2016-10-03] MEDS: FOLIC ACID/VITAMIN B COMP W-C TABLET GT SCH (08:09)
[2016-10-03] MEDS: SODIUM HYPOCHLORITE 0.125% 473 ML BOTTLE TP SCH (08:10)
[2016-10-03] MEDS: PEPTAMEN AF 1000ML BAG GT PRN (08:26)
[2016-10-03 08:37] LABS: BASOPHILS # (AUTO) 0.1 K/uL (0.0-8.0); BASOPHILS % (AUTO) 0.8 % (0.0-2.0); EOSINOPHILS # (AUTO) 0.8 K/uL (0.0-0.7); EOSINOPHILS % (AUTO) 4.7 % (0.0-7.0); HEMATOCRIT 27.3 % (40-50); LYMPHOCYTES % (AUTO) 12.2 % (20.5-51.5); MEAN CORPUSCULAR HEMOGLOBIN 29.3 UUG (27.0-31.0); MEAN CORPUSCULAR HGB CONC 33 g/dL (32.0-37.0); MEAN CORPUSCULAR VOLUME 88.6 FL (82.0-92.0); MONOCYTES # (AUTO) 1.5 K/UL (0.1-1.30); MONOCYTES % (AUTO) 9.2 % (0.0-11.0); NEUTROPHILS # (AUTO) 11.7 K/UL (1.8-8.9); NEUTROPHILS % (AUTO) 73.1 % (38.5-71.5); PLATELET COUNT (AUTO) 412 K/UL (150-450); RED BLOOD CELL COUNT(AUTO) 3.08 MIL/UL (4.7-6.1); WHITE BLOOD COUNT (AUTO) 16.1 K/UL (4.0-11.2)
[2016-10-03 09:06] LABS: BILIRUBIN,TOTAL 1.6 mg/dL (0.2-1.0); CREATININE 5.1 mg/dL (0.6-1.3); PHOSPHOROUS 5.3 mg/dL (2.5-4.9); POTASSIUM 4.8 mmol/L (3.5-5.1); TOTAL PROTEIN, SERUM 8.3 g/dL (6.4-8.2)
[2016-10-03] MEDS ORDERED: ALBUMIN HUMAN 25% 100 ML IV ONE (09:30)
[2016-10-03 12:03] VITALS: BP 101/60
--- NOTE | 2016-10-03 15:45 | NUR ---
PT.WAS SEEN BY .
[2016-10-03 16:20] VITALS: BP 99/62
[2016-10-03] MEDS: Z GUARD REMEDY PASTE 57 GM TUBE TOP PRN (16:48)
--- NOTE | 2016-10-03 18:45 | NUR ---
NO CHANGES IN PT.CONDITION NO S/S OF ACUTE DISTRESS OR PAIN NOTED.
--- NOTE | 2016-10-03 19:00 | NUR ---
Received report from CANDACE Champagne. Patient sleeping at this time. No s/s of pain/discomforts at thsi time. Tolerating vent setting well. Contact Isolation precaution maintained. Continue care as planned.
--- NOTE | 2016-10-03 19:01 | NUR ---
Pt received on Burns vent with settings of SIMV 12, VT 550, PSV 10, FiO2 35%. Pt tolerating vent settings well at this time, no signs of respiratory distress noted. Pt is trached with a Shiley 8 XLTD, which is secure and patent. Ambu-bga and back-up trach at bedside. Vent alarms functioning and audible. Will continue to monitor pt throughout shift.
[2016-10-03 20:00] VITALS: BP 102/64
[2016-10-03] MEDS: ATORVASTATIN 40 MG TABLET PO SCH (20:54)
[2016-10-04] VITALS (11 sets, daily range): BP systolic 75–119; BP diastolic 50–71
[2016-10-04] MEDS: PEPTAMEN AF 1000ML BAG GT PRN ×2 (04:29→08:24)
--- NOTE | 2016-10-04 06:00 | NUR ---
VSS. No respiratory distress noted. Tolerating vent setting well. All needs attended and met. No significant event reported all night. Continue care as planned.
[2016-10-04] MEDS: NORMAL SALINE FLUSH 10 ML DISP.SYRIN IV SCH ×3 (06:24→20:37)
[2016-10-04] MEDS: VANCOMYCIN FOR PO/GT/NG USE PO SCH ×3 (06:24→21:36)
[2016-10-04] MEDS: BLOOD SUGAR DIAGNOSTIC 1 EACH STRIP VI SCH ×3 (06:26→18:05)
[2016-10-04] MEDS: INSULIN REGULAR, HUMAN 300 UNIT/3 ML VIAL SQ PRN ×2 (06:27→12:30)
[2016-10-04 06:37] LABS: BASOPHILS # (AUTO) 0.1 K/uL (0.0-8.0); BASOPHILS % (AUTO) 0.6 % (0.0-2.0); EOSINOPHILS % (AUTO) 6.2 % (0.0-7.0); HEMATOCRIT 27.4 % (40-50); HEMOGLOBIN 9.3 G/DL (14.0-18.0); LYMPHOCYTES # (AUTO) 2.2 K/UL (0.8-4.8); MEAN CORPUSCULAR HEMOGLOBIN 30.4 UUG (27.0-31.0); MEAN CORPUSCULAR HGB CONC 34 g/dL (32.0-37.0); MEAN CORPUSCULAR VOLUME 89.5 FL (82.0-92.0); MONOCYTES # (AUTO) 1.8 K/UL (0.1-1.30); MONOCYTES % (AUTO) 11.2 % (0.0-11.0); NEUTROPHILS # (AUTO) 10.9 K/UL (1.8-8.9); PLATELET COUNT (AUTO) 379 K/UL (150-450); RED BLOOD CELL COUNT(AUTO) 3.06 MIL/UL (4.7-6.1); WHITE BLOOD COUNT (AUTO) 15.9 K/UL (4.0-11.2)
[2016-10-04 06:51] LABS: BILIRUBIN,TOTAL 1.6 mg/dL (0.2-1.0); CREATININE 4.2 mg/dL (0.6-1.3); MAGNESIUM 2.8 mg/dL (1.8-2.4); PHOSPHOROUS 3.9 mg/dL (2.5-4.9); POTASSIUM 4.4 mmol/L (3.5-5.1); TOTAL PROTEIN, SERUM 8.2 g/dL (6.4-8.2)
--- NOTE | 2016-10-04 06:55 | NUR ---
Bedside reporting with CANDACE William
--- NOTE | 2016-10-04 07:30 | NUR ---
RECIEVED PT LYING IN BED WITH HOB UP AT 35DEGREES. OPENS EYES TO CALLS BUT OBTUNDED. ALL EXTREMETIES FLACCID. HR IS ATRIAL FIB WITH CONTROLLED VENTRICULAR RESPONSE. SBP STABLE. AFEBRILE. TRACHE#8 CLEAN AND INTACT. VENT SETTING IS SIMV-12, VT-550, PS-10, FIO2-35%. O2SAT IS 100%. NO APPARENT RESPIRATORY DISTRESS.
[2016-10-04 07:34] LABS: BAND % (MANUAL) 2 % (0-10); EOSINOPHILS % (MANUAL) 7 % (0-8); LYMPHOCYTES % (MANUAL) 17 % (20-40); MONOCYTES % (MANUAL) 9 % (2-10); NEUTROPHILS % (MANUAL) 65 % (42-75)
--- NOTE | 2016-10-04 07:59 | NUR ---
PT RECEIVED ON GODDARD VENT, SETTINGS ARE SIMV12, Vt 550, PS 10, 35% FiO2. PT TOLERATING VENT SETTINGS WELL WITH NO SOB NOTED. ARVIN 8 TRACH IS PATENT AND SECURED WITH TIES. HAS LARGE AMOUNTS OF THICK YELLOW SECRETIONS. BACK UP TRACH AND BVM AT BEDSIDE. ALARMS ARE ON AND AUDIBLE. WILL CONTINUE TO MONITOR.
[2016-10-04] MEDS: FOLIC ACID/VITAMIN B COMP W-C TABLET GT SCH (08:15)
[2016-10-04] MEDS: SUCRALFATE 1 G/10 ML LIQUID UDC GT SCH ×4 (08:15→20:35)
[2016-10-04] MEDS: GABAPENTIN 100 MG CAPSULE GT SCH ×2 (08:15→20:37)
[2016-10-04] MEDS: PANTOPRAZOLE ORAL SUSPENSION 40 MG SUSPDR.PKT GT SCH ×2 (08:15→20:37)
[2016-10-04] MEDS: ACIDOPHILUS/BULGARICUS CHEW TAB GT SCH ×2 (08:15→20:37)
[2016-10-04] MEDS: Z GUARD REMEDY PASTE 57 GM TUBE TOP SCH ×2 (08:18→20:36)
[2016-10-04] MEDS: SODIUM HYPOCHLORITE 0.125% 473 ML BOTTLE TP SCH (08:18)
[2016-10-04] MEDS ORDERED: SODI473S8 TP (08:36)
[2016-10-04] MEDS ORDERED: MENT71OI TOP (08:36)
[2016-10-04] MEDS ORDERED: PANT40SU2 GT (08:36)
[2016-10-04] MEDS ORDERED: VANC500V PO (08:36)
[2016-10-04] MEDS ORDERED: ACET650S26 GT (08:36)
[2016-10-04] MEDS ORDERED: ACID1TAB4 GT (08:36)
[2016-10-04] MEDS ORDERED: ATOR40TA PO (08:36)
--- NOTE | 2016-10-04 09:00 | NUR ---
FLEXISEAL IN PLACE AND DRAINING LIQUID BROWN STOOL LARGE AMOUNT. IRRIGATE WITH WATER AND PATENT. PEPTAMEN TUBE FEEDING STARTED AT 80ML. TOLERATING WELL.
--- NOTE | 2016-10-04 10:00 | NUR ---
CONTINUE CURRENT TX PLAN. SEEN BY DR CHACON WITH DISCHARGE ORDER. LINSEED CAKE TRIMMER MADE AWARE AWAITING CALL BACK FROM [facility].
--- NOTE | 2016-10-04 11:26 | NUR ---
RESTING COMFORTABLY WITH NO SIGNS OF DISTRESS FROM CURRENT VENT SETTINGS SATURATING 100%. TOLERATING FEEDING WELL. CONTROLLED A-FIB ON MONITOR. VS WNL
--- NOTE | 2016-10-04 15:00 | NUR ---
AMBULANCE IN SBP 75/54, DR JARA AROUND WITH ORDERS
[2016-10-04] MEDS ORDERED: IV NORMAL SALINE 500 ML IV ONE (15:45)
--- NOTE | 2016-10-04 16:46 | NUR ---
BP 90/57 RESTING WARM AND DRY SKIN SATURATING 100
--- NOTE | 2016-10-04 17:56 | NUR ---
DR JARA NOTIFIED OF PATIENT BLOOD PRESSURE AND SAID TO GO WITH DISCHARGE TO [facility]. AMBULANCE AND [facility] NOTIFIED
--- NOTE | 2016-10-04 17:59 | NUR ---
REPORT GIVEN TO LAUREN MARIA AT [facility]
--- NOTE | 2016-10-04 20:00 | NUR ---
RECEIVED PT.OPEN HIS EYES TO PAINFUL STIMULI. TRACH TO VENT W/ SETTINGS OF SIMV-12, TV-550, FIO2-35%, PSV-10, W/ O2 SAT OF 95%. G-TUBE INTACT W/ TUBE FDG. PEPTAMIN AF @ 80CC/HR, NO RESIDUAL NOTED. PICC LINE ON DANYELLE & PERMA CATH ON L CHEST INTACT. SUCTIONED VIA TRACH & VIA ORALLY W/ THICK MOD. PALE YELLOWISH MUCOUS. C-SCOPE AFIB CONTROLLED.
[2016-10-04] MEDS: ATORVASTATIN 40 MG TABLET PO SCH (20:36)
--- NOTE | 2016-10-04 22:30 | NUR ---
TRANSFERED TO [facility]IA [facility]. REPORT GIVEN TO CANDACE..
[2016-10-07] MEDS ORDERED: VANCOMYCIN FOR PO/GT/NG USE PO SCH (06:00)
== END 2016-10-04 22:28 | DRG 173 ==
LOC: ER 00:49 → TELE-TD 05:30 → CCU 23:05 → TELE-TD 08-16 14:00 → CCU 08-17 17:08 → TELE-TD 09-28 18:13
PROVIDERS: ADMIT Internal Medicine Nephrology; ATTEND Internal Medicine
PROC: 5A1955Z Respiratory Ventilation, Greater than 96 Consecutive Hours (ICD-10-PCS; principal; 2016-08-09)
PROC: 30233N1 Transfusion of Nonautologous Red Blood Cells into Peripheral Vein, Percutaneous Approach (ICD-10-PCS; principal; 2016-08-09)
PROC: 5A1D60Z (ICD-10-PCS; principal; 2016-08-09)
PROC: 02HV33Z Insertion of Infusion Device into Superior Vena Cava, Percutaneous Approach (ICD-10-PCS; 2016-08-10)
PROC: 05PY33Z Removal of Infusion Device from Upper Vein, Percutaneous Approach (ICD-10-PCS; 2016-08-25)
PROC: 0JB70ZZ Excision of Back Subcutaneous Tissue and Fascia, Open Approach (ICD-10-PCS; 2016-08-29)
PROC: B544ZZA Ultrasonography of Left Jugular Veins, Guidance (ICD-10-PCS; 2016-08-31)
PROC: 05HN33Z Insertion of Infusion Device into Left Internal Jugular Vein, Percutaneous Approach (ICD-10-PCS; 2016-08-31)
PROC: 06H03DZ Insertion of Intraluminal Device into Inferior Vena Cava, Percutaneous Approach (ICD-10-PCS; 2016-09-05)
PROC: 0W3P8ZZ Control Bleeding in Gastrointestinal Tract, Via Natural or Artificial Opening Endoscopic (ICD-10-PCS; 2016-09-06)
PROC: 0DB68ZX Excision of Stomach, Via Natural or Artificial Opening Endoscopic, Diagnostic (ICD-10-PCS; 2016-09-06)
PROC: 0JB70ZZ Excision of Back Subcutaneous Tissue and Fascia, Open Approach (ICD-10-PCS; 2016-09-25)
PROC: 05HN33Z Insertion of Infusion Device into Left Internal Jugular Vein, Percutaneous Approach (ICD-10-PCS; 2016-10-02)
PROC: B514ZZA Fluoroscopy of Left Jugular Veins, Guidance (ICD-10-PCS; 2016-10-02)
DX: T82.7XXA Infection and inflammatory reaction due to other cardiac and vascular devices, implants and grafts, initial encounter (principal); I21.4 Non-ST elevation (NSTEMI) myocardial infarction; J96.21 Acute and chronic respiratory failure with hypoxia; R65.21 Severe sepsis with septic shock; A41.9 Sepsis, unspecified organism; G92 Toxic encephalopathy; E43 Unspecified severe protein-calorie malnutrition; I50.23 Acute on chronic systolic (congestive) heart failure; J15.1 Pneumonia due to Pseudomonas; L89.154 Pressure ulcer of sacral region, stage 4; K25.4 Chronic or unspecified gastric ulcer with hemorrhage; J44.0 Chronic obstructive pulmonary disease with (acute) lower respiratory infection; D62 Acute posthemorrhagic anemia; G93.1 Anoxic brain damage, not elsewhere classified; J15.6 Pneumonia due to other Gram-negative bacteria; I82.442 Acute embolism and thrombosis of left tibial vein; J96.22 Acute and chronic respiratory failure with hypercapnia; N18.6 End stage renal disease; Z93.0 Tracheostomy status; I48.2 Chronic atrial fibrillation; E11.22 Type 2 diabetes mellitus with diabetic chronic kidney disease; Z79.01 Long term (current) use of anticoagulants; I25.10 Atherosclerotic heart disease of native coronary artery without angina pectoris; Z95.1 Presence of aortocoronary bypass graft; I13.2 Hypertensive heart and chronic kidney disease with heart failure and with stage 5 chronic kidney disease, or end stage renal disease; Z99.2 Dependence on renal dialysis; Z86.74 Personal history of sudden cardiac arrest; Z22.322 Carrier or suspected carrier of Methicillin resistant Staphylococcus aureus; Z89.511 Acquired absence of right leg below knee; E78.5 Hyperlipidemia, unspecified; L89.621 Pressure ulcer of left heel, stage 1; E88.09 Other disorders of plasma-protein metabolism, not elsewhere classified; K43.2 Incisional hernia without obstruction or gangrene; R13.10 Dysphagia, unspecified; Z16.21 Resistance to vancomycin; D50.0 Iron deficiency anemia secondary to blood loss (chronic); B96.5 Pseudomonas (aeruginosa) (mallei) (pseudomallei) as the cause of diseases classified elsewhere; E66.2 Morbid (severe) obesity with alveolar hypoventilation; G47.33 Obstructive sleep apnea (adult) (pediatric); K80.20 Calculus of gallbladder without cholecystitis without obstruction; L97.819 Non-pressure chronic ulcer of other part of right lower leg with unspecified severity; K29.71 Gastritis, unspecified, with bleeding; K74.60 Unspecified cirrhosis of liver; L89.629 Pressure ulcer of left heel, unspecified stage; Z93.1 Gastrostomy status; Z87.74 Personal history of (corrected) congenital malformations of heart and circulatory system; Z99.11 Dependence on respirator [ventilator] status; Z86.14 Personal history of Methicillin resistant Staphylococcus aureus infection; Z86.19 Personal history of other infectious and parasitic diseases; Z68.35 Body mass index [BMI] 35.0-35.9, adult; R18.8 Other ascites; K76.6 Portal hypertension; D63.1 Anemia in chronic kidney disease; R19.7 Diarrhea, unspecified; Z16.24 Resistance to multiple antibiotics; D69.6 Thrombocytopenia, unspecified; D68.59 Other primary thrombophilia; I73.9 Peripheral vascular disease, unspecified; Z87.01 Personal history of pneumonia (recurrent); Z79.899 Other long term (current) drug therapy; Z78.9 Other specified health status; Z79.2 Long term (current) use of antibiotics
CPT/HCPCS: 36415; 36569; 36600; 51702; 70030-TC; 71010; 74000; 76000; 76700; 80200; 82533; 83550; 83605; 83735; 83970; 84100; 85025; 85520; 85730; 86625; 86706; 86803; 86850; 86900; 86901; 86920; 87040; 87046; 87070; 87075; 87077; 87086; 87177; 87340; 87400; 89055; 90937; 93005; 93307; 94002; 94003; 94640; 94762; A4217; A4649; A4663; C1751; C9113; J0171; J0278; J0690; J0878; J0885; J1160; J1580; J1644; J1815; J2020; J2185; J2248; J2250; J2270; J2370; J2405; J2543; J3010; J3260; J3370; J3480; J3490; J7030; J7040; J7050; J7060; J7070; P9016-BL; P9021; P9045; P9047; Q9966; Q9967